=== PATIENT | female | born 1935 | race Caucasian/White ===

== ENCOUNTER 2016-11-08 16:08 | Emergency (ER) | payer MEDICARE, BC ==
[2016-11-08] MEDS ORDERED: SODIUM CHLORIDE 0.9% 1,000 ML IV STA (17:10)
[2016-11-08] MEDS ORDERED: LABETALOL 5 MG/ML VIAL MDV IVP STA ×2 (17:11→17:12)
[2016-11-08 17:29] LABS: Appearance,Urine Clear (Clear); Bilirubin,Urine Negative (Negative); Glucose,Urine (UA) Negative (Negative); Ketones,Urine Negative (Negative); Leukocyte Esterase,Urine Negative (Negative); Nitrite,Urine Negative (Negative); Protein,Urine Negative (Negative); Specific Gravity,Urine 1.008 (1.001-1.035); UA Billing (MACRO vs. MICRO) CHEM; Urobilinogen,Urine <2.0 mg/dL (<2.0)
--- NOTE | 2016-11-08 17:49 | ED ---
General Adult HPI - General Chief complaint: Recheck/Abnormal Lab/Rx Stated complaint: Blood Pressure Time Seen by Provider: 11/08/16 16:47 Source: patient, family, RN notes reviewed Mode of arrival: wheelchair Limitations: no limitations - History of Present Illness Initial comments: 81-year-old female presents to the emergency department with a chief complaint of hypertension. Patient was found to be hypertensive at home when she took her routine tests that she's been taking for her kidney doctor. Patient states that her blood pressure was 200/100. She called her doctor was informed to come to the emergency department. Patient states besides for some left side pain and some increased frequency of urination she hasn't really noticed any other complaints. Patient denies any fever chills cough cold runny nose. Patient denies any nausea vomiting. Patient states that she was concerned due to the increased urination along with a blood pressure so she thought that she should be evaluated. Patient has suffered from chronic kidney disease stage III denies why she is tracking her blood pressures at this time. Patient did take her blood pressure medication today. Patient denies any recent fever, chills, shortness of breath, chest pain, back pain, nausea vomiting, numbness or tingling, dysuria or hematuria, constipation or diarrhea, headaches or visual changes, or any other current symptoms. - Related Data Home Medications Medication Instructions Recorded Confirmed Levothyroxine Sodium [Synthroid] 50 mcg PO QAM 07/05/14 11/08/16 Losartan Potassium 50 mg PO BID 02/17/15 11/08/16 Famotidine [Pepcid] 20 mg PO BID PRN 10/28/15 11/08/16 Spironolactone [Aldactone] 12.5 mg PO QAM 10/28/15 11/08/16 Vitamin B Complex 1 cap PO DAILY 10/28/15 11/08/16 Acetaminophen Tab [Tylenol] 650 mg PO Q6HR PRN 03/26/16 11/08/16 Lactobacillus Acidophilus 1 tab PO DAILY 11/08/16 11/08/16 [Acidophilus] hydrALAZINE HCL [Apresoline] 50 mg PO BID@1200,2100 11/08/16 11/08/16 Allergies Allergy/AdvReac Type Severity Reaction Status Date / Time levofloxacin [From Levaquin] Allergy Nausea Verified 04/10/17 17:28 metronidazole [From Flagyl] Allergy Nausea Verified 11/08/16 17:28 nitrofurantoin Allergy Unknown Verified 11/08/16 17:28 [From Macrobid] nitrofurantoin Allergy Unknown Verified 11/08/16 17:28 macrocrystalline [From Macrobid] amiodarone HCl AdvReac Nausea Verified 11/08/16 17:28 [From Pacerone] Review of Systems ROS Statement: Those systems with pertinent positive or pertinent negative responses have been documented in the HPI. ROS Other: All systems not noted in ROS Statement are negative. Past Medical History Past Medical History: GI Bleed, Osteoarthritis (OA), Renal Disease, Syncope, Thyroid Disorder Additional Past Medical History / Comment(s): colitis, several syncopal events, Stage III kidney disease, See Dr De Leon H&P History of Any Multi-Drug Resistant Organisms: None Reported Past Surgical History: Appendectomy, Cholecystectomy, Hernia Repair, Hysterectomy, Orthopedic Surgery, Tonsillectomy Additional Past Surgical History / Comment(s): pericardial window surgery , L ankle ORIF, bilateral cataracts Past Anesthesia/Blood Transfusion Reactions: Previous Problems w/ Anesthesia Additional Past Anesthesia/Blood Transfusion Reaction / Comment(s): Pt received blood yrs ago without reaction. takes long time to wake up Past Psychological History: No Psychological Hx Reported Additional Psychological History / Comment(s): . Smoking Status: Never smoker Past Alcohol Use History: None Reported Past Drug Use History: None Reported - Past Family History Daughter(s) Additional Family Medical History / Comment(s): Patient has 2 daughters and 1 son with no major medical problems. Mother Family Medical History: Hypertension Additional Family Medical History / Comment(s): Mother at age 86 from a myocardial infarction. She had her kidney removed the patient does not know why. She also had history of hypertension. No known history of adrenal problems. Father Family Medical History: Cancer Additional Family Medical History / Comment(s): Father in his 70s from bladder cancer. Sister(s) Family Medical History: Cancer Additional Family Medical History / Comment(s): Patient has one sister with history of stomach cancer. Patient does not know any other history as she has no contact with her. General Exam - General Exam Comments Initial Comments: General: The patient is awake and alert, in no distress, and does not appear acutely ill. Eye: Pupils are equal, round and reactive to light, extra-ocular movements are intact; there is normal conjunctiva bilaterally. No signs of icterus. Ears, nose, mouth and throat: There are moist mucous membranes and no oral lesions. Neck: The neck is supple, there is no tenderness. Cardiovascular: There is a regular rate and rhythm. No murmur, rub or gallop is appreciated. Respiratory: Lungs are clear to auscultation, respirations are non-labored, breath sounds are equal. No wheezes, stridor, rales, or rhonchi. Gastrointestinal: Soft, non-distended, non-tender abdomen without masses or organomegaly noted. There is no rebound or guarding present. No CVA tenderness. Bowel sounds are unremarkable. Back: There is no tenderness to palpation in the midline. There is no obvious deformity. No rashes noted. Musculoskeletal: Normal ROM, no tenderness, There is no pedal edema. There is no calf tenderness or swelling. Sensation intact. Pulses equal bilaterally 2+. Neurological: CN II-XII intact, There are no obvious motor or sensory deficits. Coordination appears grossly intact. Speech is normal. Skin: Skin is warm and dry and no rashes or lesions are noted. Psychiatric: Cooperative, appropriate mood & affect, normal judgment. Limitations: no limitations Course Vital Signs 11/08/16 11/08/16 11/08/16 16:45 17:40 18:24 Temperature 97.3 F L Pulse Rate 88 Respiratory 16 Rate Blood Pressure 204/104 192/92 172/82 O2 Sat by Pulse 98 Oximetry 11/08/16 19:02 Temperature Pulse Rate Respiratory Rate Blood Pressure 172/72 O2 Sat by Pulse Oximetry - Reevaluation(s) Reevaluation #1: 11/08/16 19:18 Labetalol was given and patient's blood pressure did improve. Medical Decision Making - Medical Decision Making 81-year-old female presents for elevated blood pressure. Did complain of left side pain and increased frequency of urination urine does not appear to have a UTI and patient's CAT scan does not show any findings related to the pain. She does have chronic kidney disease which does appear to be stable. This time the patient will be discharged home. We discussed follow-up with her doctor. We discussed continuing to monitor blood pressure we discussed return parameters. Patient stated that she understood all questions have been answered. She'll be discharged. - Lab Data Result diagrams: 11/08/16 17:40 11/08/16 17:40 Lab Results 11/08/16 11/08/16 11/08/16 Range/Units 17:20 17:40 17:40 WBC 9.9 (3.8-10.6) k/uL RBC 4.02 (3.80-5.40) m/uL Hgb 13.0 (11.4-16.0) gm/dL Hct 39.5 (34.0-46.0) % MCV 98.4 (80.0-100.0) fL MCH 32.4 (25.0-35.0) pg MCHC 32.9 (31.0-37.0) g/dL RDW 12.9 (11.5-15.5) % Plt Count 264 (150-450) k/uL Neutrophils % 73 % Lymphocytes % 16 % Monocytes % 6 % Eosinophils % 2 % Basophils % 1 % Neutrophils # 7.2 (1.3-7.7) k/uL Lymphocytes # 1.6 (1.0-4.8) k/uL Monocytes # 0.6 (0-1.0) k/uL Eosinophils # 0.2 (0-0.7) k/uL Basophils # 0.1 (0-0.2) k/uL Sodium 134 L (137-145) mmol/L Potassium 4.5 (3.5-5.1) mmol/L Chloride 101 (98-107) mmol/L Carbon Dioxide 21 L (22-30) mmol/L Anion Gap 12 mmol/L BUN 37 H (7-17) mg/dL Creatinine 1.17 H (0.52-1.04) mg/dL Est GFR (MDRD) Af Amer 54 (>60 ml/min/1.73 sqM) Est GFR (MDRD) Non-Af 45 (>60 ml/min/1.73 sqM) Glucose 104 H (74-99) mg/dL Calcium 9.9 (8.4-10.2) mg/dL Total Bilirubin 0.7 (0.2-1.3) mg/dL AST 27 (14-36) U/L ALT 26 (9-52) U/L Alkaline Phosphatase 89 (38-126) U/L Total Protein 8.1 (6.3-8.2) g/dL Albumin 4.7 (3.5-5.0) g/dL Urine Color Yellow Urine Appearance Clear (Clear) Urine pH 5.0 (5.0-8.0) Ur Specific [place] 1.008 (1.001-1.035) Urine Protein Negative (Negative) Urine Glucose (UA) Negative (Negative) Urine Ketones Negative (Negative) Urine Blood Negative (Negative) Urine Nitrite Negative (Negative) Urine Bilirubin Negative (Negative) Urine Urobilinogen <2.0 (<2.0) mg/dL Ur Leukocyte Esterase Negative (Negative) Disposition Clinical Impression: Uncontrolled hypertension Disposition: HOME SELF-CARE Condition: Stable Instructions: Hypertension (ED) Additional Instructions: Please use medication as discussed. Please follow up with family doctor if symptoms have not improved over the next two days. Please return to the emergency room if your symptoms increase or worsen or for any other concerns. Referrals: Sami Swift MD [Primary Care Provider] - 1-2 days Time of Disposition: 19:18
[2016-11-08 17:59] LABS: Basophils # (A) 0.1 k/uL (0-0.2); Basophils % (A) 1 %; CH 32.6; CHCM 33.2; Eosinophils # (A) 0.2 k/uL (0-0.7); Eosinophils % (A) 2 %; HCT 39.5 % (34.0-46.0); HDW 2.31; Luc # (Auto) 0.19; Luc % (Auto) 2; Lymphocytes # (A) 1.6 k/uL (1.0-4.8); Lymphocytes % (A) 16 %; MCH 32.4 pg (25.0-35.0); MCHC 32.9 g/dL (31.0-37.0); MCV 98.4 fL (80.0-100.0); Mean Platelet Volume 7.6; Monocytes # (A) 0.6 k/uL (0-1.0); Monocytes % (A) 6 %; Neutrophils # (A) 7.2 k/uL (1.3-7.7); Neutrophils % (A) 73 %; RBC 4.02 m/uL (3.80-5.40); RDW 12.9 % (11.5-15.5); WBC 9.9 k/uL (3.8-10.6); WBC (Perox) 9.89
[2016-11-08 18:10] LABS: Calcium 9.9 mg/dL (8.4-10.2); Potassium 4.5 mmol/L (3.5-5.1); Total Bilirubin 0.7 mg/dL (0.2-1.3); Total Protein 8.1 g/dL (6.3-8.2)
--- NOTE | 2016-11-08 19:15 | CT ---
EXAMINATION TYPE: CT abdomen pelvis wo con DATE OF EXAM: 11/08/2016 6:52 PM HISTORY: Left flank pain. History of renal disease. CT DLP: 796.00 mGycm. Automated Exposure Control for Dose Reduction was Utilized. TECHNIQUE: CT scan of the abdomen and pelvis is performed without oral or IV contrast. COMPARISON: CT abdomen and pelvis July 05, 2014. FINDINGS: Within the limitations of a non-contrast study, the following observations are made. LUNG BASES: Cardiomegaly is redemonstrated. LIVER/GB: Cholecystectomy clips are again seen. PANCREAS: Stable mild generalized atrophy of pancreas is redemonstrated. SPLEEN: No significant abnormality is seen. ADRENALS: No significant abnormality is seen. KIDNEYS: Some cortical thinning in both kidneys is again seen. Mild perinephric fat stranding bilater ally is nonspecific but likely product or related to chronic medical renal disease. There is stable 9 mm exophytic hyperdense lesion felt to reflect proteinaceous cyst laterally upper pole level left ki dney on axial image 21. Subcentimeter low dense lesion laterally upper pole level right kidney on cor onal image 58 is too small to further characterize but stable and presumed benign. No renal stones or hydronephrosis evident bilaterally. No intraluminal calculus is seen in poorly distended bladder. BOWEL: Evaluation bowel is suboptimal secondary to lack of enteric contrast. Small hiatal hernia is r edemonstrated. There is no suspicious small or large bowel dilatation seen. There are diverticula see n in the sigmoid colon. No CT evidence for acute diverticulitis. Small bowel feces sign is seen consi stent with delayed passage of ingested material to colonic level. No suspicious dilatation is seen t o suggest obstruction. GENITAL ORGANS: Uterus is surgically absent or markedly atrophic in appearance. LYMPH NODES: No greater than 1cm abdominal or pelvic lymph nodes are appreciated. OSSEOUS STRUCTURES: There is vacuum disc phenomenon with mild disc space narrowing L3-L4 and L4-L5 le vels. Moderate disc space narrowing L5-S1 level is seen. There is facet arthropathy lower lumbar leve ls noted. OTHER: There is mild to moderate calcified atherosclerotic change of aorta and branch vessels. IMPRESSION: No renal stones or hydronephrosis is seen bilaterally. Evidence of chronic medical renal disease bilaterally. No significant acute finding is seen to account for patient's symptoms.
[2016-11-08 19:28] VITALS: BP 170/70; PULSE 77; RESP 18; TEMP 97.2
== END 2016-11-08 19:29 | disposition home or self-care (01) ==
LOC: EC 16:08
DX: I12.9 Hypertensive chronic kidney disease with stage 1 through stage 4 chronic kidney disease, or unspecified chronic kidney disease (principal); N18.3 Chronic kidney disease, stage 3 (moderate); E07.9 Disorder of thyroid, unspecified; Z79.899 Other long term (current) drug therapy; Z88.1 Allergy status to other antibiotic agents; Z88.8 Allergy status to other drugs, medicaments and biological substances; Z90.710 Acquired absence of both cervix and uterus
CPT/HCPCS: 36415; 74176; 80053; 81003; 85025; 87086; 96361; 96374; 99284

== ENCOUNTER 2016-11-20 09:24 | Emergency (ER) | payer MEDICARE, BC ==
[2016-11-20] MEDS ORDERED: SODIUM CHLORIDE 0.9% 1,000 ML IV STA (09:42)
--- NOTE | 2016-11-20 09:47 | ED ---
General Adult HPI - General Chief complaint: Syncope Stated complaint: Weakness Time Seen by Provider: 11/20/16 09:35 Source: patient, RN notes reviewed Mode of arrival: EMS Limitations: no limitations - History of Present Illness Initial comments: Patient 81-year-old female who presents emergency room today by EMS, with chief complaint of near-syncope. Patient does admit that she got up this morning had her breakfast. She states she had a on movement. She states she had some cramping when she was in the bathroom. She states she got up and she felt "hot ". She states she was walking down the [place] told her son and she states she remembers going to sit down in the recliner. She states That next thing she remembers is waking up and EMS was there. Further information provided by EMS per her son stating that she began to fall down he lowered her to the ground. States she never fully lost consciousness. Patient does admit that she's had similar symptoms in the past to this after bowel movements. She states this is the fourth time this has happened. Patient does admit to some abdominal cramping at this time. She currently denies any other complaints. Patient denies any recent fever, chills, shortness of breath, chest pain, back pain, nausea or vomiting, numbness or tingling, dysuria or hematuria, constipation or diarrhea, headaches or visual changes, or any other complaints. - Related Data Home Medications Medication Instructions Recorded Confirmed Levothyroxine Sodium [Synthroid] 50 mcg PO QAM 07/05/14 11/08/16 Losartan Potassium 50 mg PO BID 02/17/15 11/08/16 Famotidine [Pepcid] 20 mg PO BID PRN 10/28/15 11/08/16 Spironolactone [Aldactone] 12.5 mg PO QAM 10/28/15 11/08/16 Vitamin B Complex 1 cap PO DAILY 10/28/15 11/08/16 Acetaminophen Tab [Tylenol] 650 mg PO Q6HR PRN 03/26/16 11/08/16 Lactobacillus Acidophilus 1 tab PO DAILY 11/08/16 11/08/16 [Acidophilus] hydrALAZINE HCL [Apresoline] 50 mg PO BID@1200,2100 11/08/16 11/08/16 Allergies Allergy/AdvReac Type Severity Reaction Status Date / Time levofloxacin [From Levaquin] Allergy Nausea Verified 11/20/16 09:41 metronidazole [From Flagyl] Allergy Nausea Verified 11/20/16 09:41 nitrofurantoin Allergy Unknown Verified 11/20/16 09:41 [From Macrobid] nitrofurantoin Allergy Unknown Verified 11/20/16 09:41 macrocrystalline [From Macrobid] amiodarone HCl AdvReac Nausea Verified 11/20/16 09:41 [From Pacerone] Review of Systems ROS Statement: Those systems with pertinent positive or pertinent negative responses have been documented in the HPI. ROS Other: All systems not noted in ROS Statement are negative. Past Medical History Past Medical History: GI Bleed, Osteoarthritis (OA), Renal Disease, Syncope, Thyroid Disorder Additional Past Medical History / Comment(s): colitis, several syncopal events, Stage III kidney disease, See Dr De Leon H&P History of Any Multi-Drug Resistant Organisms: None Reported Past Surgical History: Appendectomy, Cholecystectomy, Hernia Repair, Hysterectomy, Orthopedic Surgery, Tonsillectomy Additional Past Surgical History / Comment(s): pericardial window surgery , L ankle ORIF, bilateral cataracts Past Anesthesia/Blood Transfusion Reactions: Previous Problems w/ Anesthesia Additional Past Anesthesia/Blood Transfusion Reaction / Comment(s): Pt received blood yrs ago without reaction. takes long time to wake up Past Psychological History: No Psychological Hx Reported Additional Psychological History / Comment(s): . Smoking Status: Never smoker Past Alcohol Use History: None Reported Past Drug Use History: None Reported - Past Family History Daughter(s) Additional Family Medical History / Comment(s): Patient has 2 daughters and 1 son with no major medical problems. Mother Family Medical History: Hypertension Additional Family Medical History / Comment(s): Mother at age 86 from a myocardial infarction. She had her kidney removed the patient does not know why. She also had history of hypertension. No known history of adrenal problems. Father Family Medical History: Cancer Additional Family Medical History / Comment(s): Father in his 70s from bladder cancer. Sister(s) Family Medical History: Cancer Additional Family Medical History / Comment(s): Patient has one sister with history of stomach cancer. Patient does not know any other history as she has no contact with her. General Exam - General Exam Comments Initial Comments: General: The patient is awake and alert, in no distress, and does not appear acutely ill. Eye: Pupils are equal, round and reactive to light, extra-ocular movements are intact. No nystagmus. There is normal conjunctiva bilaterally. No signs of icterus. Ears, nose, mouth and throat: There are moist mucous membranes and no oral lesions. Neck: The neck is supple, there is no tenderness or JVD. Cardiovascular: There is a regular rate and rhythm. No murmur, rub or gallop is appreciated. Respiratory: Lungs are clear to auscultation, respirations are non-labored, breath sounds are equal. No wheezes, stridor, rales, or rhonchi. Gastrointestinal: Soft, non-distended, non-tender abdomen without masses or organomegaly noted. There is no rebound or guarding present. No CVA tenderness. Bowel sounds are unremarkable. Musculoskeletal: Normal ROM, no tenderness. Strength 5/5. Sensation intact. Pulses equal bilaterally 2+. Neurological: A&O x 3. CN II-XII intact, There are no obvious motor or sensory deficits. Coordination appears grossly intact. Speech is normal. Skin: Skin is warm and dry and no rashes or lesions are noted. Psychiatric: Cooperative, appropriate mood & affect, normal judgment. Limitations: no limitations Course Vital Signs 11/20/16 11/20/16 11/20/16 09:29 09:50 11:52 Temperature 97.4 F L Pulse Rate 88 83 82 Respiratory 16 16 18 Rate Blood Pressure 168/77 159/88 O2 Sat by Pulse 100 99 98 Oximetry EKG Findings - EKG Comments: EKG Findings:: EKG performed at 0953: A 12-lead EKG was performed and interpreted by me as showing the following: Rate is 87, and rhythm is normal sinus. There are normal QRS complexes and normal R-wave progression. ST segments have no elevation or depression, and GA segments appear normal. Medical Decision Making - Medical Decision Making Case discussed in detail with attending physician . Patient labs reviewed are unremarkable. Patient reexamined at this time shows no signs of distress. Patient does mention feeling much better here in the emergency room. Patient denies any complaints at this time. She does admit that she had similar symptoms in the past when she's got up off the toilet and felt "hot". Patient will be discharged home advised follow-up family doctor in the next 2 days. Advised return to emergency room if any symptoms increase or worsen or for any other concerns. - Lab Data Result diagrams: 11/20/16 09:48 11/20/16 09:48 Lab Results 11/20/16 11/20/16 11/20/16 Range/Units 09:48 09:48 09:48 WBC 9.0 (3.8-10.6) k/uL RBC 4.03 (3.80-5.40) m/uL Hgb 13.0 (11.4-16.0) gm/dL Hct 40.1 (34.0-46.0) % MCV 99.5 (80.0-100.0) fL MCH 32.3 (25.0-35.0) pg MCHC 32.4 (31.0-37.0) g/dL RDW 12.8 (11.5-15.5) % Plt Count 289 (150-450) k/uL Neutrophils % 76 % Lymphocytes % 14 % Monocytes % 6 % Eosinophils % 2 % Basophils % 1 % Neutrophils # 6.8 (1.3-7.7) k/uL Lymphocytes # 1.3 (1.0-4.8) k/uL Monocytes # 0.5 (0-1.0) k/uL Eosinophils # 0.2 (0-0.7) k/uL Basophils # 0.1 (0-0.2) k/uL PT (9.0-12.0) sec INR (<1.1) APTT (22.0-30.0) sec Sodium 136 L (137-145) mmol/L Potassium 4.9 (3.5-5.1) mmol/L Chloride 100 (98-107) mmol/L Carbon Dioxide 27 (22-30) mmol/L Anion Gap 9 mmol/L BUN 34 H (7-17) mg/dL Creatinine 1.39 H (0.52-1.04) mg/dL Est GFR (MDRD) Af Amer 44 (>60 ml/min/1.73 sqM) Est GFR (MDRD) Non-Af 37 (>60 ml/min/1.73 sqM) Glucose 151 H (74-99) mg/dL Calcium 9.5 (8.4-10.2) mg/dL Total Bilirubin 0.6 (0.2-1.3) mg/dL AST 23 (14-36) U/L ALT 28 (9-52) U/L Alkaline Phosphatase 78 (38-126) U/L Total Creatine Kinase 100 (30-135) U/L CK-MB (CK-2) 1.9 (0.0-2.4) ng/mL CK-MB (CK-2) Rel Index 1.9 Troponin I <0.012 (0.000-0.034) ng/mL Total Protein 7.5 (6.3-8.2) g/dL Albumin 4.2 (3.5-5.0) g/dL Lipase 114 (23-300) U/L Urine Color Urine Appearance (Clear) Urine pH (5.0-8.0) Ur Specific [place] (1.001-1.035) Urine Protein (Negative) Urine Glucose (UA) (Negative) Urine Ketones (Negative) Urine Blood (Negative) Urine Nitrite (Negative) Urine Bilirubin (Negative) Urine Urobilinogen (<2.0) mg/dL Ur Leukocyte Esterase (Negative) Urine RBC (0-5) /hpf Urine WBC (0-5) /hpf Ur Squamous Epith Cells (0-4) /hpf Amorphous Sediment (None) /hpf Urine Bacteria (None) /hpf Urine Mucus (None) /hpf 11/20/16 11/20/16 Range/Units 09:48 11:25 WBC (3.8-10.6) k/uL RBC (3.80-5.40) m/uL Hgb (11.4-16.0) gm/dL Hct (34.0-46.0) % MCV (80.0-100.0) fL MCH (25.0-35.0) pg MCHC (31.0-37.0) g/dL RDW (11.5-15.5) % Plt Count (150-450) k/uL Neutrophils % % Lymphocytes % % Monocytes % % Eosinophils % % Basophils % % Neutrophils # (1.3-7.7) k/uL Lymphocytes # (1.0-4.8) k/uL Monocytes # (0-1.0) k/uL Eosinophils # (0-0.7) k/uL Basophils # (0-0.2) k/uL PT 10.4 (9.0-12.0) sec INR 1.0 (<1.1) APTT 24.2 (22.0-30.0) sec Sodium (137-145) mmol/L Potassium (3.5-5.1) mmol/L Chloride (98-107) mmol/L Carbon Dioxide (22-30) mmol/L Anion Gap mmol/L BUN (7-17) mg/dL Creatinine (0.52-1.04) mg/dL Est GFR (MDRD) Af Amer (>60 ml/min/1.73 sqM) Est GFR (MDRD) Non-Af (>60 ml/min/1.73 sqM) Glucose (74-99) mg/dL Calcium (8.4-10.2) mg/dL Total Bilirubin (0.2-1.3) mg/dL AST (14-36) U/L ALT (9-52) U/L Alkaline Phosphatase (38-126) U/L Total Creatine Kinase (30-135) U/L CK-MB (CK-2) (0.0-2.4) ng/mL CK-MB (CK-2) Rel Index Troponin I (0.000-0.034) ng/mL Total Protein (6.3-8.2) g/dL Albumin (3.5-5.0) g/dL Lipase (23-300) U/L Urine Color Dark Yellow Urine Appearance Cloudy H (Clear) Urine pH 5.0 (5.0-8.0) Ur Specific [place] 1.017 (1.001-1.035) Urine Protein Trace H (Negative) Urine Glucose (UA) Negative (Negative) Urine Ketones Negative (Negative) Urine Blood Trace H (Negative) Urine Nitrite Negative (Negative) Urine Bilirubin Negative (Negative) Urine Urobilinogen <2.0 (<2.0) mg/dL Ur Leukocyte Esterase Moderate H (Negative) Urine RBC 4 (0-5) /hpf Urine WBC 7 H (0-5) /hpf Ur Squamous Epith Cells 2 (0-4) /hpf Amorphous Sediment Moderate H (None) /hpf Urine Bacteria Rare H (None) /hpf Urine Mucus Rare H (None) /hpf Disposition Clinical Impression: Near syncope Disposition: HOME SELF-CARE Condition: Good Instructions: Near Syncope (ED) Additional Instructions: Please follow-up the family doctor in the next 2 days. Please return to emergency room if any symptoms increase or worsen or for any other concerns. Time of Disposition: 12:11
[2016-11-20 10:04] LABS: Basophils # (A) 0.1 k/uL (0-0.2); Basophils % (A) 1 %; CH 32.7; Eosinophils # (A) 0.2 k/uL (0-0.7); Eosinophils % (A) 2 %; HCT 40.1 % (34.0-46.0); Luc # (Auto) 0.18; Luc % (Auto) 2; Lymphocytes # (A) 1.3 k/uL (1.0-4.8); Lymphocytes % (A) 14 %; MCH 32.3 pg (25.0-35.0); MCHC 32.4 g/dL (31.0-37.0); MCV 99.5 fL (80.0-100.0); Mean Platelet Volume 7.9; Monocytes # (A) 0.5 k/uL (0-1.0); Monocytes % (A) 6 %; Neutrophils # (A) 6.8 k/uL (1.3-7.7); Neutrophils % (A) 76 %; RBC 4.03 m/uL (3.80-5.40); RDW 12.8 % (11.5-15.5); WBC (Perox) 8.95
[2016-11-20 10:13] LABS: Calcium 9.5 mg/dL (8.4-10.2); Potassium 4.9 mmol/L (3.5-5.1); Total Bilirubin 0.6 mg/dL (0.2-1.3); Total Protein 7.5 g/dL (6.3-8.2)
[2016-11-20 10:32] LABS: Prothrombin Time 10.4 sec (9.0-12.0)
[2016-11-20 10:33] LABS: Partial Thromboplastin Time 24.2 sec (22.0-30.0)
[2016-11-20 10:35] LABS: Creatine Kinase 100 U/L (30-135)
--- NOTE | 2016-11-20 10:40 | XR ---
EXAMINATION TYPE: XR KUB DATE OF EXAM: 11/20/2016 10:34 AM COMPARISON: NONE INDICATION: Pain TECHNIQUE: Single view abdomen upright view FINDINGS: There is a normal bowel gas pattern. Psoas margins are normal. No organomegaly is present. Cholecystectomy clips are present. IMPRESSION: 1. Unremarkable Abdomen
--- NOTE | 2016-11-20 10:41 | XR ---
EXAMINATION TYPE: XR chest 2V DATE OF EXAM: 11/20/2016 10:34 AM COMPARISON: 10/28/2015 INDICATION: Syncope TECHNIQUE: Single frontal view of the chest is obtained. FINDINGS: The heart size is normal. The pulmonary vasculature is normal. The lungs are clear. IMPRESSION: 1. No acute pulmonary process.
[2016-11-20 10:46] LABS: Creatine Kinase MB 1.9 ng/mL (0.0-2.4); Troponin I <0.012 ng/mL (0.000-0.034)
[2016-11-20 11:53] VITALS: RESP 18
[2016-11-20 12:02] LABS: Amorphous Sediment,Urine Moderate /hpf; Appearance,Urine Cloudy (Clear); Bacteria,Urine Rare /hpf; Bilirubin,Urine Negative (Negative); Glucose,Urine (UA) Negative (Negative); Ketones,Urine Negative (Negative); Leukocyte Esterase,Urine Moderate (Negative); Mucus,Urine Rare /hpf; Nitrite,Urine Negative (Negative); Particle Count 56146; Protein,Urine Trace (Negative); RBC,Urine 4 /hpf (0-5); Specific Gravity,Urine 1.017 (1.001-1.035); Squamous Epithelial Cell,Urine 2 /hpf (0-4); UA Billing (MACRO vs. MICRO) MICRO; Urobilinogen,Urine <2.0 mg/dL (<2.0); WBC,Urine 7 /hpf (0-5)
[2016-11-20 12:46] VITALS: BP 182/79; PULSE 95; TEMP 97.2
== END 2016-11-20 12:45 | disposition home or self-care (01) ==
LOC: EC 09:24
DX: R55 Syncope and collapse (principal); R53.1 Weakness; R10.9 Unspecified abdominal pain; E07.9 Disorder of thyroid, unspecified; Z79.899 Other long term (current) drug therapy; Z88.1 Allergy status to other antibiotic agents; Z88.8 Allergy status to other drugs, medicaments and biological substances; Z90.49 Acquired absence of other specified parts of digestive tract; Z90.710 Acquired absence of both cervix and uterus
CPT/HCPCS: 36415; 71020; 74000; 80053; 81001; 82550; 82553; 83690; 84484; 85025; 85610; 85730; 93005; 96360; 96361; 99285

== ENCOUNTER → 2017-04-05 | Outpatient (CLI) | payer MEDICARE, BC ==
--- NOTE | 2017-04-06 14:42 | MM ---
Reason for exam: screening (asymptomatic). Last mammogram was performed 1 year ago. History: Patient is postmenopausal. Physical Findings: A clinical breast exam by your physician is recommended on an annual basis and results should be correlated with mammographic findings. MG Screening Mammo w CAD Bilateral CC and MLO view(s) were taken. Prior study comparison: March 22, 2016, bilateral MG screening mammo w CAD. October 02, 2015, right breast MG 3d diag mammo w/cad RT. The breast tissue is heterogeneously dense. This may lower the sensitivity of mammography. Finding: There is a 21 mm partially obscured round mass located 3 cm from the nipple in the 12-3 o'clock middle position of the right breast consistent with probable cyst. New finding since March 22, 2016 and October 02, 2015. ASSESSMENT: Incomplete: need additional imaging evaluation, BI-RAD 0 RECOMMENDATION: Ultrasound of the left breast. [facility] will attempt to contact patient to return for ultrasound.
== END | disposition home or self-care (01) ==
LOC: RADMAMWWP 14:41
PROVIDERS: ATTEND Family Medicine
DX: Z12.31 Encounter for screening mammogram for malignant neoplasm of breast (principal)

== ENCOUNTER → 2017-04-12 | Outpatient (CLI) | payer MEDICARE, BC ==
--- NOTE | 2017-04-13 08:26 | USB ---
Reason for exam: clinical finding. History: Patient is postmenopausal. Indicated problem(s): palpable abnormality in the left breast. Physical Findings: Nurse Summary: 2cm movable nodule (nurse dw). US Breast Workup Limited LT Left breast ultrasound demonstrates a 2.0 x 1.2 x 1.8cm oval, cystic lesion at 2 o'clock palpable and a 0.7 x 0.4 x 0.5cm oval, mixed, hypoechoic lesion at 2 o'clock, suspect debris filled cyst. These results were verbally communicated with the patient and result sheet given to the patient on 04/12/17. ASSESSMENT: Probably benign, BI-RAD 3 RECOMMENDATION: Follow-up diagnostic mammogram and ultrasound of the left breast in 6 months.
== END | disposition home or self-care (01) ==
LOC: RADUSWWP 13:22
PROVIDERS: ATTEND Family Medicine
DX: R92.8 Other abnormal and inconclusive findings on diagnostic imaging of breast (principal)

== ENCOUNTER → 2017-09-02 | Outpatient (CLI) | payer MEDICARE, BC ==
--- NOTE | 2017-09-02 10:47 | USB ---
Reason for exam: clinical finding. History: Patient is postmenopausal. Physical Findings: Nurse Summary: pain at palpable (nurse kp). US Breast LT Left breast ultrasound includes all four quadrants, the retroareolar region and axilla. Finding demonstrates a 9 x 5 x 9mm oval, mixed, hypoechoic lesion at 2 o'clock, smaller than prior suggests involuting cyst, a 6 x 3 x 9mm solid, hypoechoic lesion at 2 o'clock, smaller than prior and a 4 x 3 x 4mm lobular, mixed lesion at 6 o'clock, questionable cystic cluster, 6 month follow up recommended. These results were verbally communicated with the patient and result sheet given to the patient on 09/02/17. ASSESSMENT: Probably benign, BI-RAD 3 RECOMMENDATION: Follow-up diagnostic mammogram of the left breast in 2 months. Ultrasound of the left breast in 6 months. Manage on a clinical basis with regard to left breast pain.
== END | disposition home or self-care (01) ==
LOC: RADUSWWP 09:50
PROVIDERS: ATTEND Family Medicine
DX: N60.02 Solitary cyst of left breast (principal)

== ENCOUNTER → 2017-11-01 | Outpatient (CLI) | payer MEDICARE, BC ==
--- NOTE | 2017-11-01 11:55 | MM ---
Reason for exam: follow-up at short interval from prior study. Last mammogram was performed 7 months ago. History: Patient is postmenopausal. Physical Findings: Nurse did not find any significant physical abnormalities on exam. MG 3D Diag Mammo W/Cad LT CC and MLO view(s) were taken of the left breast. Prior study comparison: April 05, 2017, bilateral MG screening mammo w CAD. March 22, 2016, bilateral MG screening mammo w CAD. The breast tissue is heterogeneously dense. This may lower the sensitivity of mammography. The previously seen 2.0cm mass at the 2 o'clock position is less conspicuous than on the prior. These results were verbally communicated with the patient and result sheet given to the patient on 11/01/17. ASSESSMENT: Probably benign, BI-RAD 3 RECOMMENDATION: Follow-up diagnostic mammogram of both breasts in 6 months. Ultrasound of the left breast in 6 months.
== END | disposition home or self-care (01) ==
LOC: RADMAMWWP 09:56
PROVIDERS: ATTEND Family Medicine
DX: N63.20 Unspecified lump in the left breast, unspecified quadrant (principal)
CPT/HCPCS: 77065; G0279

== ENCOUNTER → 2018-05-10 | Outpatient (CLI) | payer MEDICARE, BC ==
--- NOTE | 2018-05-10 12:57 | US ---
EXAMINATION TYPE: US kidneys/renal and bladder DATE OF EXAM: 05/10/2018 COMPARISON: CT 2016, US 2014 CLINICAL HISTORY: N18.3 chronic kidney disease stage 3. CKD stage 3 EXAM MEASUREMENTS: Right Kidney: 9.3 x 4.2 x 4.3 cm Left Kidney: 9.2 x 4.6 x 5.0 cm Right Kidney: 1.4 x 0.9 x 1.3cm hyperechoic area lateral superior pole (1.2 x 1.1 x 1.2 cm previousl y) Left Kidney: 0.9 x 0.8 x 0.8cm exophytic cystic area mid superior pole (1.0 x 0.8 x 0.6 cm previousl y) Bladder: wnl Bilateral Jets seen: no There is no evidence for hydronephrosis at this point in time. No nephrolithiasis is seen. The urin malachi bladder is anechoic. IMPRESSION: Similar size of the bilateral renal lesions in comparison to the exam of 2015. Findings of medical re nal disease.
== END | disposition home or self-care (01) ==
LOC: RADUSWWP 11:59
PROVIDERS: ATTEND Internal Medicine Nephrology
DX: N28.9 Disorder of kidney and ureter, unspecified (principal); N18.3 Chronic kidney disease, stage 3 (moderate)
CPT/HCPCS: 76770

== ENCOUNTER → 2018-06-21 | Outpatient (CLI) | payer MEDICARE, BC ==
--- NOTE | 2018-06-26 08:58 | MM ---
Reason for exam: additional evaluation requested from prior study. Last mammogram was performed 8 months ago. History: Patient is postmenopausal. Physical Findings: Nurse Summary: 1cm nodule in the left breast at 12 o'clock and 2 o'clock (nurse charlette). MG 3D Diag Mammo W/Cad ANTON Bilateral CC and MLO view(s) were taken. Prior study comparison: November 01, 2017, left breast MG 3d diag mammo w/cad LT. April 05, 2017, bilateral MG screening mammo w CAD. Nodular asymmetry posterior central right breast is more defined. On additional views, a 6-7mm circumscribed nodule is seen. It remails centrally positioned on true lateral. Two palpable markers 12 o'clock and 2 o'clock left breast. These results were verbally communicated with the patient and result sheet given to the patient on 06/21/18. ASSESSMENT: Incomplete: need additional imaging evaluation, BI-RAD 0 RECOMMENDATION: Ultrasound of both breasts. (right periareolar and left as ordered)
--- NOTE | 2018-06-26 09:05 | USB ---
Reason for exam: additional evaluation requested from abnormal screening. History: Patient is postmenopausal. US Breast Limited BILAT Right limited breast ultrasound including focal area of concern, retroareolar and axilla demonstrates a 0.8 x 0.7 x 0.3cm oval, cystic lesion at 12 o'clock, a 0.9 x 0.5 x 0.4cm oval, hypoechoic, vascular lesion at 4 o'clock for which a 6 month follow up is recommended biopsy of suspicious changes at that time, a 0.3 x 0.2 x 0.2cm oval lesion too small to characterize at 5 o'clock, a 0.4 x 0.4 x 0.4cm round, cystic lesion at 7 o'clock and a 0.9 x 0.3 x 0.4cm oval, cystic cluster at 9 o'clock. Right breast scanned periareolar. Left complete breast ultrasound includes all four quadrants, the retroareolar region and axilla. Finding demonstrates a 0.3 x 0.3 x 0.2cm oval, cystic lesion at 1 o'clock, a 0.6 x 0.6 x 0.5cm oval, irregular, mixed lesion at 2 o'clock versus 9 x 5 x 9mm, smaller, 6 month follow up recommended, duct ectasia at 4 o'clock, 5 o'clock and 10 o'clock, a 0.4 x 0.4 x 0.3cm oval, mixed, vascular lesion at 6 o'clock, stable for 6 months, 6 month follow up recommended and a 0.8 x 1.1 x 0.3cm oval, elongated, cystic, benign lesion at 11 o'clock BB. These results were verbally communicated with the patient and result sheet given to the patient on 06/21/18. ASSESSMENT: Probably benign, BI-RAD 3 RECOMMENDATION: Ultrasound of both breasts in 6 months.
== END | disposition home or self-care (01) ==
LOC: RADMAMWWP 14:07
PROVIDERS: ATTEND Family Medicine
DX: R92.8 Other abnormal and inconclusive findings on diagnostic imaging of breast (principal)
CPT/HCPCS: 77066; 76642; G0279; 77062

== ENCOUNTER 2018-08-15 09:23 | Inpatient (IN) | payer MEDICARE, BC ==
[2018-08-15] MEDS ORDERED: ONDANSETRON 4 MG/2 ML VIAL IVP STA (09:59)
[2018-08-15] MEDS ORDERED: SODIUM CHLORIDE 0.9% 500 ML 500 ML IV STA (09:59)
--- NOTE | 2018-08-15 10:05 | ED ---
General Adult HPI - General Chief complaint: Nausea/Vomiting/Diarrhea Stated complaint: SOB, nausea Source: patient Mode of arrival: wheelchair Limitations: no limitations - Related Data Home Medications Medication Instructions Recorded Confirmed Levothyroxine Sodium [Synthroid] 50 mcg PO QAM 07/05/14 08/15/18 Losartan Potassium 50 mg PO BID 02/17/15 08/15/18 Famotidine [Pepcid] 20 mg PO BID 10/28/15 08/15/18 Spironolactone [Aldactone] 25 mg PO QAM 10/28/15 08/15/18 Vitamin B Complex 1 cap PO DAILY 10/28/15 08/15/18 hydrALAZINE HCL [Apresoline] 50 mg PO TID 11/20/16 08/15/18 Allergies Allergy/AdvReac Type Severity Reaction Status Date / Time levofloxacin [From Levaquin] Allergy Unknown Verified 08/15/18 10:06 metronidazole [From Flagyl] Allergy Swelling Verified 08/15/18 10:06 nitrofurantoin Allergy Unknown Verified 08/15/18 10:06 [From Macrobid] nitrofurantoin Allergy Unknown Verified 08/15/18 10:06 macrocrystalline [From Macrobid] amiodarone HCl AdvReac Nausea Verified 08/15/18 10:06 [From Pacerone] Review of Systems ROS Statement: Those systems with pertinent positive or pertinent negative responses have been documented in the HPI. ROS Other: All systems not noted in ROS Statement are negative. Past Medical History Past Medical History: GI Bleed, Osteoarthritis (OA), Renal Disease, Syncope, Thyroid Disorder Additional Past Medical History / Comment(s): colitis, several syncopal events, Stage III kidney disease, See Dr De Leon H&P History of Any Multi-Drug Resistant Organisms: None Reported Past Surgical History: Appendectomy, Cholecystectomy, Hernia Repair, Hysterectomy, Orthopedic Surgery, Tonsillectomy Additional Past Surgical History / Comment(s): pericardial window surgery , L ankle ORIF, bilateral cataracts Past Anesthesia/Blood Transfusion Reactions: Previous Problems w/ Anesthesia Additional Past Anesthesia/Blood Transfusion Reaction / Comment(s): Pt received blood yrs ago without reaction. takes long time to wake up Past Psychological History: No Psychological Hx Reported Smoking Status: Never smoker Past Alcohol Use History: None Reported Past Drug Use History: None Reported - Past Family History Daughter(s) Additional Family Medical History / Comment(s): Patient has 2 daughters and 1 son with no major medical problems. Mother Family Medical History: Hypertension Additional Family Medical History / Comment(s): Mother at age 86 from a myocardial infarction. She had her kidney removed the patient does not know why. She also had history of hypertension. No known history of adrenal problems. Father Family Medical History: Cancer Additional Family Medical History / Comment(s): Father in his 70s from bladder cancer. Sister(s) Family Medical History: Cancer Additional Family Medical History / Comment(s): Patient has one sister with history of stomach cancer. Patient does not know any other history as she has no contact with her. General Exam Limitations: no limitations Course Vital Signs 08/15/18 08/15/18 08/15/18 09:26 12:58 13:00 Temperature 97.4 F L Pulse Rate 82 80 Respiratory 18 16 Rate Blood Pressure 144/74 137/62 O2 Sat by Pulse 99 98 99 Oximetry Medical Decision Making - Medical Decision Making Dictation was produced using [employer] dictation software. please excuse any grammatical, word or spelling errors. Chief Complaint: 83-year-old female with past medical history of GI bleed, kidney disease, thyroid disease presents with chief complaint of nausea vomiting History of Present Illness: Patient is a 83-year-old female multiple comorbidities presents chief complaint of nausea, vomiting. Patient also feels short of breath. Patient has been having symptoms for 2 weeks. She decided come today because she feels like her symptoms are persistent. Patient has no other complaints at this time. Patient has no pain complains. The ROS documented in this emergency department record has been reviewed and confirmed by me. Those systems with pertinent positive or negative responses have been documented in the HPI. All other systems are other negative and/or noncontributory. PHYSICAL EXAM: General Impression: Alert and oriented x3, not in acute distress HEENT: Normocephalic atraumatic, extra-ocular movements intact, pupils equal and reactive to light bilaterally, mucous membranes moist. Cardiovascular: Heart regular rate and rhythm, S1&S2 audible, no murmurs, rubs or gallops Chest: Lungs clear to auscultation bilaterally, no rhonchi, no wheeze, no rales Abdomen: Bowel sounds present, abdomen soft, non-tender, non-distended, no organomegaly Musculoskeletal: Pulses present and equal in all extremities, no peripheral edema Motor: Power 5/5 bilaterally, no focal deficits noted Neurological: CN II-XII grossly intact, no focal motor or sensory deficits noted Skin: Intact with no visualized rashes Psych: Normal affect and mood ED course: 83-year-old female presents chief complaint nausea vomiting. Vital signs upon arrival shows no acute processes. Laboratory evaluation obtained. CBC unremarkable. Metabolic panel shows potassium 5.9., 21. There is no. Creatinine was 3.02 and BUN is 64 which is doubled since her most recent visit. Urinalysis shows 46 red blood cells and 8 white blood cells. Patient given intravenous fluids. Patient be admitted to internal medicine who requested renal ultrasound and consultation to nephrology. Hyperkalemia cocktail. She is given intravenous fluids. EKG interpretation: Ventricular rate 79, normal sinus rhythm, MT interval 190, QRS 92, QTC 420. No MT prolongation, no QTC prolongation, no ST or T-wave changes noted. Overall, this EKG is unremarkable - Lab Data Result diagrams: 08/15/18 10:34 08/15/18 10:34 Lab Results 08/15/18 08/15/18 08/15/18 Range/Units 10:34 10:34 12:55 WBC 9.3 (3.8-10.6) k/uL RBC 3.17 L (3.80-5.40) m/uL Hgb 10.4 L (11.4-16.0) gm/dL Hct 30.2 L (34.0-46.0) % MCV 95.1 (80.0-100.0) fL MCH 32.9 (25.0-35.0) pg MCHC 34.6 (31.0-37.0) g/dL RDW 13.2 (11.5-15.5) % Plt Count 327 (150-450) k/uL Neutrophils % 85 % Lymphocytes % 8 % Monocytes % 5 % Eosinophils % 1 % Basophils % 0 % Neutrophils # 7.8 H (1.3-7.7) k/uL Lymphocytes # 0.7 L (1.0-4.8) k/uL Monocytes # 0.5 (0-1.0) k/uL Eosinophils # 0.1 (0-0.7) k/uL Basophils # 0.0 (0-0.2) k/uL Sodium 134 L (137-145) mmol/L Potassium 5.9 H (3.5-5.1) mmol/L Chloride 103 (98-107) mmol/L Carbon Dioxide 21 L (22-30) mmol/L Anion Gap 10 mmol/L BUN 64 H (7-17) mg/dL Creatinine 3.02 H (0.52-1.04) mg/dL Est GFR (CKD-EPI)AfAm 16 (>60 ml/min/1.73 sqM) Est GFR (CKD-EPI)NonAf 14 (>60 ml/min/1.73 sqM) Glucose 112 H (74-99) mg/dL Calcium 9.5 (8.4-10.2) mg/dL Total Bilirubin 0.4 (0.2-1.3) mg/dL AST 22 (14-36) U/L ALT 26 (9-52) U/L Alkaline Phosphatase 74 (38-126) U/L Total Protein 6.5 (6.3-8.2) g/dL Albumin 3.9 (3.5-5.0) g/dL Urine Color Yellow Urine Appearance Clear (Clear) Urine pH 5.0 (5.0-8.0) Ur Specific [place] 1.010 (1.001-1.035) Urine Protein 1+ H (Negative) Urine Glucose (UA) Negative (Negative) Urine Ketones Negative (Negative) Urine Blood Moderate H (Negative) Urine Nitrite Negative (Negative) Urine Bilirubin Negative (Negative) Urine Urobilinogen <2.0 (<2.0) mg/dL Ur Leukocyte Esterase Trace H (Negative) Urine RBC 46 H (0-5) /hpf Urine WBC 8 H (0-5) /hpf Ur Squamous Epith Cells 1 (0-4) /hpf Urine Bacteria Rare H (None) /hpf Disposition Clinical Impression: EFE (acute kidney injury) Disposition: ADMITTED IP TO THIS HOSP Condition: Fair Referrals: Sami Swift MD [Primary Care Provider] - 1-2 days Decision Time: 14:44
--- NOTE | 2018-08-15 10:24 | XR ---
EXAMINATION TYPE: XR KUB DATE OF EXAM: 08/15/2018 10:18 AM CLINICAL HISTORY: Abdominal pain with nausea and vomiting and back pain for 2 weeks. TECHNIQUE: Two Upright KUB images of the abdomen are obtained. COMPARISON: Abdominal x-ray November 20, 2016. CT abdomen and pelvis November 08, 2016.. FINDINGS: Scattered gas is seen in non-distended small bowel loops. Gas and fecal material is seen in non-distended colon. Cholecystectomy are noted. Vascular calcification in the pelvis is seen. Ca rdiomegaly is presented. Osseous structures are intact. IMPRESSION: Overall nonobstructive bowel gas pattern.
--- NOTE | 2018-08-15 10:26 | XR ---
EXAMINATION TYPE: XR chest 2V DATE OF EXAM: 08/15/2018 COMPARISON: CXR from 11/20/2016. HISTORY: SOB and chest pain. TECHNIQUE: Frontal and lateral views of the chest are obtained. FINDINGS: There is no focal air space opacity, pleural effusion, or pneumothorax seen. The cardiac silhouette size is enlarged with ectatic thoracic aorta. The osseous structures are intact. Cholec ystectomy clips are seen. IMPRESSION: Cardiomegaly without acute pulmonary process.
[2018-08-15 10:56] LABS: Basophils % (A) 0 %; Eosinophils # (A) 0.1 k/uL (0-0.7); Eosinophils % (A) 1 %; HCT 30.2 % (34.0-46.0); HGB 10.4 gm/dL (11.4-16.0); Lymphocytes # (A) 0.7 k/uL (1.0-4.8); Lymphocytes % (A) 8 %; MCH 32.9 pg (25.0-35.0); MCHC 34.6 g/dL (31.0-37.0); MCV 95.1 fL (80.0-100.0); Mean Platelet Volume 7.3; Monocytes # (A) 0.5 k/uL (0-1.0); Monocytes % (A) 5 %; Neutrophils # (A) 7.8 k/uL (1.3-7.7); Neutrophils % (A) 85 %; Platelet Count 327 k/uL (150-450); RBC 3.17 m/uL (3.80-5.40); RDW 13.2 % (11.5-15.5); WBC 9.3 k/uL (3.8-10.6)
[2018-08-15 11:05] LABS: Albumin 3.9 g/dL (3.5-5.0); Calcium 9.5 mg/dL (8.4-10.2); Potassium 5.9 mmol/L (3.5-5.1); Total Bilirubin 0.4 mg/dL (0.2-1.3); Total Protein 6.5 g/dL (6.3-8.2)
[2018-08-15 14:07] LABS: Appearance,Urine Clear (Clear); Bacteria,Urine Rare /hpf; Bilirubin,Urine Negative (Negative); Blood,Urine Moderate (Negative); Color,Urine Yellow; Glucose,Urine (UA) Negative (Negative); Ketones,Urine Negative (Negative); Leukocyte Esterase,Urine Trace (Negative); Nitrite,Urine Negative (Negative); Protein,Urine 1+ (Negative); RBC,Urine 46 /hpf (0-5); Squamous Epithelial Cell,Urine 1 /hpf (0-4); Urobilinogen,Urine <2.0 mg/dL (<2.0)
[2018-08-15] MEDS ORDERED: SODIUM CHLORIDE 0.9% 1,000 ML IV STA (14:36)
[2018-08-15] MEDS ORDERED: INSULIN REGULAR 100 UNIT/ML VIAL IV ONE (14:36)
[2018-08-15] MEDS ORDERED: DEXTROSE 50%-WATER 50 ML SYRINGE IVP ONE (14:36)
[2018-08-15] MEDS ORDERED: ALBUTEROL NEBULIZED 2.5 MG/3 ML INHALATION STA (14:36)
[2018-08-15] MEDS ORDERED: NALOXONE 0.4 MG/ML 1 ML VIAL IV PRN (14:45)
--- NOTE | 2018-08-15 15:07 | P.HPIM ---
History of Present Illness H&P Date: 08/15/18 This is a [id number] patient of Dr. Swift, Dr. Gerson Barry. Patient has underlying history of hypertension, ischemic colitis, hypothyroidism pleural effusions status post pericardial window, chronic kidney disease stage III, recurrent syncope for which she went to specialist and was told it was due to hyper aldosteronism and placed on Aldactone 25 mg tablet one half tablet daily. She states she also has been told many years ago that it was a vagus reaction and she states her blood pressure has been difficult to control. She states she has had 3 syncopal episodes in the past year. She presents to the emergency room secondary to nausea vomiting and diarrhea, has been weak, and has shortness of breath. Symptoms persisted for the past 2 weeks, patient denies any fever no chills, nausea but events, patient was subsequently seen in the emergency room with checks x-ray findings showing curly B lines, urinalysis shows 8 WBCs, 46 red blood cells, BUN off 64, creatinine of 0.02. Patient was admitted secondary to acute dehydration, hyperkalemia, dehydration. EKG did not show any acute ST-T wave changes, no QT prolongation, baseline creatinine 1.17 consult with nephrology, IV fluids to be given, e Review of Systems Constitutional: Reports as per HPI, Reports anorexia, Reports chills, Reports fatigue, Reports lethargy, Reports malaise, Denies chronic headaches, Denies chronic pain, Denies daytime sleepiness, Denies fever, Denies night sweats, Denies poor appetite, Denies sweats, Denies weakness, Denies weight gain, Denies weight loss Ears, nose, mouth and throat: Reports as per HPI, Denies ant. neck pain, Denies bleeding gums, Denies dental pain, Denies dysphagia, Denies epistaxis, Denies headache, Denies hoarseness, Denies mouth pain, Denies nasal congestion, Denies nasal discharge, Denies neck fullness/pressure, Denies neck lump, Denies nose pain, Denies odynophagia, Denies post-nasal drip, Denies sinus pain, Denies sinus pressure, Denies swelling in mouth, Denies swelling in throat, Denies sore throat, Denies vertigo, Denies voice changes Cardiovascular: Reports as per HPI, Denies chest pain, Denies claudication, Denies decreased exercise tolerance, Denies dyspnea on exertion, Denies edema, Denies high blood pressure, Denies irregular heart beat, Denies leg edema, Denies lightheadedness, Denies orthopnea, Denies palpitations, Denies paroxysmal nocturnal dyspnea, Denies phlebitis, Denies rapid heart beat, Denies shortness of breath, Denies syncope Respiratory: Reports as per HPI, Denies congestion, Denies cough, Denies cough with sputum, Denies dyspnea, Denies excessive sputum, Denies hemoptysis, Denies home oxygen, Denies pain, Denies pain on inspiration, Denies pleurisy, Denies respiratory infections, Denies sleep apnea, Denies snoring, Denies wheezing Gastrointestinal: Reports as per HPI, Reports diarrhea, Reports loss of appetite , Reports nausea, Reports vomiting, Denies abdominal pain, Denies belching, Denies bloating, Denies BRBPR, Denies change in bowel habits, Denies coffee ground emesis, Denies constipation, Denies dyspepsia, Denies early satiety, Denies excessive gas, Denies heartburn, Denies hematemesis, Denies hematochezia , Denies indigestion, Denies jaundice, Denies lactose intolerance, Denies melena Genitourinary: Reports as per HPI, Denies abnormal vaginal bleeding, Denies decreased libido, Denies difficulty conceiving, Denies difficulty voiding, Denies dysmenorrhea, Denies dyspareunia, Denies dysuria, Denies flank pain, Denies genital sores, Denies hematuria, Denies hot flashes, Denies incomplete emptying, Denies kidney stones, Denies menorrhagia, Denies mixed incontinence, Denies nocturia, Denies pelvic pain, Denies post void dribbling, Denies , Denies prolapse symptoms, Denies stress incontinence, Denies urge incontinence , Denies urgency, Denies urinary frequency, Denies vaginal discharge, Denies vaginal dryness, Denies vaginal itching, Denies vaginal odor Menstruation: Reports as per HPI Musculoskeletal: Reports as per HPI Integumentary: Reports as per HPI Neurological: Reports as per HPI, Denies aphasia, Denies ataxia, Denies balance difficulties, Denies burning pain, Denies change in mentation, Denies change in smell/taste, Denies change in speech, Denies confusion, Denies convulsions, Denies double vision, Denies gait dysfunction, Denies head injury, Denies headaches, Denies hearing difficulties, Denies lack of coordination, Denies loss of vision, Denies memory loss, Denies migraines, Denies motor disturbance, Denies numbness, Denies paralysis, Denies paresthesias, Denies seizures, Denies sensory deficit, Denies spasticity, Denies syncope, Denies tic, Denies tingling , Denies transient paralysis, Denies tremors, Denies vertigo, Denies weakness, Denies visual changes Psychiatric: Reports as per HPI, Denies anhedonia, Denies anxiety, Denies anxiety attacks, Denies change in appetite, Denies change in libido, Denies change in sleep habits, Denies confusion, Denies depression, Denies difficulty concentrating, Denies disorientation, Denies hallucinations, Denies hopelessness , Denies hypersomnia, Denies insomnia, Denies irritability, Denies memory loss, Denies mood swings, Denies paranoia, Denies sadness/tearfulness, Denies sleep disturbances, Denies suicidal ideation Hematologic/Lymphatic: Reports as per HPI, Denies easy bleeding, Denies easy bruising, Denies lymphadenopathy, Denies lymphedema, Denies thrombophilia Allergic/Immunologic: Reports as per HPI, Denies allergic rhinitis, Denies anaphylaxis, Denies angioedema, Denies gluten intolerance, Denies persistent infections, Denies seasonal allergies, Denies urticaria, Denies wheezing Past Medical History Past Medical History: GI Bleed, Osteoarthritis (OA), Renal Disease, Syncope, Thyroid Disorder Additional Past Medical History / Comment(s): colitis, several syncopal events, Stage III kidney disease, See Dr De Leon H&P History of Any Multi-Drug Resistant Organisms: None Reported Past Surgical History: Appendectomy, Cholecystectomy, Hernia Repair, Hysterectomy, Orthopedic Surgery, Tonsillectomy Additional Past Surgical History / Comment(s): pericardial window surgery , L ankle ORIF, bilateral cataracts Past Anesthesia/Blood Transfusion Reactions: Previous Problems w/ Anesthesia Additional Past Anesthesia/Blood Transfusion Reaction / Comment(s): Pt received blood yrs ago without reaction. takes long time to wake up Past Psychological History: No Psychological Hx Reported Smoking Status: Never smoker Past Alcohol Use History: None Reported Past Drug Use History: None Reported - Past Family History Daughter(s) Additional Family Medical History / Comment(s): Patient has 2 daughters and 1 son with no major medical problems. Mother Family Medical History: Hypertension Additional Family Medical History / Comment(s): Mother at age 86 from a myocardial infarction. She had her kidney removed the patient does not know why. She also had history of hypertension. No known history of adrenal problems. Father Family Medical History: Cancer Additional Family Medical History / Comment(s): Father in his 70s from bladder cancer. Sister(s) Family Medical History: Cancer Additional Family Medical History / Comment(s): Patient has one sister with history of stomach cancer. Patient does not know any other history as she has no contact with her. Medications and Allergies Home Medications Medication Instructions Recorded Confirmed Type Levothyroxine Sodium [Synthroid] 50 mcg PO QAM 07/05/14 08/15/18 History Losartan Potassium 50 mg PO BID 02/17/15 08/15/18 History Famotidine [Pepcid] 20 mg PO BID 10/28/15 08/15/18 History Spironolactone [Aldactone] 25 mg PO QAM 10/28/15 08/15/18 History Vitamin B Complex 1 cap PO DAILY 10/28/15 08/15/18 History hydrALAZINE HCL [Apresoline] 50 mg PO TID 11/20/16 08/15/18 History Allergies Allergy/AdvReac Type Severity Reaction Status Date / Time levofloxacin [From Levaquin] Allergy Unknown Verified 08/15/18 10:06 metronidazole [From Flagyl] Allergy Swelling Verified 08/15/18 10:06 nitrofurantoin Allergy Unknown Verified 08/15/18 10:06 [From Macrobid] nitrofurantoin Allergy Unknown Verified 08/15/18 10:06 macrocrystalline [From Macrobid] amiodarone HCl AdvReac Nausea Verified 08/15/18 10:06 [From Pacerone] Physical Exam Vitals: Vital Signs Temp Pulse Resp BP Pulse Ox 08/15/18 13:00 80 16 137/62 99 08/15/18 12:58 98 08/15/18 09:26 97.4 F L 82 18 144/74 99 Intake and Output 08/14/18 08/15/18 08/15/18 22:59 06:59 14:59 Other: Weight 83.915 kg - Constitutional General appearance: cooperative, no acute distress - EENT Eyes: anicteric sclerae, EOMI, PERRLA, dentition normal, normal appearance ENT: NA/AT, normal oropharynx - Neck Neck: normal ROM Thyroid: bilateral: normal size - Respiratory Respiratory: bilateral: CTA, negative: diminished, dullness, rales, rhonchi - Cardiovascular Rhythm: regular Heart sounds: normal: S1, S2 Abnormal Heart Sounds: no systolic murmur, no diastolic murmur, no rub, no S3 Gallop, no S4 Gallop, no click, no other - Gastrointestinal General gastrointestinal: normal bowel sounds, soft - Integumentary Integumentary: decreased turgor, normal - Neurologic Neurologic: CNII-XII intact - Musculoskeletal Musculoskeletal: gait normal, generalized weakness, strength equal bilaterally - Psychiatric Psychiatric: A&O x's 3, appropriate affect, intact judgment & insight Results CBC & Chem 7: 08/15/18 10:34 08/15/18 10:34 Labs: Abnormal Lab Results - Last 24 Hours (Table) 08/15/18 08/15/18 08/15/18 Range/Units 10:34 10:34 12:55 RBC 3.17 L (3.80-5.40) m/uL Hgb 10.4 L (11.4-16.0) gm/dL Hct 30.2 L (34.0-46.0) % Neutrophils # 7.8 H (1.3-7.7) k/uL Lymphocytes # 0.7 L (1.0-4.8) k/uL Sodium 134 L (137-145) mmol/L Potassium 5.9 H (3.5-5.1) mmol/L Carbon Dioxide 21 L (22-30) mmol/L BUN 64 H (7-17) mg/dL Creatinine 3.02 H (0.52-1.04) mg/dL Glucose 112 H (74-99) mg/dL Urine Protein 1+ H (Negative) Urine Blood Moderate H (Negative) Ur Leukocyte Esterase Trace H (Negative) Urine RBC 46 H (0-5) /hpf Urine WBC 8 H (0-5) /hpf Urine Bacteria Rare H (None) /hpf Laboratory Results WBC 9.3 k/uL (3.8-10.6) 08/15/18 10:34 RBC 3.17 m/uL (3.80-5.40) L 08/15/18 10:34 Hgb 10.4 gm/dL (11.4-16.0) L 08/15/18 10:34 Hct 30.2 % (34.0-46.0) L 08/15/18 10:34 MCV 95.1 fL (80.0-100.0) 08/15/18 10:34 MCH 32.9 pg (25.0-35.0) 08/15/18 10:34 MCHC 34.6 g/dL (31.0-37.0) 08/15/18 10:34 RDW 13.2 % (11.5-15.5) 08/15/18 10:34 Plt Count 327 k/uL (150-450) 08/15/18 10:34 Neutrophils % 85 % 08/15/18 10:34 Lymphocytes % 8 % 08/15/18 10:34 Monocytes % 5 % 08/15/18 10:34 Eosinophils % 1 % 08/15/18 10:34 Basophils % 0 % 08/15/18 10:34 Neutrophils # 7.8 k/uL (1.3-7.7) H 08/15/18 10:34 Lymphocytes # 0.7 k/uL (1.0-4.8) L 08/15/18 10:34 Monocytes # 0.5 k/uL (0-1.0) 08/15/18 10:34 Eosinophils # 0.1 k/uL (0-0.7) 08/15/18 10:34 Basophils # 0.0 k/uL (0-0.2) 08/15/18 10:34 Sodium 134 mmol/L (137-145) L 08/15/18 10:34 Potassium 5.9 mmol/L (3.5-5.1) H 08/15/18 10:34 Chloride 103 mmol/L (98-107) 08/15/18 10:34 Carbon Dioxide 21 mmol/L (22-30) L 08/15/18 10:34 Anion Gap 10 mmol/L 08/15/18 10:34 BUN 64 mg/dL (7-17) H 08/15/18 10:34 Creatinine 3.02 mg/dL (0.52-1.04) H 08/15/18 10:34 Est GFR (CKD-EPI)AfAm 16 (>60 ml/min/1.73 sqM) 08/15/18 10:34 Est GFR (CKD-EPI)NonAf 14 (>60 ml/min/1.73 sqM) 08/15/18 10:34 Glucose 112 mg/dL (74-99) H 08/15/18 10:34 Calcium 9.5 mg/dL (8.4-10.2) 08/15/18 10:34 Total Bilirubin 0.4 mg/dL (0.2-1.3) 08/15/18 10:34 AST 22 U/L (14-36) 08/15/18 10:34 ALT 26 U/L (9-52) 08/15/18 10:34 Alkaline Phosphatase 74 U/L (38-126) 08/15/18 10:34 Total Protein 6.5 g/dL (6.3-8.2) 08/15/18 10:34 Albumin 3.9 g/dL (3.5-5.0) 08/15/18 10:34 Urine Color Yellow 08/15/18 12:55 Urine Appearance Clear (Clear) 08/15/18 12:55 Urine pH 5.0 (5.0-8.0) 08/15/18 12:55 Ur Specific [place] 1.010 (1.001-1.035) 08/15/18 12:55 Urine Protein 1+ (Negative) H 08/15/18 12:55 Urine Glucose (UA) Negative (Negative) 08/15/18 12:55 Urine Ketones Negative (Negative) 08/15/18 12:55 Urine Blood Moderate (Negative) H 08/15/18 12:55 Urine Nitrite Negative (Negative) 08/15/18 12:55 Urine Bilirubin Negative (Negative) 08/15/18 12:55 Urine Urobilinogen <2.0 mg/dL (<2.0) 08/15/18 12:55 Ur Leukocyte Esterase Trace (Negative) H 08/15/18 12:55 Urine RBC 46 /hpf (0-5) H 08/15/18 12:55 Urine WBC 8 /hpf (0-5) H 08/15/18 12:55 Ur Squamous Epith Cells 1 /hpf (0-4) 08/15/18 12:55 Urine Bacteria Rare /hpf (None) H 08/15/18 12:55 Thrombosis Risk Factor Assmnt - DVT/VTE Prophylaxis DVT/VTE Prophylaxis: Low risk, early ambulation encouraged - Choose All That Apply Each Risk Factor Represents 3 Points: Age 75 years or older Thrombosis Risk Factor Assessment Total Risk Factor Score: 3 Thrombosis Risk Factor Assessment Level: Moderate Risk Assessment and Plan Plan: FINAL DIAGNOSIS: 1. Acute dehydration secondary to GI losses, with acute kidney failure, baseline creatinine of 1.17, coming in with creatinine of 3, patient will be hydrated, avoid nephrotoxins, consult with nephrology, renal ultrasound and a full U8 to include urine blood work would be followed With serial chemistries next 2. Acute urinary tract infection with hemorrhagic cystitis, microscopic hematuria noted on exam, culture to be done 3. History of Infectious colitis in a patient with history of ischemic colitis in 2000. colonoscopy with previous one finding a benign polyp. 3. Primary hyperaldosteronism. Patient has been on Aldactone 12.5 mg daily. 4. Hypothyroidism. Continue levothyroxine 50 g daily. 5. Acute kidney in jury on top of chronic kidney disease stage III secondary to fluid loss from diarrhea. Continue IV fluids 0.9 normal saline at 75 mL per hour. Avoid nephrotoxic agents. Recheck electrolytes and kidney function in the morning. History off simple partial seizure disorder 6. Hypertension. Continue hydralazine 25 mg twice daily. Aldactone 12.5 mg daily, hydrochlorothiazide 12.5 mg daily and losartan 50 mg twice daily are on hold. 7. DVT prophylaxis. Continue Lovenox 40 mg subcu daily. 8. Gastrointestinal prophylaxis. Continue Pepcid 20 mg daily.
[2018-08-15] MEDS: SODIUM CHLORIDE 0.9% 1,000 ML IV SCH ×2 (15:17→21:54)
--- NOTE | 2018-08-15 16:07 | US ---
EXAMINATION TYPE: US kidneys/renal and bladder DATE OF EXAM: 08/15/2018 COMPARISON: NONE CLINICAL HISTORY: Pain. pain, CKD EXAM MEASUREMENTS: Right Kidney: 8.8 x 3.7 x 4.3 cm Left Kidney: 8.6 x 3.5 x 4.8 cm Right Kidney: No hydronephrosis or masses seen, small in size Left Kidney: Possible subcentimeter cystic areas noted, small in size Bladder: not distended, EC patient There is no evidence for hydronephrosis at this point in time. Cortical medullary differentiation is diminished. No nephrolithiasis is seen. IMPRESSION: Findings of medical renal disease with suboptimally evaluated hypoechoic possible left renal cysts. N o hydronephrosis or nephrolithiasis of either kidney.
[2018-08-15 17:06] LABS: Basophils % (A) 0 %; Eosinophils # (A) 0.2 k/uL (0-0.7); Eosinophils % (A) 2 %; HCT 31.1 % (34.0-46.0); Lymphocytes # (A) 1.1 k/uL (1.0-4.8); Lymphocytes % (A) 13 %; MCH 31.5 pg (25.0-35.0); MCHC 32.3 g/dL (31.0-37.0); MCV 97.8 fL (80.0-100.0); Mean Platelet Volume 6.7; Monocytes # (A) 0.6 k/uL (0-1.0); Monocytes % (A) 6 %; Neutrophils % (A) 77 %; Platelet Count 331 k/uL (150-450); RBC 3.18 m/uL (3.80-5.40)
[2018-08-15 17:19] LABS: Glucose,Whole Blood 121 mg/dL (75-99)
[2018-08-15 17:35] LABS: Calcium 9.5 mg/dL (8.4-10.2); Potassium 4.9 mmol/L (3.5-5.1); Total Bilirubin 0.4 mg/dL (0.2-1.3)
[2018-08-15] MEDS: hydrALAZINE HCL 50 MG TAB PO SCH (21:54)
[2018-08-15] MEDS: FAMOTIDINE 20 MG TAB PO SCH (21:54)
[2018-08-16] MEDS: LEVOTHYROXINE 50 MCG TAB PO SCH (05:54)
[2018-08-16] MEDS: hydrALAZINE HCL 50 MG TAB PO SCH ×3 (08:35→21:16)
[2018-08-16] MEDS: FAMOTIDINE 20 MG TAB PO SCH (08:35)
[2018-08-16] MEDS: SODIUM CHLORIDE 0.9% 1,000 ML IV SCH ×3 (08:35→19:29)
[2018-08-16 08:44] LABS: Basophils % (A) 0 %; Eosinophils # (A) 0.1 k/uL (0-0.7); Eosinophils % (A) 2 %; HGB 8.8 gm/dL (11.4-16.0); Lymphocytes # (A) 0.8 k/uL (1.0-4.8); Lymphocytes % (A) 11 %; MCHC 33.7 g/dL (31.0-37.0); MCV 97.8 fL (80.0-100.0); Mean Platelet Volume 7.7; Monocytes # (A) 0.5 k/uL (0-1.0); Monocytes % (A) 6 %; Neutrophils % (A) 80 %; Platelet Count 279 k/uL (150-450); RBC 2.66 m/uL (3.80-5.40); RDW 13.2 % (11.5-15.5); WBC 7.4 k/uL (3.8-10.6)
[2018-08-16 09:20] LABS: Albumin 3.3 g/dL (3.5-5.0); Calcium 8.8 mg/dL (8.4-10.2); Total Bilirubin 0.2 mg/dL (0.2-1.3); Total Protein 6.1 g/dL (6.3-8.2)
[2018-08-16 09:35] LABS: Potassium 6.3 mmol/L (3.5-5.1)
[2018-08-16] MEDS ORDERED: DEXTROSE 50%-WATER 50 ML SYRINGE IVP STA ×2 (10:00→19:54)
[2018-08-16] MEDS ORDERED: INSULIN REGULAR 100 UNIT/ML VIAL IV ONE ×2 (10:00→19:53)
[2018-08-16] MEDS ORDERED: SODIUM BICARB 8.4% 50 ML SYR (1 MEQ/ML) IV STA (10:00)
[2018-08-16] MEDS ORDERED: SODIUM POLYSTYRENE SULFONATE 15 GM/60 ML BOTTLE PO STA (10:03)
--- NOTE | 2018-08-16 10:10 | P.NPCON ---
History of Present Illness - Reason for Consult acute renal failure - History of Present Illness Reason for consultation: Acute kidney injury on chronic kidney disease History of present illness: Patient is a 83-year-old female seen in consultation for acute kidney injury on chronic kidney disease. Patient has history of chronic kidney disease stage III with baseline creatinine near 1.4 secondary to nephrosclerosis. Patient presented to the hospital with nausea and vomiting going on for about 2 weeks duration. Patient states oral intake has been quite poor. She was taking antibiotics prior to admission the states her symptoms did not improve. She denies any diarrhea. No fever or chills. No cough. Denies using NSAIDs. No history of diabetes. No hematuria or dysuria. Patient's potassium was 5.9 on admission was medically treated. It did improve to 4.9 is up to 6.3 this morning. Hemodynamically she stable. No evidence of hypotension. She is currently maintained on IV fluids. Vital signs are stable. General: The patient appeared well nourished and normally developed. HEENT: Head exam is unremarkable. Neck is without jugular venous distension. LUNGS: Lungs are clear to auscultation and percussion. Breath sounds decreased. HEART: Rate and Rhythm are regular. First and second heart sounds normal. No murmurs, rubs or gallops. ABDOMEN: Abdominal exam reveals normal bowel sounds. Non-tender and non- distended. No evidence of peritonitis. EXTREMITITES: No clubbing, cyanosis, or edema. Past Medical History Past Medical History: Asthma, GI Bleed, Hypertension, Osteoarthritis (OA), Pneumonia, Renal Disease, Syncope, Thyroid Disorder Additional Past Medical History / Comment(s): colitis, several syncopal events, Stage III kidney disease, See Dr De Leon H&P, murmur, "past migraines found they were caused from an oat allergy" History of Any Multi-Drug Resistant Organisms: None Reported Past Surgical History: Appendectomy, Cholecystectomy, Hernia Repair, Hysterectomy, Orthopedic Surgery, Tonsillectomy Additional Past Surgical History / Comment(s): pericardial window surgery , L ankle ORIF, bilateral cataracts Past Anesthesia/Blood Transfusion Reactions: Previous Problems w/ Anesthesia Additional Past Anesthesia/Blood Transfusion Reaction / Comment(s): Pt received blood yrs ago without reaction. takes long time to wake up Smoking Status: Never smoker - Past Family History Daughter(s) Additional Family Medical History / Comment(s): Patient has 2 daughters and 1 son with no major medical problems. Mother Family Medical History: Hypertension Additional Family Medical History / Comment(s): Mother at age 86 from a myocardial infarction. She had her kidney removed the patient does not know why. She also had history of hypertension. No known history of adrenal problems. Father Family Medical History: Cancer Additional Family Medical History / Comment(s): Father in his 70s from bladder cancer. Sister(s) Family Medical History: Cancer Additional Family Medical History / Comment(s): Patient has one sister with history of stomach cancer. Patient does not know any other history as she has no contact with her. Medications and Allergies Home Medications Medication Instructions Recorded Confirmed Type Levothyroxine Sodium [Synthroid] 50 mcg PO QAM 07/05/14 08/15/18 History Losartan Potassium 50 mg PO BID 02/17/15 08/15/18 History Famotidine [Pepcid] 20 mg PO BID 10/28/15 08/15/18 History Spironolactone [Aldactone] 25 mg PO QAM 10/28/15 08/15/18 History Vitamin B Complex 1 cap PO DAILY 10/28/15 08/15/18 History hydrALAZINE HCL [Apresoline] 50 mg PO TID 11/20/16 08/15/18 History Allergies Allergy/AdvReac Type Severity Reaction Status Date / Time levofloxacin [From Levaquin] Allergy Unknown Verified 08/15/18 10:06 metronidazole [From Flagyl] Allergy Swelling Verified 08/15/18 10:06 nitrofurantoin Allergy Unknown Verified 08/15/18 10:06 [From Macrobid] nitrofurantoin Allergy Unknown Verified 08/15/18 10:06 macrocrystalline [From Macrobid] amiodarone HCl AdvReac Nausea Verified 08/15/18 10:06 [From Pacerone] Physical Exam Vitals: Vital Signs Temp Pulse Pulse Resp BP BP Pulse Ox 08/16/18 05:00 97.6 F 79 16 137/74 100 08/15/18 23:30 16 08/15/18 21:00 97.4 F L 88 16 128/64 97 08/15/18 17:54 15 08/15/18 16:00 98.0 F 124 H 15 157/69 97 08/15/18 15:50 98 17 157/69 98 08/15/18 15:43 98 20 08/15/18 15:40 96 17 157/69 100 08/15/18 15:30 86 18 157/69 100 08/15/18 15:20 83 16 157/69 100 08/15/18 15:10 80 15 137/62 100 08/15/18 15:06 84 16 08/15/18 15:00 137/62 08/15/18 14:50 73 16 137/62 98 08/15/18 14:40 71 19 137/62 99 08/15/18 14:30 74 14 137/62 99 08/15/18 14:20 75 20 137/62 99 08/15/18 14:10 71 18 137/62 99 08/15/18 14:00 77 18 137/62 98 08/15/18 13:50 75 16 137/62 98 08/15/18 13:40 75 18 137/62 99 08/15/18 13:30 72 19 137/62 98 08/15/18 13:20 72 18 137/62 99 08/15/18 13:10 75 16 137/62 99 08/15/18 13:00 80 16 137/62 99 08/15/18 12:58 98 Intake and Output 08/15/18 08/16/18 08/16/18 22:59 06:59 14:59 Intake Total 1420 590 Balance 1420 590 Intake: Oral 1420 590 Other: # Voids 3 Weight 83.915 kg Results - Lab Results Most recent lab results Calcium 8.8 mg/dL (8.4-10.2) 08/16/18 07:45 08/16/18 07:45 08/16/18 07:45 Assessment and Plan Plan: Assessment: 1. Acute kidney injury secondary to ATN secondary to intravascular volume depletion from nausea and vomiting. She was also taking Cozaar. Creatinine peaked at 3.07 and is 2.96 today. Rule out urinary retention. No evidence of hydronephrosis noted on renal ultrasound. 2. Hyperkalemia secondary to acute kidney injury and metabolic acidosis. 3. Anemia of chronic kidney disease. Rule out iron deficiency. 4. Chronic kidney disease stage III with baseline creatinine near 1.4 secondary to an of her cirrhosis. 5. Hypertension with chronic kidney disease. Controlled. 6. Metabolic acidosis secondary to acute kidney injury and IV fluids. Plan: Decreased rate of normal saline to 100 mL an hour. Add oral sodium bicarbonate. I will give her 2 A of bicarb IV push along with 10 units of IV insulin with an amp of D50 now. Low potassium diet. Hold Cozaar. Check bladder scan to rule out urinary retention. Repeat potassium level this afternoon. Follow-up cultures. Check iron studies. Add [place]. Thank you for the consultation. I will continue to follow the patient with you during her hospital stay.
[2018-08-16] MEDS: SODIUM BICARBONATE TAB 650 MG TAB PO SCH ×3 (10:57→21:16)
[2018-08-16] MEDS ORDERED: DARBEPOETIN ALFA 40 MCG/0.4 ML SYRINGE SQ SCH (11:00)
[2018-08-16] MEDS ORDERED: DOCUSATE 100 MG CAP PO STA (16:37)
[2018-08-16 16:50] LABS: Iron Saturation 24.64 (12.00-45.00)
[2018-08-16 20:32] LABS: Glucose,Whole Blood 113 mg/dL (75-99)
[2018-08-16] MEDS: ONDANSETRON 4 MG/2 ML VIAL IVP PRN (21:50)
[2018-08-17] MEDS: LEVOTHYROXINE 50 MCG TAB PO SCH (05:48)
[2018-08-17] MEDS: SODIUM CHLORIDE 0.9% 1,000 ML IV SCH ×3 (05:48→22:06)
[2018-08-17] MEDS: ONDANSETRON 4 MG/2 ML VIAL IVP PRN (05:58)
[2018-08-17] MEDS: ENOXAPARIN 30 MG/0.3 ML SYRINGE SQ SCH (08:30)
[2018-08-17] MEDS: FAMOTIDINE 20 MG TAB PO SCH (08:30)
[2018-08-17] MEDS: SODIUM BICARBONATE TAB 650 MG TAB PO SCH ×2 (08:30→21:03)
[2018-08-17] MEDS: hydrALAZINE HCL 50 MG TAB PO SCH ×3 (08:30→21:04)
[2018-08-17] MEDS ORDERED: DOCUSATE 100 MG CAP PO PRN (09:00)
[2018-08-17 09:03] LABS: Calcium 8.8 mg/dL (8.4-10.2); Magnesium 1.5 mg/dL (1.6-2.3)
[2018-08-17 09:18] LABS: Potassium 6.1 mmol/L (3.5-5.1)
[2018-08-17] MEDS ORDERED: INSULIN REGULAR 100 UNIT/ML VIAL IV ONE ×2 (09:20→20:59)
[2018-08-17] MEDS ORDERED: DEXTROSE 50%-WATER 50 ML SYRINGE IVP STA ×3 (09:20→20:59)
[2018-08-17] MEDS ORDERED: SODIUM BICARB 8.4% 50 ML VIAL (1 MEQ/ML) IV ONE (09:21)
[2018-08-17] MEDS ORDERED: FUROSEMIDE 10 MG/ML 4 ML VIAL IV STA ×2 (09:23→20:59)
[2018-08-17] MEDS: LORATADINE 10 MG TAB PO SCH (09:30)
[2018-08-17] MEDS: ACETAMINOPHEN TAB 325 MG TAB PO PRN ×2 (09:30→21:03)
--- NOTE | 2018-08-17 09:58 | P.PN ---
Subjective Patient is seen in follow-up for acute kidney injury on chronic kidney disease. Patient has chronic kidney disease stage III with baseline creatinine near 1.4 secondary to nephrosclerosis. Continues to have dry heaving. Oral intake is poor. Creatinine relatively stable at 3.02 today. Potassium elevated at 6.1. Vital signs are stable. General: The patient appeared well nourished and normally developed. HEENT: Head exam is unremarkable. Neck is without jugular venous distension. LUNGS: Lungs are clear to auscultation and percussion. Breath sounds decreased. HEART: Rate and Rhythm are regular. First and second heart sounds normal. No murmurs, rubs or gallops. ABDOMEN: Abdominal exam reveals normal bowel sounds. Non-tender and non- distended. No evidence of peritonitis. EXTREMITITES: Trace edema. Objective - Vital Signs Vital signs: Vital Signs Temp 97.6 F 08/17/18 05:00 Pulse 82 08/17/18 05:00 Resp 16 08/17/18 05:00 BP 155/72 08/17/18 05:00 Pulse Ox 95 08/17/18 05:00 Intake & Output 08/16/18 08/17/18 08/17/18 18:59 06:59 18:59 Intake Total 850 Output Total 450 Balance 400 Intake: Intake, IV Titration 850 Amount Sodium Chloride 0.9% 1, 800 000 ml @ 100 mls/hr IV . Q10H AJIT Rx#:[id number] cefTRIAXone 1,000 mg In 50 Sodium Chloride 0.9% 50 ml @ 100 mls/hr IVPB Q24H AJIT Rx#:[id number] Output: Urine 450 Straight 100 Other: Voiding Method Bedside Commode - Labs CBC & Chem 7: 08/16/18 07:45 08/17/18 08:05 Labs: Abnormal Lab Results - Last 24 Hours (Table) 08/16/18 08/16/18 08/16/18 Range/Units 07:45 13:55 20:31 Sodium (137-145) mmol/L Potassium 5.5 H (3.5-5.1) mmol/L Chloride (98-107) mmol/L Carbon Dioxide (22-30) mmol/L BUN (7-17) mg/dL Creatinine (0.52-1.04) mg/dL POC Glucose (mg/dL) 113 H (75-99) mg/dL Magnesium (1.6-2.3) mg/dL TIBC 207 L (228-460) ug/dL 08/17/18 Range/Units 08:05 Sodium 134 L (137-145) mmol/L Potassium 6.1 H* (3.5-5.1) mmol/L Chloride 109 H (98-107) mmol/L Carbon Dioxide 18 L (22-30) mmol/L BUN 55 H (7-17) mg/dL Creatinine 3.02 H (0.52-1.04) mg/dL POC Glucose (mg/dL) (75-99) mg/dL Magnesium 1.5 L (1.6-2.3) mg/dL TIBC (228-460) ug/dL Microbiology - Last 24 Hours (Table) 08/15/18 12:55 Urine Culture - Final Urine,Voided Assessment and Plan Plan: Assessment: 1. Acute kidney injury secondary to ATN secondary to intravascular volume depletion from nausea and vomiting. She was also taking Cozaar. Creatinine stable. No evidence of urinary retention. No evidence of hydronephrosis noted on renal ultrasound. 2. Hyperkalemia secondary to acute kidney injury and metabolic acidosis. 3. Anemia of chronic kidney disease. Iron replete. Maintained on Aranesp. 4. Chronic kidney disease stage III with baseline creatinine near 1.4 secondary to an of her cirrhosis. 5. Hypertension with chronic kidney disease. Stable. 6. Metabolic acidosis secondary to acute kidney injury and IV fluids. 7. Hypomagnesemia from poor oral intake. Plan: Decrease rate of normal saline to 70 mL an hour. Maintain oral sodium bicarbonate. I will give her 2 A of bicarb IV push along with 10 units of IV insulin with an amp of D50 now. Lasix 40 mg IV once today. Low potassium diet. Hold Cozaar. Continue to monitor postvoid residuals. Repeat potassium level this afternoon. Follow-up cultures. Replace magnesium. 2 g IV today.
--- NOTE | 2018-08-17 10:00 | P.PN ---
Subjective Progress Note Date: 08/16/18 This is a [id number] patient of Dr. Swift, Dr. Gerson Barry. Patient has underlying history of hypertension, ischemic colitis, hypothyroidism pleural effusions status post pericardial window, chronic kidney disease stage III, recurrent syncope for which she went to specialist and was told it was due to hyper aldosteronism and placed on Aldactone 25 mg tablet one half tablet daily. She states she also has been told many years ago that it was a vagus reaction and she states her blood pressure has been difficult to control. She states she has had 3 syncopal episodes in the past year. She presents to the emergency room secondary to nausea vomiting and diarrhea, has been weak, and has shortness of breath. Symptoms persisted for the past 2 weeks, patient denies any fever no chills, nausea but events, patient was subsequently seen in the emergency room with checks x-ray findings showing curly B lines, urinalysis shows 8 WBCs, 46 red blood cells, BUN off 64, creatinine of 0.02. Patient was admitted secondary to acute dehydration, hyperkalemia, dehydration. EKG did not show any acute ST-T wave changes, no QT prolongation, baseline creatinine 1.17 consult with nephrology, IV fluids to be given, 08/16: Renal ultrasound showed medical renal disease with suboptimally evaluated hypoechoic possible left renal cyst. No hydronephrosis or nephrolithiasis of either kidney. Patient has been afebrile, blood pressure 137 /74, heart rate running in the 70s and 80s, pulse ox 97% on room air. Repeat labs show hemoglobin of 8.8, sodium 133, potassium 6.3, chloride 107, CO2 18, BUN 59 creatinine 2.96. Patient has been seen by Dr. Howell for acute kidney injury secondary to ATN secondary to intravascular volume depletion from nausea and vomiting. IV fluids decreased to 100 mL per hour, sodium bicarb has been added as well as IV bicarb, IV insulin and D50, low potassium diet. Patient denies having any diarrhea. She is drinking adequate liquids at this point. She does have a c-collar in place which she states she has been utilizing for the past year whenever she is in bed per Dr. Green for chronic neck pain. Review of Systems Constitutional: Reports as per HPI, Reports anorexia, Reports chills, Reports fatigue, Reports lethargy, Reports malaise, Denies chronic headaches, Denies chronic pain, Denies daytime sleepiness, Denies fever, Denies night sweats, Denies poor appetite, Denies sweats, Denies weakness, Denies weight gain, Denies weight loss Ears, nose, mouth and throat: Reports as per HPI, Denies ant. neck pain, Denies bleeding gums, Denies dental pain, Denies dysphagia, Denies epistaxis, Denies headache, Denies hoarseness, Denies mouth pain, Denies nasal congestion, Denies nasal discharge, Denies neck fullness/pressure, Denies neck lump, Denies nose pain, Denies odynophagia, Denies post-nasal drip, Denies sinus pain, Denies sinus pressure, Denies swelling in mouth, Denies swelling in throat, Denies sore throat, Denies vertigo, Denies voice changes Cardiovascular: Reports as per HPI, Denies chest pain, Denies claudication, Denies decreased exercise tolerance, Denies dyspnea on exertion, Denies edema, Denies high blood pressure, Denies irregular heart beat, Denies leg edema, Denies lightheadedness, Denies orthopnea, Denies palpitations, Denies paroxysmal nocturnal dyspnea, Denies phlebitis, Denies rapid heart beat, Denies shortness of breath, Denies syncope Respiratory: Reports as per HPI, Denies congestion, Denies cough, Denies cough with sputum, Denies dyspnea, Denies excessive sputum, Denies hemoptysis, Denies home oxygen, Denies pain, Denies pain on inspiration, Denies pleurisy, Denies respiratory infections, Denies sleep apnea, Denies snoring, Denies wheezing Gastrointestinal: Reports as per HPI, denies diarrhea, Reports loss of appetite , denies nausea, denies vomiting, Denies abdominal pain, Denies belching, Denies bloating, Denies BRBPR, Denies change in bowel habits, Denies coffee ground emesis, Denies constipation, Denies dyspepsia, Denies early satiety, Denies excessive gas, Denies heartburn, Denies hematemesis, Denies hematochezia , Denies indigestion, Denies jaundice, Denies lactose intolerance, Denies melena Genitourinary: Reports as per HPI, Denies abnormal vaginal bleeding, Denies decreased libido, Denies difficulty conceiving, Denies difficulty voiding, Denies dysmenorrhea, Denies dyspareunia, Denies dysuria, Denies flank pain, Denies genital sores, Denies hematuria, Denies hot flashes, Denies incomplete emptying, Denies kidney stones, Denies menorrhagia, Denies mixed incontinence, Denies nocturia, Denies pelvic pain, Denies post void dribbling, Denies , Denies prolapse symptoms, Denies stress incontinence, Denies urge incontinence , Denies urgency, Denies urinary frequency, Denies vaginal discharge, Denies vaginal dryness, Denies vaginal itching, Denies vaginal odor Menstruation: Reports as per HPI Musculoskeletal: Reports as per HPI Integumentary: Reports as per HPI Neurological: Reports as per HPI, Denies aphasia, Denies ataxia, Denies balance difficulties, Denies burning pain, Denies change in mentation, Denies change in smell/taste, Denies change in speech, Denies confusion, Denies convulsions, Denies double vision, Denies gait dysfunction, Denies head injury, Denies headaches, Denies hearing difficulties, Denies lack of coordination, Denies loss of vision, Denies memory loss, Denies migraines, Denies motor disturbance, Denies numbness, Denies paralysis, Denies paresthesias, Denies seizures, Denies sensory deficit, Denies spasticity, Denies syncope, Denies tic, Denies tingling , Denies transient paralysis, Denies tremors, Denies vertigo, Denies weakness, Denies visual changes Psychiatric: Reports as per HPI, Denies anhedonia, Denies anxiety, Denies anxiety attacks, Denies change in appetite, Denies change in libido, Denies change in sleep habits, Denies confusion, Denies depression, Denies difficulty concentrating, Denies disorientation, Denies hallucinations, Denies hopelessness , Denies hypersomnia, Denies insomnia, Denies irritability, Denies memory loss, Denies mood swings, Denies paranoia, Denies sadness/tearfulness, Denies sleep disturbances, Denies suicidal ideation Hematologic/Lymphatic: Reports as per HPI, Denies easy bleeding, Denies easy bruising, Denies lymphadenopathy, Denies lymphedema, Denies thrombophilia Allergic/Immunologic: Reports as per HPI, Denies allergic rhinitis, Denies anaphylaxis, Denies angioedema, Denies gluten intolerance, Denies persistent infections, Denies seasonal allergies, Denies urticaria, Denies wheezing Objective - Vital Signs Vital signs: Vital Signs Temp 97.6 F 08/16/18 05:00 Pulse 79 08/16/18 05:00 Resp 16 08/16/18 05:00 BP 137/74 08/16/18 05:00 Pulse Ox 100 08/16/18 05:00 Intake & Output 08/15/18 08/16/18 08/16/18 18:59 06:59 18:59 Intake Total 2009 Balance 2009 Weight 83.915 kg 83.915 kg Intake: Oral 2009 Other: # Voids 3 - Exam General appearance: cooperative, no acute distress while laying in bed - EENT Eyes: anicteric sclerae, EOMI, PERRLA, dentition normal, normal appearance ENT: NA/AT, normal oropharynx - Neck Neck: normal ROM Thyroid: bilateral: normal size - Respiratory Respiratory: bilateral: CTA, negative: diminished, dullness, rales, rhonchi - Cardiovascular Rhythm: regular Heart sounds: normal: S1, S2 Abnormal Heart Sounds: no systolic murmur, no diastolic murmur, no rub, no S3 Gallop, no S4 Gallop, no click, no other - Gastrointestinal General gastrointestinal: normal bowel sounds, soft - Integumentary Integumentary: decreased turgor, normal - Neurologic Neurologic: CNII-XII intact - Musculoskeletal Musculoskeletal: gait normal, generalized weakness, strength equal bilaterally - Psychiatric Psychiatric: A&O x's 3, appropriate affect, intact judgment & insight - Labs CBC & Chem 7: 08/16/18 07:45 08/17/18 08:05 Labs: Abnormal Lab Results - Last 24 Hours (Table) 08/15/18 08/15/18 08/15/18 Range/Units 12:55 16:38 16:38 RBC 3.18 L (3.80-5.40) m/uL Hgb 10.0 L (11.4-16.0) gm/dL Hct 31.1 L (34.0-46.0) % Lymphocytes # (1.0-4.8) k/uL Sodium 135 L (137-145) mmol/L Potassium (3.5-5.1) mmol/L Carbon Dioxide 17 L (22-30) mmol/L BUN 65 H (7-17) mg/dL Creatinine 3.07 H (0.52-1.04) mg/dL Glucose 128 H (74-99) mg/dL POC Glucose (mg/dL) (75-99) mg/dL Total Protein (6.3-8.2) g/dL Albumin (3.5-5.0) g/dL Urine Protein 1+ H (Negative) Urine Blood Moderate H (Negative) Ur Leukocyte Esterase Trace H (Negative) Urine RBC 46 H (0-5) /hpf Urine WBC 8 H (0-5) /hpf Urine Bacteria Rare H (None) /hpf 08/15/18 08/16/18 08/16/18 Range/Units 17:16 07:45 07:45 RBC 2.66 L (3.80-5.40) m/uL Hgb 8.8 L (11.4-16.0) gm/dL Hct 26.0 L (34.0-46.0) % Lymphocytes # 0.8 L (1.0-4.8) k/uL Sodium 133 L (137-145) mmol/L Potassium 6.3 H* (3.5-5.1) mmol/L Carbon Dioxide 18 L (22-30) mmol/L BUN 59 H (7-17) mg/dL Creatinine 2.96 H (0.52-1.04) mg/dL Glucose (74-99) mg/dL POC Glucose (mg/dL) 121 H (75-99) mg/dL Total Protein 6.1 L (6.3-8.2) g/dL Albumin 3.3 L (3.5-5.0) g/dL Urine Protein (Negative) Urine Blood (Negative) Ur Leukocyte Esterase (Negative) Urine RBC (0-5) /hpf Urine WBC (0-5) /hpf Urine Bacteria (None) /hpf Microbiology - Last 24 Hours (Table) 08/15/18 12:55 Urine Culture - Preliminary Urine,Voided Assessment and Plan Plan: 1. Acute kidney injury with metabolic acidosis and secondary to ATN secondary to intravascular volume depletion from nausea and vomiting and dehydration, rule out urinary retention. Consult with Dr. Dante anen. Patient has been started on sodium bicarb orally, losartan discontinued, IV fluids decreased 100 mL per hour, low potassium diet, bladder scan to rule out urinary retention. 2. Hyperkalemia secondary to acute kidney injury and metabolic acidosis. Patient is on a low potassium diet. 2 aunts of bicarb IV push along with 10 units of IV insulin and D50, repeat potassium level in the afternoon. Nephrology consult appreciated. 3. Anemia secondary to renal disease. Aranesp added. 4. Possible acute urinary tract infection with hemorrhagic cystitis, microscopic hematuria noted on exam. Urine culture in progress 5. History of Infectious colitis in a patient with history of ischemic colitis in 2000. Colonoscopy with previous one finding a benign polyp. 6. Primary hyperaldosteronism. Patient has been on Aldactone 12.5 mg daily. 7. Hypothyroidism. Continue levothyroxine 50 g daily. 8. Chronic kidney disease stage III with baseline creatinine 1.4 secondary to nephrosclerosis. 9. History off simple partial seizure disorder 10. Hypertension. Continue hydralazine 50 mg 3 times daily. Aldactone 25 mg daily. Losartan 50 mg twice daily on hold. 7. DVT prophylaxis. Continue Lovenox 40 mg subcu daily. 8. Gastrointestinal prophylaxis. Continue Pepcid 20 mg daily. Discharge plan: To be determined. PT and OT consults added. Impression and plan of care have been directed as dictated by the signing physician. Hetal Sanchez nurse practitioner acting as scribe for signing physician.
[2018-08-17] MEDS: FLUTICASONE 50MCG/SPRAY NASAL 16GM EA NOSTRIL SCH (10:21)
[2018-08-17] MEDS: MAGNESIUM SULFATE-D5W PMX 1 GM in DEXTROSE/WATER 1 100ML.BAG IVPB SCH ×2 (11:11→12:57)
[2018-08-17] MEDS: ASPIRIN 325 MG TAB PO SCH (12:19)
[2018-08-17] MEDS ORDERED: DEXTROSE 50%-WATER 50 ML SYRINGE IVP ONE (12:22)
[2018-08-17 12:23] LABS: Glucose,Whole Blood 38 mg/dL (75-99)
[2018-08-17 12:29] LABS: Glucose,Whole Blood 201 mg/dL (75-99)
[2018-08-17 12:43] LABS: Glucose,Whole Blood 145 mg/dL (75-99)
--- NOTE | 2018-08-17 12:57 | CT ---
EXAMINATION TYPE: CT brain wo con for TPA DATE OF EXAM: 08/17/2018 COMPARISON: 03/18/2016 HISTORY: Blurred vision and weakness that has resolved as blood sugar increased. CT DLP: 1023 mGycm Automated exposure control for dose reduction was used. TECHNIQUE: CT scan of the head is performed without contrast. FINDINGS: There is no acute intracranial hemorrhage or midline shift identified. There is diffuse v entricular and sulcal prominence consistent with diffuse age-related cerebral atrophy. Old lacunar i njury is seen in the anterior limb of the right internal capsule, more conspicuous in comparison to e xam of 2016 but retrospectively present on the prior. There is low-attenuation in the periventricular white matter consistent with chronic small vessel ischemic change. The globes are intact. Minimal m ucosal thickening is seen within the right maxillary, ethmoid, sphenoid, and frontal sinuses. Left ma xillary sinus and mastoid air cells are well aerated. Atherosclerosis is noted of the intracranial va sculature. Incidental note of scleral calcifications. IMPRESSION: No acute intracranial hemorrhage or midline shift. Old lacunar injury of the anterior l imb of the right internal capsule. There is diffuse age-related cerebral atrophy and chronic small ve ssel ischemic change noted.
[2018-08-17 13:07] LABS: Glucose,Whole Blood 147 mg/dL (75-99)
--- NOTE | 2018-08-17 13:14 | P.PN ---
Subjective Progress Note Date: 08/17/18 This is a [id number] patient of Dr. Swift, Dr. Gerson Barry. Patient has underlying history of hypertension, ischemic colitis, hypothyroidism pleural effusions status post pericardial window, chronic kidney disease stage III, recurrent syncope for which she went to specialist and was told it was due to hyper aldosteronism and placed on Aldactone 25 mg tablet one half tablet daily. She states she also has been told many years ago that it was a vagus reaction and she states her blood pressure has been difficult to control. She states she has had 3 syncopal episodes in the past year. She presents to the emergency room secondary to nausea vomiting and diarrhea, has been weak, and has shortness of breath. Symptoms persisted for the past 2 weeks, patient denies any fever no chills, nausea but events, patient was subsequently seen in the emergency room with checks x-ray findings showing curly B lines, urinalysis shows 8 WBCs, 46 red blood cells, BUN off 64, creatinine of 0.02. Patient was admitted secondary to acute dehydration, hyperkalemia, dehydration. EKG did not show any acute ST-T wave changes, no QT prolongation, baseline creatinine 1.17 consult with nephrology, IV fluids to be given, 08/16: Renal ultrasound showed medical renal disease with suboptimally evaluated hypoechoic possible left renal cyst. No hydronephrosis or nephrolithiasis of either kidney. Patient has been afebrile, blood pressure 137 /74, heart rate running in the 70s and 80s, pulse ox 97% on room air. Repeat labs show hemoglobin of 8.8, sodium 133, potassium 6.3, chloride 107, CO2 18, BUN 59 creatinine 2.96. Patient has been seen by Dr. Howell for acute kidney injury secondary to ATN secondary to intravascular volume depletion from nausea and vomiting. IV fluids decreased to 100 mL per hour, sodium bicarb has been added as well as IV bicarb, IV insulin and D50, low potassium diet. Patient denies having any diarrhea. She is drinking adequate liquids at this point. She does have a c-collar in place which she states she has been utilizing for the past year whenever she is in bed per Dr. Green for chronic neck pain. 08/17: Repeat labs show a sodium of 134, potassium 6.1, chloride 109, CO2 18, BUN [address] Howell has again ordered IV bicarb, insulin and D50 for hyperkalemia. One dose of IV Lasix ordered 40 mg. IV fluids decreased to 70 mL per hour due to fluid overload. Patient is complaining of sinus problems for which Claritin, Flonase and Tylenol added. At the time of evaluation, patient complains of sudden onset of blurred vision in the right eye but then on both eyes and some right lower extremity weakness. Due to symptoms or was concern for stroke and stroke team was called. It turns out that her blood sugar was 38. She didn't receive insulin this morning along with dextrose for hyperkalemia. The patient is not diabetic and is not on insulin or antidiabetic agents. Aspirin has been started. CAT scan of the brain was unremarkable and reviewed by [facility] neurosurgeon with recommendations for MRI and follow-up with neurology. MRI of the brain ordered. Urine culture is showing no growth and antibiotics will be discontinued. PT has evaluated and recommends home with home care. Review of Systems Constitutional: Reports as per HPI, Reports anorexia, Reports chills, Reports fatigue, Reports lethargy, Reports malaise, Denies chronic headaches, Denies chronic pain, Denies daytime sleepiness, Denies fever, Denies night sweats, Denies poor appetite, Denies sweats, Denies weakness, Denies weight gain, Denies weight loss Ears, nose, mouth and throat: Reports as per HPI, Denies ant. neck pain, Denies bleeding gums, Denies dental pain, Denies dysphagia, Denies epistaxis, reports headache, Denies hoarseness, Denies mouth pain, reports nasal congestion, Denies nasal discharge, Denies neck fullness/pressure, Denies neck lump, Denies nose pain, Denies odynophagia, Denies post-nasal drip, Denies sinus pain, Denies sinus pressure, Denies swelling in mouth, Denies swelling in throat, Denies sore throat, Denies vertigo, Denies voice changes Cardiovascular: Reports as per HPI, Denies chest pain, Denies claudication, Denies decreased exercise tolerance, Denies dyspnea on exertion, Denies edema, Denies high blood pressure, Denies irregular heart beat, Denies leg edema, Denies lightheadedness, Denies orthopnea, Denies palpitations, Denies paroxysmal nocturnal dyspnea, Denies phlebitis, Denies rapid heart beat, Denies shortness of breath, Denies syncope Respiratory: Reports as per HPI, Denies congestion, Denies cough, Denies cough with sputum, Denies dyspnea, Denies excessive sputum, Denies hemoptysis, Denies home oxygen, Denies pain, Denies pain on inspiration, Denies pleurisy, Denies respiratory infections, Denies sleep apnea, Denies snoring, Denies wheezing Gastrointestinal: Reports as per HPI, denies diarrhea, Reports loss of appetite , denies nausea, denies vomiting, Denies abdominal pain, Denies belching, Denies bloating, Denies BRBPR, Denies change in bowel habits, Denies coffee ground emesis, Denies constipation, Denies dyspepsia, Denies early satiety, Denies excessive gas, Denies heartburn, Denies hematemesis, Denies hematochezia , Denies indigestion, Denies jaundice, Denies lactose intolerance, Denies melena Genitourinary: Reports as per HPI, Denies abnormal vaginal bleeding, Denies decreased libido, Denies difficulty conceiving, Denies difficulty voiding, Denies dysmenorrhea, Denies dyspareunia, Denies dysuria, Denies flank pain, Denies genital sores, Denies hematuria, Denies hot flashes, Denies incomplete emptying, Denies kidney stones, Denies menorrhagia, Denies mixed incontinence, Denies nocturia, Denies pelvic pain, Denies post void dribbling, Denies , Denies prolapse symptoms, Denies stress incontinence, Denies urge incontinence , Denies urgency, Denies urinary frequency, Denies vaginal discharge, Denies vaginal dryness, Denies vaginal itching, Denies vaginal odor Menstruation: Reports as per HPI Musculoskeletal: Reports as per HPI Integumentary: Reports as per HPI Neurological: Reports as per HPI, Denies aphasia, Denies ataxia, Denies balance difficulties, Denies burning pain, Denies change in mentation, Denies change in smell/taste, Denies change in speech, Denies confusion, Denies convulsions, reports double vision, Denies gait dysfunction, Denies head injury, Denies headaches, Denies hearing difficulties, Denies lack of coordination, Denies loss of vision, Denies memory loss, Denies migraines, Denies motor disturbance, Denies numbness, Denies paralysis, Denies paresthesias, Denies seizures, Denies sensory deficit, Denies spasticity, Denies syncope, Denies tic, Denies tingling , Denies transient paralysis, Denies tremors, Denies vertigo, Denies weakness, Denies visual changes Psychiatric: Reports as per HPI, Denies anhedonia, Denies anxiety, Denies anxiety attacks, Denies change in appetite, Denies change in libido, Denies change in sleep habits, Denies confusion, Denies depression, Denies difficulty concentrating, Denies disorientation, Denies hallucinations, Denies hopelessness , Denies hypersomnia, Denies insomnia, Denies irritability, Denies memory loss, Denies mood swings, Denies paranoia, Denies sadness/tearfulness, Denies sleep disturbances, Denies suicidal ideation Hematologic/Lymphatic: Reports as per HPI, Denies easy bleeding, Denies easy bruising, Denies lymphadenopathy, Denies lymphedema, Denies thrombophilia Allergic/Immunologic: Reports as per HPI, Denies allergic rhinitis, Denies anaphylaxis, Denies angioedema, Denies gluten intolerance, Denies persistent infections, Denies seasonal allergies, Denies urticaria, Denies wheezing Objective - Vital Signs Vital signs: Vital Signs Temp 97.6 F 08/17/18 05:00 Pulse 82 08/17/18 05:00 Resp 16 08/17/18 05:00 BP 155/72 08/17/18 05:00 Pulse Ox 95 08/17/18 05:00 Intake & Output 08/16/18 08/17/18 08/17/18 18:59 06:59 18:59 Intake Total 850 Output Total 450 Balance 400 Intake: Intake, IV Titration 850 Amount Sodium Chloride 0.9% 1, 800 000 ml @ 100 mls/hr IV . Q10H [facility] Rx#:[id number] cefTRIAXone 1,000 mg In 50 Sodium Chloride 0.9% 50 ml @ 100 mls/hr IVPB Q24H [facility] Rx#:[id number] Output: Urine 450 Straight 100 Other: Voiding Method Bedside Commode - Exam General appearance: cooperative, no acute distress - EENT Eyes: anicteric sclerae, EOMI, PERRLA, dentition normal, normal appearance ENT: NA/AT, normal oropharynx - Neck Neck: normal ROM Thyroid: bilateral: normal size - Respiratory Respiratory: bilateral: CTA, negative: diminished, dullness, rales, rhonchi - Cardiovascular Rhythm: regular Heart sounds: normal: S1, S2 Abnormal Heart Sounds: no systolic murmur, no diastolic murmur, no rub, no S3 Gallop, no S4 Gallop, no click, no other - Gastrointestinal General gastrointestinal: normal bowel sounds, soft - Integumentary Integumentary: decreased turgor, normal - Neurologic Neurologic: CNII-XII intact - Musculoskeletal Musculoskeletal: gait normal, generalized weakness, right lower extremity slightly weaker than left, and equal strength, blurred vision right eye - Psychiatric Psychiatric: A&O x's 3, appropriate affect, intact judgment & insight, - Labs CBC & Chem 7: 08/16/18 07:45 08/17/18 08:05 Labs: Abnormal Lab Results - Last 24 Hours (Table) 08/16/18 08/16/18 08/16/18 Range/Units 07:45 13:55 20:31 Sodium (137-145) mmol/L Potassium 5.5 H (3.5-5.1) mmol/L Chloride (98-107) mmol/L Carbon Dioxide (22-30) mmol/L BUN (7-17) mg/dL Creatinine (0.52-1.04) mg/dL POC Glucose (mg/dL) 113 H (75-99) mg/dL Magnesium (1.6-2.3) mg/dL TIBC 207 L (228-460) ug/dL 08/17/18 Range/Units 08:05 Sodium 134 L (137-145) mmol/L Potassium 6.1 H* (3.5-5.1) mmol/L Chloride 109 H (98-107) mmol/L Carbon Dioxide 18 L (22-30) mmol/L BUN 55 H (7-17) mg/dL Creatinine 3.02 H (0.52-1.04) mg/dL POC Glucose (mg/dL) (75-99) mg/dL Magnesium 1.5 L (1.6-2.3) mg/dL TIBC (228-460) ug/dL Microbiology - Last 24 Hours (Table) 08/15/18 12:55 Urine Culture - Final Urine,Voided Assessment and Plan Plan: 1. Acute kidney injury with metabolic acidosis and secondary to ATN secondary to intravascular volume depletion from nausea and vomiting and dehydration, rule out urinary retention. Consult with Dr. Howell appreciated. Patient has been started on sodium bicarb orally, losartan discontinued, IV fluids decreased to 70 mL per hour, low potassium diet, bladder scan as above. 2. Hyperkalemia secondary to acute kidney injury and metabolic acidosis. Patient is on a low potassium diet. Repeat bicarb IV push along with 10 units of IV insulin and D50, repeat potassium level in the afternoon. Nephrology consult appreciated. 3. Anemia secondary to renal disease. Aranesp added. 4. Possible acute urinary tract infection ruled out and antibiotics stopped 5. History of Infectious colitis in a patient with history of ischemic colitis in 2000. Colonoscopy with previous one finding a benign polyp. 6. Primary hyperaldosteronism. Aldactone on hold. 7. Hypothyroidism. Continue levothyroxine 50 g daily. 8. Chronic kidney disease stage III with baseline creatinine 1.4 secondary to nephrosclerosis. 9. History off simple partial seizure disorder 10. Hypertension. Continue hydralazine 50 mg 3 times daily. Aldactone 25 mg daily and Losartan 50 mg twice daily on hold. 11. DVT prophylaxis. Continue Lovenox 40 mg subcu daily. 12. Gastrointestinal prophylaxis. Continue Pepcid 20 mg daily. 13. Possible sinusitis. Patient started on Nasacort and Claritin. 14. Diplopia and right lower extremity weakness secondary to hypoglycemia secondary to regular insulin. Patient has been treated with dextrose. CAT scan of the brain is unremarkable. MRI of the brain, follow-up with neurology as an outpatient recommended. Aspirin started Discharge plan: Home with home care. Impression and plan of care have been directed as dictated by the signing physician. Hetal Sanchez nurse practitioner acting as scribe for signing physician.
[2018-08-17 14:23] LABS: Phosphorus 3.6 mg/dL (2.5-4.5); Potassium 5.6 mmol/L (3.5-5.1)
--- NOTE | 2018-08-17 17:09 | MR ---
EXAMINATION TYPE: MR brain wo con DATE OF EXAM: 08/17/2018 COMPARISON: None HISTORY: Blurred vision, weakness Standard multiplanar, multisequence MRI departmental protocol Multiplanar, multisequence images of the brain were acquired. Diffusion weighted imaging was performe d. FINDINGS: There is cerebral cortical atrophy. There is no mass effect nor midline shift. There is no sign of intracranial hemorrhage. There is no evidence of cortical infarct. There is some thinning of the corpus callosum. Sella turcica is normal. The brainstem is intact. There are patchy areas of abno rmal increased signal in the periventricular white matter and some cortical white matter. These measu re up to 1 cm. Total number is more than 25. There is minimal mucosal thickening in the ethmoid air c ells. There is no evidence of posterior fossa mass. Sella turcica appears normal. IMPRESSION: Cerebral atrophy. White matter changes probably due to chronic small vessel ischemia. No acute intrac ranial abnormality.
[2018-08-17 17:15] LABS: Glucose,Whole Blood 123 mg/dL (75-99)
[2018-08-17 20:08] LABS: Glucose,Whole Blood 129 mg/dL (75-99)
[2018-08-17 20:19] LABS: Protein, Total 5.6 g/dL (6.2-8.2)
[2018-08-17 21:45] LABS: Glucose,Whole Blood 101 mg/dL (75-99)
[2018-08-18 00:12] LABS: Glucose,Whole Blood 46 mg/dL (75-99)
[2018-08-18 00:13] LABS: Glucose,Whole Blood 50 mg/dL (75-99)
[2018-08-18 00:36] LABS: Glucose,Whole Blood 80 mg/dL (75-99)
[2018-08-18] MEDS ORDERED: ALBUTEROL NEBULIZED (CONC) 20 MG, SODIUM CHLORIDE 0.9% NEBULIZ 3 ML INHALATION ONE ×2 (01:15)
[2018-08-18 01:32] LABS: Glucose,Whole Blood 115 mg/dL (75-99)
[2018-08-18] MEDS: LEVOTHYROXINE 50 MCG TAB PO SCH (06:14)
[2018-08-18 07:14] LABS: Glucose,Whole Blood 138 mg/dL (75-99)
[2018-08-18 08:20] LABS: HCT 25.2 % (34.0-46.0); HGB 8.2 gm/dL (11.4-16.0); MCH 32.5 pg (25.0-35.0); MCHC 32.7 g/dL (31.0-37.0); MCV 99.5 fL (80.0-100.0); Mean Platelet Volume 7.8; Platelet Count 264 k/uL (150-450); RBC 2.54 m/uL (3.80-5.40); RDW 13.5 % (11.5-15.5)
[2018-08-18 08:33] LABS: Calcium 8.8 mg/dL (8.4-10.2); Magnesium 1.8 mg/dL (1.6-2.3); Potassium 5.5 mmol/L (3.5-5.1)
[2018-08-18] MEDS: FAMOTIDINE 20 MG TAB PO SCH (09:07)
[2018-08-18] MEDS: ENOXAPARIN 30 MG/0.3 ML SYRINGE SQ SCH (09:07)
[2018-08-18] MEDS: SODIUM BICARBONATE TAB 650 MG TAB PO SCH ×2 (09:08→20:52)
[2018-08-18] MEDS: SODIUM CHLORIDE 0.9% 1,000 ML IV SCH (09:08)
[2018-08-18] MEDS: LORATADINE 10 MG TAB PO SCH (09:08)
[2018-08-18] MEDS: FLUTICASONE 50MCG/SPRAY NASAL 16GM EA NOSTRIL SCH (09:08)
[2018-08-18] MEDS: ASPIRIN 325 MG TAB PO SCH (09:08)
[2018-08-18] MEDS: hydrALAZINE HCL 50 MG TAB PO SCH ×2 (09:08→15:28)
[2018-08-18 10:58] LABS: Albumin 3.07 g/dL (3.80-4.90); Gamma Globulin 0.86 g/dL (0.70-1.50)
[2018-08-18 11:11] LABS: Glucose,Whole Blood 155 mg/dL (75-99)
[2018-08-18 11:43] LABS: ANA Pattern Homogeneous
[2018-08-18] MEDS ORDERED: SODIUM POLYSTYRENE SULFONATE 15 GM/60 ML BOTTLE PO STA (11:47)
--- NOTE | 2018-08-18 13:26 | P.PN ---
Subjective Progress Note Date: 08/18/18 This is a [id number] patient of Dr. Swift, Dr. Gerson Barry. Patient has underlying history of hypertension, ischemic colitis, hypothyroidism pleural effusions status post pericardial window, chronic kidney disease stage III, recurrent syncope for which she went to specialist and was told it was due to hyper aldosteronism and placed on Aldactone 25 mg tablet one half tablet daily. She states she also has been told many years ago that it was a vagus reaction and she states her blood pressure has been difficult to control. She states she has had 3 syncopal episodes in the past year. She presents to the emergency room secondary to nausea vomiting and diarrhea, has been weak, and has shortness of breath. Symptoms persisted for the past 2 weeks, patient denies any fever no chills, nausea but events, patient was subsequently seen in the emergency room with checks x-ray findings showing curly B lines, urinalysis shows 8 WBCs, 46 red blood cells, BUN off 64, creatinine of 0.02. Patient was admitted secondary to acute dehydration, hyperkalemia, dehydration. EKG did not show any acute ST-T wave changes, no QT prolongation, baseline creatinine 1.17 consult with nephrology, IV fluids to be given, 08/16: Renal ultrasound showed medical renal disease with suboptimally evaluated hypoechoic possible left renal cyst. No hydronephrosis or nephrolithiasis of either kidney. Patient has been afebrile, blood pressure 137 /74, heart rate running in the 70s and 80s, pulse ox 97% on room air. Repeat labs show hemoglobin of 8.8, sodium 133, potassium 6.3, chloride 107, CO2 18, BUN 59 creatinine 2.96. Patient has been seen by Dr. Howell for acute kidney injury secondary to ATN secondary to intravascular volume depletion from nausea and vomiting. IV fluids decreased to 100 mL per hour, sodium bicarb has been added as well as IV bicarb, IV insulin and D50, low potassium diet. Patient denies having any diarrhea. She is drinking adequate liquids at this point. She does have a c-collar in place which she states she has been utilizing for the past year whenever she is in bed per Dr. Green for chronic neck pain. 08/17: Repeat labs show a sodium of 134, potassium 6.1, chloride 109, CO2 18, BUN [address] Howell has again ordered IV bicarb, insulin and D50 for hyperkalemia. One dose of IV Lasix ordered 40 mg. IV fluids decreased to 70 mL per hour due to fluid overload. Patient is complaining of sinus problems for which Claritin, Flonase and Tylenol added. At the time of evaluation, patient complains of sudden onset of blurred vision in the right eye but then on both eyes and some right lower extremity weakness. Due to symptoms or was concern for stroke and stroke team was called. It turns out that her blood sugar was 38. She didn't receive insulin this morning along with dextrose for hyperkalemia. The patient is not diabetic and is not on insulin or antidiabetic agents. Aspirin has been started. CAT scan of the brain was unremarkable and reviewed by [facility] neurosurgeon with recommendations for MRI and follow-up with neurology. MRI of the brain ordered. Urine culture is showing no growth and antibiotics will be discontinued. PT has evaluated and recommends home with home care. 08/18: Patient has been afebrile, heart rate running in 80s to low 100s, blood pressure 150/66, pulse ox 96% on room air. Repeat lab work reveals hemoglobin 8.2, potassium 5.5, BUN 55 and creatinine 3.19. Magnesium 1.8. Capillary blood glucose monitoring between 115 and 155. Urine eosinophils was negative, no paraprotein recognized. CHRISTINE came back positive homogenous and anti-DNA double-stranded antibody ordered and histone antibody. One dose of Kayexalate ordered. Patient has complaints of constipation as well. MRI of the brain reveals central atrophy. White matter changes probably due to chronic small vessel ischemia. No acute intracranial abnormality. Patient denies any double vision or weakness today, mentation is at baseline. Dietitian consult regarding low potassium diet Review of Systems Constitutional: Reports as per HPI, Reports anorexia, Reports chills, Reports fatigue, Reports lethargy, Reports malaise, Denies chronic headaches, Denies chronic pain, Denies daytime sleepiness, Denies fever, Denies night sweats, Denies poor appetite, Denies sweats, Denies weakness, Denies weight gain, Denies weight loss Ears, nose, mouth and throat: Reports as per HPI, Denies ant. neck pain, Denies bleeding gums, Denies dental pain, Denies dysphagia, Denies epistaxis, reports headache, Denies hoarseness, Denies mouth pain, reports nasal congestion, Denies nasal discharge, Denies neck fullness/pressure, Denies neck lump, Denies nose pain, Denies odynophagia, Denies post-nasal drip, Denies sinus pain, Denies sinus pressure, Denies swelling in mouth, Denies swelling in throat, Denies sore throat, Denies vertigo, Denies voice changes Cardiovascular: Reports as per HPI, Denies chest pain, Denies claudication, Denies decreased exercise tolerance, Denies dyspnea on exertion, Denies edema, Denies high blood pressure, Denies irregular heart beat, Denies leg edema, Denies lightheadedness, Denies orthopnea, Denies palpitations, Denies paroxysmal nocturnal dyspnea, Denies phlebitis, Denies rapid heart beat, Denies shortness of breath, Denies syncope Respiratory: Reports as per HPI, Denies congestion, Denies cough, Denies cough with sputum, Denies dyspnea, Denies excessive sputum, Denies hemoptysis, Denies home oxygen, Denies pain, Denies pain on inspiration, Denies pleurisy, Denies respiratory infections, Denies sleep apnea, Denies snoring, Denies wheezing Gastrointestinal: Reports as per HPI, denies diarrhea, Reports loss of appetite , denies nausea, denies vomiting, Denies abdominal pain, Denies belching, Denies bloating, Denies BRBPR, Denies change in bowel habits, Denies coffee ground emesis, Denies constipation, Denies dyspepsia, Denies early satiety, Denies excessive gas, Denies heartburn, Denies hematemesis, Denies hematochezia , Denies indigestion, Denies jaundice, Denies lactose intolerance, Denies melena Genitourinary: Reports as per HPI, Denies abnormal vaginal bleeding, Denies decreased libido, Denies difficulty conceiving, Denies difficulty voiding, Denies dysmenorrhea, Denies dyspareunia, Denies dysuria, Denies flank pain, Denies genital sores, Denies hematuria, Denies hot flashes, Denies incomplete emptying, Denies kidney stones, Denies menorrhagia, Denies mixed incontinence, Denies nocturia, Denies pelvic pain, Denies post void dribbling, Denies , Denies prolapse symptoms, Denies stress incontinence, Denies urge incontinence , Denies urgency, Denies urinary frequency, Denies vaginal discharge, Denies vaginal dryness, Denies vaginal itching, Denies vaginal odor Menstruation: Reports as per HPI Musculoskeletal: Reports as per HPI Integumentary: Reports as per HPI Neurological: Reports as per HPI, Denies aphasia, Denies ataxia, Denies balance difficulties, Denies burning pain, Denies change in mentation, Denies change in smell/taste, Denies change in speech, Denies confusion, Denies convulsions, denies double vision, Denies gait dysfunction, Denies head injury, Denies headaches, Denies hearing difficulties, Denies lack of coordination, Denies loss of vision, Denies memory loss, Denies migraines, Denies motor disturbance, Denies numbness, Denies paralysis, Denies paresthesias, Denies seizures, Denies sensory deficit, Denies spasticity, Denies syncope, Denies tic, Denies tingling , Denies transient paralysis, Denies tremors, Denies vertigo, Denies weakness, Denies visual changes Psychiatric: Reports as per HPI, Denies anhedonia, Denies anxiety, Denies anxiety attacks, Denies change in appetite, Denies change in libido, Denies change in sleep habits, Denies confusion, Denies depression, Denies difficulty concentrating, Denies disorientation, Denies hallucinations, Denies hopelessness , Denies hypersomnia, Denies insomnia, Denies irritability, Denies memory loss, Denies mood swings, Denies paranoia, Denies sadness/tearfulness, Denies sleep disturbances, Denies suicidal ideation Hematologic/Lymphatic: Reports as per HPI, Denies easy bleeding, Denies easy bruising, Denies lymphadenopathy, Denies lymphedema, Denies thrombophilia Allergic/Immunologic: Reports as per HPI, Denies allergic rhinitis, Denies anaphylaxis, Denies angioedema, Denies gluten intolerance, Denies persistent infections, Denies seasonal allergies, Denies urticaria, Denies wheezing Objective - Vital Signs Vital signs: Vital Signs Temp 97.4 F L 08/18/18 04:38 Pulse 106 H 08/18/18 04:38 Resp 18 08/18/18 04:38 BP 150/66 08/18/18 04:38 Pulse Ox 96 08/18/18 04:38 Intake & Output 08/17/18 08/18/18 08/18/18 18:59 06:59 18:59 Intake Total 1480 Output Total 550 1100 Balance -550 380 Intake: Intake, IV Titration 630 Amount Sodium Chloride 0.9% 1, 630 000 ml @ 70 mls/hr IV . [id number] [facility] Rx#:[id number] Oral 850 Output: Urine 550 1100 Other: Voiding Method Bedside Commode Bedside Commode - Exam General appearance: cooperative, no acute distress - EENT Eyes: anicteric sclerae, EOMI, PERRLA, dentition normal, normal appearance ENT: NA/AT, normal oropharynx - Neck Neck: normal ROM Thyroid: bilateral: normal size - Respiratory Respiratory: bilateral: CTA, negative: diminished, dullness, rales, rhonchi - Cardiovascular Rhythm: regular Heart sounds: normal: S1, S2 Abnormal Heart Sounds: no systolic murmur, no diastolic murmur, no rub, no S3 Gallop, no S4 Gallop, no click, no other - Gastrointestinal General gastrointestinal: normal bowel sounds, soft - Integumentary Integumentary: decreased turgor, normal - Neurologic Neurologic: CNII-XII intact - Musculoskeletal Musculoskeletal: gait normal, generalized weakness - Psychiatric Psychiatric: A&O x's 3, appropriate affect, intact judgment & insight, - Labs CBC & Chem 7: 08/18/18 06:57 08/18/18 06:57 Labs: Abnormal Lab Results - Last 24 Hours (Table) 08/17/18 08/17/18 08/17/18 Range/Units 08:05 12:20 12:27 Sodium 134 L (137-145) mmol/L Potassium 6.1 H* (3.5-5.1) mmol/L Chloride 109 H (98-107) mmol/L Carbon Dioxide 18 L (22-30) mmol/L BUN 55 H (7-17) mg/dL Creatinine 3.02 H (0.52-1.04) mg/dL POC Glucose (mg/dL) 38 L 201 H (75-99) mg/dL Magnesium 1.5 L (1.6-2.3) mg/dL Total Protein (PEP) (6.2-8.2) g/dL CHRISTINE Screen (NEGATIVE) 08/17/18 08/17/1808/17/19 Range/Units 12:41 13:05 13:28 Sodium (137-145) mmol/L Potassium 5.6 H (3.5-5.1) mmol/L Chloride (98-107) mmol/L Carbon Dioxide (22-30) mmol/L BUN (7-17) mg/dL Creatinine (0.52-1.04) mg/dL POC Glucose (mg/dL) 145 H 147 H (75-99) mg/dL Magnesium (1.6-2.3) mg/dL Total Protein (PEP) (6.2-8.2) g/dL CHRISTINE Screen (NEGATIVE) 08/17/18 08/17/18 08/17/18 Range/Units 13:28 17:13 20:04 Sodium (137-145) mmol/L Potassium (3.5-5.1) mmol/L Chloride (98-107) mmol/L Carbon Dioxide (22-30) mmol/L BUN (7-17) mg/dL Creatinine (0.52-1.04) mg/dL POC Glucose (mg/dL) 123 H 129 H (75-99) mg/dL Magnesium (1.6-2.3) mg/dL Total Protein (PEP) 5.6 L (6.2-8.2) g/dL CHRISTINE Screen POSITIVE H (NEGATIVE) 08/17/18 08/17/18 08/18/18 Range/Units 20:15 21:43 00:09 Sodium (137-145) mmol/L Potassium 6.0 H (3.5-5.1) mmol/L Chloride (98-107) mmol/L Carbon Dioxide (22-30) mmol/L BUN (7-17) mg/dL Creatinine (0.52-1.04) mg/dL POC Glucose (mg/dL) 101 H 46 L (75-99) mg/dL Magnesium (1.6-2.3) mg/dL Total Protein (PEP) (6.2-8.2) g/dL CHRISTINE Screen (NEGATIVE) 08/18/18 08/18/18 08/18/18 Range/Units 00:11 00:35 01:20 Sodium (137-145) mmol/L Potassium 5.7 H (3.5-5.1) mmol/L Chloride (98-107) mmol/L Carbon Dioxide (22-30) mmol/L BUN (7-17) mg/dL Creatinine (0.52-1.04) mg/dL POC Glucose (mg/dL) 50 L 115 H (75-99) mg/dL Magnesium (1.6-2.3) mg/dL Total Protein (PEP) (6.2-8.2) g/dL CHRISTINE Screen (NEGATIVE) 08/18/18 Range/Units 07:13 Sodium (137-145) mmol/L Potassium (3.5-5.1) mmol/L Chloride (98-107) mmol/L Carbon Dioxide (22-30) mmol/L BUN (7-17) mg/dL Creatinine (0.52-1.04) mg/dL POC Glucose (mg/dL) 138 H (75-99) mg/dL Magnesium (1.6-2.3) mg/dL Total Protein (PEP) (6.2-8.2) g/dL CHRISTINE Screen (NEGATIVE) Assessment and Plan Plan: 1. Acute kidney injury with metabolic acidosis and secondary to ATN secondary to intravascular volume depletion from nausea and vomiting and dehydration, rule out urinary retention. Consult with Dr. Howell appreciated. Patient has been started on sodium bicarb orally, losartan discontinued, IV fluids decreased to 70 mL per hour, low potassium diet, bladder scan as above. 2. Hyperkalemia secondary to acute kidney injury and metabolic acidosis. Patient is on a low potassium diet. Nephrology consult appreciated. Small dose of Kayexalate today. Dietitian to educate patient on low potassium diet. 3. Anemia secondary to renal disease. Aranesp added. 4. Possible acute urinary tract infection ruled out and antibiotics stopped 5. History of Infectious colitis in a patient with history of ischemic colitis in 2000. Colonoscopy with previous one finding a benign polyp. 6. Primary hyperaldosteronism. Aldactone on hold. 7. Hypothyroidism. Continue levothyroxine 50 g daily. 8. Chronic kidney disease stage III with baseline creatinine 1.4 secondary to nephrosclerosis. 9. History off simple partial seizure disorder 10. Hypertension. Continue hydralazine 50 mg 3 times daily. Aldactone 25 mg daily and Losartan 50 mg twice daily on hold. 11. DVT prophylaxis. Continue Lovenox 40 mg subcu daily. 12. Gastrointestinal prophylaxis. Continue Pepcid 20 mg daily. 13. Possible sinusitis. Patient started on Nasacort and Claritin. 14. Diplopia and right lower extremity weakness secondary to hypoglycemia secondary to regular insulin. Patient has been treated with dextrose. Follow- up with neurology as an outpatient recommended. 15. Rule out lupus. CHRISTINE came back positive. Anti-DNA double-stranded antibody ordered and histone antibody. Discharge plan: Home with home care. Impression and plan of care have been directed as dictated by the signing physician. Hetal Sanchez nurse practitioner acting as scribe for signing physician.
--- NOTE | 2018-08-18 13:33 | P.PN ---
Subjective Patient is seen in follow-up for acute kidney injury on chronic kidney disease. Patient has chronic kidney disease stage III with baseline creatinine near 1.4 secondary to nephrosclerosis. Oral intake is better. Creatinine a little worse at 3.19 today. Potassium still on the higher side at 5.5 this morning. She has been waiting. No evidence of urinary retention. Vital signs are stable. General: The patient appeared well nourished and normally developed. HEENT: Head exam is unremarkable. Neck is without jugular venous distension. LUNGS: Lungs are clear to auscultation and percussion. Breath sounds decreased. HEART: Rate and Rhythm are regular. First and second heart sounds normal. No murmurs, rubs or gallops. ABDOMEN: Abdominal exam reveals normal bowel sounds. Non-tender and non- distended. No evidence of peritonitis. EXTREMITITES: Trace edema. Objective - Vital Signs Vital signs: Vital Signs Temp 97.5 F L 08/18/18 12:39 Pulse 96 08/18/18 12:39 Resp 18 08/18/18 12:39 BP 139/76 08/18/18 12:39 Pulse Ox 98 08/18/18 12:39 Intake & Output 08/17/18 08/18/18 08/18/18 18:59 06:59 18:59 Intake Total 1480 Output Total 550 1100 500 Balance -550 380 -500 Intake: Intake, IV Titration 630 Amount Sodium Chloride 0.9% 1, 630 000 ml @ 70 mls/hr IV . [id number] [facility] Rx#:[id number] Oral 850 Output: Urine 550 1100 500 Other: Voiding Method Bedside Commode Bedside Commode Toilet Bedside Commode - Labs CBC & Chem 7: 08/18/18 06:57 08/18/18 06:57 Labs: Abnormal Lab Results - Last 24 Hours (Table) 08/17/18 08/17/18 08/17/18 Range/Units 13:28 13:28 17:13 RBC (3.80-5.40) m/uL Hgb (11.4-16.0) gm/dL Hct (34.0-46.0) % Sodium (137-145) mmol/L Potassium 5.6 H (3.5-5.1) mmol/L BUN (7-17) mg/dL Creatinine (0.52-1.04) mg/dL Glucose (74-99) mg/dL POC Glucose (mg/dL) 123 H (75-99) mg/dL Total Protein (PEP) 5.6 L (6.2-8.2) g/dL Albumin (PEP) 3.07 L (3.80-4.90) g/dL CHRISTINE Screen POSITIVE H (NEGATIVE) 08/17/18 08/17/18 08/17/18 Range/Units 20:04 20:15 21:43 RBC (3.80-5.40) m/uL Hgb (11.4-16.0) gm/dL Hct (34.0-46.0) % Sodium (137-145) mmol/L Potassium 6.0 H (3.5-5.1) mmol/L BUN (7-17) mg/dL Creatinine (0.52-1.04) mg/dL Glucose (74-99) mg/dL POC Glucose (mg/dL) 129 H 101 H (75-99) mg/dL Total Protein (PEP) (6.2-8.2) g/dL Albumin (PEP) (3.80-4.90) g/dL CHRISTINE Screen (NEGATIVE) 08/18/18 08/18/18 08/18/18 Range/Units 00:09 00:11 00:35 RBC (3.80-5.40) m/uL Hgb (11.4-16.0) gm/dL Hct (34.0-46.0) % Sodium (137-145) mmol/L Potassium 5.7 H (3.5-5.1) mmol/L BUN (7-17) mg/dL Creatinine (0.52-1.04) mg/dL Glucose (74-99) mg/dL POC Glucose (mg/dL) 46 L 50 L (75-99) mg/dL Total Protein (PEP) (6.2-8.2) g/dL Albumin (PEP) (3.80-4.90) g/dL CHRISTINE Screen (NEGATIVE) 08/18/18 08/18/18 08/18/18 Range/Units 01:20 06:57 06:57 RBC 2.54 L (3.80-5.40) m/uL Hgb 8.2 L (11.4-16.0) gm/dL Hct 25.2 L (34.0-46.0) % Sodium 134 L (137-145) mmol/L Potassium 5.5 H (3.5-5.1) mmol/L BUN 55 H (7-17) mg/dL Creatinine 3.19 H (0.52-1.04) mg/dL Glucose 140 H (74-99) mg/dL POC Glucose (mg/dL) 115 H (75-99) mg/dL Total Protein (PEP) (6.2-8.2) g/dL Albumin (PEP) (3.80-4.90) g/dL CHRISTINE Screen (NEGATIVE) 08/18/18 08/18/18 Range/Units 07:13 11:10 RBC (3.80-5.40) m/uL Hgb (11.4-16.0) gm/dL Hct (34.0-46.0) % Sodium (137-145) mmol/L Potassium (3.5-5.1) mmol/L BUN (7-17) mg/dL Creatinine (0.52-1.04) mg/dL Glucose (74-99) mg/dL POC Glucose (mg/dL) 138 H 155 H (75-99) mg/dL Total Protein (PEP) (6.2-8.2) g/dL Albumin (PEP) (3.80-4.90) g/dL CHRISTINE Screen (NEGATIVE) Assessment and Plan Plan: Assessment: 1. Acute kidney injury secondary to ATN secondary to intravascular volume depletion from nausea and vomiting. She was also taking Cozaar. Creatinine worsened 3.19 today which is due to diuretics she got yesterday. No evidence of urinary retention. No evidence of hydronephrosis noted on renal ultrasound. Patient is noted to have a positive CHRISTINE. Further serologies are pending. 2. Hyperkalemia secondary to acute kidney injury and metabolic acidosis. 3. Anemia of chronic kidney disease. Iron replete. Maintained on Aranesp. 4. Chronic kidney disease stage III with baseline creatinine near 1.4 secondary to nephrosclerosis. 5. Hypertension with chronic kidney disease. Stable. 6. Metabolic acidosis secondary to acute kidney injury and IV fluids. 7. Hypomagnesemia from poor oral intake. Better post replacement. Plan: Hep-Lock IV fluids. Maintain oral sodium bicarbonate. Add Lasix 20 mg orally twice daily. Low potassium diet. Hold Cozaar. Continue to monitor postvoid residuals. Repeat potassium level this evening. Follow-up serologies. Quantify proteinuria. Patient's GFR is quite low and kidney size is small suggesting significant chronicity. Therefore kidney biopsy is not going to be of much benefit. Additionally due to small kidneys, she will be at high risk for bleeding competitions.
[2018-08-18 14:40] VITALS: BMI 32.8
[2018-08-18] MEDS: FUROSEMIDE 20 MG TAB PO SCH (15:28)
[2018-08-18 17:22] LABS: Glucose,Whole Blood 108 mg/dL (75-99)
[2018-08-18 17:37] LABS: Hemoglobin A1C 5.8 % (4.0-6.0)
[2018-08-18] MEDS ORDERED: ALBUTEROL NEBULIZED 2.5 MG/3 ML INHALATION STA (19:01)
[2018-08-18] MEDS ORDERED: FUROSEMIDE 10 MG/ML 4 ML VIAL IV STA (19:02)
[2018-08-18] MEDS ORDERED: hydrALAZINE HCL 25 MG TAB PO STA (20:20)
[2018-08-18 20:48] LABS: DNA Double-Stranded POSITIVE (NEGATIVE)
[2018-08-18 20:55] LABS: Glucose,Whole Blood 118 mg/dL (75-99)
[2018-08-19] MEDS ORDERED: ALBUTEROL NEBULIZED 2.5 MG/3 ML INHALATION STA (04:16)
[2018-08-19 04:40] LABS: Hepatitis A Antibody IgM Non-Reactive (Non-Reactive); Hepatitis B Core IgM Non-Reactive (Non-Reactive)
[2018-08-19] MEDS: LEVOTHYROXINE 50 MCG TAB PO SCH (05:46)
[2018-08-19 07:13] LABS: Glucose,Whole Blood 118 mg/dL (75-99)
[2018-08-19] MEDS: hydrALAZINE HCL 25 MG TAB PO SCH ×3 (08:12→21:35)
[2018-08-19] MEDS: FLUTICASONE 50MCG/SPRAY NASAL 16GM EA NOSTRIL SCH (08:12)
[2018-08-19] MEDS: ENOXAPARIN 30 MG/0.3 ML SYRINGE SQ SCH (08:12)
[2018-08-19] MEDS: SODIUM BICARBONATE TAB 650 MG TAB PO SCH ×2 (08:13→20:40)
[2018-08-19] MEDS: LORATADINE 10 MG TAB PO SCH (08:13)
[2018-08-19] MEDS: ASPIRIN 325 MG TAB PO SCH (08:13)
[2018-08-19] MEDS: ONDANSETRON 4 MG/2 ML VIAL IVP PRN (08:13)
[2018-08-19] MEDS: FAMOTIDINE 20 MG TAB PO SCH (08:13)
[2018-08-19] MEDS: FUROSEMIDE 20 MG TAB PO SCH ×2 (08:13→15:56)
[2018-08-19 09:49] LABS: Calcium 8.7 mg/dL (8.4-10.2); Phosphorus 3.7 mg/dL (2.5-4.5); Potassium 5.3 mmol/L (3.5-5.1)
--- NOTE | 2018-08-19 10:49 | P.PN ---
Subjective Progress Note Date: 08/19/18 This is a [id number] patient of Dr. Swift, Dr. Gerson Barry. Patient has underlying history of hypertension, ischemic colitis, hypothyroidism pleural effusions status post pericardial window, chronic kidney disease stage III, recurrent syncope for which she went to specialist and was told it was due to hyper aldosteronism and placed on Aldactone 25 mg tablet one half tablet daily. She states she also has been told many years ago that it was a vagus reaction and she states her blood pressure has been difficult to control. She states she has had 3 syncopal episodes in the past year. She presents to the emergency room secondary to nausea vomiting and diarrhea, has been weak, and has shortness of breath. Symptoms persisted for the past 2 weeks, patient denies any fever no chills, nausea but events, patient was subsequently seen in the emergency room with checks x-ray findings showing curly B lines, urinalysis shows 8 WBCs, 46 red blood cells, BUN off 64, creatinine of 0.02. Patient was admitted secondary to acute dehydration, hyperkalemia, dehydration. EKG did not show any acute ST-T wave changes, no QT prolongation, baseline creatinine 1.17 consult with nephrology, IV fluids to be given, 08/16: Renal ultrasound showed medical renal disease with suboptimally evaluated hypoechoic possible left renal cyst. No hydronephrosis or nephrolithiasis of either kidney. Patient has been afebrile, blood pressure 137 /74, heart rate running in the 70s and 80s, pulse ox 97% on room air. Repeat labs show hemoglobin of 8.8, sodium 133, potassium 6.3, chloride 107, CO2 18, BUN 59 creatinine 2.96. Patient has been seen by Dr. Howell for acute kidney injury secondary to ATN secondary to intravascular volume depletion from nausea and vomiting. IV fluids decreased to 100 mL per hour, sodium bicarb has been added as well as IV bicarb, IV insulin and D50, low potassium diet. Patient denies having any diarrhea. She is drinking adequate liquids at this point. She does have a c-collar in place which she states she has been utilizing for the past year whenever she is in bed per Dr. Green for chronic neck pain. 08/17: Repeat labs show a sodium of 134, potassium 6.1, chloride 109, CO2 18, BUN [address] Howell has again ordered IV bicarb, insulin and D50 for hyperkalemia. One dose of IV Lasix ordered 40 mg. IV fluids decreased to 70 mL per hour due to fluid overload. Patient is complaining of sinus problems for which Claritin, Flonase and Tylenol added. At the time of evaluation, patient complains of sudden onset of blurred vision in the right eye but then on both eyes and some right lower extremity weakness. Due to symptoms or was concern for stroke and stroke team was called. It turns out that her blood sugar was 38. She didn't receive insulin this morning along with dextrose for hyperkalemia. The patient is not diabetic and is not on insulin or antidiabetic agents. Aspirin has been started. CAT scan of the brain was unremarkable and reviewed by [place] neurosurgeon with recommendations for MRI and follow-up with neurology. MRI of the brain ordered. Urine culture is showing no growth and antibiotics will be discontinued. PT has evaluated and recommends home with home care. 08/18: Patient has been afebrile, heart rate running in 80s to low 100s, blood pressure 150/66, pulse ox 96% on room air. Repeat lab work reveals hemoglobin 8.2, potassium 5.5, BUN 55 and creatinine 3.19. Magnesium 1.8. Capillary blood glucose monitoring between 115 and 155. Urine eosinophils was negative, no paraprotein recognized. CHRISTINE came back positive homogenous and anti-DNA double-stranded antibody ordered and histone antibody. One dose of Kayexalate ordered. Patient has complaints of constipation as well. MRI of the brain reveals central atrophy. White matter changes probably due to chronic small vessel ischemia. No acute intracranial abnormality. Patient denies any double vision or weakness today, mentation is at baseline. Dietitian consult regarding low potassium diet 08/19: Patient continues to be afebrile. Heart rate is running in the 90s to 100. Blood pressure was 138/62. Patient did have a bowel movement this morning. Patient states that it was still hard. Patient did complain of vomiting this morning after breakfast. She had a small emesis of her breakfast. Patient still complaining of lower extremity edema. We are continuing with the Lasix 20 mg twice a day. Patient denies any urinary retention. Repeat potassium 5.3 which is decreased from this morning at 3:00 of 5.7. Review Of Systems: Constitutional: No fever, no chills, no night sweats. No weight change. No weakness, fatigue or lethargy. No daytime sleepiness. Reports lower leg edema EENT: No headache. No blurred vision or double vision, no loss of vision. No loss of Hearing, no ringing in the ears, no dizziness. No nasal drainage or congestion. No epistaxis. No sore throat. Lungs: No shortness of breath, cough, no sputum production. No wheezing. Cardiovascular: No chest pain, no lower extremity edema. No palpitations. No paroxysmal nocturnal dyspnea. No orthopnea. No lightheadedness or dizziness. No syncopal episodes. Abdominal: no abdominal discomfort. No nausea, reports vomiting. no diarrhea. No constipation. No bloody or tarry stools. No loss of appetite. Genitourinary: No dysuria, no frequency or urgency. No urinary retention. Musculoskeletal: No myalgias. No muscle weakness, no gait dysfunction, no frequent falls. No back pain. No neck pain. Integumentary: No wounds, no lesions. No rash or pruritus. No unusual bruising. No change in hair or nails. Neurologic: No aphasia. No facial droop. No change in mentation. No head injury. No headache. No paralysis. No paresthesia. Psychiatric: No depression. No anxiety. No mood swings. Endocrine: No abnormal blood sugars. No weight change. No excessive sweating or thirst. Objective - Vital Signs Vital signs: Vital Signs Temp 97.8 F 08/19/18 05:00 Pulse 100 08/19/18 05:41 Resp 17 08/19/18 05:00 BP 129/60 08/19/18 05:00 Pulse Ox 95 08/19/18 05:00 Intake & Output 08/18/18 08/19/18 08/19/18 18:59 06:59 18:59 Intake Total 1080 Output Total 500 Balance -500 1080 Weight 83.915 kg Intake: Oral 1080 Output: Urine 500 Other: Voiding Method Toilet Bedside Commode Bedside Commode Bedside Commode # Voids 5 - Constitutional General appearance: Present: no acute distress, obese - EENT Eyes: Present: anicteric sclerae, EOMI, PERRLA ENT: Present: hearing grossly normal, NA/AT - Neck Neck: Present: normal ROM. Absent: lymphadenopathy - Respiratory Respiratory: bilateral: CTA, negative: diminished, dullness, rales, rhonchi, wheezing - Cardiovascular Rhythm: regular Heart sounds: normal: S1, S2 Abnormal Heart Sounds: Absent: systolic murmur, diastolic murmur, rub, S3 Gallop , S4 Gallop, click, other - Peripheral edema leg Peripheral Edema: bilateral: 1+ - Gastrointestinal General gastrointestinal: Present: normal bowel sounds, soft. Absent: organomegaly, tenderness - Integumentary Integumentary: Present: decreased turgor, pale - Neurologic Neurologic: Present: CNII-XII intact - Musculoskeletal Musculoskeletal: Present: gait normal, generalized weakness - Psychiatric Psychiatric: Present: A&O x's 3, appropriate affect, intact judgment & insight - Labs CBC & Chem 7: 08/18/18 06:57 08/19/18 09:13 Labs: Abnormal Lab Results - Last 24 Hours (Table) 08/17/18 08/18/18 08/18/18 Range/Units 13:28 06:57 11:10 Sodium (137-145) mmol/L Potassium (3.5-5.1) mmol/L Chloride (98-107) mmol/L BUN (7-17) mg/dL Creatinine (0.52-1.04) mg/dL Glucose (74-99) mg/dL POC Glucose (mg/dL) 155 H (75-99) mg/dL Albumin (PEP) 3.07 L (3.80-4.90) g/dL U Random Total Protein (<12) mg/dL Double Strand DNA Ab POSITIVE H (NEGATIVE) 08/18/18 08/18/18 08/18/18 Range/Units 15:40 17:21 18:25 Sodium (137-145) mmol/L Potassium 6.0 H (3.5-5.1) mmol/L Chloride (98-107) mmol/L BUN (7-17) mg/dL Creatinine (0.52-1.04) mg/dL Glucose (74-99) mg/dL POC Glucose (mg/dL) 108 H (75-99) mg/dL Albumin (PEP) (3.80-4.90) g/dL U Random Total Protein 63 H (<12) mg/dL Double Strand DNA Ab (NEGATIVE) 08/18/18 08/19/18 08/19/18 Range/Units 20:54 03:31 07:12 Sodium (137-145) mmol/L Potassium 5.7 H (3.5-5.1) mmol/L Chloride (98-107) mmol/L BUN (7-17) mg/dL Creatinine (0.52-1.04) mg/dL Glucose (74-99) mg/dL POC Glucose (mg/dL) 118 H 118 H (75-99) mg/dL Albumin (PEP) (3.80-4.90) g/dL U Random Total Protein (<12) mg/dL Double Strand DNA Ab (NEGATIVE) 08/19/18 Range/Units 09:13 Sodium 131 L (137-145) mmol/L Potassium 5.3 H (3.5-5.1) mmol/L Chloride 97 L (98-107) mmol/L BUN 57 H (7-17) mg/dL Creatinine 3.25 H (0.52-1.04) mg/dL Glucose 134 H (74-99) mg/dL POC Glucose (mg/dL) (75-99) mg/dL Albumin (PEP) (3.80-4.90) g/dL U Random Total Protein (<12) mg/dL Double Strand DNA Ab (NEGATIVE) Assessment and Plan Plan: 1. Acute kidney injury with metabolic acidosis and secondary to ATN secondary to intravascular volume depletion from nausea and vomiting and dehydration, rule out urinary retention. Consult with Dr. Howell appreciated. Patient has been started on sodium bicarb orally, losartan discontinued, IV fluids discontinued, low potassium diet, bladder scan as above. 2. Hyperkalemia secondary to acute kidney injury and metabolic acidosis. Patient is on a low potassium diet. Nephrology consult appreciated. Small dose of Kayexalate today. Dietitian to educate patient on low potassium diet. 3. Anemia secondary to renal disease. Aranesp added. 4. Possible acute urinary tract infection ruled out and antibiotics stopped 5. History of Infectious colitis in a patient with history of ischemic colitis in 2000. Colonoscopy with previous one finding a benign polyp. 6. Primary hyperaldosteronism. Aldactone on hold. 7. Hypothyroidism. Continue levothyroxine 50 g daily. 8. Chronic kidney disease stage III with baseline creatinine 1.4 secondary to nephrosclerosis. 9. History off simple partial seizure disorder 10. Hypertension. Continue hydralazine 50 mg 3 times daily. Aldactone 25 mg daily and Losartan 50 mg twice daily on hold. 11. DVT prophylaxis. Continue Lovenox 40 mg subcu daily. 12. Gastrointestinal prophylaxis. Continue Pepcid 20 mg daily. 13. Possible sinusitis. Patient started on Nasacort and Claritin. 14. Diplopia and right lower extremity weakness secondary to hypoglycemia secondary to regular insulin. Patient has been treated with dextrose. Follow- up with neurology as an outpatient recommended. 15. Rule out lupus. CHRISTINE came back positive. Anti-DNA double-stranded antibody ordered and histone antibody. Discharge plan: Home with home care. Impression and plan of care have been directed as dictated by the signing physician. Sonali Mcmanus nurse practitioner acting as scribe for signing physician.
[2018-08-19 11:39] LABS: Glucose,Whole Blood 110 mg/dL (75-99)
[2018-08-19 12:58] LABS: Complement C3 97.2 mg/dL (80.0-207.0)
--- NOTE | 2018-08-19 15:22 | PN ---
PROGRESS NOTE Patient is seen for followup for chronic kidney disease and acute kidney injury. Currently patient is maintained on Lasix for some degree of volume overload. Her serum creatinine is 3.25 mg/dL today, which is slightly up from her previous reading of about 2.9 to 3. This morning patient denies any significant complaints except for some swelling in her lower extremities. She denies significant chest pains or shortness of breath. PHYSICAL EXAMINATION: Blood pressure was 143/66, heart rate 109 per minute. Patient is afebrile. EXAMINATION OF THE HEART: S1, S2. EXAMINATION OF LUNGS: Bilateral breath sounds are heard. ABDOMEN: Soft, non-tender. Examination of lower extremities shows edema 1+ bilaterally. [employer] exam is grossly intact. LABS: Sodium 131, potassium 5.3, chloride 97, BUN 57, serum creatinine 3.25, calcium 8.7, phosphorus 3.7. ASSESSMENT: 1. Acute kidney injury, initially prerenal. Currently patient is mildly hypervolemic. The angiotensin receptor blockers are currently on hold. Serum creatinine is about the same for the last 2 to 3 days. I will continue with the Lasix for now. 2. Chronic kidney disease, stage III, with baseline creatinine about 1.4 secondary to nephrosclerosis. 3. Hyperkalemia associated with acute kidney injury, metabolic acidosis. Patient is advised to maintain low-potassium diet. She is also complaining of constipation, which we will treat, as the hyperkalemia can be exacerbated by constipation. 4. Hypomagnesemia, status post replacement. 5. Anemia of chronic disease, currently maintained on Aranesp. PLAN: Continue with current dose of Lasix. Repeat labs in a.m. Patient will need to continue followup as outpatient. I will start her on lactulose for the constipation. MMODL / IJN: [id number] /
[2018-08-19 17:18] LABS: Glucose,Whole Blood 97 mg/dL (75-99)
[2018-08-19 20:30] LABS: Glucose,Whole Blood 96 mg/dL (75-99)
[2018-08-19] MEDS: LACTULOSE 20 GM/30 ML CUP PO SCH (20:40)
[2018-08-20] MEDS: LEVOTHYROXINE 50 MCG TAB PO SCH (05:44)
[2018-08-20 07:04] LABS: Glucose,Whole Blood 94 mg/dL (75-99)
[2018-08-20] MEDS: LACTULOSE 20 GM/30 ML CUP PO SCH (07:07)
[2018-08-20 07:46] LABS: Albumin 3.4 g/dL (3.5-5.0); Potassium 5.4 mmol/L (3.5-5.1); Total Bilirubin 0.4 mg/dL (0.2-1.3)
[2018-08-20] MEDS: FUROSEMIDE 20 MG TAB PO SCH (08:05)
[2018-08-20] MEDS: FAMOTIDINE 20 MG TAB PO SCH (08:05)
[2018-08-20] MEDS: SODIUM BICARBONATE TAB 650 MG TAB PO SCH (08:05)
[2018-08-20] MEDS: hydrALAZINE HCL 25 MG TAB PO SCH (08:05)
[2018-08-20] MEDS: LORATADINE 10 MG TAB PO SCH (08:05)
[2018-08-20] MEDS: ASPIRIN 325 MG TAB PO SCH ×2 (08:05→08:11)
[2018-08-20] MEDS: FLUTICASONE 50MCG/SPRAY NASAL 16GM EA NOSTRIL SCH (08:06)
[2018-08-20] MEDS: ENOXAPARIN 30 MG/0.3 ML SYRINGE SQ SCH (08:06)
--- NOTE | 2018-08-20 11:02 | P.DS ---
Providers Date of admission: 08/15/18 14:45 Attending physician: Chanelle Arita Consults: 08/15/18 14:42 Consult Physician Stat Consulting Provider: Kiara Huber Consult Reason/Comments: raya Do you want consulting provider notified?: Yes Primary care physician: Sami Swift [facility] Course: This is a [id number] patient of Dr. Swift, Dr. Gerson Barry. Patient has underlying history of hypertension, ischemic colitis, hypothyroidism pleural effusions status post pericardial window, chronic kidney disease stage III, recurrent syncope for which she went to specialist and was told it was due to hyper aldosteronism and placed on Aldactone 25 mg tablet one half tablet daily. She states she also has been told many years ago that it was a vagus reaction and she states her blood pressure has been difficult to control. She states she has had 3 syncopal episodes in the past year. She presents to the emergency room secondary to nausea vomiting and diarrhea, has been weak, and has shortness of breath. Symptoms persisted for the past 2 weeks, patient denies any fever no chills, nausea but events, patient was subsequently seen in the emergency room with checks x-ray findings showing curly B lines, urinalysis shows 8 WBCs, 46 red blood cells, BUN off 64, creatinine of 0.02. Patient was admitted secondary to acute dehydration, hyperkalemia, dehydration. EKG did not show any acute ST-T wave changes, no QT prolongation, baseline creatinine 1.17 consult with nephrology, IV fluids to be given, 08/16: Renal ultrasound showed medical renal disease with suboptimally evaluated hypoechoic possible left renal cyst. No hydronephrosis or nephrolithiasis of either kidney. Patient has been afebrile, blood pressure 137 /74, heart rate running in the 70s and 80s, pulse ox 97% on room air. Repeat labs show hemoglobin of 8.8, sodium 133, potassium 6.3, chloride 107, CO2 18, BUN 59 creatinine 2.96. Patient has been seen by Dr. Howell for acute kidney injury secondary to ATN secondary to intravascular volume depletion from nausea and vomiting. IV fluids decreased to 100 mL per hour, sodium bicarb has been added as well as IV bicarb, IV insulin and D50, low potassium diet. Patient denies having any diarrhea. She is drinking adequate liquids at this point. She does have a c-collar in place which she states she has been utilizing for the past year whenever she is in bed per Dr. Green for chronic neck pain. 08/17: Repeat labs show a sodium of 134, potassium 6.1, chloride 109, CO2 18, BUN [address] Howell has again ordered IV bicarb, insulin and D50 for hyperkalemia. One dose of IV Lasix ordered 40 mg. IV fluids decreased to 70 mL per hour due to fluid overload. Patient is complaining of sinus problems for which Claritin, Flonase and Tylenol added. At the time of evaluation, patient complains of sudden onset of blurred vision in the right eye but then on both eyes and some right lower extremity weakness. Due to symptoms or was concern for stroke and stroke team was called. It turns out that her blood sugar was 38. She didn't receive insulin this morning along with dextrose for hyperkalemia. The patient is not diabetic and is not on insulin or antidiabetic agents. Aspirin has been started. CAT scan of the brain was unremarkable and reviewed by [place] neurosurgeon with recommendations for MRI and follow-up with neurology. MRI of the brain ordered. Urine culture is showing no growth and antibiotics will be discontinued. PT has evaluated and recommends home with home care. 08/18: Patient has been afebrile, heart rate running in 80s to low 100s, blood pressure 150/66, pulse ox 96% on room air. Repeat lab work reveals hemoglobin 8.2, potassium 5.5, BUN 55 and creatinine 3.19. Magnesium 1.8. Capillary blood glucose monitoring between 115 and 155. Urine eosinophils was negative, no paraprotein recognized. CHRISTINE came back positive homogenous and anti-DNA double-stranded antibody ordered and histone antibody. One dose of Kayexalate ordered. Patient has complaints of constipation as well. MRI of the brain reveals central atrophy. White matter changes probably due to chronic small vessel ischemia. No acute intracranial abnormality. Patient denies any double vision or weakness today, mentation is at baseline. Dietitian consult regarding low potassium diet 08/19: Patient continues to be afebrile. Heart rate is running in the 90s to 100. Blood pressure was 138/62. Patient did have a bowel movement this morning. Patient states that it was still hard. Patient did complain of vomiting this morning after breakfast. She had a small emesis of her breakfast. Patient still complaining of lower extremity edema. We are continuing with the Lasix 20 mg twice a day. Patient denies any urinary retention. Repeat potassium 5.3 which is decreased from this morning at 3:00 of 5.7. 08/20: Patient is resting concerned related to lower extremity edema. Patient had 4 large soft bowel movements today. Patient's potassium was 5.4 today. We are continuing to give her Lasix 20 mg twice a day by mouth. Patient has not had any additional vomiting is able to tolerate meals without any difficulty. Patient does still have some nasal congestion and finding the loratadine and fluticasone to be helpful. Patient will be discharged home today to follow up with Dr. Howell outpatient. 1. Acute kidney injury with metabolic acidosis and secondary to ATN secondary to intravascular volume depletion from nausea and vomiting and dehydration, rule out urinary retention. 2. Hyperkalemia secondary to acute kidney injury and metabolic acidosis. 3. Anemia secondary to renal disease. 4. History of Infectious colitis in a patient with history of ischemic colitis 5. Primary hyperaldosteronism. 6. Hypothyroidism. 7. Chronic kidney disease stage III 8. History off simple partial seizure disorder 9. Hypertension. Continue hydralazine 50 mg 3 times daily. 10. Possible sinusitis. 11. Diplopia and right lower extremity weakness secondary to hypoglycemia secondary to regular insulin. 12. Rule out lupus. Disposition: Home with home care. Impression and plan of care have been directed as dictated by the signing physician. Sonali Mcmanus nurse practitioner acting as scribe for signing physician. Patient Condition at Discharge: Fair Plan - Discharge Summary Discharge Rx Participant: No New Discharge Prescriptions: New Docusate [Colace] 100 mg PO DAILY PRN cap PRN Reason: Constipation Fluticasone Nasal [place] [Flonase Nasal [place]] 2 spray EA NOSTRIL DAILY #1 spr Furosemide [Lasix] 20 mg PO BID@0900,1600 #60 tab Loratadine [Claritin] 10 mg PO DAILY #30 tab Continue Levothyroxine Sodium [Synthroid] 50 mcg PO QAM Losartan Potassium 50 mg PO BID Spironolactone [Aldactone] 25 mg PO QAM Famotidine [Pepcid] 20 mg PO BID Vitamin B Complex 1 cap PO DAILY hydrALAZINE HCL [Apresoline] 50 mg PO TID Discharge Medication List Levothyroxine Sodium [Synthroid] 50 mcg PO QAM 07/05/14 [History] Losartan Potassium 50 mg PO BID 02/17/15 [History] Famotidine [Pepcid] 20 mg PO BID 10/28/15 [History] Spironolactone [Aldactone] 25 mg PO QAM 10/28/15 [History] Vitamin B Complex 1 cap PO DAILY 10/28/15 [History] hydrALAZINE HCL [Apresoline] 50 mg PO TID 11/20/16 [History] Docusate [Colace] 100 mg PO DAILY PRN cap 08/20/18 [Rx] Fluticasone Nasal [place] [Flonase Nasal [place]] 2 spray EA NOSTRIL DAILY #1 spr [Rx] Furosemide [Lasix] 20 mg PO BID@0900,1600 #60 tab 08/20/18 [Rx] Loratadine [Claritin] 10 mg PO DAILY #30 tab 08/20/18 [Rx] Follow up Appointment(s)/Referral(s): Devon Rosario MD [STAFF PHYSICIAN] - 2 Weeks Sami Swift MD [Primary Care Provider] - 1 Week Quinn Howell DO [STAFF PHYSICIAN] - 2 Weeks
[2018-08-20 11:15] LABS: Glucose,Whole Blood 118 mg/dL (75-99)
[2018-08-20 12:06] VITALS: BP 170/83; PULSE 93; RESP 18; TEMP 98.1
== END 2018-08-20 15:35 | disposition home or self-care (01) | DRG 683 ==
LOC: EC 09:23 → 4SSUR 14:45 → 3NMEDONC 15:36
PROVIDERS: ADMIT Family Medicine; ATTEND Family Medicine
DX: N17.0 Acute kidney failure with tubular necrosis (principal); E87.2 Acidosis; D63.1 Anemia in chronic kidney disease; E03.9 Hypothyroidism, unspecified; E16.2 Hypoglycemia, unspecified; E26.09 Other primary hyperaldosteronism; E83.42 Hypomagnesemia; E86.0 Dehydration; E87.5 Hyperkalemia; E87.70 Fluid overload, unspecified; G40.909 Epilepsy, unspecified, not intractable, without status epilepticus; I12.9 Hypertensive chronic kidney disease with stage 1 through stage 4 chronic kidney disease, or unspecified chronic kidney disease; J45.909 Unspecified asthma, uncomplicated; K59.00 Constipation, unspecified; K74.60 Unspecified cirrhosis of liver; N18.3 Chronic kidney disease, stage 3 (moderate); T50.2X5A Adverse effect of carbonic-anhydrase inhibitors, benzothiadiazides and other diuretics, initial encounter; Z79.890 Hormone replacement therapy; Z79.899 Other long term (current) drug therapy; Z80.52 Family history of malignant neoplasm of bladder; Z82.49 Family history of ischemic heart disease and other diseases of the circulatory system; Z87.19 Personal history of other diseases of the digestive system; Z90.710 Acquired absence of both cervix and uterus; Z88.1 Allergy status to other antibiotic agents; Z88.5 Allergy status to narcotic agent; Z90.49 Acquired absence of other specified parts of digestive tract; R33.9 Retention of urine, unspecified; J32.9 Chronic sinusitis, unspecified; M32.9 Systemic lupus erythematosus, unspecified; T38.3X5A Adverse effect of insulin and oral hypoglycemic [antidiabetic] drugs, initial encounter
CPT/HCPCS: 36415; 70450; 70551; 71046; 74018; 76770; 80048; 80053; 80074; 81001; 82570; 82728; 83036; 83516; 83540; 83550; 83735; 84100; 84132; 84156; 84165; 85025; 85027; 86038; 86039; 86160; 86162; 86225; 86255; 86334; 87086; 87205; 93005; 94640; 94644; 96361; 96374; 96375; 99285

== ENCOUNTER 2018-09-22 07:46 | Inpatient (IN) | payer MEDICARE, BC ==
--- NOTE | 2018-09-22 08:20 | ED ---
General Adult HPI - General Chief complaint: Abdominal Pain Stated complaint: Abd pain Time Seen by Provider: 09/22/18 07:50 Source: patient, RN notes reviewed Mode of arrival: ambulatory Limitations: no limitations - History of Present Illness Initial comments: This is an 83-year-old female presents to the emergency department complaining that since August 01 she has been weaker and feels short of breath. Patient states her kidney functions gotten considerably worse over that period of time and has been told to come to the emergency department to get admitted so they can start the process of getting her dialyzed. Patient denies any pain. Patient denies any recent fever chills or cough. Patient denies any chest pain patient denies any abdominal pain patient denies any nausea vomiting diarrhea. Patient denies any back pain. Patient denies any recent injury or trauma. Patient denies any swelling or calf pain. - Related Data Home Medications Medication Instructions Recorded Confirmed Levothyroxine Sodium [Synthroid] 50 mcg PO QAM 07/05/14 09/22/18 Famotidine [Pepcid] 20 mg PO BID 10/28/15 09/22/18 Spironolactone [Aldactone] 25 mg PO QAM 10/28/15 09/22/18 Vitamin B Complex 1 cap PO DAILY 10/28/15 09/22/18 hydrALAZINE HCL [Apresoline] 100 mg PO TID 11/20/16 09/22/18 Furosemide [Lasix] 20 mg PO Q48H 09/22/18 09/22/18 Previous Rx's Medication Instructions Recorded Docusate [Colace] 100 mg PO DAILY PRN cap 08/20/18 Fluticasone Nasal [place] [Flonase 2 spray EA NOSTRIL DAILY #1 spr 08/20/18 Nasal [place]] Loratadine [Claritin] 10 mg PO DAILY #30 tab 08/20/18 Allergies Allergy/AdvReac Type Severity Reaction Status Date / Time levofloxacin [From Levaquin] Allergy Unknown Verified 09/22/18 09:12 metronidazole [From Flagyl] Allergy Swelling Verified 09/22/18 09:12 nitrofurantoin Allergy Unknown Verified 09/22/18 09:12 [From Macrobid] nitrofurantoin Allergy Unknown Verified 09/22/18 09:12 macrocrystalline [From Macrobid] amiodarone HCl AdvReac Nausea Verified 09/22/18 09:12 [From Pacerone] Review of Systems ROS Statement: Those systems with pertinent positive or pertinent negative responses have been documented in the HPI. ROS Other: All systems not noted in ROS Statement are negative. Past Medical History Past Medical History: Asthma, GI Bleed, Hypertension, Osteoarthritis (OA), Pneumonia, Renal Disease, Syncope, Thyroid Disorder Additional Past Medical History / Comment(s): colitis, several syncopal events, Stage III kidney disease, See Dr De Leon H&P, murmur, "past migraines found they were caused from an oat allergy" History of Any Multi-Drug Resistant Organisms: None Reported Past Surgical History: Appendectomy, Cholecystectomy, Hernia Repair, Hysterectomy, Orthopedic Surgery, Tonsillectomy Additional Past Surgical History / Comment(s): pericardial window surgery , L ankle ORIF, bilateral cataracts Past Anesthesia/Blood Transfusion Reactions: Previous Problems w/ Anesthesia Additional Past Anesthesia/Blood Transfusion Reaction / Comment(s): Pt received blood yrs ago without reaction. takes long time to wake up Past Psychological History: No Psychological Hx Reported Smoking Status: Never smoker Past Alcohol Use History: None Reported Past Drug Use History: None Reported - Past Family History Daughter(s) Additional Family Medical History / Comment(s): Patient has 2 daughters and 1 son with no major medical problems. Mother Family Medical History: Hypertension Additional Family Medical History / Comment(s): Mother at age 86 from a myocardial infarction. She had her kidney removed the patient does not know why. She also had history of hypertension. No known history of adrenal problems. Father Family Medical History: Cancer Additional Family Medical History / Comment(s): Father in his 70s from bladder cancer. Sister(s) Family Medical History: Cancer Additional Family Medical History / Comment(s): Patient has one sister with history of stomach cancer. Patient does not know any other history as she has no contact with her. General Exam - General Exam Comments Initial Comments: GENERAL: Patient is well-developed and well-nourished. Patient is nontoxic and well- hydrated and is in mild distress. ENT: Neck is soft and supple. No significant lymphadenopathy is noted. Oropharynx is clear. Moist mucous membranes. Neck has full range of motion without eliciting any pain. EYES: The sclera were anicteric and conjunctiva were pink and moist. Extraocular movements were intact and pupils were equal round and reactive to light. Eyelids were unremarkable. PULMONARY: Unlabored respirations. Good breath sounds bilaterally. No audible rales rhonchi or wheezing was noted. CARDIOVASCULAR: There is a regular rate and rhythm without any murmurs gallops or rubs. ABDOMEN: Soft and nontender with normal bowel sounds. No palpable organomegaly was noted. There is no palpable pulsatile mass. SKIN: Skin is clear with no lesions or rashes and otherwise unremarkable. NEUROLOGIC: Patient is alert and oriented x3. Cranial nerves II through XII are grossly intact. Motor and sensory are also intact. Normal speech, volume and content. Symmetrical smile. MUSCULOSKELETAL: Normal extremities with adequate strength and full range of motion. LYMPHATICS: No significant lymphadenopathy is noted PSYCHIATRIC: Patient is mildly anxious. Limitations: no limitations Course Vital Signs 09/22/18 09/22/18 09/22/18 07:49 08:09 08:29 Temperature 94.6 F L Pulse Rate 74 Respiratory 20 22 Rate Blood Pressure 134/72 O2 Sat by Pulse 98 100 Oximetry Medical Decision Making - Medical Decision Making EKG shows normal sinus rhythm at 83 bpm VT interval 276 dresses 92 QT interval 374 QTC is 439. Patient's EKG shows no ST segment elevation or depression or T wave abnormalities are noted. Patient does states she feels somewhat short of breath however she is oxygenating at 100% on room air. She is not tachycardic either. Patient does appear to be mildly anxious. I spoke with Dr. Nelson he agreed to admit the patient admitted the patient I wrote admitting orders. I consult with Dr. Huber - Lab Data Result diagrams: 09/22/18 08:23 09/22/18 08:23 Lab Results 09/22/18 09/22/18 Range/Units 08:23 08:23 WBC 9.5 (3.8-10.6) k/uL RBC 2.81 L (3.80-5.40) m/uL Hgb 9.2 L (11.4-16.0) gm/dL Hct 27.2 L (34.0-46.0) % MCV 96.9 (80.0-100.0) fL MCH 32.7 (25.0-35.0) pg MCHC 33.8 (31.0-37.0) g/dL RDW 13.4 (11.5-15.5) % Plt Count 395 (150-450) k/uL Neutrophils % 85 % Lymphocytes % 7 % Monocytes % 4 % Eosinophils % 2 % Basophils % 1 % Neutrophils # 8.1 H (1.3-7.7) k/uL Lymphocytes # 0.7 L (1.0-4.8) k/uL Monocytes # 0.4 (0-1.0) k/uL Eosinophils # 0.2 (0-0.7) k/uL Basophils # 0.0 (0-0.2) k/uL Sodium 135 L (137-145) mmol/L Potassium 4.6 (3.5-5.1) mmol/L Chloride 97 L (98-107) mmol/L Carbon Dioxide 24 (22-30) mmol/L Anion Gap 14 mmol/L BUN 66 H (7-17) mg/dL Creatinine 5.40 H (0.52-1.04) mg/dL Est GFR (CKD-EPI)AfAm 8 (>60 ml/min/1.73 sqM) Est GFR (CKD-EPI)NonAf 7 (>60 ml/min/1.73 sqM) Glucose 131 H (74-99) mg/dL Calcium 9.7 (8.4-10.2) mg/dL Total Bilirubin 0.6 (0.2-1.3) mg/dL AST 21 (14-36) U/L ALT 26 (9-52) U/L Alkaline Phosphatase 66 (38-126) U/L Total Protein 7.2 (6.3-8.2) g/dL Albumin 4.1 (3.5-5.0) g/dL Amylase <30 L (30-110) U/L Lipase 105 (23-300) U/L Disposition Clinical Impression: Acute renal failure Disposition: ADMITTED IP TO THIS HOSP Referrals: Sami Swift MD [Primary Care Provider] - 1-2 days Time of Disposition: 09:42
[2018-09-22 08:48] LABS: Basophils % (A) 1 %; Eosinophils # (A) 0.2 k/uL (0-0.7); Eosinophils % (A) 2 %; HCT 27.2 % (34.0-46.0); HGB 9.2 gm/dL (11.4-16.0); Lymphocytes # (A) 0.7 k/uL (1.0-4.8); Lymphocytes % (A) 7 %; MCH 32.7 pg (25.0-35.0); MCHC 33.8 g/dL (31.0-37.0); MCV 96.9 fL (80.0-100.0); Mean Platelet Volume 6.9; Monocytes # (A) 0.4 k/uL (0-1.0); Monocytes % (A) 4 %; Neutrophils # (A) 8.1 k/uL (1.3-7.7); Neutrophils % (A) 85 %; Platelet Count 395 k/uL (150-450); RBC 2.81 m/uL (3.80-5.40); RDW 13.4 % (11.5-15.5); WBC 9.5 k/uL (3.8-10.6)
[2018-09-22 08:59] LABS: ALT 26 U/L (9-52); AST 21 U/L (14-36); Albumin 4.1 g/dL (3.5-5.0); Alkaline Phosphatase 66 U/L (38-126); Amylase <30 U/L (30-110); Anion Gap 14 mmol/L; Blood Urea Nitrogen 66 mg/dL (7-17); Calcium 9.7 mg/dL (8.4-10.2); Carbon Dioxide 24 mmol/L (22-30); Chloride 97 mmol/L (98-107); Glucose 131 mg/dL (74-99); Lipase 105 U/L (23-300); Potassium 4.6 mmol/L (3.5-5.1); Sodium 135 mmol/L (137-145); Total Bilirubin 0.6 mg/dL (0.2-1.3); Total Protein 7.2 g/dL (6.3-8.2)
[2018-09-22 09:53] LABS: Appearance,Urine Cloudy (Clear); Bacteria,Urine Rare /hpf; Bilirubin,Urine Negative (Negative); Blood,Urine Moderate (Negative); Color,Urine Yellow; Glucose,Urine (UA) Negative (Negative); Ketones,Urine Negative (Negative); Leukocyte Esterase,Urine Small (Negative); Mucus,Urine Rare /hpf; Nitrite,Urine Negative (Negative); PH, Urine 5.5 (5.0-8.0); Protein,Urine 2+ (Negative); RBC,Urine 154 /hpf (0-5); Squamous Epithelial Cell,Urine 2 /hpf (0-4); Urobilinogen,Urine <2.0 mg/dL (<2.0); WBC,Urine 17 /hpf (0-5)
[2018-09-22] MEDS: FUROSEMIDE 20 MG TAB PO SCH (10:51)
[2018-09-22 10:55] VITALS: BMI 30.9
--- NOTE | 2018-09-22 11:40 | P.HPIM ---
History of Present Illness H&P Date: 09/22/18 Chief Complaint: Renal failure This is an 83-year-old female patient of Dr. Swift, Dr. Huber with past medical history of hypertension, ischemic colitis, hypothyroidism, pericardial effusion status post pericardial window, chronic kidney disease, recurrent syncope which she saw specialists and was told she had hyper aldosteronism and started on Aldactone. Patient states that she was seen [facility] nephrology nurse practitioner at Dr. Huber's and due to increasing and worsening renal function she was sent into the emergency center for evaluation with plan to start hemodialysis. Patient states that she has been getting ready for hemodialysis and was to see a vascular surgeon next week. She states she is feeling fatigued , tired, nausea and vomiting. She denies any abdominal pain. Blood pressure 165/76, pulse 82 respirations 20, pulse ox 90% on room air. Hemoglobin is 9.2, potassium 4.6, BUN 66 and creatinine 5.40. Sodium 135 and chloride 97. Urinalysis was cloudy, blood moderate, leukoesterase small, RBCs 154, WBC 17. Patient will be admitted to the [facility] floor and consult requested with Dr. Huber and Dr. Palmer. Chest x-ray has been completed and report is pending Review of Systems All systems: negative Constitutional: Reports fatigue, Reports lethargy, Reports malaise, Reports poor appetite, Reports weakness, Denies anorexia, Denies chills, Denies fever Eyes: denies blurred vision, denies pain Ears, nose, mouth and throat: Reports vertigo, Denies dysphagia, Denies headache , Denies mouth pain, Denies sore throat Cardiovascular: Denies chest pain, Denies dyspnea on exertion, Denies edema, Denies leg edema, Denies lightheadedness, Denies palpitations, Denies shortness of breath, Denies syncope Respiratory: Denies cough, Denies cough with sputum, Denies dyspnea, Denies excessive sputum, Denies hemoptysis, Denies home oxygen, Denies wheezing Gastrointestinal: Reports loss of appetite, Reports nausea, Reports vomiting, Denies abdominal pain, Denies diarrhea Genitourinary: Denies dysuria, Denies hematuria Musculoskeletal: Denies frequent falls, Denies gait dysfunction, Denies myalgias Integumentary: Denies pruritus, Denies rash, Denies wounds Neurological: Denies aphasia, Denies change in mentation, Denies gait dysfunction, Denies head injury, Denies headaches, Denies numbness, Denies seizures, Denies weakness Psychiatric: Denies anxiety, Denies depression Endocrine: Denies fatigue, Denies weight change Past Medical History Past Medical History: Asthma, GI Bleed, Hypertension, Osteoarthritis (OA), Pneumonia, Renal Disease, Syncope, Thyroid Disorder Additional Past Medical History / Comment(s): colitis, several syncopal events, Stage III kidney disease, See Dr De Leon H&P, murmur, "past migraines found they were caused from an oat allergy" History of Any Multi-Drug Resistant Organisms: None Reported Past Surgical History: Appendectomy, Cholecystectomy, Hernia Repair, Hysterectomy, Orthopedic Surgery, Tonsillectomy Additional Past Surgical History / Comment(s): pericardial window surgery , L ankle ORIF, bilateral cataracts Past Anesthesia/Blood Transfusion Reactions: Previous Problems w/ Anesthesia Additional Past Anesthesia/Blood Transfusion Reaction / Comment(s): Pt received blood yrs ago without reaction. takes long time to wake up Past Psychological History: No Psychological Hx Reported Smoking Status: Never smoker Past Alcohol Use History: None Reported Past Drug Use History: None Reported - Past Family History Daughter(s) Additional Family Medical History / Comment(s): Patient has 2 daughters and 1 son with no major medical problems. Mother Family Medical History: Hypertension Additional Family Medical History / Comment(s): Mother at age 86 from a myocardial infarction. She had her kidney removed the patient does not know why. She also had history of hypertension. No known history of adrenal problems. Father Family Medical History: Cancer Additional Family Medical History / Comment(s): Father in his 70s from bladder cancer. Sister(s) Family Medical History: Cancer Additional Family Medical History / Comment(s): Patient has one sister with history of stomach cancer. Patient does not know any other history as she has no contact with her. Medications and Allergies Home Medications Medication Instructions Recorded Confirmed Type Levothyroxine Sodium [Synthroid] 50 mcg PO QAM 07/05/14 09/22/18 History Famotidine [Pepcid] 20 mg PO BID 10/28/15 09/22/18 History Spironolactone [Aldactone] 25 mg PO QAM 10/28/15 09/22/18 History Vitamin B Complex 1 cap PO DAILY 10/28/15 09/22/18 History hydrALAZINE HCL [Apresoline] 100 mg PO TID 11/20/16 09/22/18 History Docusate [Colace] 100 mg PO DAILY PRN cap 08/20/18 09/22/18 Rx Fluticasone Nasal [place] [Flonase 2 spray EA NOSTRIL DAILY #1 spr 08/20/18 Rx Nasal [place]] Loratadine [Claritin] 10 mg PO DAILY #30 tab 08/20/18 09/22/18 Rx Furosemide [Lasix] 20 mg PO Q48H 09/22/18 09/22/18 History Allergies Allergy/AdvReac Type Severity Reaction Status Date / Time levofloxacin [From Levaquin] Allergy Unknown Verified 09/22/18 09:12 metronidazole [From Flagyl] Allergy Swelling Verified 09/22/18 09:12 nitrofurantoin Allergy Unknown Verified 09/22/18 09:12 [From Macrobid] nitrofurantoin Allergy Unknown Verified 09/22/18 09:12 macrocrystalline [From Macrobid] amiodarone HCl AdvReac Nausea Verified 09/22/18 09:12 [From Pacerone] Physical Exam Vitals: Vital Signs Temp Pulse Resp BP Pulse Ox 09/22/18 10:09 97.8 F 82 20 165/76 98 09/22/18 08:29 22 09/22/18 08:09 100 09/22/18 07:49 94.6 F L 74 20 134/72 98 Intake and Output 09/21/18 09/22/18 09/22/18 22:59 06:59 14:59 Other: Weight 79.379 kg General appearance: cooperative, no acute distress - EENT Eyes: anicteric sclerae, EOMI, PERRLA, dentition normal, normal appearance ENT: NA/AT, normal oropharynx - Neck Neck: normal ROM Thyroid: bilateral: normal size - Respiratory Respiratory: bilateral: CTA, negative: diminished, dullness, rales, rhonchi - Cardiovascular Rhythm: regular Heart sounds: normal: S1, S2 Abnormal Heart Sounds: no systolic murmur, no diastolic murmur, no rub, no S3 Gallop, no S4 Gallop, no click, no other - Gastrointestinal General gastrointestinal: normal bowel sounds, soft - Integumentary Integumentary: decreased turgor, normal - Neurologic Neurologic: CNII-XII intact - Musculoskeletal Musculoskeletal: gait normal, generalized weakness - Psychiatric Psychiatric: A&O x's 3, appropriate affect, intact judgment & insight, Results CBC & Chem 7: 09/22/18 08:23 09/22/18 08:23 Labs: Abnormal Lab Results - Last 24 Hours (Table) 09/22/18 09/22/18 09/22/18 Range/Units 08:23 08:23 09:30 RBC 2.81 L (3.80-5.40) m/uL Hgb 9.2 L (11.4-16.0) gm/dL Hct 27.2 L (34.0-46.0) % Neutrophils # 8.1 H (1.3-7.7) k/uL Lymphocytes # 0.7 L (1.0-4.8) k/uL Sodium 135 L (137-145) mmol/L Chloride 97 L (98-107) mmol/L BUN 66 H (7-17) mg/dL Creatinine 5.40 H (0.52-1.04) mg/dL Glucose 131 H (74-99) mg/dL Amylase <30 L (30-110) U/L Urine Appearance Cloudy H (Clear) Urine Protein 2+ H (Negative) Urine Blood Moderate H (Negative) Ur Leukocyte Esterase Small H (Negative) Urine RBC 154 H (0-5) /hpf Urine WBC 17 H (0-5) /hpf Urine Bacteria Rare H (None) /hpf Urine Mucus Rare H (None) /hpf Thrombosis Risk Factor Assmnt - DVT/VTE Prophylaxis DVT/VTE Prophylaxis: Pharmacologic Prophylaxis ordered Assessment and Plan Plan: 1. Acute kidney injury with chronic kidney disease stage III. Consult with nephrology and Dr. Palmer. Plan is for patient to start hemodialysis. Continue Lasix 20 mg every 48 hours and Aldactone 25 mg daily 2. Anemia secondary to renal disease. 3. Hypertension. Continue hydralazine 100 mg 3 times daily. 4. History of Infectious colitis in a patient with history of ischemic colitis in 2000. Colonoscopy with previous one finding a benign polyp. 5. Primary hyperaldosteronism. Aldactone 25 mg daily. 6. Hypothyroidism. Continue levothyroxine 50 g daily. 7. Chronic kidney disease stage III with baseline creatinine 1.4 secondary to nephrosclerosis. 8. History of simple partial seizure disorder 9. DVT prophylaxis. Heparin. 10. Gastrointestinal prophylaxis. Continue Pepcid 20 mg twice daily. Patient will be admitted to the hospital for a minimum of 3 nights stay. Discharge plan: Most likely home with home care. Impression and plan of care have been directed as dictated by the signing physician. Hetal Sanchez nurse practitioner acting as scribe for signing physician.
--- NOTE | 2018-09-22 14:12 | XR ---
EXAMINATION TYPE: XR chest 2V DATE OF EXAM: 09/22/2018 COMPARISON: 08/15/2018 INDICATION: Difficulty breathing short of breath TECHNIQUE: Frontal and lateral views of the chest are obtained. FINDINGS: The heart size is mildly prominent. The pulmonary vasculature is normal. The lungs are clear. IMPRESSION: 1. Mild cardiomegaly
[2018-09-22] MEDS: hydrALAZINE HCL 50 MG TAB PO SCH ×2 (15:57→22:38)
[2018-09-22] MEDS ORDERED: FAMOTIDINE 20 MG TAB PO SCH (21:00)
[2018-09-22] MEDS: HEPARIN SODIUM,PORCINE 5,000 UNIT/ML 1 ML VIAL SQ SCH (22:38)
[2018-09-23] MEDS: LEVOTHYROXINE 50 MCG TAB PO SCH (05:41)
[2018-09-23] MEDS: hydrALAZINE HCL 50 MG TAB PO SCH ×3 (08:45→22:11)
[2018-09-23] MEDS: HEPARIN SODIUM,PORCINE 5,000 UNIT/ML 1 ML VIAL SQ SCH ×2 (08:45→22:12)
[2018-09-23] MEDS: FAMOTIDINE 20 MG TAB PO SCH (08:45)
[2018-09-23] MEDS: FLUTICASONE 50MCG/SPRAY NASAL 16GM EA NOSTRIL SCH (08:45)
[2018-09-23] MEDS: SPIRONOLACTONE 25 MG TAB PO SCH (08:45)
[2018-09-23] MEDS: LORATADINE 10 MG TAB PO SCH (08:45)
[2018-09-23] MEDS ORDERED: NON-FORMULARY DRUG (Vitamin B Complex [Vitamin B Complex] 1 CAP) PO SCH (09:00)
[2018-09-23 10:50] LABS: HCT 28.2 % (34.0-46.0); MCH 32.3 pg (25.0-35.0); MCHC 32.1 g/dL (31.0-37.0); MCV 100.7 fL (80.0-100.0); Macrocytosis Slight; Mean Platelet Volume 7.4; Platelet Count 336 k/uL (150-450); RDW 13.5 % (11.5-15.5); WBC 7.2 k/uL (3.8-10.6)
[2018-09-23 11:15] LABS: Calcium 9.4 mg/dL (8.4-10.2); Potassium 4.5 mmol/L (3.5-5.1)
--- NOTE | 2018-09-23 11:36 | P.NPCON ---
History of Present Illness - Reason for Consult Consult date: 09/23/18 chronic renal failure - Chief Complaint Acute kidney injury and chronic kidney disease with nausea vomiting - History of Present Illness This is a 83-year-old female who was admitted because of worsening creatinine. Creatinine was 1.39 dated 11/20/2016 2 years ago, went up to 3.02 on 08/15/2018 2 years later and went up to 5.4 yesterday and 5.93 this morning. The cause of this relapse less progression is unclear. She had workup done in August with CHRISTINE +1 in 1280, double-stranded DNA being +23 international national units per mL, C3-C4 normal. She has 1 g range proteinuria. Urinalysis is showing moderate blood 17 WBCs 154 RBCs hyaline casts. Urine protein to physical is not available, serum immunoelectrophoresis shows no monoclonal pattern. Anka is negative. Other than this she has a creatinine off less than 1 and a aldosterone level of 14.7 suggestive of hyper Madhu state. Supposedly previously CT scans and we'll need for medicines are negative for any aldosterone producing adenoma. She is on Aldactone. Blood pressure is controlled. Denies taking any nonsteroidals. There is no history of rash or any other manifestation of lupus. No stripping any antibiotics. Urinary and bowel habits are unremarkable. She's been symptomatic with nausea and occasional vomiting for the last 2 months. Weight is Ultrasound of the kidney shows 8.8 and 8.6 cm kidneys no hydronephrosis. 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 Past Medical History Past Medical History: Asthma, GI Bleed, Hypertension, Osteoarthritis (OA), Pneumonia, Renal Disease, Syncope, Thyroid Disorder Additional Past Medical History / Comment(s): colitis, several syncopal events, Stage III kidney disease, See Dr De Leon H&P, murmur, "past migraines found they were caused from an oat allergy" History of Any Multi-Drug Resistant Organisms: None Reported Past Surgical History: Appendectomy, Cholecystectomy, Hernia Repair, Hysterectomy, Orthopedic Surgery, Tonsillectomy Additional Past Surgical History / Comment(s): pericardial window surgery , L ankle ORIF, bilateral cataracts Past Anesthesia/Blood Transfusion Reactions: Previous Problems w/ Anesthesia Additional Past Anesthesia/Blood Transfusion Reaction / Comment(s): Pt received blood yrs ago without reaction. takes long time to wake up Past Psychological History: No Psychological Hx Reported Smoking Status: Never smoker Past Alcohol Use History: None Reported Past Drug Use History: None Reported - Past Family History Daughter(s) Additional Family Medical History / Comment(s): Patient has 2 daughters and 1 son with no major medical problems. Mother Family Medical History: Hypertension Additional Family Medical History / Comment(s): Mother at age 86 from a myocardial infarction. She had her kidney removed the patient does not know why. She also had history of hypertension. No known history of adrenal problems. Father Family Medical History: Cancer Additional Family Medical History / Comment(s): Father in his 70s from bladder cancer. Sister(s) Family Medical History: Cancer Additional Family Medical History / Comment(s): Patient has one sister with history of stomach cancer. Patient does not know any other history as she has no contact with her. Medications and Allergies Home Medications Medication Instructions Recorded Confirmed Type Levothyroxine Sodium [Synthroid] 50 mcg PO QAM 07/05/14 09/22/18 History Famotidine [Pepcid] 20 mg PO BID 10/28/15 09/22/18 History Spironolactone [Aldactone] 25 mg PO QAM 10/28/15 09/22/18 History Vitamin B Complex 1 cap PO DAILY 10/28/15 09/22/18 History hydrALAZINE HCL [Apresoline] 100 mg PO TID 11/20/16 09/22/18 History Docusate [Colace] 100 mg PO DAILY PRN cap 08/20/18 09/22/18 Rx Fluticasone Nasal [place] [Flonase 2 spray EA NOSTRIL DAILY #1 spr 08/20/18 Rx Nasal [place]] Loratadine [Claritin] 10 mg PO DAILY #30 tab 08/20/18 09/22/18 Rx Furosemide [Lasix] 20 mg PO Q48H 09/22/18 09/22/18 History Allergies Allergy/AdvReac Type Severity Reaction Status Date / Time levofloxacin [From Levaquin] Allergy Unknown Verified 09/22/18 09:12 metronidazole [From Flagyl] Allergy Swelling Verified 09/22/18 09:12 nitrofurantoin Allergy Unknown Verified 09/22/18 09:12 [From Macrobid] nitrofurantoin Allergy Unknown Verified 09/22/18 09:12 macrocrystalline [From Macrobid] amiodarone HCl AdvReac Nausea Verified 09/22/18 09:12 [From Pacerone] Physical Exam Vitals: Vital Signs Temp Pulse Pulse Resp BP Pulse Ox 09/23/18 07:15 97.9 F 93 18 146/65 97 09/22/18 23:24 81 84 16 09/22/18 22:08 98.3 F 81 16 163/51 97 09/22/18 16:55 80 18 09/22/18 14:47 99.1 F 84 20 143/65 97 Intake and Output 09/22/18 09/23/18 09/23/18 22:59 06:59 14:59 Intake Total 0 Balance 0 Intake: Oral 0 Other: Voiding Method Toilet # Voids 1 2 On examination is awake alert oriented comfortable HEENT exam no JVP lymphadenopathy neck is supple no facial asymmetry Lungs are clear to auscultation percussion good air entry bilaterally Heart sounds are unremarkable for any murmur rub gallop Abdomen soft nontender no masses felt no organomegaly ascites Extremity exam was no edema Neurologically awake alert oriented no asterixis Results - Lab Results Most recent lab results Calcium 9.4 mg/dL (8.4-10.2) 09/23/18 10:37 09/23/18 10:37 09/23/18 10:37 Assessment and Plan Assessment: Impression 1. Progressive kidney disease with positive CHRISTINE and positive double-stranded DNA but normal complements a urine analysis somewhat active suggestive of possible lupus although there is no other manifestations of the same. Creatinine has gone up from 2017 when it was 1.39-3.0 to a month ago on 2018 and to 5.9 as of this morning. Kidney biopsy has been thought to be not advisable based on kidney size of 8.8 and 8.6 cm there is no reversible cause therefore patient should proceed with dialysis. In the meantime I'll give her some IV fluids. 2. A urine immunoelectrophoresis has been ordered to rule out any myeloma although it doesn't seem to be likely, calcium is normal at 9.4, phosphorus 3.7. 3. Anemia of chronic kidney disease, hemoglobin is 9. Rule out iron deficiency 4. Hyperaldosteronism on Aldactone blood pressure is controlled 5. Colitis currently no manifestations. 6. History of pericardial window. Recommendation 1. Received with hemodialysis with a permacath and subsequently will discuss peritoneal dialysis. Will dialyze her tomorrow with one half hours and no ultrafiltration. Will use a 3 potassium bath and a 2.5 calcium bath 2. Will obtain urine amino F services. 3. Will obtain iron saturation.
--- NOTE | 2018-09-23 11:55 | P.PN ---
Subjective Progress Note Date: 09/23/18 This is an 83-year-old female patient of Dr. Swift, Dr. Huber with past medical history of hypertension, ischemic colitis, hypothyroidism, pericardial effusion status post pericardial window, chronic kidney disease, recurrent syncope which she saw specialists and was told she had hyper aldosteronism and started on Aldactone. Patient states that she was seen Ruby nephrology nurse practitioner at Dr. Huber's and due to increasing and worsening renal function she was sent into the emergency center for evaluation with plan to start hemodialysis. Patient states that she has been getting ready for hemodialysis and was to see a vascular surgeon next week. She states she is feeling fatigued , tired, nausea and vomiting. She denies any abdominal pain. Blood pressure 165/76, pulse 82 respirations 20, pulse ox 90% on room air. Hemoglobin is 9.2, potassium 4.6, BUN 66 and creatinine 5.40. Sodium 135 and chloride 97. Urinalysis was cloudy, blood moderate, leukoesterase small, RBCs 154, WBC 17. Patient will be admitted to the [facility] floor and consult requested with Dr. Huber and Dr. Palmer. Chest x-ray has been completed and report is pending 09/23: Patient is resting comfortably in bed with complaint of constipation. Last bowel movement was approximately 3 days ago. Patient also concerned about the length of time she will be nothing by mouth. Patient has not been seen by Dr. Palmer for dialysis catheter placement. Patient's urinalysis will be sent for culture. W BC 7.2, RBCs 2.8, hemoglobin 9, platelets 13.5, sodium 136, potassium 4.5, chloride 101, BUN is 71, creatinine 5.93, GFR 6, glucose 88. Review of Systems All systems: negative Constitutional: Reports fatigue, Reports lethargy, Reports malaise, Reports poor appetite, Reports weakness, Denies anorexia, Denies chills, Denies fever Eyes: denies blurred vision, denies pain Ears, nose, mouth and throat: Reports vertigo, Denies dysphagia, Denies headache , Denies mouth pain, Denies sore throat Cardiovascular: Denies chest pain, Denies dyspnea on exertion, Denies edema, Denies leg edema, Denies lightheadedness, Denies palpitations, Denies shortness of breath, Denies syncope Respiratory: Denies cough, Denies cough with sputum, Denies dyspnea, Denies excessive sputum, Denies hemoptysis, Denies home oxygen, Denies wheezing Gastrointestinal: Reports loss of appetite, Reports nausea, Reports vomiting, Denies abdominal pain, Denies diarrhea Genitourinary: Denies dysuria, Denies hematuria Musculoskeletal: Denies frequent falls, Denies gait dysfunction, Denies myalgias Integumentary: Denies pruritus, Denies rash, Denies wounds Neurological: Denies aphasia, Denies change in mentation, Denies gait dysfunction, Denies head injury, Denies headaches, Denies numbness, Denies seizures, Denies weakness Psychiatric: Denies anxiety, Denies depression Endocrine: Denies fatigue, Denies weight change Objective - Vital Signs Vital signs: Vital Signs Temp 97.9 F 09/23/18 07:15 Pulse 93 09/23/18 07:15 Resp 18 09/23/18 07:15 BP 146/65 09/23/18 07:15 Pulse Ox 97 09/23/18 07:15 Intake & Output 09/22/18 09/23/18 09/23/18 18:59 06:59 18:59 Intake Total 0 Balance 0 Weight 79.379 kg Intake: Oral 0 Other: Voiding Method Toilet # Voids 1 2 - Exam Gen: 83-year-old pleasant female in no acute distress, appears to be her stated age HEENT: Head is atraumatic, normocephalic. Pupils equal, round. Sclerae is anicteric. NECK: Supple. No JVD. No lymphadenopathy. No thyromegaly. LUNGS: Clear to auscultation. No wheezes or rhonchi. No intercostal retractions. HEART: Regular rate and rhythm. No murmur. ABDOMEN: Soft. Bowel sounds are present. No masses. No tenderness. EXTREMITIES: No pedal edema. No calf tenderness. NEUROLOGICAL: Patient is awake, alert and oriented x3. Cranial nerves 2 through 12 are grossly intact. - Labs CBC & Chem 7: 09/23/18 10:37 09/23/18 10:37 Labs: Abnormal Lab Results - Last 24 Hours (Table) 09/23/18 09/23/18 Range/Units 10:37 10:37 RBC 2.80 L (3.80-5.40) m/uL Hgb 9.0 L (11.4-16.0) gm/dL Hct 28.2 L (34.0-46.0) % MCV 100.7 H (80.0-100.0) fL Sodium 136 L (137-145) mmol/L Carbon Dioxide 21 L (22-30) mmol/L BUN 71 H (7-17) mg/dL Creatinine 5.93 H (0.52-1.04) mg/dL Assessment and Plan Plan: 1. Acute kidney injury with chronic kidney disease stage III. Consult with nephrology and Dr. Palmer. Plan is for patient to start hemodialysis. Continue Lasix 20 mg every 48 hours and Aldactone 25 mg daily 2. Anemia secondary to renal disease. 3. Hypertension. Continue hydralazine 100 mg 3 times daily. 4. History of Infectious colitis in a patient with history of ischemic colitis in 2000. Colonoscopy with previous one finding a benign polyp. 5. Primary hyperaldosteronism. Aldactone 25 mg daily. 6. Hypothyroidism. Continue levothyroxine 50 g daily. 7. Chronic kidney disease stage III with baseline creatinine 1.4 secondary to nephrosclerosis. 8. History of simple partial seizure disorder 9. DVT prophylaxis. Heparin. 10. Gastrointestinal prophylaxis. Continue Pepcid 20 mg twice daily. 11. Constipation. Continue with Colace Patient will be admitted to the hospital for a minimum of 3 nights stay. Discharge plan: Most likely home with home care. Impression and plan of care have been directed as dictated by the signing physician. Sonali Mcmanus nurse practitioner acting as scribe for signing physician. Additional CC's: Sami Swift
[2018-09-23] MEDS ORDERED: fentaNYL (PF) 50 MCG/ML 2 ML AMP IVP ONE (13:02)
[2018-09-23] MEDS ORDERED: LIDOCAINE 1% (PF) 10 MG/ML (30 ML SDV) SQ ONE (13:06)
[2018-09-23] MEDS ORDERED: SODIUM CHLORIDE 0.9% 500 ML 500 ML IV ONE (13:08)
--- NOTE | 2018-09-23 13:32 | P.PCN ---
Description of Procedure: Preoperative diagnoses acute chronic renal failure Procedure ultrasound-guided 19 cm dialysis catheter right internal jugular approa sedation time is 18 minutes Procedure patient brought to the [employer] of the neck and chest was prepped and draped for *Kendra 1% lidocaine placed right internal jugular area and chest wall ultrasound -guided micropuncture introduced use to the right intrajugular vein and micropuncture guidewire passed. After that 4-Thai dilator advanced on the top of the guidewire which was check and fluoroscopy after that tendon was created through the terminal be brought 19 cm dialysis catheter we passed a guidewire under fluoroscopy control which was parked at the inferior vena cava. Then dilator was advanced on the top the guidewire and the sheath was advanced on the top the guidewire through the sheath we introduced the dialysis catheter sheath was removed tip of the catheter in superior vena cava and atrium junction. Flushed with heparin saline and Hep-Lock catheter was secured 3-0 Vicryl and 3-0 nylon dressing applied patient tolerated the procedure well patient transferred to recovery room satisfactory condition
--- NOTE | 2018-09-23 13:50 | CONS ---
CONSULTATION This is an 83-year-old female known to me from the office. Patient has been diagnosed with acute chronic failure. Her creatinine is going up, creatinine is 5.93 and I was consulted for placement of a dialysis catheter. MEDICAL HISTORY: History of hypertension, osteoarthritis, history of pneumonia, history of renal disease, history of thyroid disorder. PERSONAL HISTORY: Nonsmoker. PHYSICAL EXAMINATION: NECK: Supple. No bruit appreciated. CHEST: Clear to auscultation. First and second sounds are normal. ABDOMEN: Soft, nontender. VASCULAR: Exam shows brachial, radial and femoral pulses are present. PLAN: Placement of the dialysis catheter. Risks and complications discussed. MMODL / IJN: [id number] /
[2018-09-23] MEDS: SODIUM CHLORIDE 0.9% 1,000 ML IV SCH (14:00)
[2018-09-23] MEDS: DOCUSATE 100 MG CAP PO PRN (14:09)
--- NOTE | 2018-09-23 15:10 | XR ---
EXAMINATION TYPE: XR chest 1V confirm line plctx DATE OF EXAM: 09/23/2018 CLINICAL HISTORY: Interval placement of a dual lumen CVC TECHNIQUE: Single AP portable upright view of the chest is obtained. COMPARISON: Chest x-ray from one day earlier FINDINGS: Interval placement of a right internal jugular vein access central venous catheter with th e tip projecting in the low SVC. There is no pneumothorax. No focal airspace disease, pleural effusio n. Osseous structures are unchanged. Heart remains enlarged. IMPRESSION: 1. Interval placement of large bore dual lumen right IJ central line with the tip residing in the low SVC. 2. No additional significant interval change.
[2018-09-23 16:56] LABS: Iron Saturation 27.27 (12.00-45.00)
[2018-09-23 19:46] LABS: Hepatitis B Surface AB- Quant 3.5 mIU/mL
[2018-09-24] MEDS: SODIUM CHLORIDE 0.9% 1,000 ML IV SCH ×2 (00:02→15:07)
[2018-09-24] MEDS: LEVOTHYROXINE 50 MCG TAB PO SCH (05:59)
[2018-09-24] MEDS: FUROSEMIDE 20 MG TAB PO SCH (08:32)
[2018-09-24] MEDS: SPIRONOLACTONE 25 MG TAB PO SCH (08:32)
[2018-09-24] MEDS: FAMOTIDINE 20 MG TAB PO SCH (08:32)
[2018-09-24] MEDS: FLUTICASONE 50MCG/SPRAY NASAL 16GM EA NOSTRIL SCH (08:33)
[2018-09-24] MEDS: HEPARIN SODIUM,PORCINE 5,000 UNIT/ML 1 ML VIAL SQ SCH ×2 (08:33→21:57)
[2018-09-24] MEDS: LORATADINE 10 MG TAB PO SCH (08:33)
[2018-09-24] MEDS: hydrALAZINE HCL 50 MG TAB PO SCH ×3 (08:33→21:58)
[2018-09-24 08:59] LABS: Basophils % (A) 1 %; Eosinophils # (A) 0.2 k/uL (0-0.7); Eosinophils % (A) 3 %; HCT 25.9 % (34.0-46.0); HGB 8.4 gm/dL (11.4-16.0); Lymphocytes # (A) 0.7 k/uL (1.0-4.8); Lymphocytes % (A) 10 %; MCH 31.9 pg (25.0-35.0); MCHC 32.3 g/dL (31.0-37.0); MCV 98.8 fL (80.0-100.0); Mean Platelet Volume 7.3; Monocytes # (A) 0.3 k/uL (0-1.0); Monocytes % (A) 4 %; Neutrophils % (A) 82 %; Platelet Count 297 k/uL (150-450); RBC 2.62 m/uL (3.80-5.40); RDW 13.4 % (11.5-15.5); WBC 7.3 k/uL (3.8-10.6)
[2018-09-24 09:09] LABS: Calcium 8.7 mg/dL (8.4-10.2); Potassium 4.4 mmol/L (3.5-5.1)
--- NOTE | 2018-09-24 11:32 | P.PN ---
Subjective Progress Note Date: 09/24/18 This is an 83-year-old female patient of Dr. Swift, Dr. Huber with past medical history of hypertension, ischemic colitis, hypothyroidism, pericardial effusion status post pericardial window, chronic kidney disease, recurrent syncope which she saw specialists and was told she had hyper aldosteronism and started on Aldactone. Patient states that she was seen Ruby nephrology nurse practitioner at Dr. Huber's and due to increasing and worsening renal function she was sent into the emergency center for evaluation with plan to start hemodialysis. Patient states that she has been getting ready for hemodialysis and was to see a vascular surgeon next week. She states she is feeling fatigued , tired, nausea and vomiting. She denies any abdominal pain. Blood pressure 165/76, pulse 82 respirations 20, pulse ox 90% on room air. Hemoglobin is 9.2, potassium 4.6, BUN 66 and creatinine 5.40. Sodium 135 and chloride 97. Urinalysis was cloudy, blood moderate, leukoesterase small, RBCs 154, WBC 17. Patient will be admitted to the [facility] floor and consult requested with Dr. Huber and Dr. Palmer. Chest x-ray has been completed and report is pending 09/23: Patient is resting comfortably in bed with complaint of constipation. Last bowel movement was approximately 3 days ago. Patient also concerned about the length of time she will be nothing by mouth. Patient has not been seen by Dr. Palmer for dialysis catheter placement. Patient's urinalysis will be sent for culture. W BC 7.2, RBCs 2.8, hemoglobin 9, platelets 13.5, sodium 136, potassium 4.5, chloride 101, BUN is 71, creatinine 5.93, GFR 6, glucose 88. 09/24: Patient is resting currently in bed. Patient does not have any complaints of constipation at this time. Patient had dialysis yesterday evening patient states that she is feeling much better since the dialysis. Her appetite has improved and she no longer feels out of sorts. She is scheduled for dialysis again tomorrow. After dialysis she'll be able to go home, as long as dialysis outpatient treatment has been set up. WBC 7.3, hemoglobin 8.4, sodium 136 potassium 4.4, BUN 35 creatinine 4.06 GFR 10. Review of Systems All systems: negative Constitutional: Reports fatigue, denies lethargy, Reports malaise, denies poor appetite, Reports weakness, Denies anorexia, Denies chills, Denies fever Eyes: denies blurred vision, denies pain Ears, nose, mouth and throat: Denies vertigo, Denies dysphagia, Denies headache , Denies mouth pain, Denies sore throat Cardiovascular: Denies chest pain, Denies dyspnea on exertion, Denies edema, Denies leg edema, Denies lightheadedness, Denies palpitations, Denies shortness of breath, Denies syncope Respiratory: Denies cough, Denies cough with sputum, Denies dyspnea, Denies excessive sputum, Denies hemoptysis, Denies home oxygen, Denies wheezing Gastrointestinal: Reports loss of appetite, Reports nausea, Reports vomiting, Denies abdominal pain, Denies diarrhea Genitourinary: Denies dysuria, Denies hematuria Musculoskeletal: Denies frequent falls, Denies gait dysfunction, Denies myalgias Integumentary: Denies pruritus, Denies rash, Denies wounds Neurological: Denies aphasia, Denies change in mentation, Denies gait dysfunction, Denies head injury, Denies headaches, Denies numbness, Denies seizures, Denies weakness Psychiatric: Denies anxiety, Denies depression Endocrine: Denies fatigue, Denies weight change Objective - Vital Signs Vital signs: Vital Signs Temp 97.8 F 09/24/18 06:24 Pulse 74 09/24/18 06:24 Resp 18 09/24/18 06:24 BP 163/75 09/24/18 06:24 Pulse Ox 94 L 09/24/18 06:24 Intake & Output 09/23/18 09/24/18 09/24/18 18:59 06:59 18:59 Intake Total 150 100 240 Balance 150 100 240 Intake: IV 150 Oral 100 240 Other: Voiding Method Toilet Toilet # Voids 1 1 - Exam Gen: 83-year-old pleasant female in no acute distress, appears to be her stated age HEENT: Head is atraumatic, normocephalic. Pupils equal, round. Sclerae is anicteric. NECK: Supple. No JVD. No lymphadenopathy. No thyromegaly. Pressure dressing in place from dialysis catheter insertion-clean and dry no signs of infection no redness or induration LUNGS: Clear to auscultation. No wheezes or rhonchi. No intercostal retractions. HEART: Regular rate and rhythm. No murmur. ABDOMEN: Soft. Bowel sounds are present. No masses. No tenderness. EXTREMITIES: No pedal edema. No calf tenderness. NEUROLOGICAL: Patient is awake, alert and oriented x3. Cranial nerves 2 through 12 are grossly intact. - Labs CBC & Chem 7: 09/24/18 08:34 09/24/18 08:34 Labs: Abnormal Lab Results - Last 24 Hours (Table) 09/23/18 09/24/18 09/24/18 Range/Units 10:37 08:34 08:34 RBC 2.62 L (3.80-5.40) m/uL Hgb 8.4 L (11.4-16.0) gm/dL Hct 25.9 L (34.0-46.0) % Lymphocytes # 0.7 L (1.0-4.8) k/uL Sodium 136 L (137-145) mmol/L BUN 35 H (7-17) mg/dL Creatinine 4.06 H (0.52-1.04) mg/dL Glucose 136 H (74-99) mg/dL TIBC 209 L (228-460) ug/dL Microbiology - Last 24 Hours (Table) 09/23/18 15:35 Urine Culture - Preliminary Urine,Clean Catch Assessment and Plan Plan: 1. Acute kidney injury with chronic kidney disease stage III. Nephrology consult is appreciated. Dialysis catheter placed. Hemodialysis completed yesterday evening scheduled for dialysis tomorrow morning. Continue Lasix 20 mg every 48 hours and Aldactone 25 mg daily 2. Anemia secondary to renal disease. 3. Hypertension. Continue hydralazine 100 mg 3 times daily. 4. History of Infectious colitis in a patient with history of ischemic colitis in 2000. Colonoscopy with previous one finding a benign polyp. 5. Primary hyperaldosteronism. Aldactone 25 mg daily. 6. Hypothyroidism. Continue levothyroxine 50 g daily. 7. Chronic kidney disease stage III with baseline creatinine 1.4 secondary to nephrosclerosis. 8. History of simple partial seizure disorder 9. DVT prophylaxis. Heparin. 10. Gastrointestinal prophylaxis. Continue Pepcid 20 mg twice daily. 11. Constipation resolved. Continue with Colace Patient will be admitted to the hospital for a minimum of 3 nights stay. Discharge plan: Most likely home with home care. Impression and plan of care have been directed as dictated by the signing physician. Sonali Mcmanus nurse practitioner acting as scribe for signing physician. Additional CC's: Sami Swift
--- NOTE | 2018-09-24 11:52 | P.PN ---
Subjective Progress Note Date: 09/24/18 Principal diagnosis: This is a 83-year-old female who was admitted because of worsening creatinine. Creatinine was 1.39 dated 11/20/2016 2 years ago, went up to 3.02 on 08/15/2018 2 years later and went up to 5.9 yesterday. She's been symptomatic with nausea and occasional vomiting for the last 2 months.Because of the nausea vomiting and the worsening creatinine and chronicity, she was started on dialysis for the permacath yesterday. This morning she is feeling much better she was able to eat last night for the first time in 2 months. The food tasted good. She had workup done in August with CHRISTINE +1 in 1280, double-stranded DNA being + 23 international national units per mL, C3-C4 normal. She has 1 g range proteinuria. Urinalysis is showing moderate blood 17 WBCs 154 RBCs hyaline casts. Urine protein to physical is not available, serum immunoelectrophoresis shows no monoclonal pattern. Anca is negative. Other than this she has a creatinine off less than 1 and a aldosterone level of 14.7 suggestive of hyper Madhu state. Supposedly previously CT scans and we'll need for medicines are negative for any aldosterone producing adenoma. She is on Aldactone. Blood pressure is controlled. Ultrasound of the kidney shows 8.8 and 8.6 cm kidneys no hydronephrosis. 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 Objective - Vital Signs Vital signs: Vital Signs Temp 97.8 F 09/24/18 06:24 Pulse 74 09/24/18 06:24 Resp 18 09/24/18 06:24 BP 163/75 09/24/18 06:24 Pulse Ox 94 L 09/24/18 06:24 Intake & Output 09/23/18 09/24/18 09/24/18 18:59 06:59 18:59 Intake Total 150 100 240 Balance 150 100 240 Intake: IV 150 Oral 100 240 Other: Voiding Method Toilet Toilet # Voids 1 1 On examination she is awake alert oriented comfortable Permacath was placed in the right side dressing is been changed this morning because of bleeding currently the dressing is clear HEENT exam no JVP neck is supple no facial asymmetry Lungs are clear to auscultation good air entry bilaterally Heart sounds are unremarkable normal S1 and S2 no murmur rub gallop Abdomen soft nontender Extremity exam was trace edema Neurologically awake alert oriented - Labs CBC & Chem 7: 09/24/18 08:34 09/24/18 08:34 Labs: Abnormal Lab Results - Last 24 Hours (Table) 09/23/18 09/24/18 09/24/18 Range/Units 10:37 08:34 08:34 RBC 2.62 L (3.80-5.40) m/uL Hgb 8.4 L (11.4-16.0) gm/dL Hct 25.9 L (34.0-46.0) % Lymphocytes # 0.7 L (1.0-4.8) k/uL Sodium 136 L (137-145) mmol/L BUN 35 H (7-17) mg/dL Creatinine 4.06 H (0.52-1.04) mg/dL Glucose 136 H (74-99) mg/dL TIBC 209 L (228-460) ug/dL Microbiology - Last 24 Hours (Table) 09/23/18 15:35 Urine Culture - Preliminary Urine,Clean Catch Assessment and Plan Assessment: Impression 1. Progressive kidney disease with positive CHRISTINE and positive double-stranded DNA but normal complements a urine analysis somewhat active suggestive of possible lupus although there is no other manifestations of the same. Creatinine has gone up from 2017 when it was 1.39-3.0 to a month ago on 2018 and to 5.9 as of yesterday 09/23/2018 Kidney biopsy has been thought to be not advisable based on kidney size of 8.8 and 8.6 cm there is no reversible cause . She was started on dialysis the permacath yesterday and has improved subjectively with 1 dialysis. 2. A urine immunoelectrophoresis has been ordered to rule out any myeloma although it doesn't seem to be likely, calcium is normal at 9.4, phosphorus 3.7. 3. Anemia of chronic kidney disease, hemoglobin is 9. Rule out iron deficiency 4. Hyperaldosteronism on Aldactone blood pressure is controlled 5. history of Colitis currently no manifestations. 6. History of pericardial window. Recommendation 1. Will dialyze her tomorrow again. 2. She will need access surgery. 3. Waiting for her iron saturation. 4. Will schedule her for outpatient dialysis can be discharged home tomorrow.
[2018-09-25] MEDS: LEVOTHYROXINE 50 MCG TAB PO SCH (05:48)
[2018-09-25] MEDS: SODIUM CHLORIDE 0.9% 1,000 ML IV SCH (07:38)
--- NOTE | 2018-09-25 08:48 | P.PN ---
Subjective Patient is seen in follow-up for end-stage renal disease. She was started on hemodialysis this admission. She tolerated the first treatment of hemodialysis was on Tuesday. Currently having breakfast. Denies chest pain or shortness of breath. Vital signs are stable. General: The patient appeared well nourished and normally developed. HEENT: Head exam is unremarkable. Neck is without jugular venous distension. LUNGS: Lungs are clear to auscultation and percussion. Breath sounds decreased. HEART: Rate and Rhythm are regular. First and second heart sounds normal. No murmurs, rubs or gallops. ABDOMEN: Abdominal exam reveals normal bowel sounds. Non-tender and non- distended. No evidence of peritonitis. EXTREMITITES: No clubbing, cyanosis, or edema. Objective - Vital Signs Vital signs: Vital Signs Temp 97.6 F 09/25/18 06:32 Pulse 73 09/25/18 06:32 Resp 18 09/25/18 06:32 BP 162/76 09/25/18 06:32 Pulse Ox 95 09/25/18 06:32 Intake & Output 09/24/18 09/25/18 09/25/18 18:59 06:59 18:59 Intake Total 240 Balance 240 Intake: Oral 240 Other: # Voids 3 2 - Labs CBC & Chem 7: 09/24/18 08:34 09/24/18 08:34 Labs: Abnormal Lab Results - Last 24 Hours (Table) 09/24/18 09/24/18 Range/Units 08:34 08:34 RBC 2.62 L (3.80-5.40) m/uL Hgb 8.4 L (11.4-16.0) gm/dL Hct 25.9 L (34.0-46.0) % Lymphocytes # 0.7 L (1.0-4.8) k/uL Sodium 136 L (137-145) mmol/L BUN 35 H (7-17) mg/dL Creatinine 4.06 H (0.52-1.04) mg/dL Glucose 136 H (74-99) mg/dL Microbiology - Last 24 Hours (Table) 09/23/18 15:35 Urine Culture - Final Urine,Clean Catch Assessment and Plan Plan: Assessment: 1. End-stage renal disease started on hemodialysis this admission. She tolerated the first treatment well on Tuesday. 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 2. Anemia of chronic kidney disease. Iron replete. 3. Hypertension with chronic kidney disease. Controlled. Plan: Second treatment of hemodialysis today. institutional asset manager to help facilitate outpatient hemodialysis set up. Add Aranesp. Follow-up urine immunofixation. Change Lasix to 80 mg orally twice daily.
[2018-09-25] MEDS ORDERED: DARBEPOETIN ALFA 40 MCG/0.4 ML SYRINGE SQ SCH (09:00)
[2018-09-25] MEDS: FUROSEMIDE 80 MG TAB PO SCH ×2 (09:13→15:58)
[2018-09-25] MEDS: FLUTICASONE 50MCG/SPRAY NASAL 16GM EA NOSTRIL SCH (09:13)
[2018-09-25] MEDS: LORATADINE 10 MG TAB PO SCH (09:13)
[2018-09-25] MEDS: FAMOTIDINE 20 MG TAB PO SCH (09:13)
[2018-09-25] MEDS: SPIRONOLACTONE 25 MG TAB PO SCH (09:13)
[2018-09-25] MEDS: DOCUSATE 100 MG CAP PO PRN (09:14)
[2018-09-25] MEDS: hydrALAZINE HCL 50 MG TAB PO SCH ×3 (09:14→22:09)
[2018-09-25] MEDS: HEPARIN SODIUM,PORCINE 5,000 UNIT/ML 1 ML VIAL SQ SCH ×2 (09:14→22:10)
--- NOTE | 2018-09-25 13:48 | P.PN ---
Subjective Progress Note Date: 09/25/18 This is an 83-year-old female patient of Dr. Swift, Dr. Huber with past medical history of hypertension, ischemic colitis, hypothyroidism, pericardial effusion status post pericardial window, chronic kidney disease, recurrent syncope which she saw specialists and was told she had hyper aldosteronism and started on Aldactone. Patient states that she was seen Ruby nephrology nurse practitioner at Dr. Huber's and due to increasing and worsening renal function she was sent into the emergency center for evaluation with plan to start hemodialysis. Patient states that she has been getting ready for hemodialysis and was to see a vascular surgeon next week. She states she is feeling fatigued , tired, nausea and vomiting. She denies any abdominal pain. Blood pressure 165/76, pulse 82 respirations 20, pulse ox 90% on room air. Hemoglobin is 9.2, potassium 4.6, BUN 66 and creatinine 5.40. Sodium 135 and chloride 97. Urinalysis was cloudy, blood moderate, leukoesterase small, RBCs 154, WBC 17. Patient will be admitted to the [facility] floor and consult requested with Dr. Huber and Dr. Palmer. Chest x-ray has been completed and report is pending 09/23: Patient is resting comfortably in bed with complaint of constipation. Last bowel movement was approximately 3 days ago. Patient also concerned about the length of time she will be nothing by mouth. Patient has not been seen by Dr. Palmer for dialysis catheter placement. Patient's urinalysis will be sent for culture. W BC 7.2, RBCs 2.8, hemoglobin 9, platelets 13.5, sodium 136, potassium 4.5, chloride 101, BUN is 71, creatinine 5.93, GFR 6, glucose 88. 09/24: Patient is resting currently in bed. Patient does not have any complaints of constipation at this time. Patient had dialysis yesterday evening patient states that she is feeling much better since the dialysis. Her appetite has improved and she no longer feels out of sorts. She is scheduled for dialysis again tomorrow. After dialysis she'll be able to go home, as long as dialysis outpatient treatment has been set up. WBC 7.3, hemoglobin 8.4, sodium 136 potassium 4.4, BUN 35 creatinine 4.06 GFR 10. 09/25: Patient is scheduled for hemodialysis today and currently repeat treatment tomorrow. Case management is working on scheduling hemodialysis an outpatient. She denies any new complaints today. She has been afebrile, heart rate running in 70s and 80s, blood pressure 162/76, pulse ox 95% on room air. Review of Systems Constitutional: Reports fatigue, denies lethargy, Reports malaise, denies poor appetite, Reports weakness, Denies chills, Denies fever Eyes: denies blurred vision, denies pain Ears, nose, mouth and throat: Denies vertigo, Denies dysphagia, Denies headache , Denies mouth pain, Denies sore throat Cardiovascular: Denies chest pain, Denies dyspnea on exertion, Denies edema, Denies leg edema, Denies lightheadedness, Denies palpitations, Denies shortness of breath, Denies syncope Respiratory: Denies cough, Denies cough with sputum, Denies dyspnea, Denies excessive sputum, Denies hemoptysis, Denies home oxygen, Denies wheezing Gastrointestinal: Reports loss of appetite, Reports nausea, Reports vomiting, Denies abdominal pain, Denies diarrhea Genitourinary: Denies dysuria, Denies hematuria Musculoskeletal: Denies frequent falls, Denies gait dysfunction, Denies myalgias Integumentary: Denies pruritus, Denies rash, Denies wounds Neurological: Denies aphasia, Denies change in mentation, Denies gait dysfunction, Denies head injury, Denies headaches, Denies numbness, Denies seizures, Denies weakness Psychiatric: Denies anxiety, Denies depression Endocrine: Denies fatigue, Denies weight change Objective - Vital Signs Vital signs: Vital Signs Temp 97.6 F 09/25/18 06:32 Pulse 73 09/25/18 06:32 Resp 18 09/25/18 06:32 BP 162/76 09/25/18 06:32 Pulse Ox 95 09/25/18 06:32 Intake & Output 09/24/18 09/25/18 09/25/18 18:59 06:59 18:59 Intake Total 240 480 Balance 240 480 Intake: Oral 240 480 Other: Voiding Method Toilet # Voids 3 2 - Exam Gen: 83-year-old pleasant female in no acute distress, appears to be her stated age. Patient is ambulating within her room. HEENT: Head is atraumatic, normocephalic. Pupils equal, round. Sclerae is anicteric. NECK: Supple. No JVD. No lymphadenopathy. No thyromegaly. Pressure dressing in place from dialysis catheter insertion-clean and dry no signs of infection no redness or induration LUNGS: Clear to auscultation. No wheezes or rhonchi. No intercostal retractions. HEART: Regular rate and rhythm. No murmur. ABDOMEN: Soft. Bowel sounds are present. No masses. No tenderness. EXTREMITIES: No pedal edema. No calf tenderness. NEUROLOGICAL: Patient is awake, alert and oriented x3. Cranial nerves 2 through 12 are grossly intact. - Labs CBC & Chem 7: 09/24/18 08:34 09/24/18 08:34 Labs: Microbiology - Last 24 Hours (Table) 09/23/18 15:35 Urine Culture - Final Urine,Clean Catch Assessment and Plan Plan: 1. Acute kidney injury with chronic kidney disease stage III. Nephrology consult is appreciated. Dialysis catheter placed. Hemodialysis today and repeat tomorrow morning. Continue Lasix 20 mg every 48 hours and Aldactone 25 mg daily. food manager is making arrangements for hemodialysis outpatient. 2. Anemia secondary to renal disease. 3. Hypertension. Continue hydralazine 100 mg 3 times daily. 4. History of Infectious colitis in a patient with history of ischemic colitis in 2000. Colonoscopy with previous one finding a benign polyp. 5. Primary hyperaldosteronism. Aldactone 25 mg daily. 6. Hypothyroidism. Continue levothyroxine 50 g daily. 7. Chronic kidney disease stage III with baseline creatinine 1.4 secondary to nephrosclerosis. 8. History of simple partial seizure disorder 9. DVT prophylaxis. Heparin. 10. Gastrointestinal prophylaxis. Continue Pepcid 20 mg twice daily. 11. Constipation resolved. Continue with Colace Discharge plan: home tomorrow. Impression and plan of care have been directed as dictated by the signing physician. Hetal Sanchez nurse practitioner acting as scribe for signing physician.
--- NOTE | 2018-09-25 15:12 | IR ---
EXAMINATION TYPE: IR cvc insert central tunneled DATE OF EXAM: 09/24/2018 COMPARISON: NONE HISTORY: Fluoroscopy time. Fluoroscopy was provided to the referring clinician.
[2018-09-25 23:35] VITALS: RESP 18
[2018-09-26] MEDS: LEVOTHYROXINE 50 MCG TAB PO SCH (06:15)
[2018-09-26 08:02] VITALS: BP 154/68; PULSE 80; TEMP 97.6
[2018-09-26] MEDS: FAMOTIDINE 20 MG TAB PO SCH (08:15)
[2018-09-26 09:21] LABS: HCT 23.4 % (34.0-46.0); HGB 7.6 gm/dL (11.4-16.0); MCH 32.3 pg (25.0-35.0); MCHC 32.5 g/dL (31.0-37.0); MCV 99.3 fL (80.0-100.0); Mean Platelet Volume 8.2; Platelet Count 258 k/uL (150-450); RBC 2.35 m/uL (3.80-5.40); RDW 13.6 % (11.5-15.5); WBC 4.7 k/uL (3.8-10.6)
[2018-09-26 09:46] LABS: Calcium 8.6 mg/dL (8.4-10.2); Potassium 3.9 mmol/L (3.5-5.1)
--- NOTE | 2018-09-26 11:07 | P.PN ---
Subjective Patient is seen in follow-up for end-stage renal disease. She was started on hemodialysis this admission and has been tolerating it well. Denies chest pain or shortness of breath. Vital signs are stable. General: The patient appeared well nourished and normally developed. HEENT: Head exam is unremarkable. Neck is without jugular venous distension. LUNGS: Lungs are clear to auscultation and percussion. Breath sounds decreased. HEART: Rate and Rhythm are regular. First and second heart sounds normal. No murmurs, rubs or gallops. ABDOMEN: Abdominal exam reveals normal bowel sounds. Non-tender and non- distended. No evidence of peritonitis. EXTREMITITES: No clubbing, cyanosis, or edema. Objective - Vital Signs Vital signs: Vital Signs Temp 97.6 F 09/26/18 07:00 Pulse 80 09/26/18 07:00 Resp 18 09/26/18 07:00 BP 154/68 09/26/18 07:00 Pulse Ox 98 09/26/18 07:00 Intake & Output 09/25/18 09/26/18 09/26/18 18:59 06:59 18:59 Intake Total 680 Balance 680 Weight 79.379 kg Intake: Oral 680 Other: Voiding Method Toilet Bedside Commode Bedside Commode # Voids 2 3 - Labs CBC & Chem 7: 09/26/18 09:09 09/26/18 09:09 Labs: Abnormal Lab Results - Last 24 Hours (Table) 09/26/18 09/26/18 Range/Units 09:09 09:09 RBC 2.35 L (3.80-5.40) m/uL Hgb 7.6 L (11.4-16.0) gm/dL Hct 23.4 L (34.0-46.0) % Sodium 136 L (137-145) mmol/L BUN 20 H (7-17) mg/dL Creatinine 2.81 H (0.52-1.04) mg/dL Assessment and Plan Plan: Assessment: 1. End-stage renal disease started on hemodialysis this admission. 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 2. Anemia of chronic kidney disease. Iron replete. On Aranesp. 3. Hypertension with chronic kidney disease. Controlled. Plan: Currently seen while undergoing HD. She will be maintained on a MWF schedule. manager [employer] to help facilitate outpatient hemodialysis set up Follow-up urine immunofixation. Continue lasix to 80 mg orally twice daily.
[2018-09-26] MEDS: SPIRONOLACTONE 25 MG TAB PO SCH (11:45)
[2018-09-26] MEDS: hydrALAZINE HCL 50 MG TAB PO SCH (11:45)
[2018-09-26] MEDS: FUROSEMIDE 80 MG TAB PO SCH (11:45)
[2018-09-26] MEDS: HEPARIN SODIUM,PORCINE 5,000 UNIT/ML 1 ML VIAL SQ SCH (11:45)
[2018-09-26] MEDS: FLUTICASONE 50MCG/SPRAY NASAL 16GM EA NOSTRIL SCH (11:46)
[2018-09-26] MEDS: LORATADINE 10 MG TAB PO SCH (11:46)
--- NOTE | 2018-09-28 15:58 | P.DS ---
Providers Date of admission: 09/22/18 09:42 Expected date of discharge: 09/26/18 Attending physician: Angelito Nelson Consults: 09/22/18 09:42 Consult Physician Urgent Consulting Provider: Kiara Huber Consult Reason/Comments: Acute renal failure Do you want consulting provider notified?: Yes 09/22/18 10:18 Consult Physician Routine Consulting Provider: Jose Palmer Consult Reason/Comments: hd cath Do you want consulting provider notified?: Yes Primary care physician: Sami Swift [facility] Course: This is an 83-year-old female patient of Dr. Swift, Dr. Huber with past medical history of hypertension, ischemic colitis, hypothyroidism, pericardial effusion status post pericardial window, chronic kidney disease, recurrent syncope which she saw specialists and was told she had hyper aldosteronism and started on Aldactone. Patient states that she was seen Ruby nephrology nurse practitioner at Dr. Huber's and due to increasing and worsening renal function she was sent into the emergency center for evaluation with plan to start hemodialysis. Patient states that she has been getting ready for hemodialysis and was to see a vascular surgeon next week. She states she is feeling fatigued , tired, nausea and vomiting. She denies any abdominal pain. Blood pressure 165/76, pulse 82 respirations 20, pulse ox 90% on room air. Hemoglobin is 9.2, potassium 4.6, BUN 66 and creatinine 5.40. Sodium 135 and chloride 97. Urinalysis was cloudy, blood moderate, leukoesterase small, RBCs 154, WBC 17. [facility] and consult requested with Dr. Huber and Dr. Palmer. Chest x-ray has been completed and report is pending 09/23: Patient is resting comfortably in bed with complaint of constipation. Last bowel movement was approximately 3 days ago. Patient also concerned about the length of time she will be nothing by mouth. Patient has not been seen by Dr. Palmer for dialysis catheter placement. Patient's urinalysis will be sent for culture. W BC 7.2, RBCs 2.8, hemoglobin 9, platelets 13.5, sodium 136, potassium 4.5, chloride 101, BUN is 71, creatinine 5.93, GFR 6, glucose 88. 09/24: Patient is resting currently in bed. Patient does not have any complaints of constipation at this time. Patient had dialysis yesterday evening patient states that she is feeling much better since the dialysis. Her appetite has improved and she no longer feels out of sorts. She is scheduled for dialysis again tomorrow. After dialysis she'll be able to go home, as long as dialysis outpatient treatment has been set up. WBC 7.3, hemoglobin 8.4, sodium 136 potassium 4.4, BUN 35 creatinine 4.06 GFR 10. 09/25: Patient is scheduled for hemodialysis today and currently repeat treatment tomorrow. Case management is working on scheduling hemodialysis an outpatient. She denies any new complaints today. She has been afebrile, heart rate running in 70s and 80s, blood pressure 162/76, pulse ox 95% on room air. 09/26: Patient is tolerating hemodialysis. Her vital signs have been stable she has been afebrile. She has been cleared by nephrology for discharge. Case management has made arrangements for scheduled hemodialysis for her. Patient will be discharged home today in stable condition. Discharge diagnoses: 1. Acute kidney injury with chronic kidney disease stage III. 2. Anemia secondary to renal disease. 3. Hypertension. 4. History of Infectious colitis in a patient with history of ischemic colitis in 2000. 5. Primary hyperaldosteronism. 6. Hypothyroidism. 7. Chronic kidney disease stage III with baseline creatinine 1.4 secondary to nephrosclerosis. 8. History of simple partial seizure disorder Discharge plan: home Impression and plan of care have been directed as dictated by the signing physician. Hetal Sanchez nurse practitioner acting as scribe for signing physician. Patient Condition at Discharge: Good Plan - Discharge Summary Discharge Rx Participant: No New Discharge Prescriptions: New Furosemide [Lasix] 40 mg PO BID@0900,1600 #60 tab Continue Levothyroxine Sodium [Synthroid] 50 mcg PO QAM Spironolactone [Aldactone] 25 mg PO QAM Famotidine [Pepcid] 20 mg PO BID Vitamin B Complex 1 cap PO DAILY hydrALAZINE HCL [Apresoline] 100 mg PO TID Docusate [Colace] 100 mg PO DAILY PRN cap PRN Reason: Constipation Fluticasone Nasal Milton [Flonase Nasal Milton] 2 spray EA NOSTRIL DAILY #1 spr Loratadine [Claritin] 10 mg PO DAILY #30 tab Furosemide [Lasix] 20 mg PO Q48H Discharge Medication List Levothyroxine Sodium [Synthroid] 50 mcg PO QAM 07/05/14 [History] Famotidine [Pepcid] 20 mg PO BID 10/28/15 [History] Spironolactone [Aldactone] 25 mg PO QAM 10/28/15 [History] Vitamin B Complex 1 cap PO DAILY 10/28/15 [History] hydrALAZINE HCL [Apresoline] 100 mg PO TID 11/20/16 [History] Docusate [Colace] 100 mg PO DAILY PRN cap 08/20/18 [Rx] Fluticasone Nasal Milton [Flonase Nasal Milton] 2 spray EA NOSTRIL DAILY #1 spr [Rx] Loratadine [Claritin] 10 mg PO DAILY #30 tab 08/20/18 [Rx] Furosemide [Lasix] 20 mg PO Q48H 09/22/18 [History] Furosemide [Lasix] 40 mg PO BID@0900,1600 #60 tab 09/26/18 [Rx] Follow up Appointment(s)/Referral(s): Sami Swift MD [Primary Care Provider] - 10/04/18 12:45 pm Jose Palmer MD [STAFF PHYSICIAN] - 09/27/18 12:30 pm (Vein Mapping) Patient Instructions/Handouts: Acute Kidney Injury (DC), Dialysis Diet (DC) Activity/Diet/Wound Care/Special Instructions: Hemodialysis at [facility]. Chair time will start tomorrow 09/27/18 at 3:30 PM, please arrive 30 minutes early for paperwork. Discharge Disposition: HOME SELF-CARE
== END 2018-09-26 14:39 | disposition home or self-care (01) | DRG 683 ==
LOC: EC 07:46 → 4MS4W 09:42
PROVIDERS: ADMIT Internal Medicine Geriatric Medicine; ATTEND Internal Medicine Geriatric Medicine
PROC: 5A1D70Z Performance of Urinary Filtration, Intermittent, Less than 6 Hours Per Day (ICD-10-PCS; principal; 2018-09-23 12:30)
PROC: 02HV33Z Insertion of Infusion Device into Superior Vena Cava, Percutaneous Approach (ICD-10-PCS; 2018-09-23 12:30)
DX: N17.9 Acute kidney failure, unspecified (principal); I12.0 Hypertensive chronic kidney disease with stage 5 chronic kidney disease or end stage renal disease; G40.109 Localization-related (focal) (partial) symptomatic epilepsy and epileptic syndromes with simple partial seizures, not intractable, without status epilepticus; N18.6 End stage renal disease; D63.1 Anemia in chronic kidney disease; E03.9 Hypothyroidism, unspecified; E26.09 Other primary hyperaldosteronism; J45.909 Unspecified asthma, uncomplicated; K59.00 Constipation, unspecified; G43.909 Migraine, unspecified, not intractable, without status migrainosus; M19.90 Unspecified osteoarthritis, unspecified site; R01.1 Cardiac murmur, unspecified; Z79.890 Hormone replacement therapy; Z79.899 Other long term (current) drug therapy; Z88.1 Allergy status to other antibiotic agents; Z88.8 Allergy status to other drugs, medicaments and biological substances; Z87.01 Personal history of pneumonia (recurrent); Z90.710 Acquired absence of both cervix and uterus; Z87.19 Personal history of other diseases of the digestive system; Z98.42 Cataract extraction status, left eye; Z98.41 Cataract extraction status, right eye; Z96.1 Presence of intraocular lens; Z80.52 Family history of malignant neoplasm of bladder; Z82.49 Family history of ischemic heart disease and other diseases of the circulatory system; Z80.0 Family history of malignant neoplasm of digestive organs
CPT/HCPCS: 36415; 36556; 71046; 76937; 77001; 80048; 80053; 81001; 82150; 83540; 83550; 83690; 85025; 85027; 86335; 86705; 86706; 87086; 87340; 90935; 93005; 99285

== ENCOUNTER → 2018-12-04 | Outpatient (CLI) | payer MEDICARE, BC ==
[2018-12-04 10:48] LABS: Basophils % (A) 0 %; Eosinophils # (A) 0.2 k/uL (0-0.7); Eosinophils % (A) 2 %; HCT 33.7 % (34.0-46.0); HGB 10.7 gm/dL (11.4-16.0); Lymphocytes # (A) 1.1 k/uL (1.0-4.8); Lymphocytes % (A) 12 %; MCHC 31.9 g/dL (31.0-37.0); MCV 100.3 fL (80.0-100.0); Macrocytosis Slight; Monocytes # (A) 0.5 k/uL (0-1.0); Monocytes % (A) 5 %; Neutrophils % (A) 79 %; Platelet Count 310 k/uL (150-450); RBC 3.36 m/uL (3.80-5.40); RDW 14.7 % (11.5-15.5); WBC 8.9 k/uL (3.8-10.6)
[2018-12-04 10:57] LABS: Potassium 4.6 mmol/L (3.5-5.1)
== END ==
LOC: LABWHC1 09:55
PROVIDERS: ATTEND Surgery
DX: Z01.812 Encounter for preprocedural laboratory examination (principal); N18.6 End stage renal disease
CPT/HCPCS: 80051; 82565; 84520; 85025

== ENCOUNTER 2018-12-07 05:59 | Day surgery (SDC) | payer MEDICARE, BC ==
[2018-12-04 08:34] VITALS: BMI 28.5
[~2018-12-07 05:59] MED LIST: DEXAMETHASONE SOD PHOSPHATE 10 MG/ML 1 ML VIAL IV ONE; HYDROmorphone 0.5 MG/0.5 ML SYRINGE IVP PRN; LACTATED RINGERS 1,000 ML IV SCH; LIDOCAINE 1% 20 ML VIAL (10MG/ML) FOR IV START INTRADERMA PRN; MIDAZOLAM (PF) 2 MG/2 ML VIAL IV PRN; ONDANSETRON 4 MG/2 ML VIAL IVP ONE; SCOPOLAMINE 1.5MG/72HR PATCH TRANSDERM ONE; ceFAZolin IN SWFI 2 GM/20 ML SYRINGE IVP ONE
[2018-12-07 06:34] VITALS: TEMP 98.9
[2018-12-07] MEDS ORDERED: LIDOCAINE 1% 20 ML VIAL (10MG/ML) FOR IV START INTRADERMA ONE (07:10)
[2018-12-07] MEDS ORDERED: PROPOFOL 10 MG/ML 20 ML VIAL IV ONE (07:27)
[2018-12-07] MEDS ORDERED: fentaNYL (PF) 50 MCG/ML 2 ML AMP ONE (07:27)
[2018-12-07] MEDS ORDERED: MIDAZOLAM 2 MG/2 ML VIAL ONE (07:27)
[2018-12-07] MEDS ORDERED: KETAMINE 10 MG/ML 20 ML VIAL ONE (07:27)
[2018-12-07] MEDS ORDERED: HEPARIN SODIUM,PORCINE 5,000 UNIT/ML 1 ML VIAL ONE (07:27)
[2018-12-07] MEDS ORDERED: LIDOCAINE 1% INJ 10MG/ML (20 ML MDV) SQ ONE ×2 (07:56)
[2018-12-07] MEDS ORDERED: SODIUM CHLORIDE 0.9% 500 ML 500 ML with HEPARIN SODIUM,PORCINE 5,000 UNIT IV ONE ×2 (07:56)
[2018-12-07 09:42] VITALS: BP 154/78; PULSE 81; RESP 16
--- NOTE | 2018-12-23 06:01 | P.OP ---
Date of Procedure: 12/07/18 Preoperative Diagnosis: ESRD Postoperative Diagnosis: ESRD Procedure(s) Performed: LUE creation of arteriovenous basilic vein transposition stage I Anesthesia: MAC, local Surgeon: Dionicio Cervantes Estimated Blood Loss (ml): 10 Pathology: none sent Condition: stable Disposition: same day Indications for Procedure: 83 year old female currently on HD via right chest wall catheter presents today for creation of LUE AVF. Operative Findings: Basilic vein was good caliber and patent and more suitable for fistula creation than cephalic vein. Description of Procedure: After written and informed consent was obtained and all risks benefits and complications were described the patient was brought to the operative suite and laid in a supine position with left arm outstretched on an armboard. The area of the left arm was prepped and draped in usual sterile fashion and patient was given antibiotics prior to incision. Timeout was performed in usual fashion. A transverse incision at the ante cubital fossa was created and dissection was carried down with electrocautery to the basilic vein and brachial artery. Both were controlled with vessel loops. The vein was dissected proximally to have enough length to bring to the artery. The vein was then transected and brought over to the artery and artery was controlled, arteriotomy created with 11 blade scalpel after patient was administered heparin. End-side anastamosis with 6-0 prolene suture was then performed. Prior to last sutures backbleeding was assessed which was brisk and inflow was assessed which was pulsatile. Anastamosis was completed and good thrill was palpated in the fistula. The area was irrigated with antibiotic solution and incision was closed. Patient tolerated the procedure and had palpable pulse in the radial artery at conclusion of procedure.
== END 2018-12-07 10:11 | disposition home or self-care (01) ==
LOC: OR 05:59 → EDSTATUS 07:30 → OR 10:11
PROVIDERS: ATTEND Surgery
DX: I12.0 Hypertensive chronic kidney disease with stage 5 chronic kidney disease or end stage renal disease (principal); N18.6 End stage renal disease; E07.9 Disorder of thyroid, unspecified; J45.909 Unspecified asthma, uncomplicated; Z79.899 Other long term (current) drug therapy; Z79.890 Hormone replacement therapy
CPT/HCPCS: 84132; 36819; J2250; J1644; J2001; J3010; J2704; J0690

== ENCOUNTER → 2019-02-09 | Outpatient (CLI) | payer OTHER, MEDICARE, BC ==
[2019-02-09 07:20] LABS: Basophils # (A) 0.1 k/uL (0-0.2); Basophils % (A) 1 %; Eosinophils # (A) 0.2 k/uL (0-0.7); Eosinophils % (A) 3 %; HCT 36.2 % (34.0-46.0); HGB 11.6 gm/dL (11.4-16.0); Hypochromasia Slight; Lymphocytes % (A) 15 %; MCH 32.1 pg (25.0-35.0); MCHC 32.1 g/dL (31.0-37.0); Macrocytosis Slight; Mean Platelet Volume 7.6; Monocytes # (A) 0.4 k/uL (0-1.0); Monocytes % (A) 6 %; Neutrophils # (A) 4.7 k/uL (1.3-7.7); Neutrophils % (A) 73 %; Platelet Count 321 k/uL (150-450); RBC 3.62 m/uL (3.80-5.40); RDW 15.1 % (11.5-15.5); WBC 6.5 k/uL (3.8-10.6)
[2019-02-09 07:36] LABS: Potassium 5.1 mmol/L (3.5-5.1)
== END | disposition home or self-care (01) ==
LOC: LABPAT 06:44
PROVIDERS: ATTEND Surgery
DX: Z01.812 Encounter for preprocedural laboratory examination (principal); N18.6 End stage renal disease
CPT/HCPCS: 36415; 80051; 82565; 84520; 85025

== ENCOUNTER 2019-02-20 06:13 | Day surgery (SDC) | payer MEDICARE, BC ==
[2019-02-16 10:33] VITALS: BMI 27.6
[~2019-02-20 06:13] MED LIST changes: -LIDOCAINE 1% 20 ML VIAL (10MG/ML) FOR IV START INTRADERMA PRN; -MIDAZOLAM (PF) 2 MG/2 ML VIAL IV PRN; +MIDAZOLAM 2 MG/2 ML VIAL IV PRN; -SCOPOLAMINE 1.5MG/72HR PATCH TRANSDERM ONE; -ceFAZolin IN SWFI 2 GM/20 ML SYRINGE IVP ONE
[2019-02-20 07:00] VITALS: RESP 16; TEMP 98.3
[2019-02-20] MEDS ORDERED: MIDAZOLAM (PF) 2 MG/2 ML VIAL IVP ONE (07:10)
[2019-02-20] MEDS ORDERED: MIDAZOLAM 2 MG/2 ML VIAL ONE (07:30)
[2019-02-20] MEDS ORDERED: HEPARIN SODIUM,PORCINE 5,000 UNIT/ML 1 ML VIAL ONE (07:30)
[2019-02-20] MEDS ORDERED: PROPOFOL 10 MG/ML 20 ML VIAL IV ONE (07:30)
[2019-02-20] MEDS ORDERED: PROTAMINE SULFATE 10 MG/ML 5 ML VIAL IV ONE (07:30)
[2019-02-20] MEDS ORDERED: LIDOCAINE 2%-EPI 1:100,000 20 ML VIAL ONE (07:30)
[2019-02-20] MEDS ORDERED: ROPIVACAINE 5 MG/ML 30 ML VIAL ONE (07:30)
[2019-02-20] MEDS ORDERED: LIDOCAINE 1% INJ 10MG/ML (20 ML MDV) ONE (07:30)
[2019-02-20] MEDS ORDERED: fentaNYL (PF) 50 MCG/ML 2 ML AMP ONE (07:30)
--- NOTE | 2019-02-20 07:41 | P.ANPRN ---
Procedure Note - Anesthesia - Nerve Block Performed Left Infraclavicular Single Time Out Performed: Yes (0710) Date of Procedure: 02/20/19 Procedure Start Time: 07:10 Procedure Stop Time: 07:16 Location of Patient Procedure: PreOp Indication: Acute Post-Operative Pain, Dx/Pain Location (Left arm pain), Requested by physician (Billy) Sedation Type: Sedate with meaningful contact maintained Preparation: Sterile Prep Position: Supine Catheter: None Needle Types: Pajunk Needle Gauge: 21 Technique: Ultrasound Injectate: Other (see comment) (10ml 0.5% Ropivacaine + 10ml 2% lidocaine with 1:200,000 epi) Blood Aspirated: No Pain Paresthesia on Injection Noted: No Resistance on Injection: Normal Events: Uneventful and Well Tolerated
[2019-02-20] MEDS ORDERED: BUPIVACAINE (PF) 0.5% 30 ML VIAL SQ ONE (08:01)
--- NOTE | 2019-02-20 10:46 | P.OP ---
Date of Procedure: 02/20/19 Preoperative Diagnosis: ESRD on HD Postoperative Diagnosis: Same Procedure(s) Performed: Left upper extremity basilic vein transposition stage 2 Anesthesia: regional Surgeon: Dionicio Cervantes Estimated Blood Loss (ml): 5 Pathology: none sent Condition: stable Disposition: PACU Indications for Procedure: 83 year old female with past history of basilic vein transposition stage I presents for stage II procedure. Description of Procedure: After written informed consent was obtained the patient all risks benefits competitions were described the patient is brought to the operative suite and laid in the supine position with the left arm placed on an armboard. The arm was prepped and draped in usual sterile fashion after appropriate anesthetic was performed per the anesthesiologist. Timeout was performed in normal fashion and antibiotics were administered prior to incision. A vertical incision was then created over the basilic vein just proximal to the elbow and dissection was carried down to the vein utilizing electrocautery. The vein was then dissected free in a circumferential manner. This was then followed up the medial aspect of the upper arm with serial incisions created to get access to the basilic vein. The basilic vein was dissected in a circumferential manner with branches ligated with 3-0 silk suture. Once complete dissection was carried out to the axilla the vein at the elbow just proximal to the previous anastomosis was clamped and ligated. Patient was then administered 3000 units of heparin. The vein was then marked and tunneled from the axilla to the existing anastomosis at the elbow. An end and anastomosis was then created with 7-0 Prolene suture. Prior to last sutures being placed control was released revealing good pulsatile blood flow into the anastomosis as well as good backbleeding from the vein itself. Final sutures were then placed and control was released. Good palpable thrill was noted throughout the entirety of the fistula. Ultrasound was then utilized to visualize the fistula which demonstrated no evidence of twisting with good pulsatile blood flow throughout the entirety of the vein. The area was then copiously irrigated with an biotics solution and the incisions were then closed in a multilayer fashion. The skin was cleansed and dressings were placed. Patient tolerated procedure well had a palpable radial pulse at the conclusion of the procedure. Plan - Discharge Summary Discharge Rx Participant: No New Discharge Prescriptions: No Action Levothyroxine Sodium [Synthroid] 50 mcg PO QAM Spironolactone [Aldactone] 25 mg PO QAM hydrALAZINE HCL [Apresoline] 100 mg PO TID Allopurinol [Zyloprim] 100 mg PO DAILY Multivit/Folic Acid/Vit K1 [One-A-Day Women's 50 Plus Tab] 1 each PO DAILY Potassium Chloride [Klor-Con 10] 5 meq PO MOFR Discharge Medication List Levothyroxine Sodium [Synthroid] 50 mcg PO QAM 07/05/14 [History] Spironolactone [Aldactone] 25 mg PO QAM 10/28/15 [History] hydrALAZINE HCL [Apresoline] 100 mg PO TID 11/20/16 [History] Allopurinol [Zyloprim] 100 mg PO DAILY 12/04/18 [History] Multivit/Folic Acid/Vit K1 [One-A-Day Women's 50 Plus Tab] 1 each PO DAILY 12/04/18 [History] Potassium Chloride [Klor-Con 10] 5 meq PO MOFR 12/04/18 [History] Follow up Appointment(s)/Referral(s): Dionicio Cervantes DO [STAFF PHYSICIAN] - 03/06/19 2:30 pm Activity/Diet/Wound Care/Special Instructions: No heavy lifting with left arm. Remove dressings in 48 hours. Maintain steri strips. Ok to shower over incisions, no tub baths. maintain left sling on arm until full motion resumes tomorrow morning Discharge Disposition: HOME SELF-CARE
[2019-02-20 11:13] VITALS: BP 158/73; PULSE 77
== END 2019-02-20 11:33 | disposition home or self-care (01) ==
LOC: OR 06:13
PROVIDERS: ATTEND Surgery
DX: N18.6 End stage renal disease (principal); Z99.2 Dependence on renal dialysis; E07.9 Disorder of thyroid, unspecified; Z79.890 Hormone replacement therapy; Z79.899 Other long term (current) drug therapy; Z90.49 Acquired absence of other specified parts of digestive tract; Z90.710 Acquired absence of both cervix and uterus; Z88.1 Allergy status to other antibiotic agents; Z88.8 Allergy status to other drugs, medicaments and biological substances; Z91.09 Other allergy status, other than to drugs and biological substances; Z97.3 Presence of spectacles and contact lenses
CPT/HCPCS: 36819; 64417; 84132; J2250 ×2; J2720; J1644; J0690; J2405; J2001; J3010; J2795; J2704

== ENCOUNTER 2020-06-23 17:31 | Emergency (ER) | payer MEDICARE, BC ==
[2020-06-23 17:38] VITALS: BP 179/70; PULSE 76; RESP 18; TEMP 98.4
--- NOTE | 2020-06-23 18:15 | ED ---
General Adult HPI - General Chief complaint: Recheck/Abnormal Lab/Rx Stated complaint: arm bleeding/fistula problem Time Seen by Provider: 06/23/20 17:55 Source: patient, family, RN notes reviewed Mode of arrival: ambulatory Limitations: no limitations - History of Present Illness Initial comments: Patient is a pleasant 84-year-old female presenting to the emergency department with concerns for bleeding from her fistula. Patient last had dialysis yesterday afternoon. Bleeding started around noon today. Patient has had bleeding since that time. Patient has had pressure dressing on without improvement of bleeding. Patient denies any lightheadedness or weakness or fatigue. Patient denies any pain. No history of similar symptoms previously. - Related Data Home Medications Medication Instructions Recorded Confirmed Levothyroxine Sodium [Synthroid] 50 mcg PO DAILY 07/05/14 06/23/20 Spironolactone [Aldactone] 25 mg PO DAILY 10/28/15 06/23/20 hydrALAZINE HCL [Apresoline] 100 mg PO TID 11/20/16 06/23/20 allopurinoL [Zyloprim] 100 mg PO DAILY 12/04/18 06/23/20 Calcium Acetate [Phoslo] 667 mg PO AC-TID 06/23/20 06/23/20 Cranberry Fruit Extract [Cranberry] 500 mg PO DAILY 06/23/20 06/23/20 Lidocaine-Prilocaine Cream [Emla 1 applic TOPICAL DAILY PRN 06/23/20 06/23/20 Cream 2.5%/2.5%] Metoprolol Tartrate [Lopressor] 12.5 mg PO BID 06/23/20 06/23/20 Nephro-Frances 0.8mg 1 tab PO DAILY 06/23/20 06/23/20 amLODIPine [Norvasc] 10 mg PO DAILY 06/23/20 06/23/20 Allergies Allergy/AdvReac Type Severity Reaction Status Date / Time adhesive tape Allergy RED SKIN Verified 06/23/20 18:43 levofloxacin [From Levaquin] Allergy Unknown Verified 06/23/20 18:43 metronidazole [From Flagyl] Allergy Swelling Verified 06/23/20 18:43 nitrofurantoin Allergy Unknown Verified 06/23/20 18:43 [From Macrobid] nitrofurantoin Allergy Unknown Verified 06/23/20 18:43 macrocrystalline [From Macrobid] amiodarone HCl AdvReac Nausea Verified 06/23/20 18:43 [From Pacerone] Review of Systems ROS Statement: Those systems with pertinent positive or pertinent negative responses have been documented in the HPI. ROS Other: All systems not noted in ROS Statement are negative. Constitutional: Denies: fever Eyes: Denies: eye pain ENT: Denies: ear pain Respiratory: Denies: cough Cardiovascular: Denies: chest pain Endocrine: Denies: fatigue Gastrointestinal: Denies: abdominal pain Genitourinary: Denies: dysuria Musculoskeletal: Denies: back pain Skin: Reports: as per HPI Neurological: Denies: weakness Past Medical History Past Medical History: Heart Failure, Hypertension, Renal Disease Additional Past Medical History / Comment(s): several syncopal events, Stage 5 kidney disease, murmur, "past migraines found they were caused from an oat allergy" History of Any Multi-Drug Resistant Organisms: None Reported Past Surgical History: Appendectomy, Cholecystectomy, Hysterectomy Additional Past Surgical History / Comment(s): pericardial window surgery , L ankle ORIF, bilateral cataracts, fistula L arm Past Anesthesia/Blood Transfusion Reactions: Previous Problems w/ Anesthesia Additional Past Anesthesia/Blood Transfusion Reaction / Comment(s): Pt received blood yrs ago without reaction. takes long time to wake up Past Psychological History: No Psychological Hx Reported Smoking Status: Never smoker Past Alcohol Use History: None Reported Past Drug Use History: None Reported - Past Family History Daughter(s) Additional Family Medical History / Comment(s): Patient has 2 daughters and 1 son with no major medical problems. Mother Family Medical History: Hypertension, Myocardial Infarction ([place]) Additional Family Medical History / Comment(s): Mother at age 86 from a myocardial infarction. She had her kidney removed the patient does not know why. She also had history of hypertension. No known history of adrenal problems. Father Family Medical History: Cancer Additional Family Medical History / Comment(s): Father in his 70s from bladder cancer. Sister(s) Family Medical History: Cancer Additional Family Medical History / Comment(s): Patient has one sister with history of stomach cancer. Patient does not know any other history as she has no contact with her. General Exam Limitations: no limitations General appearance: alert, in no apparent distress Head exam: Present: normocephalic Eye exam: Present: normal appearance Neck exam: Present: normal inspection Respiratory exam: Present: normal lung sounds bilaterally Cardiovascular Exam: Present: regular rate, normal rhythm Extremities exam: Present: other (Left upper extremity fistula small puncture with mild active bleeding. Thrill is present.) Neurological exam: Present: alert Psychiatric exam: Present: normal affect, normal mood Skin exam: Present: normal color Course Vital Signs 06/23/20 17:35 Temperature 98.4 F Pulse Rate 76 Respiratory 18 Rate Blood Pressure 179/70 O2 Sat by Pulse 99 Oximetry Procedures - Laceration Laceration #1 Consent Obtained: verbal consent Indication: other (Bleeding from fistula) Site: upper extremity Size (cm): 0 Anesthetic Used: lidocaine 1% Amount (mls): 1 Type of Sutures: nylon Size of Sutures: 4-0 Number of Sutures: 2 Technique: simple, interrupted Patient Tolerated Procedure: no complications, other (Is obtained without Complication) Medical Decision Making - Medical Decision Making Patient was earlier discussed with Dr. Paredes who recommends making placing a stitch. 2 sutures were placed. First one without hemostasis however second one did. Patient was observed for a period of 30 minutes prior to discharge and hemostasis remains. Disposition Clinical Impression: Hemorrhage of hemodialysis arteriovenous fistula of left thigh Disposition: HOME SELF-CARE Condition: Stable Instructions (If sedation given, give patient instructions): Arteriovenous Fistula Creation for Hemodialysis (DC), Acute Wound Care (ED) Additional Instructions: Please follow-up with primary care physician and vascular doctor in the next day or 2 for recheck. Return for bleeding, pain or redness, worsening symptoms or other concerns. Is patient prescribed a controlled substance at d/c from ED?: No Referrals: Sami Swift MD [Primary Care Provider] - 1-2 days Dionicio Cervantes DO [STAFF PHYSICIAN] - 1-2 days Time of Disposition: 19:25
[2020-06-23] MEDS ORDERED: LIDOCAINE 1% INJ 10MG/ML (20 ML MDV) SQ ONE (18:20)
== END 2020-06-23 19:51 | disposition home or self-care (01) ==
LOC: EC 17:31
DX: T82.838A Hemorrhage due to vascular prosthetic devices, implants and grafts, initial encounter (principal); I13.2 Hypertensive heart and chronic kidney disease with heart failure and with stage 5 chronic kidney disease, or end stage renal disease; N18.5 Chronic kidney disease, stage 5; I50.9 Heart failure, unspecified; Z99.2 Dependence on renal dialysis; Z79.899 Other long term (current) drug therapy; Z91.048 Other nonmedicinal substance allergy status; Z88.1 Allergy status to other antibiotic agents; Z88.8 Allergy status to other drugs, medicaments and biological substances
CPT/HCPCS: 99283 ×2; 12001 ×2; J2001

== ENCOUNTER 2021-05-12 11:38 | Inpatient (IN) | payer MEDICARE, BC ==
[2021-05-12] MEDS ORDERED: MORPHINE SULFATE 4 MG/ML SYRINGE IM STA (11:45)
[2021-05-12] MEDS ORDERED: MORPHINE SULFATE 2 MG/ML SYRINGE IVP ONE (12:25)
--- NOTE | 2021-05-12 12:38 | XR ---
EXAMINATION TYPE: XR chest 1V DATE OF EXAM: 05/12/2021 COMPARISON: Chest x-ray September 23, 2018 HISTORY: Fall injury. Presurgical study. TECHNIQUE: Single frontal view of the chest is obtained. FINDINGS: There is chronic parenchymal changes change bilaterally without suspicious new focal air s pace opacity, pleural effusion, or pneumothorax seen. Persistent cardiomegaly with atherosclerotic an d ectatic thoracic aorta. The osseous structures are intact. IMPRESSION: Cardiomegaly and chronic parenchymal changes without acute pulmonary process.
--- NOTE | 2021-05-12 12:39 | XR ---
EXAMINATION TYPE: XR Hip LT and AP Pelvis DATE OF EXAM: 05/12/2021 COMPARISON: NONE HISTORY: Trauma and pain TECHNIQUE: A single AP view of the pelvis is obtained. Two views of the left hip are obtained. FINDINGS: There is intertrochanteric fracture of the proximal left femur with varus angulation, defo rmity. There is no evident dislocation. Atherosclerotic vascular calcifications are noted incidentall y. Bone mineralization is reduced. IMPRESSION: Proximal left femur fracture
--- NOTE | 2021-05-12 12:40 | XR ---
EXAMINATION TYPE: XR knee limited LT DATE OF EXAM: 05/12/2021 CLINICAL HISTORY: Pain and bruising after fall injury TECHNIQUE: Frontal and lateral views of the left knee are obtained. COMPARISON: None. FINDINGS: Robinson osseous structures are demineralized. Frontal view is more oblique in projection als o making evaluation suboptimal. No acute displaced fracture clearly seen. Moderate tricompartment lien nt space loss. Moderate posterior vascular calcification. IMPRESSION: As above.
--- NOTE | 2021-05-12 13:23 | ED ---
Fall HPI - General Chief Complaint: Fall Stated Complaint: LT hip & Knee pain, fall. Time Seen by Provider: 05/12/21 11:41 Source: patient, EMS, RN notes reviewed Mode of arrival: EMS - History of Present Illness Initial Comments: Patient is an 85-year-old female that presents to emergency department via EMS after falling from a standing height. She is complaining of left hip and left knee pain. She denies taking any blood thinners. She was otherwise well- appearing. She'll that her pain is approximately a 10 out of 10 with no relief. She noted that movement aggravates pain. He denied any issues or complaints. Patient denied any chest pain shortness of breath headache nausea vomiting diarrhea constipation fever fatigue chills. - Related Data Home Medications Medication Instructions Recorded Confirmed Levothyroxine Sodium [Synthroid] 50 mcg PO DAILY 07/05/14 06/23/20 Spironolactone [Aldactone] 25 mg PO DAILY 10/28/15 06/23/20 hydrALAZINE HCL [Apresoline] 100 mg PO TID 11/20/16 06/23/20 allopurinoL [Zyloprim] 100 mg PO DAILY 12/04/18 06/23/20 Calcium Acetate [Phoslo] 667 mg PO AC-TID 06/23/20 06/23/20 Cranberry Fruit Extract [Cranberry] 500 mg PO DAILY 06/23/20 06/23/20 Lidocaine-Prilocaine Cream [Emla 1 applic TOPICAL DAILY PRN 06/23/20 06/23/20 Cream 2.5%/2.5%] Metoprolol Tartrate [Lopressor] 12.5 mg PO BID 06/23/20 06/23/20 Nephro-Frances 0.8mg 1 tab PO DAILY 06/23/20 06/23/20 amLODIPine [Norvasc] 10 mg PO DAILY 06/23/20 06/23/20 Allergies Allergy/AdvReac Type Severity Reaction Status Date / Time adhesive tape Allergy RED SKIN Verified 06/23/20 18:43 levofloxacin [From Levaquin] Allergy Unknown Verified 06/23/20 18:43 metronidazole [From Flagyl] Allergy Swelling Verified 06/23/20 18:43 nitrofurantoin Allergy Unknown Verified 06/23/20 18:43 [From Macrobid] nitrofurantoin Allergy Unknown Verified 06/23/20 18:43 macrocrystalline [From Macrobid] amiodarone HCl AdvReac Nausea Verified 06/23/20 18:43 [From Pacerone] Review of Systems ROS Statement: Those systems with pertinent positive or pertinent negative responses have been documented in the HPI. ROS Other: All systems not noted in ROS Statement are negative. Past Medical History Past Medical History: Heart Failure, Hypertension, Renal Disease Additional Past Medical History / Comment(s): several syncopal events, Stage 5 kidney disease, murmur, "past migraines found they were caused from an oat allergy" History of Any Multi-Drug Resistant Organisms: None Reported Past Surgical History: Appendectomy, Cholecystectomy, Hysterectomy Additional Past Surgical History / Comment(s): pericardial window surgery , L ankle ORIF, bilateral cataracts, fistula L arm Past Anesthesia/Blood Transfusion Reactions: Previous Problems w/ Anesthesia Additional Past Anesthesia/Blood Transfusion Reaction / Comment(s): Pt received blood yrs ago without reaction. takes long time to wake up Past Psychological History: No Psychological Hx Reported Smoking Status: Never smoker Past Alcohol Use History: None Reported Past Drug Use History: None Reported - Past Family History Daughter(s) Additional Family Medical History / Comment(s): Patient has 2 daughters and 1 son with no major medical problems. Mother Family Medical History: Hypertension, Myocardial Infarction ([place]) Additional Family Medical History / Comment(s): Mother at age 86 from a myocardial infarction. She had her kidney removed the patient does not know why. She also had history of hypertension. No known history of adrenal problems. Father Family Medical History: Cancer Additional Family Medical History / Comment(s): Father in his 70s from bladder cancer. Sister(s) Family Medical History: Cancer Additional Family Medical History / Comment(s): Patient has one sister with history of stomach cancer. Patient does not know any other history as she has no contact with her. General Exam General appearance: alert, in no apparent distress Head exam: Present: atraumatic, normocephalic, normal inspection Eye exam: Present: normal appearance, PERRL, EOMI. Absent: scleral icterus, conjunctival injection, periorbital swelling ENT exam: Present: normal exam Neck exam: Present: normal inspection Respiratory exam: Present: normal lung sounds bilaterally. Absent: respiratory distress, wheezes, rales, rhonchi, stridor Cardiovascular Exam: Present: regular rate, normal rhythm, normal heart sounds. Absent: systolic murmur, diastolic murmur, rubs, gallop, clicks Left Hip exam: Present: normal inspection, tenderness, external rotation, shortening. Absent: full ROM (Secondary to pain), swelling, abrasion, laceration, ecchymosis Upper Leg exam: Present: normal inspection Knee exam: Present: ecchymosis (Distal the patella). Absent: normal inspection, full ROM (Continue to pain) Neurological exam: Present: alert, oriented X3 Psychiatric exam: Present: normal affect, normal mood Skin exam: Present: warm, dry, intact, normal color. Absent: rash Course Vital Signs 05/12/21 11:42 Temperature 97.4 F L Pulse Rate 68 Respiratory 18 Rate Blood Pressure 187/81 O2 Sat by Pulse 98 Oximetry Medical Decision Making - Medical Decision Making 10-year-old female that fell from staying high complaining of left hip and left knee pain. On exam like his shortness Rotated minimally. Patient does have ecchymosis over the left knee 4 mg of morphine, x-ray of the left hip and knee ordered. X-ray of left hip shows a intertrochanteric proximal femur fracture. Knee x-ray negative for any acute fractures dislocations. Chest x-ray, labs, EKG ordered. Chest x-ray negative for any acute point process. Case discussed with Dr. Meyer, patient will be admitted to orthopedics. Alex from orthopedics was consulted and accepted the admit under Dr. Aguirre - Radiology Data Radiology results: report reviewed, image reviewed X-ray left knee: Negative osseous structures are demineralized. Frontal view is more oblique projection also making evaluation suboptimal. No acute displaced fracture seen. Moderate tricompartmentalloss. Moderate posterior vascular calcification. Left hip x-ray: There is intertrochanteric fracture of the proximal left femur with varus angulation and deformity. There is no evidence of dislocation atherosclerotic faster calcifications are noted incidentally. Bone mineralization is reduced. Chest x-ray: Cardiomegaly and chronic parenchymal changes without acute point her process. Disposition Clinical Impression: Fall, Fracture, intertrochanteric, left femur Disposition: ADMITTED IP TO THIS HOSP Condition: Stable Is patient prescribed a controlled substance at d/c from ED?: No Referrals: Sami Swift MD [Primary Care Provider] - 1-2 days Time of Disposition: 13:23
[2021-05-12] MEDS ORDERED: NALOXONE 0.4 MG/ML 1 ML VIAL IV PRN (13:24)
[2021-05-12 13:43] LABS: Basophils # (A) 0.1 k/uL (0-0.2); Basophils % (A) 0 %; Eosinophils # (A) 0.1 k/uL (0-0.7); Eosinophils % (A) 0 %; HCT 33.6 % (34.0-46.0); HGB 10.9 gm/dL (11.4-16.0); Lymphocytes # (A) 0.8 k/uL (1.0-4.8); Lymphocytes % (A) 5 %; MCH 32.7 pg (25.0-35.0); MCHC 32.5 g/dL (31.0-37.0); MCV 100.6 fL (80.0-100.0); Mean Platelet Volume 8.2; Monocytes # (A) 0.5 k/uL (0-1.0); Monocytes % (A) 3 %; Neutrophils # (A) 16.1 k/uL (1.3-7.7); Neutrophils % (A) 91 %; Platelet Count 240 k/uL (150-450); RBC 3.34 m/uL (3.80-5.40); WBC 17.7 k/uL (3.8-10.6)
[2021-05-12 13:53] LABS: Albumin 4.4 g/dL (3.5-5.0); Potassium 4.9 mmol/L (3.5-5.1); Total Bilirubin 0.6 mg/dL (0.2-1.3); Total Protein 7.1 g/dL (6.3-8.2)
--- NOTE | 2021-05-12 14:44 | P.HPOR ---
History of Present Illness H&P Date: 05/12/21 Chief Complaint: Left hip fracture Patient is an 85-year-old female who presented to [facility] today after falling while grocery shopping. Patient tripped and fell directly on her left side while at [facility]. Patient was unable to weight-bear after the fall, EMS to bring the patient to the hospital. Upon arrival to the hospital, imaging and lab test were done. Images demonstrated a left proximal femur fracture. I was contacted by the emergency room staff regarding this patient was admitted under our orthopedic care with plan for surgical intervention. Patient was evaluated at bedside today in the emergency room, her was present. She is resting comfortably in the hospital bed. She notes most of the discomfort in the left lower extremity, mainly with movement. She does admit to some right foot pain. She states that she did break her bone in her foot this past summer, she was utilizing a root for about 9 weeks. She was being followed by a airplane flight attendant in the area for this. X-rays were also taking of the left knee to bruising and swelling and discomfort. She denies any pain involving the bilateral upper extremities. She denies any new onset cervical, thoracic or lumbar pain. Patient denies any numbness or tingling involving the bilateral upper or lower extremities. She denies any loss of bowel or bladder function at this time. Patient denies any previous surgery involving the left lower extremity. Patient does have a cane and walker at home, she will use these if she is going long distances. Review of Systems Constitutional: Reports as per HPI Past Medical History Past Medical History: Heart Failure, Hypertension, Renal Disease Additional Past Medical History / Comment(s): several syncopal events, Stage 5 kidney disease, murmur, "past migraines found they were caused from an oat allergy" History of Any Multi-Drug Resistant Organisms: None Reported Past Surgical History: Appendectomy, Cholecystectomy, Hysterectomy Additional Past Surgical History / Comment(s): pericardial window surgery , L ankle ORIF, bilateral cataracts, fistula L arm Past Anesthesia/Blood Transfusion Reactions: Previous Problems w/ Anesthesia Additional Past Anesthesia/Blood Transfusion Reaction / Comment(s): Pt received blood yrs ago without reaction. takes long time to wake up Past Psychological History: No Psychological Hx Reported Smoking Status: Never smoker Past Alcohol Use History: None Reported Past Drug Use History: None Reported - Past Family History Daughter(s) Additional Family Medical History / Comment(s): Patient has 2 daughters and 1 son with no major medical problems. Mother Family Medical History: Hypertension, Myocardial Infarction ([place]) Additional Family Medical History / Comment(s): Mother at age 86 from a myocardial infarction. She had her kidney removed the patient does not know why. She also had history of hypertension. No known history of adrenal problems. Father Family Medical History: Cancer Additional Family Medical History / Comment(s): Father in his 70s from bladder cancer. Sister(s) Family Medical History: Cancer Additional Family Medical History / Comment(s): Patient has one sister with history of stomach cancer. Patient does not know any other history as she has no contact with her. Medications and Allergies Home Medications Medication Instructions Recorded Confirmed Type Levothyroxine Sodium [Synthroid] 50 mcg PO DAILY 07/05/14 05/12/21 History Spironolactone [Aldactone] 25 mg PO DAILY 10/28/15 05/12/21 History allopurinoL [Zyloprim] 100 mg PO DAILY 12/04/18 05/12/21 History Calcium Acetate [Phoslo] 667 mg PO AC-TID 06/23/20 05/12/21 History Cranberry Fruit Extract [Cranberry] 500 mg PO DAILY 06/23/20 05/12/21 History Lidocaine-Prilocaine Cream [Emla 1 applic TOPICAL DAILY PRN 06/23/20 05/12/21 History Cream 2.5%/2.5%] Metoprolol Tartrate [Lopressor] 12.5 mg PO BID 06/23/20 05/12/21 History Nephro-Frances 0.8mg 1 tab PO DAILY 06/23/20 05/12/21 History amLODIPine [Norvasc] 10 mg PO DAILY 06/23/20 05/12/21 History Magnebind(Unknown Dose) 1 tab PO BID 05/12/21 05/12/21 History Midodrine(Unknown) 1 tab PO DAILY@1200 05/12/21 05/12/21 History hydrALAZINE HCL [Apresoline] 100 mg PO BID 05/12/21 05/12/21 History Allergies Allergy/AdvReac Type Severity Reaction Status Date / Time adhesive tape Allergy RED SKIN Verified 05/12/21 14:09 levofloxacin [From Levaquin] Allergy Unknown Verified 05/12/21 14:09 metronidazole [From Flagyl] Allergy Anaphylaxis Verified 05/12/21 14:09 nitrofurantoin Allergy Unknown Verified 05/12/21 14:09 [From Macrobid] nitrofurantoin Allergy Unknown Verified 05/12/21 14:09 macrocrystalline [From Macrobid] oats Allergy Unknown Verified 05/12/21 14:09 amiodarone HCl AdvReac Nausea Verified 05/12/21 14:09 [From Pacerone] Physical Examination Left lower extremity: Obvious shortening and external rotation of the extremity when compared to the contralateral side There is notable soft tissue swelling and bruising surrounding the left knee, unable to appreciate any significant effusion. Exam of the left knee is very limited this time due to the amount of pain from the left proximal femur fracture. She does have generalized tenderness surrounding the knee with palpation. I'm unable to extend or flex the knee at this time due to pain in the hip Logroll maneuver reproduces significant pain in the groin, she is unable to straight leg raise. She has generalized tenderness of the left proximal femur. Calf is soft, tenderness with palpation. Plantar flexion, dorsiflexion, EHL, FHL are intact Sensory exam to light touch is intact throughout the extremity, her discuss pedis pulses 2+ General orthopedic exam: No obvious open lesions or sores are present throughout the bilateral upper extremities. Her range of motion in all major muscle groups is intact in the bilateral upper extremities, there is no point tenderness appreciated in the bilateral upper extremities. Her sensory exam to light touch is intact throughout the bilateral upper extremities, radial and ulnar pulses are 2+ bilaterally. No obvious skin changes or lesions in the right lower extremity. She is tender with palpation on the dorsal aspect of the foot near the big toe. She demonstrates no tenderness of the midfoot, forefoot. She has no tenderness surrounding the ankle, lower leg, knee, upper leg. Logroll maneuver of that extremity reproduces no groin pain. Passively I'm able to extend and flex the knee with no difficulty, hip flexion is intact. Logroll maneuver reproduces no groin pain. Sensory exam to light touch is intact throughout the extremity, dorsalis pedis pulses 2+. Results - Labs Labs: Abnormal Lab Results - Last 24 Hours (Table) 05/12/21 05/12/21 Range/Units 13:33 13:33 WBC 17.7 H (3.8-10.6) k/uL RBC 3.34 L (3.80-5.40) m/uL Hgb 10.9 L (11.4-16.0) gm/dL Hct 33.6 L (34.0-46.0) % MCV 100.6 H (80.0-100.0) fL Neutrophils # 16.1 H (1.3-7.7) k/uL Lymphocytes # 0.8 L (1.0-4.8) k/uL Sodium 133 L (137-145) mmol/L Chloride 94 L (98-107) mmol/L BUN 35 H (7-17) mg/dL Creatinine 4.72 H (0.52-1.04) mg/dL Glucose 110 H (74-99) mg/dL H & H 05/12/21 Range/Units 13:33 Hgb 10.9 L (11.4-16.0) gm/dL Hct 33.6 L (34.0-46.0) % Result Diagrams: 05/12/21 13:33 05/12/21 13:33 - Diagnostic results Hip x-ray: report reviewed, image reviewed (Images demonstrate proximal left intertrochanteric femur fracture. Mild osteophytic findings are present in the left hip.) Knee x-ray: report reviewed, image reviewed (Images reviewed of the left knee, no obvious acute fractures or dislocations are appreciated. Ritesh arthritic changes were present.) Assessment and Plan Assessment: Left intertrochanteric femur fracture Left knee pain Right foot pain End-stage kidney disease Multiple medical comorbidities Plan: Patient will be admitted under orthopedic service with plan for surgical intervention. We will like to proceed with the intramedullary canal of the left intertrochanteric femur fracture on 05/13/2021. Risk and benefits of the procedure were discussed the patient, this including but not excluding infection, blood loss, neurovascular injury, development of blood clots, inadequate healing of bone, need for further surgery, mortality. Patient is in good understanding and would like to proceed. Patient was made aware that Dr. Aguirre would be available to answer any further questions prior to surgery. Obtain consent prior to procedure Nothing by mouth after midnight Consults obtained and placed for both Neurology and internal medicine for further medical management. Patient does receive dialysis on Tuesday, Tuesday and Tuesday. Hopefully we can have dialysis done in the a.m. of 05/13/2021 prior to surgery X-rays will be ordered of the right foot for further evaluation. May consider further imaging studies of the left knee after discussion with Dr. Aguirre. Pain control, orders we place her both oral and IV medication. GI and DVT prophylaxis, will begin subcu medication after surgery PT/OT evaluation after surgery Urinary catheter placement Social work/case management to aid with subacute rehab placement Further recommendations to follow Time with Patient: Less than 30
[2021-05-12] MEDS: SODIUM CHLORIDE 0.9% 1,000 ML IV SCH (14:59)
--- NOTE | 2021-05-12 15:09 | XR ---
Right foot HISTORY: Trauma and pain 4 views the right foot There is a lucency involving the proximal aspect of the proximal talus the first digit right foot con sistent with intra-articular nondisplaced fracture. Marked arthropathy is present at the metatarsopha langeal joint of the second digit, remodeling the metatarsal head could be related to prior osteonecr osis. Overall bone mineralization is reduced. Alignment is maintained. There is spurring at the tarso metatarsal joints. Soft tissue swelling is noted. IMPRESSION: Nondisplaced intra-articular fracture proximal phalanx first digit right foot. Additional findings above. Low bone mineralization.
[2021-05-12 15:43] LABS: Appearance,Urine Clear (Clear); Bacteria,Urine Rare /hpf; Bilirubin,Urine Negative (Negative); Blood,Urine Trace (Negative); Color,Urine Yellow; Glucose,Urine (UA) Negative (Negative); Hyaline Casts,Urine 1 /lpf (0-2); Ketones,Urine Negative (Negative); Leukocyte Esterase,Urine Negative (Negative); Nitrite,Urine Negative (Negative); Protein,Urine 3+ (Negative); RBC,Urine 6 /hpf (0-5); Specific Gravity,Urine 1.008 (1.001-1.035); Squamous Epithelial Cell,Urine <1 /hpf (0-4); Urobilinogen,Urine <2.0 mg/dL (<2.0); WBC,Urine 2 /hpf (0-5)
[2021-05-12] MEDS: MORPHINE SULFATE 4 MG/ML SYRINGE IV PRN ×2 (19:24→23:39)
[2021-05-13] MEDS: LEVOTHYROXINE 50 MCG TAB PO SCH (05:52)
[2021-05-13] MEDS: SODIUM CHLORIDE 0.9% 1,000 ML IV SCH ×2 (06:28→17:02)
[2021-05-13] MEDS: amLODIPine 10 MG TAB PO SCH (07:49)
[2021-05-13] MEDS: CALCIUM ACETATE 667 MG TAB PO SCH ×3 (07:49→17:03)
[2021-05-13] MEDS: hydrALAZINE HCL 50 MG TAB PO SCH ×2 (07:50→20:59)
[2021-05-13] MEDS: allopurinoL 100 MG TAB PO SCH (07:51)
[2021-05-13] MEDS: SPIRONOLACTONE 25 MG TAB PO SCH (07:51)
[2021-05-13] MEDS: FOLIC ACID-VIT B COMPLEX-VIT C 1 CAP PO SCH (07:51)
--- NOTE | 2021-05-13 08:35 | P.PN ---
Subjective Progress Note Date: 05/13/21 Principal diagnosis: Left intertrochanteric femur fracture, right great toe proximal phalanx fracture, knee contusion Patient was evaluated today at bedside, Dr. Aguirre was available to examine discuss treatment with patient. Patient's was also contacted on the phone during this evaluation. Patient is resting comfortably. She does note pain in the left hip with movement. She is eager to have surgery today. We're waiting for internal medicine and nephrology for consultation. Patient normally does get dialysis on Wednesdays, hopefully this can be done today. She does still no discomfort over the left knee and in the right great toe. She currently denies any headaches, lightheadedness, chest pain or shortness of breath. Objective - Vital Signs Vital signs: Vital Signs Temp 98.2 F 05/13/21 07:32 Pulse 76 05/13/21 07:32 Resp 17 05/13/21 07:32 BP 166/69 05/13/21 07:32 Pulse Ox 95 05/13/21 07:32 Intake & Output 05/12/21 05/13/21 05/13/21 18:59 06:59 18:59 Output Total 0 Balance 0 Weight 55.338 kg 55.338 kg Output: Urine 0 - Exam Left lower extremity: Obvious shortening and external rotation of the extremity when compared to the contralateral side There is notable soft tissue swelling and bruising surrounding the left knee, unable to appreciate any significant effusion. Exam of the left knee is very limited this time due to the amount of pain from the left proximal femur fracture. She does have generalized tenderness surrounding the knee with palpation. I'm unable to extend or flex the knee at this time due to pain in the hip Logroll maneuver reproduces significant pain in the groin, she is unable to straight leg raise. She has generalized tenderness of the left proximal femur. Calf is soft, tenderness with palpation. Plantar flexion, dorsiflexion, EHL, FHL are intact Sensory exam to light touch is intact throughout the extremity, her discuss pedis pulses 2+ General orthopedic exam: No obvious open lesions or sores are present throughout the bilateral upper extremities. Her range of motion in all major muscle groups is intact in the bilateral upper extremities, there is no point tenderness appreciated in the bilateral upper extremities. Her sensory exam to light touch is intact throughout the bilateral upper extremities, radial and ulnar pulses are 2+ bilaterally. No obvious skin changes or lesions in the right lower extremity. She is tender with palpation on the dorsal aspect of the foot near the big toe. She demonstrates no tenderness of the midfoot, forefoot. She has no tenderness surrounding the ankle, lower leg, knee, upper leg. Logroll maneuver of that extremity reproduces no groin pain. Passively I'm able to extend and flex the knee with no difficulty, hip flexion is intact. Logroll maneuver reproduces no groin pain. Sensory exam to light touch is intact throughout the extremity, dorsalis pedis pulses 2+. - Labs CBC & Chem 7: 05/12/21 13:33 05/12/21 13:33 Labs: Abnormal Lab Results - Last 24 Hours (Table) 05/12/21 05/12/21 05/12/21 Range/Units 13:33 13:33 15:29 WBC 17.7 H (3.8-10.6) k/uL RBC 3.34 L (3.80-5.40) m/uL Hgb 10.9 L (11.4-16.0) gm/dL Hct 33.6 L (34.0-46.0) % MCV 100.6 H (80.0-100.0) fL Neutrophils # 16.1 H (1.3-7.7) k/uL Lymphocytes # 0.8 L (1.0-4.8) k/uL Sodium 133 L (137-145) mmol/L Chloride 94 L (98-107) mmol/L BUN 35 H (7-17) mg/dL Creatinine 4.72 H (0.52-1.04) mg/dL Glucose 110 H (74-99) mg/dL Urine Protein 3+ H (Negative) Urine Blood Trace H (Negative) Urine RBC 6 H (0-5) /hpf Urine Bacteria Rare H (None) /hpf Assessment and Plan Assessment: Left intertrochanteric femur fracture Left knee contusion Right great toe proximal phalanx fracture End-stage kidney disease Multiple medical comorbidities Plan: Continuing to plan for surgical intervention today, await other medical specialty recommendations Continue nothing by mouth diet at this time Patient states that she did have a previous fracture in the right foot this past summer and was treated by a cotton chopper with a boot. I advised that she have her house and bring them boot to Hospital and we can evaluate. We may also utilize a postop shoe. Local conservative treatment to the left knee contusion at this time Pain control, orders we place her both oral and IV medication. GI and DVT prophylaxis, will begin subcu medication after surgery PT/OT evaluation after surgery Urinary catheter placement Social work/case management to aid with subacute rehab placement Further recommendations to follow Time with Patient: Less than 30
[2021-05-13] MEDS ORDERED: NON FORMULARY DRUG (Cranberry Fruit Extract [Cranberry] 500 MG Tablet) PO SCH (09:00)
--- NOTE | 2021-05-13 10:46 | P.NPCON ---
History of Present Illness - Reason for Consult end stage renal disease - History of Present Illness Reason for consultation: End-stage renal disease History of present illness: Patient is a 85-year-old female seen in renal consultation for end-stage renal disease. She is maintained on hemodialysis on Tuesday schedule. She says she was at [facility] and was trying to grab something from the shelf and subsequently fell. She denies any syncopal episodes. She does complain of pain in her left hip and knee. She is noted to have proximal left femur fracture. She scheduled for surgical repair this afternoon. She is currently undergoing dialysis and tolerating the treatment well. No chest pain or shortness of breath. No fever or chills. No cough. No vomiting or diarrhea. Hemod ynamically stable. Vital signs are stable. General: The patient appeared well nourished and normally developed. HEENT: Head exam is unremarkable. LUNGS: Breath sounds decreased. HEART: Rate and Rhythm are regular. ABDOMEN: Soft, no distention. EXTREMITITES: No edema. Past Medical History Past Medical History: Heart Failure, Hypertension, Renal Disease Additional Past Medical History / Comment(s): several syncopal events, Stage 5 kidney disease, murmur, "past migraines found they were caused from an oat allergy" History of Any Multi-Drug Resistant Organisms: None Reported Past Surgical History: Appendectomy, Cholecystectomy, Hysterectomy Additional Past Surgical History / Comment(s): pericardial window surgery , L ankle ORIF, bilateral cataracts, fistula L arm Past Anesthesia/Blood Transfusion Reactions: Previous Problems w/ Anesthesia Additional Past Anesthesia/Blood Transfusion Reaction / Comment(s): Pt received blood yrs ago without reaction. takes long time to wake up Past Psychological History: No Psychological Hx Reported Smoking Status: Never smoker Past Alcohol Use History: None Reported Past Drug Use History: None Reported - Past Family History Daughter(s) Additional Family Medical History / Comment(s): Patient has 2 daughters and 1 son with no major medical problems. Mother Family Medical History: Hypertension, Myocardial Infarction ([place]) Additional Family Medical History / Comment(s): Mother at age 86 from a myocardial infarction. She had her kidney removed the patient does not know why. She also had history of hypertension. No known history of adrenal problems. Father Family Medical History: Cancer Additional Family Medical History / Comment(s): Father in his 70s from bladder cancer. Sister(s) Family Medical History: Cancer Additional Family Medical History / Comment(s): Patient has one sister with history of stomach cancer. Patient does not know any other history as she has no contact with her. Medications and Allergies Home Medications Medication Instructions Recorded Confirmed Type Levothyroxine Sodium [Synthroid] 50 mcg PO DAILY 07/05/14 05/12/21 History Spironolactone [Aldactone] 25 mg PO DAILY 10/28/15 05/12/21 History allopurinoL [Zyloprim] 100 mg PO DAILY 12/04/18 05/12/21 History Calcium Acetate [Phoslo] 667 mg PO AC-TID 06/23/20 05/12/21 History Cranberry Fruit Extract [Cranberry] 500 mg PO DAILY 06/23/20 05/12/21 History Lidocaine-Prilocaine Cream [Emla 1 applic TOPICAL DAILY PRN 06/23/20 05/12/21 History Cream 2.5%/2.5%] Metoprolol Tartrate [Lopressor] 12.5 mg PO BID 06/23/20 05/12/21 History Nephro-Frances 0.8mg 1 tab PO DAILY 06/23/20 05/12/21 History amLODIPine [Norvasc] 10 mg PO DAILY 06/23/20 05/12/21 History Magnebind(Unknown Dose) 1 tab PO BID 05/12/21 05/12/21 History Midodrine(Unknown) 1 tab PO DAILY@1200 05/12/21 05/12/21 History hydrALAZINE HCL [Apresoline] 100 mg PO BID 05/12/21 05/12/21 History Allergies Allergy/AdvReac Type Severity Reaction Status Date / Time adhesive tape Allergy RED SKIN Verified 05/12/21 14:09 levofloxacin [From Levaquin] Allergy Unknown Verified 05/12/21 14:09 metronidazole [From Flagyl] Allergy Anaphylaxis Verified 05/12/21 14:09 nitrofurantoin Allergy Unknown Verified 05/12/21 14:09 [From Macrobid] nitrofurantoin Allergy Unknown Verified 05/12/21 14:09 macrocrystalline [From Macrobid] oats Allergy Unknown Verified 05/12/21 14:09 amiodarone HCl AdvReac Nausea Verified 05/12/21 14:09 [From Pacerone] Physical Exam Vitals: Vital Signs Temp Pulse Pulse Resp BP BP Pulse Ox 05/13/21 10:03 98.2 F 76 17 166/69 95 05/13/21 07:32 98.2 F 76 17 166/69 95 05/13/21 02:00 98.2 F 71 16 146/57 94 L 05/12/21 22:35 98.7 F 81 16 165/68 94 L 05/12/21 22:31 98.3 F 89 16 165/66 96 05/12/21 20:55 78 18 96 05/12/21 19:22 80 18 186/76 100 05/12/21 18:14 79 18 178/69 97 05/12/21 11:42 97.4 F L 68 18 187/81 98 Intake and Output 05/12/21 05/13/21 05/13/21 22:59 06:59 14:59 Intake Total 600 Output Total 0 Balance 0 600 Intake: Intake, IV Titration 600 Amount Sodium Chloride 0.9% 1, 600 000 ml @ 75 mls/hr IV . [id number] [facility] Rx#:[id number] Output: Urine 0 Other: Voiding Method Indwelling Catheter Weight 55.338 kg Results - Lab Results Most recent lab results Calcium 10.0 mg/dL (8.4-10.2) 05/12/21 13:33 05/12/21 13:33 05/12/21 13:33 Assessment and Plan Plan: Assessment: 1. End-stage renal disease maintained on hemodialysis on Tuesday schedule. 2. Status post fall with left femur fracture. Scheduled for surgery today. 3. Hypertension with chronic kidney disease. 4. Chronic kidney disease mineral bone disease maintained on PhosLo. Plan: Currently seen while undergoing hemodialysis. Next treatment on Tuesday. Thank you for the consultation. I will continue to follow the patient with you during her hospital stay.
--- NOTE | 2021-05-13 11:46 | P.CONS ---
History of Present Illness - Reason for Consult Consult date: 05/12/21 Medical management Requesting physician: Philip Aguirre - Chief Complaint Left hip fracture, end-stage renal disease on hemodialysis, congestive hear - History of Present Illness HISTORY OF PRESENT ILLNESS 84-year-old female one of Dr. Swift's patient with multiple medical problem known to have end-stage renal disease on hemodialysis 3 times a week was seen nephrology on regular basis. Patient apparently was in [employer] and trying to grab something from around the eye and subsequently fell with no syncope she developed to have severe pain and discomfort in the left hip and knee area she was not able to stand up and walk her pain become more impaired able. EMS were called and patient was diagnosed at the scene with most likely hip fracture. Ended up coming to the emergency department at [facility]. Patient was seen and evaluated her x-ray of the left hip show proximal left femur fracture. Patient ended up seen orthopedic on the plan probably to do an open reduction and internal fixation. Patient had no other orthopedic injury her lab value the time showed white blood cell of 17,000 mild anemia with hemoglobin of 10.9, the kidney function continue to show stage V or end-stage renal disease with creatinine of 4.72 with bun 35 GFR of 8. Her urine test was negative, chest x-ray showed cardiomegaly and chronic parenchymal change without any acute process of infection. Patient will be clear for surgery for tomorrow morning. REVIEW OF SYSTEMS Constitutional: No fever, no chills, no night sweats. No weight change. No weakness, fatigue or lethargy. No daytime sleepiness. EENT: No headache. No blurred vision or double vision, no loss of vision. No loss of Hearing, no ringing in the ears, no dizziness. No nasal drainage or congestion. No epistaxis. No sore throat. Lungs: Mild shortness of breath no cough or wheezes. Cardiovascular: No chest pain, positive mild edema with significant left hip and leg pain with mild PND and orthopnea. No lightheadedness or dizziness. No syncopal episodes. Abdominal: No abdominal pain. No nausea, vomiting. No diarrhea. No constipation. No bloody or tarry stools.. No loss of appetite. Genitourinary: No dysuria, increased frequency, urgency. No urinary retention. Musculoskeletal: Generalized myalgia and discomfort especially in the left side of her body along with the hip area. Integumentary: No wounds, no lesions. No rash or pruritus. No unusual bruising. No change in hair or nails. Neurologic: No aphasia. No facial droop. No change in mentation. No head injury. No headache. No paralysis. No paresthesia. Psychiatric: No depression. No anxiety. No mood swings. Endocrine: No abnormal blood sugars. No weight change. No excessive sweating or thirst. No cold intolerance. SOCIAL HISTORY Patient is and live with her , does not smoke, does not drink alcohol no use of my 1, patient is not on any oxygen or updraft does not use any CPAP or BiPAP. Patient is on hemodialysis 3 times a week. FAMILY HISTORY Her mother at age 86 from CAD, father 74 from cancer of the bladder, patient had 1 sister with eye from CAD. She has 3 children 1 had chronic kidney disease 1 had CAD and 1 had recurrent C. diff. PHYSICAL EXAMINATION Gen: This is a 85-year-old who is laying in bed slightly pain and discomfort on the left hip area does not look in any respiratory distress. HEENT: Head is atraumatic, normocephalic. Pupils equal, round. Sclerae is anicteric. NECK: Supple. No JVD. No lymphadenopathy. No thyromegaly. LUNGS: Decreased breath some bilateral fine rhonchi positive mild crackles in the bases positive rhonchi and mild wheezes. HEART: Regular to moderate S1-S2 positive S3 positive PVCs. ABDOMEN: Soft. Bowel sounds are present. No masses. No tenderness. EXTREMITIES: Left leg has been turning externally with slight bulging in the inner part of the groin area with significant pain and discomfort in the groin area as well no sign of bleeding. Left leg is little bed colder than the right side with positive pulse. Still have fistula graft in the left forearm. NEUROLOGICAL: Patient is awake, alert and oriented x3. Cranial nerves 2 through 12 are grossly intact. ASSESSMENT AND PLAN 1. Left hip fracture: Patient be going for surgery for open reduction internal fixation, she might require nimesh , there is no absolute contraindication for surgery patient surgery Adrienne mild risk for complication during after surgery, no need for any further mastication before this time of surgery. Patient be going for dialysis tomorrow morning before her surgery to resume her home meds at this point.. 2. Post fall with left hip fracture: No other injury continue to watch for any further complaints such as lower back left knee and left ankle site. 3. End-stage renal disease on hemodialysis 3 times a week: Resume hemodialysis and consult nephrology. 4. Leukocytosis: With no sign of infection this is can be leukemoid reaction to the trauma the fall repeat CBC in the morning. 5. Atherosclerotic heart disease: No chest pain or angina continue medical management at this point patient remain on metoprolol 12.5 mg twice a day. 6. Congestive heart failure: Continue hydralazine, spironolactone, metoprolol and continue to mobilize extra fluid with dialysis. 7. Hypertension: Well controlled on amlodipine 10 mg a day, hydralazine 100 mg twice a day and's prolactin 25 mg daily with metoprolol titrate 12.5 mg twice a day except patient still having slightly hypotension around dialysis require midodrine and sometimes.. 8. Hypothyroidism: Continue patient on levothyroxine 50 g daily. 9. Mild anemia: Remain on iron supplement, multivitamins Procrit. 10. Hyperaldosteronism: Remain on spironolactone. 11. COVID-19 testing. 12 GI prophylaxis: Patient be started on pantoprazole 40 mg daily. 13 GI prophylaxis: Early mobilization and try to avoid subcu heparin at this point. Dr. Aguirre thank you very much for the consult psych can be any further help to please let me know. Past Medical History Past Medical History: Heart Failure, Hypertension, Renal Disease Additional Past Medical History / Comment(s): several syncopal events, Stage 5 kidney disease, murmur, "past migraines found they were caused from an oat allergy" History of Any Multi-Drug Resistant Organisms: None Reported Past Surgical History: Appendectomy, Cholecystectomy, Hysterectomy Additional Past Surgical History / Comment(s): pericardial window surgery , L ankle ORIF, bilateral cataracts, fistula L arm Past Anesthesia/Blood Transfusion Reactions: Previous Problems w/ Anesthesia Additional Past Anesthesia/Blood Transfusion Reaction / Comm: Pt received blood yrs ago without reaction. takes long time to wake up Past Psychological History: No Psychological Hx Reported Smoking Status: Never smoker Past Alcohol Use History: None Reported Past Drug Use History: None Reported - Past Family History Daughter(s) Additional Family Medical History / Comment(s): Patient has 2 daughters and 1 son with no major medical problems. Mother Family Medical History: Hypertension, Myocardial Infarction ([place]) Additional Family Medical History / Comment(s): Mother at age 86 from a myocardial infarction. She had her kidney removed the patient does not know why. She also had history of hypertension. No known history of adrenal problems. Father Family Medical History: Cancer Additional Family Medical History / Comment(s): Father in his 70s from bladder cancer. Sister(s) Family Medical History: Cancer Additional Family Medical History / Comment(s): Patient has one sister with history of stomach cancer. Patient does not know any other history as she has no contact with her. Medications and Allergies Home Medications Medication Instructions Recorded Confirmed Type Levothyroxine Sodium [Synthroid] 50 mcg PO DAILY 07/05/14 05/12/21 History Spironolactone [Aldactone] 25 mg PO DAILY 10/28/15 05/12/21 History allopurinoL [Zyloprim] 100 mg PO DAILY 12/04/18 05/12/21 History Calcium Acetate [Phoslo] 667 mg PO AC-TID 06/23/20 05/12/21 History Cranberry Fruit Extract [Cranberry] 500 mg PO DAILY 06/23/20 05/12/21 History Lidocaine-Prilocaine Cream [Emla 1 applic TOPICAL DAILY PRN 06/23/20 05/12/21 History Cream 2.5%/2.5%] Metoprolol Tartrate [Lopressor] 12.5 mg PO BID 06/23/20 05/12/21 History Nephro-Frances 0.8mg 1 tab PO DAILY 06/23/20 05/12/21 History amLODIPine [Norvasc] 10 mg PO DAILY 06/23/20 05/12/21 History Magnebind(Unknown Dose) 1 tab PO BID 05/12/21 05/12/21 History Midodrine(Unknown) 1 tab PO DAILY@1200 05/12/21 05/12/21 History hydrALAZINE HCL [Apresoline] 100 mg PO BID 05/12/21 05/12/21 History Allergies Allergy/AdvReac Type Severity Reaction Status Date / Time adhesive tape Allergy RED SKIN Verified 05/12/21 14:09 levofloxacin [From Levaquin] Allergy Unknown Verified 05/12/21 14:09 metronidazole [From Flagyl] Allergy Anaphylaxis Verified 05/12/21 14:09 nitrofurantoin Allergy Unknown Verified 05/12/21 14:09 [From Macrobid] nitrofurantoin Allergy Unknown Verified 05/12/21 14:09 macrocrystalline [From Macrobid] oats Allergy Unknown Verified 05/12/21 14:09 amiodarone HCl AdvReac Nausea Verified 05/12/21 14:09 [From Pacerone] Physical Exam Vitals: Vital Signs Temp Pulse Resp BP Pulse Ox 05/12/21 22:31 98.3 F 89 16 165/66 96 05/12/21 20:55 78 18 96 05/12/21 19:22 80 18 186/76 100 05/12/21 18:14 79 18 178/69 97 05/12/21 11:42 97.4 F L 68 18 187/81 98 Intake and Output 05/12/21 05/12/21 05/12/21 06:59 14:59 22:59 Other: Weight 55.338 kg Results CBC & Chem 7: 05/12/21 13:33 05/12/21 13:33 Labs: Abnormal Lab Results - Last 24 Hours (Table) 05/12/21 05/12/21 05/12/21 Range/Units 13:33 13:33 15:29 WBC 17.7 H (3.8-10.6) k/uL RBC 3.34 L (3.80-5.40) m/uL Hgb 10.9 L (11.4-16.0) gm/dL Hct 33.6 L (34.0-46.0) % MCV 100.6 H (80.0-100.0) fL Neutrophils # 16.1 H (1.3-7.7) k/uL Lymphocytes # 0.8 L (1.0-4.8) k/uL Sodium 133 L (137-145) mmol/L Chloride 94 L (98-107) mmol/L BUN 35 H (7-17) mg/dL Creatinine 4.72 H (0.52-1.04) mg/dL Glucose 110 H (74-99) mg/dL Urine Protein 3+ H (Negative) Urine Blood Trace H (Negative) Urine RBC 6 H (0-5) /hpf Urine Bacteria Rare H (None) /hpf
[2021-05-13] MEDS ORDERED: MIDODRINE PO SCH (12:00)
[2021-05-13] MEDS ORDERED: IV FLUID CONTINUATION 1,000 ML IV ONE (12:57)
[2021-05-13] MEDS ORDERED: ONDANSETRON 4 MG/2 ML VIAL ONE (13:05)
[2021-05-13] MEDS ORDERED: DEXAMETHASONE SOD PHOSPHATE 4 MG/ML 1 ML VIAL IVP ONE (13:08)
[2021-05-13] MEDS ORDERED: ONDANSETRON 4 MG/2 ML VIAL IVP ONE (13:08)
[2021-05-13] MEDS ORDERED: TRANEXAMIC ACID 1,000 MG/10 ML VIAL ONE (13:15)
[2021-05-13] MEDS ORDERED: NEOSTIGMINE 1 MG/ML 10 ML VIAL ONE (13:15)
[2021-05-13] MEDS ORDERED: ROCURONIUM 10 MG/ML (5 ML VIAL) IV ONE (13:15)
[2021-05-13] MEDS ORDERED: SODIUM CHLORIDE 0.9% 100 ML BAG ONE ×2 (13:15)
[2021-05-13] MEDS ORDERED: ceFAZolin 1,000 MG VIAL ONE (13:15)
[2021-05-13] MEDS ORDERED: PROPOFOL 10 MG/ML 20 ML VIAL IV ONE (13:15)
[2021-05-13] MEDS ORDERED: KETAMINE 10 MG/ML 20 ML VIAL ONE (13:15)
[2021-05-13] MEDS ORDERED: GLYCOPYRROLATE 0.2 MG/ML 2 ML VIAL ONE (13:15)
[2021-05-13] MEDS ORDERED: fentaNYL (PF) 50 MCG/ML 2 ML AMP ONE (13:15)
[2021-05-13] MEDS ORDERED: LIDOCAINE 1% INJ 10MG/ML (20 ML MDV) ONE (13:15)
[2021-05-13] MEDS ORDERED: PHENYLEPHRINE-0.9% NACL SYG 1,000 MCG/10 ML SYRINGE ONE (13:15)
[2021-05-13 13:26] LABS: African American GFR (CKD) 10 (>60 ml/min/1.73 sqM); Anion Gap 9 mmol/L; Blood Urea Nitrogen 33 mg/dL (7-17); Calcium 9.2 mg/dL (8.4-10.2); Carbon Dioxide 27 mmol/L (22-30); Chloride 98 mmol/L (98-107); Glucose 104 mg/dL (74-99); Non-African American GFR(CKD) 9 (>60 ml/min/1.73 sqM); Potassium 4.3 mmol/L (3.5-5.1); Sodium 134 mmol/L (137-145)
--- NOTE | 2021-05-13 13:39 | P.PN ---
Subjective Progress Note Date: 05/13/21 HISTORY OF PRESENT ILLNESS 84-year-old female one of Dr. Swift's patient with multiple medical problem known to have end-stage renal disease on hemodialysis 3 times a week was seen n ephrology on regular basis. Patient apparently was in [employer] and trying to grab something from around the eye and subsequently fell with no syncope she developed to have severe pain and discomfort in the left hip and knee area she was not able to stand up and walk her pain become more impaired able. EMS were called and patient was diagnosed at the scene with most likely hip fracture. Ended up coming to the emergency department at [facility]. Patient was seen and evaluated her x-ray of the left hip show proximal left femur fracture. Patient ended up seen orthopedic on the plan probably to do an open reduction and internal fixation. Patient had no other orthopedic injury her lab value the time showed white blood cell of 17,000 mild anemia with hemoglobin of 10.9, the kidney function continue to show stage V or end-stage renal disease with creatinine of 4.72 with bun 35 GFR of 8. Her urine test was negative, chest x-ray showed cardiomegaly and chronic parenchymal change without any acute process of infection. Patient will be clear for surgery for tomorrow morning. 05/13: Patient is undergoing hemodialysis this morning. She states pain is cont rolled as long as she doesn't move her left leg. She is feeling cold. She is scheduled for intramedullary nail left femur fracture this afternoon with Dr. Aguirre. Patient has been afebrile, heart rate 82, blood pressure 173/83, pulse ox 97% on room air. Sodium 134, BUN 33 creatinine 4.27. Discharge plan is for [facility]. REVIEW OF SYSTEMS Constitutional: No fever, no chills, no night sweats. No weight change. No weakness, fatigue or lethargy. No daytime sleepiness. EENT: No headache. No blurred vision or double vision, no loss of vision. No loss of Hearing, no ringing in the ears, no dizziness. No nasal drainage or congestion. No epistaxis. No sore throat. Lungs: Mild shortness of breath no cough or wheezes. Cardiovascular: No chest pain, positive mild edema with significant left hip and leg pain with mild PND and orthopnea. No lightheadedness or dizziness. No syncopal episodes. Abdominal: No abdominal pain. No nausea, vomiting. No diarrhea. No constipation. No bloody or tarry stools.. No loss of appetite. Genitourinary: No dysuria, increased frequency, urgency. No urinary retention. Musculoskeletal: Pain left hip area. Integumentary: No wounds, no lesions. No rash or pruritus. No unusual bruising. No change in hair or nails. Neurologic: No aphasia. No facial droop. No change in mentation. No head injury. No headache. No paralysis. No paresthesia. Psychiatric: No depression. No anxiety. No mood swings. Endocrine: No abnormal blood sugars. No weight change. No excessive sweating or thirst. No cold intolerance. PHYSICAL EXAMINATION Gen: This is a 85-year-old who is laying in bed appears to be comfortable and in no respiratory distress. HEENT: Head is atraumatic, normocephalic. Pupils equal, round. Sclerae is anicteric. NECK: Supple. No JVD. No lymphadenopathy. No thyromegaly. LUNGS: Decreased breath some bilateral fine rhonchi positive mild crackles in the bases positive rhonchi and mild wheezes. HEART: Regular to moderate S1-S2 positive S3 positive PVCs. ABDOMEN: Soft. Bowel sounds are present. No masses. No tenderness. EXTREMITIES: Left leg has been turning externally with pain and discomfort in the groin area as well no sign of bleeding. Still have fistula graft in the left forearm. NEUROLOGICAL: Patient is awake, alert and oriented x3. Cranial nerves 2 through 12 are grossly intact. ASSESSMENT AND PLAN 1. Left hip fracture. Plan is for intramedullary nail this afternoon. Patient has been cleared medically for surgical intervention. She is undergoing [facility]'s today. 2. Post fall with left hip fracture: No other injury continue to watch for any further complaints such as lower back left knee and left ankle site. 3. End-stage renal disease on hemodialysis 3 times a week: Resume hemodialysis and consult nephrology. 4. Leukocytosis: With no sign of infection this is can be leukemoid reaction to the trauma the fall repeat CBC in the morning. 5. Atherosclerotic heart disease: No chest pain or angina continue medical ma nagement at this point patient remain on metoprolol 12.5 mg twice a day. 6. Congestive heart failure: Continue hydralazine, spironolactone, metoprolol and continue to mobilize extra fluid with dialysis. 7. Hypertension: Well controlled on amlodipine 10 mg a day, hydralazine 100 mg twice a day and's prolactin 25 mg daily with metoprolol titrate 12.5 mg twice a day except patient still having slightly hypotension around dialysis require midodrine and sometimes. 8. Hypothyroidism: Continue patient on levothyroxine 50 g daily. 9. Mild anemia: Remain on iron supplement, multivitamins Procrit. 10. Hyperaldosteronism: Remain on spironolactone. 11. COVID-19 testing. 12 GI prophylaxis: Patient be started on pantoprazole 40 mg daily. 13 GI prophylaxis: Early mobilization and try to avoid subcu heparin at this point. Dr. Aguirre thank you very much for the consult psych can be any further help to please let me know. DISCHARGE PLAN Jakydiagonal Impression and plan of care have been directed as dictated by the signing physician. Hetal Sanchez nurse practitioner acting as scribe for signing physician. Objective - Vital Signs Vital signs: Vital Signs Temp 98.2 F 05/13/21 10:03 Pulse 76 05/13/21 10:03 Resp 17 05/13/21 10:03 BP 166/69 05/13/21 10:03 Pulse Ox 95 05/13/21 10:03 Intake & Output 05/12/21 05/13/21 05/13/21 18:59 06:59 18:59 Output Total 0 Balance 0 Weight 55.338 kg 55.338 kg Output: Urine 0 Other: Voiding Method Indwelling Catheter - Labs CBC & Chem 7: 05/12/21 13:33 05/13/21 09:45 Labs: Abnormal Lab Results - Last 24 Hours (Table) 05/12/21 05/12/21 05/12/21 Range/Units 13:33 13:33 15:29 WBC 17.7 H (3.8-10.6) k/uL RBC 3.34 L (3.80-5.40) m/uL Hgb 10.9 L (11.4-16.0) gm/dL Hct 33.6 L (34.0-46.0) % MCV 100.6 H (80.0-100.0) fL Neutrophils # 16.1 H (1.3-7.7) k/uL Lymphocytes # 0.8 L (1.0-4.8) k/uL Sodium 133 L (137-145) mmol/L Chloride 94 L (98-107) mmol/L BUN 35 H (7-17) mg/dL Creatinine 4.72 H (0.52-1.04) mg/dL Glucose 110 H (74-99) mg/dL Urine Protein 3+ H (Negative) Urine Blood Trace H (Negative) Urine RBC 6 H (0-5) /hpf Urine Bacteria Rare H (None) /hpf
[2021-05-13] MEDS ORDERED: TRANEXAMIC ACID 1,000 MG in SODIUM CHLORIDE 0.9% 100 ML IVPB PRN (13:54)
[2021-05-13] MEDS ORDERED: HYDROmorphone 0.5 MG/0.5 ML SYRINGE IVP PRN (14:49)
[2021-05-13] MEDS ORDERED: HYDROcodone/APAP 5-325MG 1 EACH TAB PO PRN (14:49)
[2021-05-13] MEDS ORDERED: NALOXONE 0.4 MG/ML 1 ML VIAL IV PRN (14:49)
--- NOTE | 2021-05-13 14:58 | XR ---
Fluoroscopy INDICATION: Pain FINDINGS: Fluoroscopy time: 32.7 seconds. Images obtained: 11. IMPRESSIONS: 1. Documentation of fluoroscopy.
[2021-05-13] MEDS: MORPHINE SULFATE 4 MG/ML SYRINGE IV PRN (15:15)
--- NOTE | 2021-05-13 15:27 | FL ---
Fluoroscopy INDICATION: Pain FINDINGS: Fluoroscopy time: 30 seconds. Images obtained: 0. IMPRESSIONS: 1. Documentation of fluoroscopy.
--- NOTE | 2021-05-13 17:02 | XR ---
EXAMINATION TYPE: XR Hip Complete LT DATE OF EXAM: 05/13/2021 COMPARISON: Yesterday HISTORY: Hip surgery TECHNIQUE: 2 views FINDINGS: There is Intramedullary nimesh and transverse screws fixing a comminuted intertrochanteric fracture of the left f emur. Fragments are in anatomic position. IMPRESSION: No complicating process seen.
[2021-05-13] MEDS: ONDANSETRON 4 MG/2 ML VIAL IVP PRN (17:25)
--- NOTE | 2021-05-13 17:27 | P.PN ---
Progress Note - Text Progress Note Date: 05/13/21 Brief Post Op: Surgeon: Timothy Asst:Anthony Huang Pre op dx; left hip IT fracture Post op dx: Left hip IT fracture Procedure: Intramedullary nail fixation left hip Anesthesia: GETA EBL: 100 Fluids: 500 UO: 100 Dispo: Stable to PACU Post op Plan: Postoperative images demonstrate good reduction with placement of intramedullary nail. Encourage ambulation IS 10x/hr Teds/SCDs Pain control PT/OT
[2021-05-13 20:59] LABS: Hepatitis B Surface Antibody Reactive (Nonreactive); Hepatitis B Surface Antigen Nonreactive (Nonreactive)
[2021-05-13] MEDS: SENNOSIDES-DOCUSATE SODIUM 1 EACH TAB PO SCH (20:59)
[2021-05-14] MEDS: LEVOTHYROXINE 50 MCG TAB PO SCH (05:36)
[2021-05-14] MEDS: CALCIUM ACETATE 667 MG TAB PO SCH ×3 (07:51→16:09)
[2021-05-14] MEDS: hydrALAZINE HCL 50 MG TAB PO SCH ×2 (07:51→21:46)
[2021-05-14] MEDS: HYDROcodone/APAP 7.5-325MG 1 EACH TAB PO PRN ×2 (07:52→14:04)
[2021-05-14] MEDS: SODIUM CHLORIDE 0.9% 1,000 ML IV SCH (07:52)
[2021-05-14] MEDS: allopurinoL 100 MG TAB PO SCH (07:52)
[2021-05-14] MEDS: FOLIC ACID-VIT B COMPLEX-VIT C 1 CAP PO SCH (07:52)
[2021-05-14] MEDS: amLODIPine 10 MG TAB PO SCH (07:52)
[2021-05-14] MEDS: SPIRONOLACTONE 25 MG TAB PO SCH (07:52)
[2021-05-14] MEDS: ENOXAPARIN 30 MG/0.3 ML SYRINGE SQ SCH (07:54)
[2021-05-14] MEDS: ONDANSETRON 4 MG/2 ML VIAL IVP PRN (08:00)
--- NOTE | 2021-05-14 10:03 | P.PN ---
Subjective Progress Note Date: 05/14/21 Principal diagnosis: Status post intramedullary nail left intertrochanteric femur fracture Patient evaluated at this site, she is resting in her hospital chair. She has ambulated well with therapy. She did have some nausea this morning. The murphy catheter is in place. Her pain is well-controlled at this time. Patient is scheduled for dialysis tomorrow morning. Denying any headaches, lightheadedness, chest pain or shortness of breath. Objective - Vital Signs Vital signs: Vital Signs Temp 98.4 F 05/14/21 07:53 Pulse 93 05/14/21 07:53 Resp 16 05/14/21 07:53 BP 129/51 05/14/21 07:53 Pulse Ox 95 05/14/21 07:53 Intake & Output 05/13/21 05/14/21 05/14/21 18:59 06:59 18:59 Intake Total 1650 300 Output Total 2410 100 Balance -760 200 Intake: IV 1050 Intake, IV Titration 600 Amount Sodium Chloride 0.9% 1, 600 000 ml @ 75 mls/hr IV . [id number] [facility] Rx#:[id number] Oral 300 Output: Urine 100 Hemodialysis 2400 Estimated Blood Loss 10 Other: Voiding Method Indwelling Catheter Indwelling Catheter - Exam Left lower extremity: Postoperative bandage is in good position and condition. Generalized swelling is present in the extremity. The ecchymosis and swelling over the anterior knee is improving. Logroll maneuver reproduces minimal pain. Plantar flexion, dorsiflexion, EHL, FHL are intact. Calf is soft, no tenderness with palpation. Sensory exam to light touch is intact throughout the extremity. Dorsalis pedis pulses 2+ - Labs CBC & Chem 7: 05/12/21 13:33 05/13/21 09:45 Labs: Abnormal Lab Results - Last 24 Hours (Table) 05/12/21 05/13/21 Range/Units 13:33 09:45 Sodium 134 L (137-145) mmol/L BUN 33 H (7-17) mg/dL Creatinine 4.27 H (0.52-1.04) mg/dL Glucose 104 H (74-99) mg/dL Hep Bs Antibody Reactive A (Nonreactive) Assessment and Plan Assessment: Postoperative day #1 status post intramedullary nail left intertrochanteric femur fracture Plan: Pain control, continue with current medication Dressing change on 05/15/2021 Encourage incentive spirometer GI and DVT prophylaxis, continue subcu medication will likely discharge on either heparin or Lovenox CBC has been ordered, await results Discontinue urinary catheter today Patient scheduled for dialysis on 05/15/2020 Medical recommendations Discharge planning: Hopeful discharged to rehab on 05/15/2021 Time with Patient: Less than 30
--- NOTE | 2021-05-14 10:14 | P.PN ---
Subjective Patient is seen in follow-up for end-stage renal disease. She is maintained on hemodialysis on Tuesday schedule. Status post left hip fracture repair May 13. Working with physical therapy. Vital signs are stable. General: The patient appeared well nourished and normally developed. HEENT: Head exam is unremarkable. LUNGS: Breath sounds decreased. HEART: Rate and Rhythm are regular. ABDOMEN: Soft, no distention. EXTREMITITES: No edema. Objective - Vital Signs Vital signs: Vital Signs Temp 98.4 F 05/14/21 07:53 Pulse 93 05/14/21 07:53 Resp 16 05/14/21 07:53 BP 129/51 05/14/21 07:53 Pulse Ox 95 05/14/21 07:53 Intake & Output 05/13/21 05/14/21 05/14/21 18:59 06:59 18:59 Intake Total 1650 300 Output Total 2410 100 Balance -760 200 Intake: IV 1050 Intake, IV Titration 600 Amount Sodium Chloride 0.9% 1, 600 000 ml @ 75 mls/hr IV . [id number] [facility] Rx#:[id number] Oral 300 Output: Urine 100 Hemodialysis 2400 Estimated Blood Loss 10 Other: Voiding Method Indwelling Catheter Indwelling Catheter - Labs CBC & Chem 7: 05/12/21 13:33 05/13/21 09:45 Labs: Abnormal Lab Results - Last 24 Hours (Table) 05/12/21 05/13/21 Range/Units 13:33 09:45 Sodium 134 L (137-145) mmol/L BUN 33 H (7-17) mg/dL Creatinine 4.27 H (0.52-1.04) mg/dL Glucose 104 H (74-99) mg/dL Hep Bs Antibody Reactive A (Nonreactive) Assessment and Plan Plan: Assessment: 1. End-stage renal disease maintained on hemodialysis on Tuesday schedule. 2. Status post fall with left femur fracture. Status post surgical repair May 13. 3. Hypertension with chronic kidney disease. Stable. 4. Chronic kidney disease mineral bone disease maintained on PhosLo. Plan: Hemodialysis tomorrow.
[2021-05-14] MEDS: METOPROLOL TARTRATE 12.5 MG TAB PO SCH ×2 (11:06→21:46)
--- NOTE | 2021-05-14 12:06 | P.OP ---
Date of Procedure: 05/13/21 Preoperative Diagnosis: 1. Lt hip intertrochanteric fracture 2 part with greater trochanter fracture, displaced, closed 2. s/p ffs 3. ESRD on HD Postoperative Diagnosis: 1. Lt hip intertrochanteric fracture 2 part with greater trochanter fracture, displaced, closed 2. s/p ffs 3. ESRD on HD Procedure(s) Performed: 1. Intramedullary nail fixation of Lt hip IT fracture 2. Intraoperative interpretation of fluoroscopic images <1 hr. Implants: S&N Intertan short 11 x 130 deg 95 mm lag 90 mm compression 27.5 distal locking Anesthesia: GETA Surgeon: Philip Aguirre Aboriginal Education Teacher #1: Dave Hoang (Was present and necessary for the entire case) Estimated Blood Loss (ml): 100 IV fluids (ml): 500 Urine output (ml): 100 Pathology: none sent Condition: stable Disposition: PACU Indications for Procedure: 85-year-old female presented to the emergency department after a fall from standing. states that they had just gotten in to [facility] and she tripped and fell onto her left hip she is unable to ambulate afterwards was in intense pain in the start of the emergency department. She is found to have a left hip IT fracture. Patient is accompanied medical history with end-stage renal disease on hemodialysis. She was seen and evaluated with discussed surgical versus nonsurgical options and she is opting for surgical treatment of this. She will have hemodialysis before surgery. We discussed risks and benefits as outlined in the risk review she is comfortable to proceed. Description of Procedure: The patient was seen and examined in the preoperative area. All preoperative protocols were followed. Informed consent was obtained risks and benefits of the procedure were discussed at length. Risks including bleeding infection damage to the surrounding tissue and risk of reoperation were discussed with the patient. Risk of anesthesia up to and including was a discussed with the patient. These are outlined in the risk reviewed. They were willing to accept these risks and all of the risks of surgery. The patient was given a weight- based dose of antibiotics in the form of 1 g Ancef IVPB 1. The patient was seen and evaluated by the anesthesia team who deemed them fit for surgery. The site was marked, the patient was willing to proceed with the procedure. The patient was transferred to the operative suite by the Department of anesthesia. There were then drifted off to sleep by the department of anesthesia and GETA anesthesia was used. Once adequate anesthesia had been obtained the patient was carefully transferred to the operative bed. All bony prominences were padded accordingly. SCDs were placed on the nonoperative lower extremities. Arms were well padded. Tati boot was placed on the patient's operative leg discharge from the high lateral atraumatically pulses placed all bony prominences were padded accordingly on an placed on arm boards right leg was placed in a well leg greer up and out and well-padded. Preoperative briefing was done with the operative team and everyone was ready for the procedure to start. We performed reduction under fluoroscopic guidance of the left hip.The patients left lower extremity was then prepped and draped in the normal sterile fashion. Timeout was then performed and all parties in agreement with the procedure to be performed. Them incision 2 cm proximal to the greater trochanter in line with the femur of the left hip blunt dissection taken down through the fascia directly to the greater trochanter which was palpated. All was then used and placed in the AP and lateral fluoroscopy and a good starting position once this was obtained and all was advanced. It was advanced into the femoral canal without any issue. We then placed a ball-tipped guidewire. We confirmed its position on AP and lateral we then placed a opening reamer over this guidewire and advanced. We then performed sequential reaming from 911-13 mm we then selected a 11 mm 180 mm x 1 30 intramedullary nail and placed it over the ball-tipped guidewire is then impacted in position in AP and lateral fluoroscopy once it was in good position the ball-tipped guidewire was removed and placed the outrigger for the lag screw incision was made over the lateral aspect of the femur for the lag screw dissection taken down to the tensor fascia bluntly to the femoral shaft and then placed the jig for the lag screw placement. We then drilled the pin for the lag screw. We then drilled for the compression screw the length was measured to 95 and so we drilled to 90 for the compression screw. We then drilled over the guidewire for the lag screw to 95 under AP and lateral fluoroscopy. It was confirmed to be center center within the neck and within 10 mm of the subchondral bone in AP and lateral. We then placed the lag screw over the wire and secured in position in AP and lateral we then placed the compression screw. We performed compression under AP and lateral showed good compression fracture of about 5 mm. We then locked the nail proximally. We removed the pin for the lag screw and turned attention to locking screw distally through the guide we placed the sleeve for the distal locking screw statically incision poke hole was made in this area dissection taken down with a stat we then placed this against bone and drilled and measured at. We place a 27.5 mm screw through this area. We then confirmed its position on AP and lateral. We removed the outrigger jig. Final fluoroscopic images implants in good position with good reduction of fracture. We then thoroughly irrigated with normal sterile saline fascia was closed with #1 Vicryl simple fashion followed by 0 Vicryl in the deep subcu tissue 2-0 Vicryl in the subcu superficial subcu tissue and ramsey in the skin wound edges approximated very well. Then clean the wounds and dressed sterilely with sterile Adaptic 4 x 4's ABDs and foam tape. The patient was then transferred back to their hospital bed. There were awakened by department of anesthesia having tolerated the procedure very well with no complications. The patient was then transported to the postoperative care unit in stable condition.
[2021-05-14 12:23] LABS: Basophils # (A) 0.02 X 10*3/uL (0.00-0.10); Basophils % (A) 0.1 %; Eosinophils # (A) 0 X 10*3/uL (0.04-0.35); Eosinophils % (A) 0 %; Lymphocytes # (A) 0.94 X 10*3/uL (0.90-5.00); Monocytes # (A) 1.02 X 10*3/uL (0.20-1.00); Monocytes % (A) 7.6 %; Neutrophils # (A) 11.27 X 10*3/uL (1.80-7.70); Neutrophils % (A) 84.4 %
[2021-05-14 12:24] LABS: HCT 20.4 % (37.2-46.3); HGB 6.2 g/dL (12.0-15.0); MCH 32.3 pg (27.0-32.0); MCHC 30.4 g/dL (32.0-37.0); MCV 106.3 fL (80.0-97.0); Macrocytosis (M) 2+; Mean Platelet Volume 11.4 fL (9.5-12.2); Platelet Count 189 X 10*3/uL (140-440); RBC 1.92 X 10*6/uL (4.10-5.20); WBC 13.37 X 10*3/uL (4.50-10.00)
[2021-05-14] MEDS: SENNOSIDES-DOCUSATE SODIUM 1 EACH TAB PO SCH (21:46)
[2021-05-15] MEDS: LEVOTHYROXINE 50 MCG TAB PO SCH (05:38)
[2021-05-15] MEDS: CALCIUM ACETATE 667 MG TAB PO SCH ×3 (09:29→17:19)
--- NOTE | 2021-05-15 11:15 | P.PN ---
Subjective Patient is seen in follow-up for end-stage renal disease. She is maintained on hemodialysis on Tuesday schedule. Status post left hip fracture repair May 13. Tolerating dialysis well. Hemoglobin low and received blood transfusion this admission. Vital signs are stable. General: The patient appeared well nourished and normally developed. HEENT: Head exam is unremarkable. LUNGS: Breath sounds decreased. HEART: Rate and Rhythm are regular. ABDOMEN: Soft, no distention. EXTREMITITES: No edema. Objective - Vital Signs Vital signs: Vital Signs Temp 97.9 F 05/15/21 07:32 Pulse 90 05/15/21 11:02 Resp 18 05/15/21 07:32 BP 155/65 05/15/21 11:02 Pulse Ox 92 L 05/15/21 07:32 Intake & Output 05/14/21 05/15/21 05/15/21 18:59 06:59 18:59 Intake Total 600 310 0 Output Total 0 Balance 600 310 0 Intake: Intake, IV Titration 600 Amount Sodium Chloride 0.9% 1, 600 000 ml @ 75 mls/hr IV . [id number] [facility] Rx#:[id number] Blood Product 0 310 0 Rc As-1 Unit 0 310 [id number] Rc As-1 Unit 0 [id number] Output: Urine 0 Other: Voiding Method Indwelling Catheter Indwelling Catheter # Voids 0 # Bowel Movements 0 - Labs CBC & Chem 7: 05/14/21 08:26 05/13/21 09:45 Labs: Abnormal Lab Results - Last 24 Hours (Table) 05/13/21 05/14/21 Range/Units 13:15 08:26 WBC 13.37 H (4.50-10.00) X 10*3/uL RBC 1.92 L (4.10-5.20) X 10*6/uL Hgb 6.2 L* (12.0-15.0) g/dL Hct 20.4 L (37.2-46.3) % MCV 106.3 H (80.0-97.0) fL MCH 32.3 H (27.0-32.0) pg MCHC 30.4 L (32.0-37.0) g/dL Immature Gran # 0.12 H (0.00-0.04) X 10*3/uL Neutrophils # 11.27 H (1.80-7.70) X 10*3/uL Monocytes # 1.02 H (0.20-1.00) X 10*3/uL Eosinophils # 0 L (0.04-0.35) X 10*3/uL Crossmatch See Detail Assessment and Plan Plan: Assessment: 1. End-stage renal disease maintained on hemodialysis on Tuesday schedule. 2. Status post fall with left femur fracture. Status post surgical repair May 13. 3. Hypertension with chronic kidney disease. Stable. 4. Chronic kidney disease mineral bone disease maintained on PhosLo. 5. Acute blood loss anemia status post blood transfusion. Plan: Currently seen was undergoing hemodialysis. Next treatment on Tuesday. Add Aranesp. Plan for discharge to [facility].
[2021-05-15] MEDS ORDERED: DARBEPOETIN ALFA 40 MCG/0.4 ML SYRINGE SQ SCH (12:00)
--- NOTE | 2021-05-15 12:56 | P.PN ---
Subjective Progress Note Date: 05/15/21 Principal diagnosis: Status post intramedullary nail left intertrochanteric femur fracture Patient evaluated at this site, she is resting in her hospital chair. She has ambulated well with therapy. Patient's hemoglobin was noted to be severely decreased, packed rbc's have been ordered. Her pain is well-controlled at this time. Patient will be undergoing dialysis today. Denying any headaches, lightheadedness, chest pain or shortness of breath. Objective - Vital Signs Vital signs: Vital Signs Temp 97.9 F 05/15/21 07:32 Pulse 73 05/15/21 12:51 Resp 18 05/15/21 07:32 BP 136/73 05/15/21 12:51 Pulse Ox 92 L 05/15/21 07:32 Intake & Output 05/14/21 05/15/21 05/15/21 18:59 06:59 18:59 Intake Total 600 310 310 Output Total 0 Balance 600 310 310 Intake: Intake, IV Titration 600 Amount Sodium Chloride 0.9% 1, 600 000 ml @ 75 mls/hr IV . [id number] [facility] Rx#:[id number] Blood Product 0 310 310 Rc As-1 Unit 0 310 [id number] Rc As-1 Unit 310 [id number] Output: Urine 0 Other: Voiding Method Indwelling Catheter Indwelling Catheter # Voids 0 # Bowel Movements 0 - Exam Left lower extremity: Postoperative bandage was removed, ramsey are in good position and condition. Generalized swelling is present in the extremity. The ecchymosis and swelling over the anterior knee is improving. Logroll maneuver reproduces minimal pain. Plantar flexion, dorsiflexion, EHL, FHL are intact. Calf is soft, no tenderness with palpation. Sensory exam to light touch is intact throughout the extremity. Dorsalis pedis pulses 2+ - Labs CBC & Chem 7: 05/14/21 08:26 05/13/21 09:45 Labs: Abnormal Lab Results - Last 24 Hours (Table) 05/13/21 Range/Units 13:15 Crossmatch See Detail Assessment and Plan Assessment: Postoperative day #2 status post intramedullary nail left intertrochanteric femur fracture Acute blood loss anemia, expected surgical outcome Plan: Pain control, will discharge with low-dose oral medication Encourage incentive spirometer GI and DVT prophylaxis, Lovenox 30 mg subcu daily for 20 days Recheck CBC after transfusion Medical recommendations Discharge planning: Hopeful discharge to rehab today Time with Patient: Less than 30
[2021-05-15] MEDS: amLODIPine 10 MG TAB PO SCH (13:35)
[2021-05-15] MEDS: allopurinoL 100 MG TAB PO SCH (13:35)
[2021-05-15] MEDS: SPIRONOLACTONE 25 MG TAB PO SCH (13:35)
[2021-05-15] MEDS: METOPROLOL TARTRATE 12.5 MG TAB PO SCH (13:35)
[2021-05-15] MEDS: FOLIC ACID-VIT B COMPLEX-VIT C 1 CAP PO SCH (13:35)
[2021-05-15] MEDS: hydrALAZINE HCL 50 MG TAB PO SCH (13:35)
[2021-05-15] MEDS: ENOXAPARIN 30 MG/0.3 ML SYRINGE SQ SCH (13:36)
[2021-05-15 14:05] LABS: HCT 29.2 % (34.0-46.0); MCH 33.1 pg (25.0-35.0); MCHC 34.1 g/dL (31.0-37.0); MCV 96.9 fL (80.0-100.0); Mean Platelet Volume 8.4; Platelet Count 228 k/uL (150-450); RBC 3.02 m/uL (3.80-5.40); RDW 15.8 % (11.5-15.5); WBC 15.6 k/uL (3.8-10.6)
--- NOTE | 2021-05-15 14:47 | P.DS ---
Providers Date of admission: 05/12/21 13:44 Expected date of discharge: 05/15/21 Attending physician: Philip Aguirre DO Consults: 05/12/21 14:30 Consult Physician Routine Consulting Provider: Angelito Nelson Reason/Comments: Medical Management Do you want consulting provider notified?: Yes 05/12/21 14:31 Consult Physician Routine Consulting Provider: Kiara Huber Consult Reason/Comments: End stage renal disease Do you want consulting provider notified?: Yes Primary care physician: Sami Swift [facility] Course: Date of admission: 05/12/2021 Date of discharge: 05/13/2021 Admission diagnosis: Displaced left intertrochanteric femur fracture Discharge diagnosis: Status post intramedullary nail left intertrochanteric femur fracture Attending physician: Dr. Aguirre Surgical procedures: Intramedullary nail left intertrochanteric femur fracture Brief history: Patient is a 85-year-old female who was initially evaluated to [facility] on 05/12/2021 after sustaining a fall while grocery shopping. It was determined after imaging studies the patient had a displaced left intertrochanteric femur fracture. Patient was admitted under orthopedic care w as plan for surgical intervention. Internal medicine was consulted for medical management. Hospital course: Details of patient's surgery can be found in operative report. Patient tolerated the procedure well and was subsequently transported to orthopedic floor. Patient's orthopeidc and medical care was provided daily. Patient had daily laboratory tests performed for evaluation of overall blood counts. Patient had daily physical therapy to include strengthening range of motion as well as education with walker ambulation. Patient was treated with Lovenox for their postoperative DVT prophylaxis during their inpatient stay. Patient was noted to have a relatively uneventful postoperative course. Patient reported satisfactory pain control with oral pain medications by postoperative day 0. Patient showed satisfactory progress with physical therapy. Patient moved steadily through the program and had no difficulty meeting the goals by postoperative day 2. Given patient's otherwise satisfactory course and having met physical therapy goals, plan is to discharge patient rehab on postoperative day 2. Discharge condition/disposition: Patient will be discharged to rehab in stable condition. Discharge medications: Instructions are given on resumption of patient's normal daily medications per primary care recommendation, in addition patient will be prescribed [place] 5 mg/325 mg, Senokot-S, Lovenox 30 mg, ferrous sulfate. Discharge instructions: 1. Wound care and infection precautions, keep incision dry and covered while showering, no lotions, creams, moisturizers. No soaking, tubs, pools, hottubs. Do not scrub over the incision. 2. Weight-bear as tolerated with walker / cane until follow-up. 3. Ice and elevate when necessary. Do not exceed 20 minutes per hour with ice pack. 4. Utilize compression sleeve until seen at first follow up appointment. 5. Visiting nursing care. 6. Home physical therapy. 7. Pain meds and anticoagulants per prescription. 8. Pain medication has potential to cause constipation. Increase oral fluid and fiber intake. Contact primary care provider if you have not had a bowel movement within 48 hours after discharge 9. No anti-inflammatory medication until discussed at first post operative visit, this including Motrin, Aleve, Mobic, Diclofenac. 10. Follow up in office at 2 weeks postop with Alex Gomes PA-C/Dave Sanchez 11. Follow up with your primary care doctor 7-10 days after discharge. 12. Contact [facility] with any questions, . Procedures: Intramedullary nail left intertrochanteric femur fracture Patient Condition at Discharge: Stable Plan - Discharge Summary Discharge Rx Participant: No New Discharge Prescriptions: New Sennosides-Docusate Sodium [Senokot-S] 2 each PO HS tab Enoxaparin [Lovenox] 30 mg SQ DAILY #28 each Ferrous Sulfate [Iron (65 MG Elemental)] 325 mg PO BID #60 tab HYDROcodone/APAP 5-325MG [[place] 5-325] 1 tab PO Q6HR PRN #21 tab PRN Reason: Pain Continue Levothyroxine Sodium [Synthroid] 50 mcg PO DAILY Spironolactone [Aldactone] 25 mg PO DAILY allopurinoL [Zyloprim] 100 mg PO DAILY Nephro-Frances 0.8mg 1 tab PO DAILY Metoprolol Tartrate [Lopressor] 12.5 mg PO BID Lidocaine-Prilocaine Cream [Emla Cream 2.5%/2.5%] 1 applic TOPICAL DAILY PRN PRN Reason: avf access Calcium Acetate [PhosLo] 667 mg PO AC-TID amLODIPine [Norvasc] 10 mg PO DAILY Cranberry Fruit Extract [Cranberry] 500 mg PO DAILY Midodrine(Unknown) 1 tab PO DAILY@1200 hydrALAZINE HCL [Apresoline] 100 mg PO BID Magnebind(Unknown Dose) 1 tab PO BID Discharge Medication List Levothyroxine Sodium [Synthroid] 50 mcg PO DAILY 07/05/14 [History] Spironolactone [Aldactone] 25 mg PO DAILY 10/28/15 [History] allopurinoL [Zyloprim] 100 mg PO DAILY 12/04/18 [History] Calcium Acetate [PhosLo] 667 mg PO AC-TID 06/23/20 [History] Cranberry Fruit Extract [Cranberry] 500 mg PO DAILY 06/23/20 [History] Lidocaine-Prilocaine Cream [Emla Cream 2.5%/2.5%] 1 applic TOPICAL DAILY PRN 06/23/20 [History] Metoprolol Tartrate [Lopressor] 12.5 mg PO BID 06/23/20 [History] Nephro-Frances 0.8mg 1 tab PO DAILY 06/23/20 [History] amLODIPine [Norvasc] 10 mg PO DAILY 06/23/20 [History] Magnebind(Unknown Dose) 1 tab PO BID 05/12/21 [History] Midodrine(Unknown) 1 tab PO DAILY@1200 05/12/21 [History] hydrALAZINE HCL [Apresoline] 100 mg PO BID 05/12/21 [History] Sennosides-Docusate Sodium [Senokot-S] 2 each PO HS tab 05/14/21 [Rx] Enoxaparin [Lovenox] 30 mg SQ DAILY #28 each 05/15/21 [Rx] Ferrous Sulfate [Iron (65 MG Elemental)] 325 mg PO BID #60 tab 05/15/21 [Rx] HYDROcodone/APAP 5-325MG [[place] 5-325] 1 tab PO Q6HR PRN #21 tab 05/15/21 [Rx] Follow up Appointment(s)/Referral(s): Sami Swift MD [Primary Care Provider] - 1 Week (Office closed. Please call office Tuesday for appointment.) Philip Aguirre DO [Doctor of Osteopathic Medicine] - 06/01/21 3:40 pm Patient Instructions/Handouts: Intramedullary Nailing (DC) Activity/Diet/Wound Care/Special Instructions: Orthopedic Discharge Instructions: 1. Wound care and infection precautions, keep incision dry and covered while showering, no lotions, creams, moisturizers. No soaking, pools, hot tubs. Do not scrub over incision. 2. Weight-bear with walker / cane until follow-up. 3. Ice and elevate when necessary. Do not exceed 20 minutes per hour with ice pack. 4. Utilize compression sleeve until seen at first follow up appointment. 5. Pain meds and anticoagulants per prescription. 6. Pain medication has potential to cause constipation. Increase oral fluid and fiber intake. Contact primary care provider if you have not had a bowel movement within 48 hours after discharge. 7. No anti-inflammatory medication until discussed at first post operative visit, this including Motrin, Aleve, Mobic, Diclofenac. 8. Follow up in office at 2 weeks postop with Alxe Gomes PA-C/Dave Hoang PA-C 9. Follow up with your primary care doctor 7-10 days after discharge. 10. Contact [facility] with any questions, . Wound care instructions: 1. Okay to remove ramsey at 05/25/2021 2. Keep incision covered and dry while showering Discharge Disposition: TRANSFER TO SNF/ECF
--- NOTE | 2021-05-15 15:00 | P.PN ---
Subjective Progress Note Date: 05/14/21 HISTORY OF PRESENT ILLNESS 84-year-old female one of Dr. Swift's patient with multiple medical problem known to have end-stage renal disease on hemodialysis 3 times a week was seen n ephrology on regular basis. Patient apparently was in [employer] and trying to grab something from around the eye and subsequently fell with no syncope she developed to have severe pain and discomfort in the left hip and knee area she was not able to stand up and walk her pain become more impaired able. EMS were called and patient was diagnosed at the scene with most likely hip fracture. Ended up coming to the emergency department at [facility]. Patient was seen and evaluated her x-ray of the left hip show proximal left femur fracture. Patient ended up seen orthopedic on the plan probably to do an open reduction and internal fixation. Patient had no other orthopedic injury her lab value the time showed white blood cell of 17,000 mild anemia with hemoglobin of 10.9, the kidney function continue to show stage V or end-stage renal disease with creatinine of 4.72 with bun 35 GFR of 8. Her urine test was negative, chest x-ray showed cardiomegaly and chronic parenchymal change without any acute process of infection. Patient will be clear for surgery for tomorrow morning. 05/13: Patient is undergoing hemodialysis this morning. She states pain is cont rolled as long as she doesn't move her left leg. She is feeling cold. She is scheduled for intramedullary nail left femur fracture this afternoon with Dr. Aguirre. Patient has been afebrile, heart rate 82, blood pressure 173/83, pulse ox 97% on room air. Sodium 134, BUN 33 creatinine 4.27. Discharge plan is for [facility]. 05/14: Patient is status post IM nail fixation 05/13. Patient is undergoing hemodialysis today Yancey catheter to be removed. She states her pain is a #6 when she moves. Patient has been afebrile, heart rate 93, blood pressure 129/51, pulse ox 95% on room air. Patient does have some edema around the left knee otherwise no new complaints. REVIEW OF SYSTEMS Constitutional: No fever, no chills, no night sweats. No weight change. No wea kness, fatigue or lethargy. No daytime sleepiness. EENT: No headache. No blurred vision or double vision, no loss of vision. No loss of Hearing, no ringing in the ears, no dizziness. No nasal drainage or congestion. No epistaxis. No sore throat. Lungs: Mild shortness of breath no cough or wheezes. Cardiovascular: No chest pain, positive mild edema with significant left hip and leg pain with mild PND and orthopnea. No lightheadedness or dizziness. No syncopal episodes. Abdominal: No abdominal pain. No nausea, vomiting. No diarrhea. No constipation. No bloody or tarry stools.. No loss of appetite. Genitourinary: No dysuria, increased frequency, urgency. No urinary retention. Musculoskeletal: Pain left hip area. Integumentary: No wounds, no lesions. No rash or pruritus. No unusual bruising. No change in hair or nails. Neurologic: No aphasia. No facial droop. No change in mentation. No head injury. No headache. No paralysis. No paresthesia. Psychiatric: No depression. No anxiety. No mood swings. Endocrine: No abnormal blood sugars. No weight change. No excessive sweating or thirst. No cold intolerance. PHYSICAL EXAMINATION Gen: This is a 85-year-old who is laying in bed appears to be comfortable and in no respiratory distress. HEENT: Head is atraumatic, normocephalic. Pupils equal, round. Sclerae is anicteric. NECK: Supple. No JVD. No lymphadenopathy. No thyromegaly. LUNGS: Decreased breath some bilateral fine rhonchi positive mild crackles in the bases positive rhonchi and mild wheezes. HEART: Regular to moderate S1-S2 positive S3 positive PVCs. ABDOMEN: Soft. Bowel sounds are present. No masses. No tenderness. EXTREMITIES: Left leg has been turning externally with pain and discomfort in the groin area as well no sign of bleeding. Still have fistula graft in the left forearm. NEUROLOGICAL: Patient is awake, alert and oriented x3. Cranial nerves 2 through 12 are grossly intact. ASSESSMENT AND PLAN 1. Left hip fracture s/p intramedullary nail 05/13. Continue current pain management, Lovenox for DVT prophylaxis. 2. Post fall with left hip fracture: No other injury continue to watch for any further complaints such as lower back left knee and left ankle site. 3. End-stage renal disease on hemodialysis 3 times a week: Resume hemodialysis and consult nephrology. 4. Leukocytosis: With no sign of infection this is can be leukemoid reaction to the trauma the fall repeat CBC in the morning. 5. Atherosclerotic heart disease: No chest pain or angina continue medical management at this point patient remain on metoprolol 12.5 mg twice a day. 6. Congestive heart failure: Continue hydralazine, spironolactone, metoprolol and continue to mobilize extra fluid with dialysis. 7. Hypertension: Well controlled on amlodipine 10 mg a day, hydralazine 100 mg twice a day and's prolactin 25 mg daily with metoprolol titrate 12.5 mg twice a day except patient still having slightly hypotension around dialysis require midodrine and sometimes. 8. Hypothyroidism: Continue patient on levothyroxine 50 g daily. 9. Mild anemia: Remain on iron supplement, multivitamins Procrit. 10. Hyperaldosteronism: Remain on spironolactone. 11. COVID-19 testing. 12 GI prophylaxis: Patient be started on pantoprazole 40 mg daily. 13 GI prophylaxis: Early mobilization and try to avoid subcu heparin at this point. Dr. Aguirre thank you very much for the consult psych can be any further help to please let me know. DISCHARGE PLAN Tuesday Impression and plan of care have been directed as dictated by the signing physician. Hetal Sanchez nurse practitioner acting as scribe for signing physician. Objective - Vital Signs Vital signs: Vital Signs Temp 98.4 F 05/14/21 07:53 Pulse 93 05/14/21 07:53 Resp 16 05/14/21 07:53 BP 129/51 05/14/21 07:53 Pulse Ox 95 05/14/21 07:53 Intake & Output 05/13/21 05/14/21 05/14/21 18:59 06:59 18:59 Intake Total 1650 300 Output Total 2410 100 Balance -760 200 Intake: IV 1050 Intake, IV Titration 600 Amount Sodium Chloride 0.9% 1, 600 000 ml @ 75 mls/hr IV . [id number] [facility] Rx#:[id number] Oral 300 Output: Urine 100 Hemodialysis 2400 Estimated Blood Loss 10 Other: Voiding Method Indwelling Catheter Indwelling Catheter - Labs CBC & Chem 7: 05/15/21 13:55 05/13/21 09:45 Labs: Abnormal Lab Results - Last 24 Hours (Table) 05/12/21 05/13/21 Range/Units 13:33 09:45 Sodium 134 L (137-145) mmol/L BUN 33 H (7-17) mg/dL Creatinine 4.27 H (0.52-1.04) mg/dL Glucose 104 H (74-99) mg/dL Hep Bs Antibody Reactive A (Nonreactive)
--- NOTE | 2021-05-15 15:03 | P.PN ---
Subjective Progress Note Date: 05/15/21 HISTORY OF PRESENT ILLNESS 84-year-old female one of Dr. Swift's patient with multiple medical problem known to have end-stage renal disease on hemodialysis 3 times a week was seen n ephrology on regular basis. Patient apparently was in [employer] and trying to grab something from around the eye and subsequently fell with no syncope she developed to have severe pain and discomfort in the left hip and knee area she was not able to stand up and walk her pain become more impaired able. EMS were called and patient was diagnosed at the scene with most likely hip fracture. Ended up coming to the emergency department at [facility]. Patient was seen and evaluated her x-ray of the left hip show proximal left femur fracture. Patient ended up seen orthopedic on the plan probably to do an open reduction and internal fixation. Patient had no other orthopedic injury her lab value the time showed white blood cell of 17,000 mild anemia with hemoglobin of 10.9, the kidney function continue to show stage V or end-stage renal disease with creatinine of 4.72 with bun 35 GFR of 8. Her urine test was negative, chest x-ray showed cardiomegaly and chronic parenchymal change without any acute process of infection. Patient will be clear for surgery for tomorrow morning. 05/13: Patient is undergoing hemodialysis this morning. She states pain is cont rolled as long as she doesn't move her left leg. She is feeling cold. She is scheduled for intramedullary nail left femur fracture this afternoon with Dr. Aguirre. Patient has been afebrile, heart rate 82, blood pressure 173/83, pulse ox 97% on room air. Sodium 134, BUN 33 creatinine 4.27. Discharge plan is for [facility]. 05/14: Patient is status post IM nail fixation 05/13. Patient is undergoing hemodialysis today Yancey catheter to be removed. She states her pain is a #6 when she moves. Patient has been afebrile, heart rate 93, blood pressure 129/51, pulse ox 95% on room air. Patient does have some edema around the left knee otherwise no new complaints. 05/15: Patient is complaining that she has not had a bowel movement for a couple days. Plan to address this at the intermediate and patient to continue on Senokot. Plan is for discharge to [facility] today. She is currently undergoing hemodialysis. Patient's been afebrile, heart rate 70-90, blood pressure 154/61, pulse ox 92% on room air. Medication reconciliation reviewed. REVIEW OF SYSTEMS Constitutional: No fever, no chills, no night sweats. No weight change. No weakness, fatigue or lethargy. No daytime sleepiness. EENT: No headache. No blurred vision or double vision, no loss of vision. No loss of Hearing, no ringing in the ears, no dizziness. No nasal drainage or congestion. No epistaxis. No sore throat. Lungs: Mild shortness of breath no cough or wheezes. Cardiovascular: No chest pain, positive mild edema with significant left hip and leg pain with mild PND and orthopnea. No lightheadedness or dizziness. No syncopal episodes. Abdominal: No abdominal pain. No nausea, vomiting. No diarrhea. No constipation. No bloody or tarry stools.. No loss of appetite. Genitourinary: No dysuria, increased frequency, urgency. No urinary retention. Musculoskeletal: Pain left hip area. Integumentary: No wounds, no lesions. No rash or pruritus. No unusual bruising. No change in hair or nails. Neurologic: No aphasia. No facial droop. No change in mentation. No head injury. No headache. No paralysis. No paresthesia. Psychiatric: No depression. No anxiety. No mood swings. Endocrine: No abnormal blood sugars. No weight change. PHYSICAL EXAMINATION Gen: This is a 85-year-old who is laying in bed appears to be comfortable and in no respiratory distress. Hemodialysis undergoing. HEENT: Head is atraumatic, normocephalic. Pupils equal, round. Sclerae is anicteric. NECK: Supple. No JVD. No lymphadenopathy. No thyromegaly. LUNGS: Decreased breath some bilateral fine rhonchi positive mild crackles in the bases positive rhonchi and mild wheezes. HEART: Regular to moderate S1-S2 positive S3 positive PVCs. ABDOMEN: Soft. Bowel sounds are present. No masses. No tenderness. EXTREMITIES: Left leg has been turning externally with pain and discomfort in the groin area as well no sign of bleeding. Still have fistula graft in the left forearm. NEUROLOGICAL: Patient is awake, alert and oriented x3. Cranial nerves 2 through 12 are grossly intact. ASSESSMENT AND PLAN 1. Left hip fracture s/p intramedullary nail 10/13. Continue current pain management, Lovenox for DVT prophylaxis. 2. Post fall with left hip fracture: No other injury continue to watch for any further complaints such as lower back left knee and left ankle site. 3. End-stage renal disease on hemodialysis 3 times a week: Resume hemodialysis and consult nephrology. 4. Leukocytosis: With no sign of infection this is can be leukemoid reaction to the trauma the fall repeat CBC in the morning. 5. Atherosclerotic heart disease: No chest pain or angina continue medical management at this point patient remain on metoprolol 12.5 mg twice a day. 6. Congestive heart failure: Continue hydralazine, spironolactone, metoprolol and continue to mobilize extra fluid with dialysis. 7. Hypertension: Well controlled on amlodipine 10 mg a day, hydralazine 100 mg twice a day and's prolactin 25 mg daily with metoprolol titrate 12.5 mg twice a day except patient still having slightly hypotension around dialysis require midodrine and sometimes. 8. Hypothyroidism: Continue patient on levothyroxine 50 g daily. 9. Mild anemia: Remain on iron supplement, multivitamins Procrit. 10. Hyperaldosteronism: Remain on spironolactone. 11. COVID-19 testing. 12 GI prophylaxis: Patient be started on pantoprazole 40 mg daily. 13 GI prophylaxis: Early mobilization and try to avoid subcu heparin at this point. Dr. Aguirre thank you very much for the consult psych can be any further help to please let me know. DISCHARGE PLAN Tuesday Impression and plan of care have been directed as dictated by the signing physician. Hetal Sanchez nurse practitioner acting as scribe for signing physician. Objective - Vital Signs Vital signs: Vital Signs Temp 97.9 F 05/15/21 07:32 Pulse 78 05/15/21 11:32 Resp 18 05/15/21 07:32 BP 112/58 05/15/21 11:32 Pulse Ox 92 L 05/15/21 07:32 Intake & Output 05/14/21 05/15/21 05/15/21 18:59 06:59 18:59 Intake Total 600 310 0 Output Total 0 Balance 600 310 0 Intake: Intake, IV Titration 600 Amount Sodium Chloride 0.9% 1, 600 000 ml @ 75 mls/hr IV . [id number] [facility] Rx#:[id number] Blood Product 0 310 0 Rc As-1 Unit 0 310 [id number] Rc As-1 Unit 0 [id number] Output: Urine 0 Other: Voiding Method Indwelling Catheter Indwelling Catheter # Voids 0 # Bowel Movements 0 - Labs CBC & Chem 7: 05/15/21 13:55 05/13/21 09:45 Labs: Abnormal Lab Results - Last 24 Hours (Table) 05/13/21 05/14/21 Range/Units 13:15 08:26 WBC 13.37 H (4.50-10.00) X 10*3/uL RBC 1.92 L (4.10-5.20) X 10*6/uL Hgb 6.2 L* (12.0-15.0) g/dL Hct 20.4 L (37.2-46.3) % MCV 106.3 H (80.0-97.0) fL MCH 32.3 H (27.0-32.0) pg MCHC 30.4 L (32.0-37.0) g/dL Immature Gran # 0.12 H (0.00-0.04) X 10*3/uL Neutrophils # 11.27 H (1.80-7.70) X 10*3/uL Monocytes # 1.02 H (0.20-1.00) X 10*3/uL Eosinophils # 0 L (0.04-0.35) X 10*3/uL Crossmatch See Detail
[2021-05-15 15:15] VITALS: BP 125/61; PULSE 98; RESP 16; TEMP 98
[2021-05-15] MEDS: HYDROcodone/APAP 7.5-325MG 1 EACH TAB PO PRN (17:21)
== END 2021-05-15 19:28 | DRG 480 ==
LOC: EC 11:38 → 1SOBS 13:44 → 4SSUR 17:17
PROVIDERS: ADMIT Orthopaedic Surgery; ATTEND Orthopaedic Surgery
PROC: 0QS736Z Reposition Left Upper Femur with Intramedullary Internal Fixation Device, Percutaneous Approach (ICD-10-PCS; principal; 2021-05-13 13:00)
PROC: 30233N1 Transfusion of Nonautologous Red Blood Cells into Peripheral Vein, Percutaneous Approach (ICD-10-PCS; 2021-05-14)
DX: S72.142A Displaced intertrochanteric fracture of left femur, initial encounter for closed fracture (principal); N18.6 End stage renal disease; D62 Acute posthemorrhagic anemia; I13.2 Hypertensive heart and chronic kidney disease with heart failure and with stage 5 chronic kidney disease, or end stage renal disease; D72.829 Elevated white blood cell count, unspecified; E03.9 Hypothyroidism, unspecified; E26.9 Hyperaldosteronism, unspecified; I25.10 Atherosclerotic heart disease of native coronary artery without angina pectoris; I50.9 Heart failure, unspecified; M89.8X9 Other specified disorders of bone, unspecified site; S80.02XA Contusion of left knee, initial encounter; S92.411A Displaced fracture of proximal phalanx of right great toe, initial encounter for closed fracture; W01.0XXA Fall on same level from slipping, tripping and stumbling without subsequent striking against object, initial encounter; Z20.822 Contact with and (suspected) exposure to COVID-19; Z79.890 Hormone replacement therapy; Z79.899 Other long term (current) drug therapy; Z80.52 Family history of malignant neoplasm of bladder; Z82.49 Family history of ischemic heart disease and other diseases of the circulatory system; Z90.710 Acquired absence of both cervix and uterus; Z99.2 Dependence on renal dialysis; Z88.3 Allergy status to other anti-infective agents; Z88.1 Allergy status to other antibiotic agents; Z91.040 Latex allergy status
CPT/HCPCS: 36415; 71045; 73502; 80048; 80053; 81001; 85025; 85027; 86706; 86850; 86900; 86901; 86920; 87340; 87635; 90935; 93005; 96372; 99285

== ENCOUNTER → 2022-05-13 | Outpatient (CLI) | payer MEDICARE, BC ==
--- NOTE | 2022-05-14 11:26 | MM ---
Reason for Exam: Screening (asymptomatic). Last mammogram was performed 2 year(s) and 1 month(s) ago. Patient History: Menarche at age 14. First Full-Term at age 23. Hysterectomy at age 31. Postmenopausal. Risk Values: Ro 5 year model risk: 1.3%. NCI Lifetime model risk: 1.4%. Prior Study Comparison: 11/01/2017 Left Diagnostic Mammogram, [facility]. 06/21/2018 Bilateral Diagnostic Mammogram, [facility]. 04/24/2020 Bilateral Diagnostic Mammogram, [facility]. Tissue Density: The breast tissue is heterogeneously dense. This may lower the sensitivity of mammography. Findings: Analyzed By CAD. Benign vascular and oil cyst calcifications on both sides. There is no suspicious group of microcalcifications or new suspicious mass in either breast. Overall Assessment: Benign, BI-RAD 2 Management: Screening Mammogram of both breasts in 1 year. 1. Patient should continue monthly self breast exams. 2. A clinical breast exam by your physician is recommended on an annual basis. 3. This exam should not preclude additional follow-up of suspicious palpable abnormalities. Electronically signed and approved by: Dagoberto Caldwell M.D. Radiologist
== END | disposition home or self-care (01) ==
LOC: RADMAMWWP 12:38
PROVIDERS: ATTEND Family Medicine
DX: Z12.31 Encounter for screening mammogram for malignant neoplasm of breast (principal); Z78.0 Asymptomatic menopausal state
CPT/HCPCS: 77063; 77067

== ENCOUNTER 2023-02-09 06:40 | Inpatient (IN) | payer MEDICARE, BC ==
[2023-02-09] MEDS ORDERED: MORPHINE SULFATE 2 MG/ML SYRINGE IVP STA (06:54)
[2023-02-09] MEDS ORDERED: ONDANSETRON 4 MG/2 ML VIAL IVP STA (06:54)
--- NOTE | 2023-02-09 07:03 | ED ---
General Adult HPI - General Stated complaint: Chest Pain Time Seen by Provider: 02/09/23 06:44 Source: patient, EMS, RN notes reviewed Mode of arrival: EMS Limitations: no limitations - History of Present Illness Initial comments: This an 87-year-old female presents emergency department via EMS chief complaint of chest pain. Patient states around 2 AM. Patient states that she's not felt well since Tuesday she had nausea vomiting diarrhea Tuesday missed her dialysis. Patient states this is a first time she missed dialysis in the last 4 and half years. Patient states that she is due for dialysis today but the chest pain started on the right side of her chest. Patient does admit that she had pericardial window 14 years ago. She does not that she has a sensitive history of hypertension. Complains of right-sided abdominal, chest pain. - Related Data Home Medications Medication Instructions Recorded Confirmed Levothyroxine Sodium [Synthroid] 50 mcg PO DAILY 07/05/14 05/12/21 Spironolactone [Aldactone] 25 mg PO DAILY 10/28/15 05/12/21 allopurinoL [Zyloprim] 100 mg PO DAILY 12/04/18 05/12/21 Calcium Acetate [PhosLo] 667 mg PO AC-TID 06/23/20 05/12/21 Cranberry Fruit Extract [Cranberry] 500 mg PO DAILY 06/23/20 05/12/21 Lidocaine-Prilocaine Cream [Emla 1 applic TOPICAL DAILY PRN 06/23/20 05/12/21 Cream 2.5%/2.5%] Metoprolol Tartrate [Lopressor] 12.5 mg PO BID 06/23/20 05/12/21 Nephro-Frances 0.8mg 1 tab PO DAILY 06/23/20 05/12/21 amLODIPine [Norvasc] 10 mg PO DAILY 06/23/20 05/12/21 Magnebind(Unknown Dose) 1 tab PO BID 05/12/21 05/12/21 Midodrine(Unknown) 1 tab PO DAILY@1200 05/12/21 05/12/21 hydrALAZINE HCL [Apresoline] 100 mg PO BID 05/12/21 05/12/21 Previous Rx's Medication Instructions Recorded Sennosides-Docusate Sodium 2 each PO HS tab 05/14/21 [Senokot-S] Enoxaparin [Lovenox] 30 mg SQ DAILY #28 each 05/15/21 Ferrous Sulfate [Iron (65 MG 325 mg PO BID #60 tab 05/15/21 Elemental)] HYDROcodone/APAP 5-325MG [[place] 1 tab PO Q6HR PRN #21 tab 05/15/21 5-325] Allergies Allergy/AdvReac Type Severity Reaction Status Date / Time adhesive tape Allergy RED SKIN Verified 02/09/23 06:51 levofloxacin [From Levaquin] Allergy Unknown Verified 02/09/23 06:51 metronidazole [From Flagyl] Allergy Anaphylaxis Verified 02/09/23 06:51 nitrofurantoin Allergy Unknown Verified 02/09/23 06:51 [From Macrobid] nitrofurantoin Allergy Unknown Verified 02/09/23 06:51 macrocrystalline [From Macrobid] oats Allergy Unknown Verified 02/09/23 06:51 amiodarone HCl AdvReac Nausea Verified 02/09/23 06:51 [From Pacerone] Review of Systems ROS Statement: Those systems with pertinent positive or pertinent negative responses have been documented in the HPI. ROS Other: All systems not noted in ROS Statement are negative. Past Medical History Past Medical History: Heart Failure, Hypertension, Renal Disease Additional Past Medical History / Comment(s): several syncopal events, Stage 5 kidney disease, murmur, "past migraines found they were caused from an oat allergy" History of Any Multi-Drug Resistant Organisms: None Reported Past Surgical History: Appendectomy, Cholecystectomy, Hysterectomy Additional Past Surgical History / Comment(s): pericardial window surgery , L ankle ORIF, bilateral cataracts, fistula L arm Past Anesthesia/Blood Transfusion Reactions: Previous Problems w/ Anesthesia Additional Past Anesthesia/Blood Transfusion Reaction / Comment(s): Pt received blood yrs ago without reaction. takes long time to wake up Past Psychological History: No Psychological Hx Reported Smoking Status: Never smoker Past Alcohol Use History: None Reported Past Drug Use History: None Reported - Past Family History Daughter(s) Additional Family Medical History / Comment(s): Patient has 2 daughters and 1 son with no major medical problems. Mother Family Medical History: Hypertension, Myocardial Infarction ([place]) Additional Family Medical History / Comment(s): Mother at age 86 from a myocardial infarction. She had her kidney removed the patient does not know why. She also had history of hypertension. No known history of adrenal problems. Father Family Medical History: Cancer Additional Family Medical History / Comment(s): Father in his 70s from bladder cancer. Sister(s) Family Medical History: Cancer Additional Family Medical History / Comment(s): Patient has one sister with history of stomach cancer. Patient does not know any other history as she has no contact with her. General Exam General appearance: alert, in no apparent distress Head exam: Present: atraumatic, normocephalic, normal inspection Eye exam: Present: normal appearance, PERRL, EOMI. Absent: scleral icterus, conjunctival injection, periorbital swelling Neck exam: Present: normal inspection, full ROM. Absent: tenderness, meningismus, lymphadenopathy Respiratory exam: Present: normal lung sounds bilaterally. Absent: respiratory distress, wheezes, rales, rhonchi, stridor Cardiovascular Exam: Present: regular rate, normal rhythm, normal heart sounds. Absent: systolic murmur, diastolic murmur, rubs, gallop, clicks GI/Abdominal exam: Present: soft, normal bowel sounds. Absent: distended, tenderness, guarding, rebound, rigid Neurological exam: Present: alert Skin exam: Present: warm, dry, intact, normal color. Absent: rash Course Vital Signs 02/09/23 06:51 Temperature 97.5 F L Pulse Rate 84 Respiratory 16 Rate Blood Pressure 162/79 O2 Sat by Pulse 97 Oximetry EKG Findings - EKG Comments: EKG Findings:: EKG performed at 17:20 sinus rhythm with first-degree block, rate of 88 RI 225 QRS 102 QT/QTC 344/390 - EKG Results: EKG: interpreted by GIULIA Medical Decision Making - Medical Decision Making Was pt. sent in by a medical professional or institution (, PA, SENIOR FUND ACCOUNTANT, urgent care, hospital, or halfway...) When possible be specific @ -No Did you speak to anyone other than the patient for history (EMS, parent, family, police, friend...)? What history was obtained from this source @ -EMS providing prehospital vitals, EKG and complaint Did you review nursing and triage notes (agree or disagree)? Why? @ -I reviewed and agree with nursing and triage notes Were old charts reviewed (outside hosp., previous admission, EMS record, old EKG, old radiological studies, urgent care reports/EKG's, halfway records)? Report findings @ -Reviewed prior laboratory studies Differential Diagnosis (chest pain, altered mental status, abdominal pain women, abdominal pain men, vaginal bleeding, weakness, fever, dyspnea, syncope, headache, dizziness, GI bleed, back pain, seizure, CVA, palpatations, mental health, musculoskeletal)? @ -nDifferential Chest Pain: Stable Angina, Unstable Angina, STEMI, NSTEMI Aortic Dissection, Pneumothorax, Musculoskeletal, Esophageal Spasm GERD, Cholecystitis, Pancreatitis, Zoster, this is not meant to be an all-inclusive list. able EKG interpreted by me (3pts min.). @ -As above X-rays interpreted by me (1pt min.). @ -Chest x-ray shows lateral projection possible pneumonia CT interpreted by me (1pt min.). @ -CT of the chest shows no acute processes no evidence consolidation or infiltrate U/S interpreted by me (1pt. min.). @ -None done What testing was considered but not performed or refused? (CT, X-rays, U/S, labs)? Why? @ -None What meds were considered but not given or refused? Why? @ -None Did you discuss the management of the patient with other professionals (professionals i.e. , PA, SENIOR FUND ACCOUNTANT, lab, RT, psych nurse, social worker aide, civil drafting technician, teacher, low altitude air defense officer, case technician)? Give summary @ -I discussed the case with Dr. Howell nephrology recommend patient to receive hyperkalemic cocktail along with dialysis will be ordered. I discuss case with hospitalist who accepted admission for cardiology evaluation, nephrology Was smoking cessation discussed for >3mins.? @ -No Was critical care preformed (if so, how long)? @ -35mins Were there social determinants of health that impacted care today? How? (Homelessness, low income, unemployed, alcoholism, drug addiction, transportation, low edu. Level, literacy, decrease access to med. care, usp, rehab)? @ -No Was there de-escalation of care discussed even if they declined (Discuss DNR or withdrawal of care, Hospice)? DNR status @ -No What co-morbidities impacted this encounter? (DM, HTN, Smoking, COPD, CAD, Cancer, CVA, ARF, Chemo, Hep., AIDS, mental health diagnosis, sleep apnea, morbid obesity)? @ -Hypertension, renal failure Was patient admitted / discharged? Hospital course, mention meds given and route, prescriptions, significant lab abnormalities, going to OR and other pertinent info. @ -Admitted patient's troponin is negative EKG shows no acute changes patient does have renal failure requiring dialysis patient does have significant hyperkalemia patient was given medications, dialysis was started. Undiagnosed new problem with uncertain prognosis? @ -No Drug Therapy requiring intensive monitoring for toxicity (Heparin, Nitro, Insu geoffrey, Cardizem)? @ -No Were any procedures done? @ -No Diagnosis/symptom? @ -Chest pain Acute, or Chronic, or Acute on Chronic? @ -Acute Uncomplicated (without systemic symptoms) or Complicated (systemic symptoms)? @ - Complicated] Side effects of treatment? @ -No Exacerbation, Progression, or Severe Exacerbation? @ -No Poses a threat to life or bodily function? How? (Chest pain, [place], [place], pneumonia, PE, COPD, DKA, ARF, appy, cholecystitis, CVA, Diverticulitis, Homicidal, Suicidal, threat to staff... and all critical care pts) @ -Yes patient is hypokalemic, chest pain at risk for cardiac arrest Diagnosis/symptom? @ -Hyperkalemic,ESRD on dialysis Acute, or Chronic, or Acute on Chronic? @ -Acute Uncomplicated (without systemic symptoms) or Complicated (systemic symptoms)? @ -Complicated Side effects of treatment? @ -none Exacerbation, Progression, or Severe Exacerbation @ -no Poses a threat to life or bodily function? @ -Yes - Lab Data Result diagrams: 02/09/23 06:57 02/09/23 06:57 Lab Results 02/09/23 02/09/23 02/09/23 Range/Units 06:57 06:57 06:57 WBC 10.6 (3.8-10.6) k/uL RBC 3.52 L (3.80-5.40) m/uL Hgb 11.6 (11.4-16.0) gm/dL Hct 37.3 (34.0-46.0) % MCV 106.0 H (80.0-100.0) fL MCH 32.9 (25.0-35.0) pg MCHC 31.1 (31.0-37.0) g/dL RDW 14.3 (11.5-15.5) % Plt Count 261 (150-450) k/uL MPV 8.8 Neutrophils % 77 % Lymphocytes % 15 % Monocytes % 5 % Eosinophils % 2 % Basophils % 0 % Neutrophils # 8.2 H (1.3-7.7) k/uL Lymphocytes # 1.6 (1.0-4.8) k/uL Monocytes # 0.5 (0-1.0) k/uL Eosinophils # 0.2 (0-0.7) k/uL Basophils # 0.0 (0-0.2) k/uL Macrocytosis Moderate PT 9.6 (9.0-12.0) sec INR 0.9 (<1.2) APTT 26.3 (22.0-30.0) sec Sodium 137 (137-145) mmol/L Potassium 6.9 H* (3.5-5.1) mmol/L Chloride 98 (98-107) mmol/L Carbon Dioxide 21 L (22-30) mmol/L Anion Gap 18 mmol/L BUN 134 H* (7-17) mg/dL Creatinine 10.59 H* (0.52-1.04) mg/dL Est GFR (CKD-EPI)AfAm 3 (>60 ml/min/1.73 sqM) Est GFR (CKD-EPI)NonAf 3 (>60 ml/min/1.73 sqM) Glucose 99 (74-99) mg/dL Calcium 10.0 (8.4-10.2) mg/dL Phosphorus 4.6 H (2.5-4.5) mg/dL Magnesium 2.9 H (1.6-2.3) mg/dL Total Bilirubin 0.5 (0.2-1.3) mg/dL AST 24 (14-36) U/L ALT 16 (4-34) U/L Alkaline Phosphatase 154 H (38-126) U/L Troponin I (0.000-0.034) ng/mL NT-Pro-B Natriuret Pep pg/mL Total Protein 7.5 (6.3-8.2) g/dL Albumin 4.7 (3.5-5.0) g/dL 02/09/23 02/09/23 Range/Units 06:57 06:57 WBC (3.8-10.6) k/uL RBC (3.80-5.40) m/uL Hgb (11.4-16.0) gm/dL Hct (34.0-46.0) % MCV (80.0-100.0) fL MCH (25.0-35.0) pg MCHC (31.0-37.0) g/dL RDW (11.5-15.5) % Plt Count (150-450) k/uL MPV Neutrophils % % Lymphocytes % % Monocytes % % Eosinophils % % Basophils % % Neutrophils # (1.3-7.7) k/uL Lymphocytes # (1.0-4.8) k/uL Monocytes # (0-1.0) k/uL Eosinophils # (0-0.7) k/uL Basophils # (0-0.2) k/uL Macrocytosis PT (9.0-12.0) sec INR (<1.2) APTT (22.0-30.0) sec Sodium (137-145) mmol/L Potassium (3.5-5.1) mmol/L Chloride (98-107) mmol/L Carbon Dioxide (22-30) mmol/L Anion Gap mmol/L BUN (7-17) mg/dL Creatinine (0.52-1.04) mg/dL Est GFR (CKD-EPI)AfAm (>60 ml/min/1.73 sqM) Est GFR (CKD-EPI)NonAf (>60 ml/min/1.73 sqM) Glucose (74-99) mg/dL Calcium (8.4-10.2) mg/dL Phosphorus (2.5-4.5) mg/dL Magnesium (1.6-2.3) mg/dL Total Bilirubin (0.2-1.3) mg/dL AST (14-36) U/L ALT (4-34) U/L Alkaline Phosphatase (38-126) U/L Troponin I <0.012 (0.000-0.034) ng/mL NT-Pro-B Natriuret Pep 7120 pg/mL Total Protein (6.3-8.2) g/dL Albumin (3.5-5.0) g/dL Critical Care Time Critical Care Time: Yes Total Critical Care Time: 35 Disposition Clinical Impression: ESRD on dialysis, Chest pain, Hyperkalemia Disposition: ADMITTED IP TO THIS HOSP Condition: Poor Referrals: Sami Swift MD [Primary Care Provider] - 1-2 days Time of Disposition: 08:45
[2023-02-09 07:16] LABS: Basophils % (A) 0 %; Eosinophils # (A) 0.2 k/uL (0-0.7); Eosinophils % (A) 2 %; HCT 37.3 % (34.0-46.0); HGB 11.6 gm/dL (11.4-16.0); Lymphocytes # (A) 1.6 k/uL (1.0-4.8); Lymphocytes % (A) 15 %; MCH 32.9 pg (25.0-35.0); MCHC 31.1 g/dL (31.0-37.0); Macrocytosis Moderate; Mean Platelet Volume 8.8; Monocytes # (A) 0.5 k/uL (0-1.0); Monocytes % (A) 5 %; Neutrophils # (A) 8.2 k/uL (1.3-7.7); Neutrophils % (A) 77 %; Platelet Count 261 k/uL (150-450); RBC 3.52 m/uL (3.80-5.40); RDW 14.3 % (11.5-15.5); WBC 10.6 k/uL (3.8-10.6)
[2023-02-09 07:18] LABS: ALT 16 U/L (4-34); AST 24 U/L (14-36); African American GFR (CKD) 3 (>60 ml/min/1.73 sqM); Albumin 4.7 g/dL (3.5-5.0); Alkaline Phosphatase 154 U/L (38-126); Anion Gap 18 mmol/L; Carbon Dioxide 21 mmol/L (22-30); Chloride 98 mmol/L (98-107); Glucose 99 mg/dL (74-99); Magnesium 2.9 mg/dL (1.6-2.3); Non-African American GFR(CKD) 3 (>60 ml/min/1.73 sqM); Phosphorus 4.6 mg/dL (2.5-4.5); Sodium 137 mmol/L (137-145); Total Bilirubin 0.5 mg/dL (0.2-1.3); Total Protein 7.5 g/dL (6.3-8.2)
[2023-02-09 07:20] LABS: INR 0.9 (<1.2); Partial Thromboplastin Time 26.3 sec (22.0-30.0); Prothrombin Time 9.6 sec (9.0-12.0)
--- NOTE | 2023-02-09 07:37 | XR ---
EXAMINATION TYPE: XR chest 2V DATE OF EXAM: 02/09/2023 7:33 AM COMPARISON: Chest radiographs from 05/12/2021 TECHNIQUE: XR chest 2V Frontal and lateral views of the chest. CLINICAL INDICATION:Female, 87 years old with history of Chest Pain; FINDINGS: Lungs/Pleura: Prominent interstitial lung markings are seen scattered throughout the lungs with natalia ening of the diaphragm and increased lucency of the lung apices. No evidence of focal consolidation, pneumothorax or pleural effusion. Increased opacification over the spine on lateral view. Pulmonary vascularity: Unremarkable. Heart/mediastinum: Cardiomediastinal silhouette is enlarged and stable. Musculoskeletal: No acute osseous pathology. IMPRESSION: 1. Airspace opacity projects over the spine on lateral view correlate for pneumonia consider further evaluation with CT. 2. COPD and chronic changes.
[2023-02-09 07:41] LABS: Blood Urea Nitrogen 134 mg/dL (7-17); Potassium 6.9 mmol/L (3.5-5.1)
[2023-02-09] MEDS ORDERED: DEXTROSE 50% SYRINGE 50 ML IVP ONE (08:02)
[2023-02-09] MEDS ORDERED: SODIUM ZIRCONIUM CYCLOSILICATE 10 GM PACKET PO ONE (08:02)
[2023-02-09] MEDS ORDERED: INSULIN REGULAR 100 UNIT/ML VIAL (IV) IV ONE (08:02)
[2023-02-09] MEDS ORDERED: CALCIUM GLUCONATE IN NACL 1 GM in SALINE 1 100ML.BAG IVPB ONE (08:30)
--- NOTE | 2023-02-09 09:03 | CT ---
EXAMINATION TYPE: CT chest wo con DATE OF EXAM: 02/09/2023 COMPARISON: Chest x-ray 02/09/2023 HISTORY: Abnormal chest x-ray CT DLP: 315 mGycm, Automated exposure control for dose reduction was used. CONTRAST: Performed injected with 0 mL of Isovue 300. TECHNIQUE: Axial images were obtained at 5 mm thick sections. Reconstructed images are reviewed on [facility] computer in the coronal plane. FINDINGS: Portion of the thyroid visualized is normal. No suspicious lung nodules or focal infiltrates are present. Density on the chest x-ray may be relate d to the prominent vessels of the pulmonary hypertension. No enlarged mediastinal or hilar adenopathy is evident. Vascular calcifications within the aorta. T ascending aorta diameter at the level of the main pulmonary artery is 3.6 cm. The main pulmonary artery diameter at the bifurcation is 4.1 cm. Correlate for pulmonary hypertension. Cardiomegaly is p resent. Some coronary artery calcification is noted. Limited CT sections are obtained through the upper abdomen. Abdomen is essentially unremarkable. IMPRESSIONS: 1. Clinical correlation recommended for pulmonary hypertension. 2. No suspicious infiltrate or consolidation. Findings on chest x-ray may be related to prominent pul monary arterial vessels.
[2023-02-09] MEDS ORDERED: NITROGLYCERIN SL TABS 0.4 MG TAB SUBLINGUAL PRN (09:12)
--- NOTE | 2023-02-09 11:44 | P.NPCON ---
History of Present Illness - Reason for Consult end stage renal disease - History of Present Illness Reason for consultation: End-stage renal disease History of present illness: Patient is a 87-year-old female seen in renal consultation for end-stage renal disease. Patient was seen and examined in the emergency room. She is maintained on hemodialysis on Tuesday schedule via left upper extremity AV fistula. Patient missed hemodialysis treatment on Tuesday as she didn't feel well. Patient felt sick and has been dry heaving. Patient's symptoms improved last night around 2 AM she developed chest pain and came to the hospital. Potassium was noted to be high at 6.9. Heart rate stable. She is on room air. She is undergoing emergent hemodialysis while seen. No vomiting or diarrhea now. No chest pain at this time. Oral intake is fair. No acute changes noted on CT chest. Clinical correlation recommended for pulmonary hypertension. Blood pressure stable. No fever or chills. No abdominal pain. Vital signs are stable. General: No acute distress. HEENT: Head exam is unremarkable. LUNGS: No audible rhonchi or wheezes. HEART: Rate and Rhythm are regular. ABDOMEN: Nontender. EXTREMITITES: 1+ edema. Past Medical History Past Medical History: Heart Failure, Hypertension, Renal Disease Additional Past Medical History / Comment(s): several syncopal events, Stage 5 kidney disease, murmur, "past migraines found they were caused from an oat allergy" History of Any Multi-Drug Resistant Organisms: None Reported Past Surgical History: Appendectomy, Cholecystectomy, Hysterectomy Additional Past Surgical History / Comment(s): pericardial window surgery , L ankle ORIF, bilateral cataracts, fistula L arm Past Anesthesia/Blood Transfusion Reactions: Previous Problems w/ Anesthesia Additional Past Anesthesia/Blood Transfusion Reaction / Comment(s): Pt received blood yrs ago without reaction. takes long time to wake up Past Psychological History: No Psychological Hx Reported Smoking Status: Never smoker Past Alcohol Use History: None Reported Past Drug Use History: None Reported - Past Family History Daughter(s) Additional Family Medical History / Comment(s): Patient has 2 daughters and 1 son with no major medical problems. Mother Family Medical History: Hypertension, Myocardial Infarction ([place]) Additional Family Medical History / Comment(s): Mother at age 86 from a myocardial infarction. She had her kidney removed the patient does not know why. She also had history of hypertension. No known history of adrenal problems. Father Family Medical History: Cancer Additional Family Medical History / Comment(s): Father in his 70s from bladder cancer. Sister(s) Family Medical History: Cancer Additional Family Medical History / Comment(s): Patient has one sister with history of stomach cancer. Patient does not know any other history as she has no contact with her. Medications and Allergies Home Medications Medication Instructions Recorded Confirmed Type Levothyroxine Sodium [Synthroid] 50 mcg PO DAILY 07/05/14 05/12/21 History Spironolactone [Aldactone] 25 mg PO DAILY 10/28/15 05/12/21 History allopurinoL [Zyloprim] 100 mg PO DAILY 12/04/18 05/12/21 History Calcium Acetate [PhosLo] 667 mg PO AC-TID 06/23/20 05/12/21 History Cranberry Fruit Extract [Cranberry] 500 mg PO DAILY 06/23/20 05/12/21 History Lidocaine-Prilocaine Cream [Emla 1 applic TOPICAL DAILY PRN 06/23/20 05/12/21 History Cream 2.5%/2.5%] Metoprolol Tartrate [Lopressor] 12.5 mg PO BID 06/23/20 05/12/21 History Nephro-Frances 0.8mg 1 tab PO DAILY 06/23/20 05/12/21 History amLODIPine [Norvasc] 10 mg PO DAILY 06/23/20 05/12/21 History Magnebind(Unknown Dose) 1 tab PO BID 05/12/21 05/12/21 History Midodrine(Unknown) 1 tab PO DAILY@1200 05/12/21 05/12/21 History hydrALAZINE HCL [Apresoline] 100 mg PO BID 05/12/21 05/12/21 History Sennosides-Docusate Sodium 2 each PO HS tab 05/14/21 Rx [Senokot-S] Enoxaparin [Lovenox] 30 mg SQ DAILY #28 each 05/15/21 Rx Ferrous Sulfate [Iron (65 MG 325 mg PO BID #60 tab 05/15/21 Rx Elemental)] HYDROcodone/APAP 5-325MG [[place] 1 tab PO Q6HR PRN #21 tab 05/15/21 Rx 5-325] Allergies Allergy/AdvReac Type Severity Reaction Status Date / Time adhesive tape Allergy RED SKIN Verified 02/09/23 06:51 levofloxacin [From Levaquin] Allergy Unknown Verified 02/09/23 06:51 metronidazole [From Flagyl] Allergy Anaphylaxis Verified 02/09/23 06:51 nitrofurantoin Allergy Unknown Verified 02/09/23 06:51 [From Macrobid] nitrofurantoin Allergy Unknown Verified 02/09/23 06:51 macrocrystalline [From Macrobid] oats Allergy Unknown Verified 02/09/23 06:51 amiodarone HCl AdvReac Nausea Verified 02/09/23 06:51 [From Pacerone] Physical Exam Vitals: Vital Signs Temp Pulse Resp BP Pulse Ox 02/09/23 06:51 97.5 F L 84 16 162/79 97 Intake and Output 02/08/23 02/09/23 02/09/23 22:59 06:59 14:59 Other: Weight 53.524 kg Results - Lab Results Most recent lab results Calcium 10.0 mg/dL (8.4-10.2) 02/09/23 06:57 Phosphorus 4.6 mg/dL (2.5-4.5) H 02/09/23 06:57 Magnesium 2.9 mg/dL (1.6-2.3) H 02/09/23 06:57 02/09/23 06:57 02/09/23 06:57 Assessment and Plan Plan: Assessment: 1. End-stage renal disease [place] on hemodialysis on Tuesday schedule via left upper extremity AV fistula. 2. Hyperkalemia secondary to missed dialysis treatment. Also noted to be on spironolactone outpatient. 3. Hypertension with chronic kidney disease. 4. Chronic kidney disease mineral bone disease. Phosphorous 4.6. 5. Chest pain. Cardiology consulted. Plan: Currently seen while undergoing hemodialysis. Renal diet. Check potassium level this evening. Thank you for the consultation. I will continue to follow this patient with you during her hospital stay.
[2023-02-09] MEDS ORDERED: HYDROcodone/APAP 5-325MG 1 EACH TAB PO PRN (12:11)
[2023-02-09] MEDS ORDERED: PANTOPRAZOLE 40 MG TABLET PO SCH (12:15)
--- NOTE | 2023-02-09 13:09 | HP ---
HISTORY AND PHYSICAL CHIEF COMPLAINT: Chest pain and nausea. HISTORY OF PRESENT ILLNESS: This is an 87-year-old female with a past medical history of multiple medical problems including chronic kidney disease, on hemodialysis. Actually she missed the last hemodialysis because the patient was not feeling well. The patient subsequently developed a chest pain and came to [facility]. Potassium was found to be 6.9 and creatinine is 10.3. The patient was admitted for further evaluation. Emergency hemodialysis being initiated. Troponins are negative. Cardiology evaluation in progress. There is no history of fever, rigors, or chills. PAST MEDICAL HISTORY: Reviewed include chronic kidney disease, on hemodialysis. The rest of the medications and rest of the history and most of the chart were also reviewed. HOME MEDICATIONS: Reviewed. Doses and the rest of the medications are reviewed. ALLERGIES: Reviewed FAMILY HISTORY: History of hypertension, myocardial infarction. SOCIAL HISTORY: No history of smoking or alcohol intake. REVIEW OF SYSTEMS: Fourteen-point review is negative as mentioned. PHYSICAL EXAMINATION: VITAL SIGNS: Pulse is 84, blood pressure 162/70, respirations 16. HEENT: Conjunctivae normal. NECK: No jugular venous distention. CARDIOVASCULAR: S1, S2 muffled. RESPIRATIONS: No rhonchi, no crackles. ABDOMEN: Soft, nontender. LEGS: No edema. No swelling. SKIN: No ulcer, rash, or bleeding. JOINTS: No active deforming arthropathy. LAB STUDIES: WBC 10.7. The rest of the labs are noted. ASSESSMENT: 1. Chest pain for evaluation, rule out coronary artery syndrome. 2. Nausea, possible acute gastritis or gastroenteritis. 3. Chronic kidney disease, on hemodialysis. 4. Missed hemodialysis. 5. Severe hyperkalemia, on admission. 6. History of congestive heart failure. 7. Multiple complex medical issues. RECOMMENDATIONS: This 87-year-old woman who presented with multiple complex medical issues, we will monitor the patient closely. I would recommend symptomatic treatment. The patient had a chest x-ray which showed some COPD changes. CT of the chest showed pulmonary hypertension. No infectious infiltrate was noted. I would recommend continue the current medications. See orders for further orders. Prognosis guarded. Closely follow with multiple consultants. Further recommendations to follow. MMODL / IJN: [id number] / ITZ
--- NOTE | 2023-02-09 13:30 | P.CRDCN ---
History of Present Illness History of present illness: HISTORY OF PRESENT ILLNESS: This is a 87-year-old female with a past medical history significant for hypertension, hypothyroidism, and chronic kidney disease. Patient follows in the office with Dr. Rubio. We have been asked to see the patient in consultation for chest pain. Patient examined at the bedside in the emergency room. Patient presented to the hospital with a chief complaint of chest pain. Patient states she has been having nausea, vomiting, and diarrhea for the past few days. She missed her dialysis session due to this. She states the pain was on the right side of her chest and radiated into her back. She reported feeling a little short of breath. She denies any cough. Denied any fever or chills. She is currently undergoing hemodialysis at the time of examination. The patient began to feel a little lightheaded and the dialysis nurse is giving her back some fluid. * EKG reveals sinus mechanism with no signs of acute ischemia * Chest xray airspace opacity projects over the spine on lateral view correlate for pneumonia consider further evaluation CT. COPD and chronic changes. * Laboratory data: WBC 10.6. Hemoglobin 11.6. Pulse count 261. Sodium 137. Potassium 6.9. BUN 134. Creatinine 10.59. Troponin negative 1. ProBNP 712 0. * Current home cardiac medications include hydralazine 100 mg twice a day, amlodipine 10 mg daily, Aldactone 25 mg daily, metoprolol tartrate 12.5 mg twice a day * Most recent echocardiogram obtained in the cardiology office in April 2022 revealed normal ejection fraction, [id number] TR, mild to moderate MR * Patient underwent stress testing and May 2013 which was negative for ischemia REVIEW OF SYSTEMS: At the time of my exam: CONSTITUTIONAL: Denies fever or chills. HEENT: Denies blurred vision, vision changes, or eye pain. Denies hemoptysis CARDIOVASCULAR: Denies chest pain. Denies orthopnea. Denies PND. Denies palpitations RESPIRATORY: Denies shortness of breath. GASTROINTESTINAL: Denies abdominal pain. Denies nausea or vomiting. HEMATOLOGIC: Denies bleeding disorders. GENITOURINARY: Denies any blood in urine. SKIN: Denies pruitis. Denies rash. PHYSICAL EXAM: VITAL SIGNS: Reviewed. GENERAL: Well-developed in no acute distress. HEENT: Head is normocephalic. Pupils are equal, round. Sclerae anicteric. Mucous membranes of the mouth are moist. Neck supple. No JVD or thyromegaly LUNGS: Respirations even and unlabored. Lungs essentially clear to auscultation bilaterally. HEART: Regular rate and rhythm. S1 and S2 heard. Systolic murmur noted ABDOMEN: Soft. Nondistended. Nontender. EXTREMITIES: Normal range of motion. No clubbing or cyanosis. Peripheral pulses intact. Trace bilateral lower extremity edema NEUROLOGIC: Awake and alert. Oriented x 3. ASSESSMENT: Chest pain, atypical, troponin negative 2 End-stage renal disease on hemodialysis with missed dialysis sessions Hypertension Hyperkalemia Nausea, vomiting, diarrhea History of pericardial effusion requiring pericardial window, 14 years ago, per patient PLAN: Obtain 2-D echo to assess cardiac structure and function Trend troponins Resume home cardiac medications Nephrology consulted for hemodialysis Further recommendations pending patient's course Nurse practitioner note has been reviewed by physician. Signing provider agrees with the documented findings, assessment, and plan of care. Past Medical History Past Medical History: Heart Failure, Hypertension, Renal Disease Additional Past Medical History / Comment(s): several syncopal events, Stage 5 kidney disease, murmur, "past migraines found they were caused from an oat allergy" History of Any Multi-Drug Resistant Organisms: None Reported Past Surgical History: Appendectomy, Cholecystectomy, Hysterectomy Additional Past Surgical History / Comment(s): pericardial window surgery , L ankle ORIF, bilateral cataracts, fistula L arm Past Anesthesia/Blood Transfusion Reactions: Previous Problems w/ Anesthesia Additional Past Anesthesia/Blood Transfusion Reaction / Comment(s): Pt received blood yrs ago without reaction. takes long time to wake up Past Psychological History: No Psychological Hx Reported Smoking Status: Never smoker Past Alcohol Use History: None Reported Past Drug Use History: None Reported - Past Family History Daughter(s) Additional Family Medical History / Comment(s): Patient has 2 daughters and 1 son with no major medical problems. Mother Family Medical History: Hypertension, Myocardial Infarction ([place]) Additional Family Medical History / Comment(s): Mother at age 86 from a myocardial infarction. She had her kidney removed the patient does not know why. She also had history of hypertension. No known history of adrenal problems. Father Family Medical History: Cancer Additional Family Medical History / Comment(s): Father in his 70s from bladder cancer. Sister(s) Family Medical History: Cancer Additional Family Medical History / Comment(s): Patient has one sister with history of stomach cancer. Patient does not know any other history as she has no contact with her. Medications and Allergies Home Medications Medication Instructions Recorded Confirmed Type Levothyroxine Sodium [Synthroid] 50 mcg PO DAILY 07/05/14 05/12/21 History Spironolactone [Aldactone] 25 mg PO DAILY 10/28/15 05/12/21 History allopurinoL [Zyloprim] 100 mg PO DAILY 12/04/18 05/12/21 History Calcium Acetate [PhosLo] 667 mg PO AC-TID 06/23/20 05/12/21 History Cranberry Fruit Extract [Cranberry] 500 mg PO DAILY 06/23/20 05/12/21 History Lidocaine-Prilocaine Cream [Emla 1 applic TOPICAL DAILY PRN 06/23/20 05/12/21 History Cream 2.5%/2.5%] Metoprolol Tartrate [Lopressor] 12.5 mg PO BID 06/23/20 05/12/21 History amLODIPine [Norvasc] 10 mg PO DAILY 06/23/20 05/12/21 History hydrALAZINE HCL [Apresoline] 100 mg PO BID 05/12/21 05/12/21 History Vit B Complx C/Folic Acid/Zinc 1 tab PO DAILY 02/09/23 02/09/23 History [Renaplex Tablet] Allergies Allergy/AdvReac Type Severity Reaction Status Date / Time adhesive tape Allergy RED SKIN Verified 02/09/23 13:03 levofloxacin [From Levaquin] Allergy Anaphylaxis Verified 02/09/23 13:03 metronidazole [From Flagyl] Allergy Anaphylaxis Verified 02/09/23 13:03 nitrofurantoin Allergy Anaphylaxis Verified 02/09/23 13:03 [From Macrobid] nitrofurantoin Allergy Anaphylaxis Verified 02/09/23 13:03 macrocrystalline [From Macrobid] oats Allergy Unknown Verified 02/09/23 13:03 sulfacetamide Allergy Anaphylaxis Verified 02/09/23 13:03 amiodarone HCl AdvReac Nausea & Verified 02/09/23 13:03 [From Pacerone] Vomiting cephalexin [From Keflex] AdvReac blood in Verified 02/09/23 13:03 stool clarithromycin AdvReac Nausea & Verified 02/09/23 13:03 Vomiting Physical Exam Vitals: Vital Signs Temp Pulse Resp BP Pulse Ox 02/09/23 06:51 97.5 F L 84 16 162/79 97 Intake and Output 02/08/23 02/09/23 02/09/23 22:59 06:59 14:59 Other: Weight 53.524 kg Results 02/09/23 06:57 02/09/23 06:57 Cardiac Enzymes 02/09/23 02/09/23 Range/Units 06:57 06:57 AST 24 (14-36) U/L Troponin I <0.012 (0.000-0.034) ng/mL Coagulation 02/09/23 Range/Units 06:57 PT 9.6 (9.0-12.0) sec APTT 26.3 (22.0-30.0) sec CBC 02/09/23 Range/Units 06:57 WBC 10.6 (3.8-10.6) k/uL RBC 3.52 L (3.80-5.40) m/uL Hgb 11.6 (11.4-16.0) gm/dL Hct 37.3 (34.0-46.0) % Plt Count 261 (150-450) k/uL Comprehensive Metabolic Panel 02/09/23 Range/Units 06:57 Sodium 137 (137-145) mmol/L Potassium 6.9 H* (3.5-5.1) mmol/L Chloride 98 (98-107) mmol/L Carbon Dioxide 21 L (22-30) mmol/L BUN 134 H* (7-17) mg/dL Creatinine 10.59 H* (0.52-1.04) mg/dL Glucose 99 (74-99) mg/dL Calcium 10.0 (8.4-10.2) mg/dL AST 24 (14-36) U/L ALT 16 (4-34) U/L Alkaline Phosphatase 154 H (38-126) U/L Total Protein 7.5 (6.3-8.2) g/dL Albumin 4.7 (3.5-5.0) g/dL Current Medications Generic Name Dose Route Start Last Admin Trade Name Freq PRN Reason Stop Dose Admin Nitroglycerin 0.4 mg 02/09/23 09:12 Nitroglycerin Sl Tabs 0.4 Mg Tab SUBLINGUAL Q5M PRN Chest Pain Intake and Output 02/08/23 02/09/23 02/09/23 22:59 06:59 14:59 Other: Weight 53.524 kg 02/09/23 06:57 02/09/23 06:57
[2023-02-09] MEDS: PANTOPRAZOLE 40 MG/10 ML VIAL IVP SCH ×2 (15:00→21:21)
[2023-02-09] MEDS: HEPARIN SODIUM,PORCINE/PF 5,000 UNIT/0.5 ML SYRINGE SQ SCH ×2 (15:01→21:23)
[2023-02-09] MEDS ORDERED: CALCIUM ACETATE 667 MG TAB PO SCH (21:00)
[2023-02-09] MEDS: hydrALAZINE HCL 50 MG TAB PO SCH (21:20)
[2023-02-09] MEDS: CALCIUM ACETATE 667 MG TAB PO SCH (21:20)
[2023-02-09] MEDS: METOPROLOL TARTRATE 12.5 MG TAB PO SCH (21:21)
[2023-02-09] MEDS: amLODIPine 10 MG TAB PO SCH (21:21)
[2023-02-10] MEDS: MAGNEBIND PO SCH ×2 (06:16→17:54)
[2023-02-10] MEDS: LEVOTHYROXINE 50 MCG TAB PO SCH (06:45)
[2023-02-10] MEDS: CALCIUM ACETATE 667 MG TAB PO SCH ×3 (06:45→17:55)
[2023-02-10 08:10] LABS: Basophils % (A) 0 %; Eosinophils # (A) 0.1 k/uL (0-0.7); Eosinophils % (A) 1 %; HCT 34.9 % (34.0-46.0); HGB 11.1 gm/dL (11.4-16.0); Lymphocytes # (A) 1.1 k/uL (1.0-4.8); Lymphocytes % (A) 16 %; MCH 33.2 pg (25.0-35.0); MCHC 31.9 g/dL (31.0-37.0); Macrocytosis Slight; Mean Platelet Volume 9.2; Monocytes # (A) 0.4 k/uL (0-1.0); Monocytes % (A) 7 %; Neutrophils # (A) 4.8 k/uL (1.3-7.7); Neutrophils % (A) 74 %; Platelet Count 225 k/uL (150-450); RBC 3.36 m/uL (3.80-5.40); RDW 14.3 % (11.5-15.5); WBC 6.5 k/uL (3.8-10.6)
[2023-02-10 08:48] LABS: African American GFR (CKD) 7 (>60 ml/min/1.73 sqM); Anion Gap 12 mmol/L; Blood Urea Nitrogen 46 mg/dL (7-17); Calcium 9.5 mg/dL (8.4-10.2); Carbon Dioxide 28 mmol/L (22-30); Chloride 93 mmol/L (98-107); Glucose 105 mg/dL (74-99); Non-African American GFR(CKD) 6 (>60 ml/min/1.73 sqM); Potassium 5.5 mmol/L (3.5-5.1); Sodium 133 mmol/L (137-145)
[2023-02-10] MEDS ORDERED: SPIRONOLACTONE 25 MG TAB PO SCH (09:00)
[2023-02-10] MEDS: allopurinoL 100 MG TAB PO SCH (09:55)
[2023-02-10] MEDS: amLODIPine 10 MG TAB PO SCH (09:55)
[2023-02-10] MEDS: HEPARIN SODIUM,PORCINE/PF 5,000 UNIT/0.5 ML SYRINGE SQ SCH ×2 (09:55→19:28)
[2023-02-10] MEDS: PANTOPRAZOLE 40 MG/10 ML VIAL IVP SCH ×2 (09:55→19:28)
[2023-02-10] MEDS: FOLIC ACID-VIT B COMPLEX-VIT C 1 CAP PO SCH (09:56)
[2023-02-10] MEDS: hydrALAZINE HCL 50 MG TAB PO SCH ×3 (09:56→19:28)
[2023-02-10] MEDS: METOPROLOL TARTRATE 12.5 MG TAB PO SCH ×2 (09:56→19:28)
[2023-02-10 11:18] LABS: Chol/HDL Ratio 2.35 Ratio; LDL Cholesterol,Calculated 80.5 mg/dL (0.0-131.0)
--- NOTE | 2023-02-10 11:58 | P.PN ---
Subjective HISTORY OF PRESENT ILLNESS: This is a 87-year-old female with a past medical history significant for hypertension, hypothyroidism, and chronic kidney disease. Patient follows in the office with Dr. Rubio. We have been asked to see the patient in consultation for chest pain. Patient examined at the bedside in the emergency room. Patient presented to the hospital with a chief complaint of chest pain. Patient states she has been having nausea, vomiting, and diarrhea for the past few days. She missed her dialysis session due to this. She states the pain was on the right side of her chest and radiated into her back. She reported feeling a little short of breath. She denies any cough. Denied any fever or chills. She is currently undergoing hemodialysis at the time of examination. The patient began to feel a little lightheaded and the dialysis nurse is giving her back some fluid. * EKG reveals sinus mechanism with no signs of acute ischemia * Chest xray airspace opacity projects over the spine on lateral view correlate for pneumonia consider further evaluation CT. COPD and chronic changes. * Laboratory data: WBC 10.6. Hemoglobin 11.6. Pulse count 261. Sodium 137. Potassium 6.9. BUN 134. Creatinine 10.59. Troponin negative 1. ProBNP 7120. * Current home cardiac medications include hydralazine 100 mg twice a day, amlodipine 10 mg daily, Aldactone 25 mg daily, metoprolol tartrate 12.5 mg twice a day * Most recent echocardiogram obtained in the cardiology office in April 2022 revealed normal ejection fraction, [id number] TR, mild to moderate MR * Patient underwent stress testing and May 2013 which was negative for ischemia 02/10/2023 Patient examined this morning to bedside. Patient underwent hemodialysis yesterday. Patient denies any further episodes of chest pain or pressure. She denies shortness of breath. Patient states she is not scheduled to have hemodialysis today. Vital signs are stable. PHYSICAL EXAM: VITAL SIGNS: Reviewed. GENERAL: Well-developed in no acute distress. HEENT: Head is normocephalic. Pupils are equal, round. Sclerae anicteric. Mucous membranes of the mouth are moist. Neck supple. No JVD or thyromegaly LUNGS: Respirations even and unlabored. Lungs essentially clear to auscultation bilaterally. HEART: Regular rate and rhythm. S1 and S2 heard. Systolic murmur noted ABDOMEN: Soft. Nondistended. Nontender. EXTREMITIES: Normal range of motion. No clubbing or cyanosis. Peripheral pulses intact. Trace bilateral lower extremity edema NEUROLOGIC: Awake and alert. Oriented x 3. ASSESSMENT: Chest pain, atypical, troponin negative 2 End-stage renal disease on hemodialysis with missed dialysis sessions Hypertension Hyperkalemia Nausea, vomiting, diarrhea History of pericardial effusion requiring pericardial window, 14 years ago, per patient PLAN: 2-D echo has been ordered. Await results. Continue current cardiac medications Patient is stable for discharge home today from a cardiac standpoint She is to follow up in the office with Dr. Rubio Nurse practitioner note has been reviewed by physician. Signing provider agrees with the documented findings, assessment, and plan of care. Objective - Vital Signs Vital signs: Vital Signs Temp 98.0 F 02/10/23 04:00 Pulse 73 02/10/23 04:00 Resp 19 02/10/23 04:00 BP 169/70 02/10/23 04:00 Pulse Ox 97 02/10/23 09:22 FiO2 Intake & Output 02/09/23 02/10/23 02/10/23 18:59 06:59 18:59 Intake Total 700 120 Output Total 1700 Balance -1000 120 Weight 53.5 kg Intake: Oral 120 Hemodialysis 700 Output: Hemodialysis 1700 Other: Voiding Method Toilet - Labs CBC & Chem 7: 02/10/23 07:24 02/10/23 07:24 Labs: Abnormal Lab Results - Last 24 Hours (Table) 02/10/23 02/10/23 Range/Units 07:24 07:24 RBC 3.36 L (3.80-5.40) m/uL Hgb 11.1 L (11.4-16.0) gm/dL MCV 104.0 H (80.0-100.0) fL Sodium 133 L (137-145) mmol/L Potassium 5.5 H (3.5-5.1) mmol/L Chloride 93 L (98-107) mmol/L BUN 46 H (7-17) mg/dL Creatinine 5.64 H (0.52-1.04) mg/dL Glucose 105 H (74-99) mg/dL HDL Cholesterol 76.10 H (40.00-60.00) mg/dL
[2023-02-10] MEDS: NON FORMULARY DRUG (Cranberry Fruit Extract [Cranberry] 200 MG Capsule) PO SCH (12:19)
[2023-02-10] MEDS ORDERED: SODIUM ZIRCONIUM CYCLOSILICATE 10 GM PACKET PO ONE (12:37)
--- NOTE | 2023-02-10 12:39 | P.PN ---
Subjective Patient is seen in follow-up for end-stage renal disease. She is maintained on hemodialysis on Tuesday schedule. No problems with dialysis yesterday. No active complaints. Vital signs are stable. General: No acute distress. HEENT: Head exam is unremarkable. LUNGS: No audible rhonchi or wheezes. HEART: Rate and Rhythm are regular. ABDOMEN: Nontender. EXTREMITITES: No edema. Objective - Vital Signs Vital signs: Vital Signs Temp 97.9 F 02/10/23 08:00 Pulse 72 02/10/23 08:00 Resp 18 02/10/23 08:00 BP 151/72 02/10/23 08:00 Pulse Ox 97 02/10/23 09:22 FiO2 Intake & Output 02/09/23 02/10/23 02/10/23 18:59 06:59 18:59 Intake Total 700 120 Output Total 1700 Balance -1000 120 Weight 53.5 kg Intake: Oral 120 Hemodialysis 700 Output: Hemodialysis 1700 Other: Voiding Method Toilet Toilet - Labs CBC & Chem 7: 02/10/23 07:24 02/10/23 07:24 Labs: Abnormal Lab Results - Last 24 Hours (Table) 02/10/23 02/10/23 Range/Units 07:24 07:24 RBC 3.36 L (3.80-5.40) m/uL Hgb 11.1 L (11.4-16.0) gm/dL MCV 104.0 H (80.0-100.0) fL Sodium 133 L (137-145) mmol/L Potassium 5.5 H (3.5-5.1) mmol/L Chloride 93 L (98-107) mmol/L BUN 46 H (7-17) mg/dL Creatinine 5.64 H (0.52-1.04) mg/dL Glucose 105 H (74-99) mg/dL HDL Cholesterol 76.10 H (40.00-60.00) mg/dL Assessment and Plan Plan: Assessment: 1. End-stage renal disease Nicole on hemodialysis on Tuesday schedule via left upper extremity AV fistula. 2. Hyperkalemia secondary to missed dialysis treatment. Also noted to be on spironolactone outpatient. Improved postdialysis. 3. Hypertension with chronic kidney disease. 4. Chronic kidney disease mineral bone disease. Phosphorous 4.6. 5. Chest pain. Cardiology following. Plan: Hemodialysis tomorrow. Renal diet. Lokelma 10 g once now. Echocardiogram pending. Stop spironolactone due to hyperkalemia.
--- NOTE | 2023-02-10 17:08 | CA ---
Transthoracic Echo Report Name: Inocencia Maynard Age: 87 Gender: F : 1935 Exam Date: 02/10/2023 14:40 Exam Location: [facility] Ht (in): 62 Wt (lb): 118 Ordering Physician: Carlee Moe Attending/Referring Phys: [id number], Payal [employer] Mixer Evelyn Zapata RDCS Procedure CPT: Indications: LV function, CP Cardiac Hx: Technical Quality: Fair Contrast 1: Total Dose (mL): Contrast 2: Total Dose (mL): MEASUREMENTS (Male / Female) Normal Values 2D ECHO LV Diastolic Diameter PLAX 3.6 cm 4.2 - 5.9 / 3.9 - 5.3 cm LV Systolic Diameter PLAX 2.4 cm IVS Diastolic Thickness 1.5 cm 0.6 - 1.0 / 0.6 - 0.9 cm LVPW Diastolic Thickness 1.5 cm 0.6 - 1.0 / 0.6 - 0.9 cm LV Relative Wall Thickness 0.8 LA Volume 89.8 cm??? 18 - 58 / 22 - 52 cm??? M-MODE Aortic Root Diameter MM 2.9 cm LA Systolic Diameter MM 4.5 cm LA Ao Ratio MM 1.5 DOPPLER AV Peak Velocity 179.1 cm/s AV Peak Gradient 12.8 mmHg AV Mean Velocity 127.8 cm/s AV Mean Gradient 7.0 mmHg AV Velocity Time Integral 39.4 cm LVOT Peak Velocity 121.3 cm/s LVOT Peak Gradient 5.9 mmHg LVOT Velocity Time Integral 27.6 cm MV Area PHT 3.8 cm??? Mitral E Point Velocity 88.8 cm/s Mitral A Point Velocity 120.2 cm/s Mitral E to A Ratio 0.7 MV Deceleration Time 202.1 ms MV E' Velocity 4.7 cm/s Mitral E to MV E' Ratio 18.9 TR Peak Velocity 274.4 cm/s TR Peak Gradient 30.1 mmHg Right Ventricular Systolic Press 38.0 mmHg FINDINGS Left Ventricle Moderately increased left ventricular wall thickness. Normal left ventricular systolic function with no obvious regional wall motion abnormalities. Left ventricular cavity size normal. Left ventricular ejection fraction is estimated at 55-60 %. Right Ventricle Normal right ventricular size and function. Mild pulmonary hypertension. Right Atrium Normal right atrial size. Left Atrium Severely increased left atrial volume. Mildly increased left atrial area. Mitral Valve Structurally normal mitral valve. Mild mitral annular calcification. Moderate mitral regurgitation. Aortic Valve No aortic valve stenosis or regurgitation. Aortic valve sclerosis. Tricuspid Valve Structurally normal tricuspid valve. Mild tricuspid regurgitation. Pulmonic Valve Trace pulmonic regurgitation. Pericardium No pericardial effusion. Aorta Normal size aortic root and proximal ascending aorta. CONCLUSIONS Moderate mitral regurgitation Mild tricuspid regurgitation Previewed by: Jeffery Voss MD Dr. Suresh Tumma MD (Electronically Signed) Final Date: 10 February 2023 17:07
--- NOTE | 2023-02-10 18:58 | P.PN ---
Subjective Progress Note Date: 02/10/23 This is a pleasant 87-year-old female who was recently admitted after missing hemodialysis normally maintained on Tuesday/Tuesday/Tuesday and had some vomiting and missed dialysis. Patient came to the ER for further evaluation with an elevated potassium as well as some associated chest pain. Patient was seen and evaluated by cardiology as well as nephrology and given hemodialysis. Patient is scheduled to receive hemodialysis in the morning and then will likely discharge. Patient reports feeling slightly better today. 2-D echo was ordered and pending at this time. Patient is afebrile with no reports of chest pain or shortness of breath. No reported nausea or vomiting and patient is tolerating diet. Review of systems: Constitutional: No reports of fatigue, fever, or chills Cardiovascular: No reports of chest pain or palpitations Respiratory: No reports of shortness of breath or cough GI: No reports of nausea, no reports of vomiting, : No reports of dysuria or retention Neurovascular: reports of generalized weakness, All medications have been reviewed Active Medications PHYSICAL EXAMINATION: GENERAL: The patient is alert and oriented x4, build, elderly appearing HEENT: Pupils are round and equally reacting to light. EOMI. no scleral icterus. No conjunctival pallor. Normocephalic, atraumatic. No pharyngeal erythema. No thyromegaly. CARDIOVASCULAR: S1 and S2 muffled PULMONARY: diminished breath sounds bilaterally with no wheezing or rhonchi noted. ABDOMEN: soft. Nontender on exam. non-distended, normoactive bowel sounds. No palpable organomegaly. MUSCULOSKELETAL: No joint swelling or deformity. EXTREMITIES: No cyanosis, clubbing, or pedal edema. NEUROLOGICAL: Gross neurological examination did not reveal any focal deficits. Diffuse weakness SKIN: No rashes. Assessment: Chest pain for evaluation, ruled out ACS Nausea with possible acute gastritis or gastroenteritis Chronic kidney disease on hemodialysis Tuesday/Tuesday/Tuesday Missed hemodialysis Severe hyperkalemia, on admission History of congestive heart failure GI prophylaxis DVT prophylaxis Full code Plan: Recommend to continue with current medications and management with cardiology as well as nephrology following. Patient received hemodialysis reports to feeling somewhat better and will be monitored overnight for any further chest pain and have dialysis again in the a.m. and probable discharge in 24 hours. Patient follow-up with nephrology outpatient and continued on scheduled Tuesday/Tuesday/Tuesday hemodialysis. Patient with some social barriers and takes the local bussing to and from hemodialysis and needs to be scheduled and given patient was hospitalized, patient unable to schedule a pickup for tomorrow's dialysis. Patient will have hemodialysis in the hospital and then discharge Encourage small frequent meals and low potassium diet. Due to multiple complex medical issues, prognosis is guarded The impression and plan of care has been dictated by Kaya Damon, nurse practitioner as directed. Dr. Hunter MD I have performed a history and examination and MDM of this patient, discussed the same with the dictator, and agree with the dictator's assessment and plan as written ,documented as a scribe. Based on total visit time, I have performed more than 50% of the visit. Any additional findings or plans will be noted. Objective - Vital Signs Vital signs: Vital Signs Temp 97.9 F 02/10/23 08:00 Pulse 70 02/10/23 14:00 Resp 17 02/10/23 14:00 BP 152/72 02/10/23 12:00 Pulse Ox 97 02/10/23 12:00 FiO2 Intake & Output 02/09/23 02/10/23 02/10/23 18:59 06:59 18:59 Intake Total 700 120 Output Total 1700 0 Balance -1000 120 Weight 53.5 kg Intake: Oral 120 Hemodialysis 700 Output: Gastric Drainage 0 Urine 0 Stool 0 Urine/Stool Mix 0 Emesis 0 Hemodialysis 1700 Other 0 Other: Voiding Method Toilet Toilet # Voids 0 # Bowel Movements 0 - Labs CBC & Chem 7: 02/10/23 07:24 02/10/23 07:24 Labs: Abnormal Lab Results - Last 24 Hours (Table) 02/10/23 02/10/23 Range/Units 07:24 07:24 RBC 3.36 L (3.80-5.40) m/uL Hgb 11.1 L (11.4-16.0) gm/dL MCV 104.0 H (80.0-100.0) fL Sodium 133 L (137-145) mmol/L Potassium 5.5 H (3.5-5.1) mmol/L Chloride 93 L (98-107) mmol/L BUN 46 H (7-17) mg/dL Creatinine 5.64 H (0.52-1.04) mg/dL Glucose 105 H (74-99) mg/dL HDL Cholesterol 76.10 H (40.00-60.00) mg/dL
[2023-02-11] MEDS: LEVOTHYROXINE 50 MCG TAB PO SCH (06:24)
[2023-02-11] MEDS: CALCIUM ACETATE 667 MG TAB PO SCH ×2 (06:25→12:14)
[2023-02-11] MEDS: MAGNEBIND PO SCH (06:25)
[2023-02-11] MEDS: PANTOPRAZOLE 40 MG/10 ML VIAL IVP SCH (09:49)
[2023-02-11] MEDS: HEPARIN SODIUM,PORCINE/PF 5,000 UNIT/0.5 ML SYRINGE SQ SCH (09:50)
[2023-02-11] MEDS: NON FORMULARY DRUG (Cranberry Fruit Extract [Cranberry] 200 MG Capsule) PO SCH (09:50)
[2023-02-11] MEDS: allopurinoL 100 MG TAB PO SCH (09:50)
[2023-02-11] MEDS: FOLIC ACID-VIT B COMPLEX-VIT C 1 CAP PO SCH (09:50)
[2023-02-11 10:00] LABS: African American GFR (CKD) 5 (>60 ml/min/1.73 sqM); Anion Gap 14 mmol/L; Blood Urea Nitrogen 67 mg/dL (7-17); Calcium 9.5 mg/dL (8.4-10.2); Carbon Dioxide 27 mmol/L (22-30); Chloride 91 mmol/L (98-107); Glucose 141 mg/dL (74-99); Non-African American GFR(CKD) 4 (>60 ml/min/1.73 sqM); Potassium 5.6 mmol/L (3.5-5.1); Sodium 132 mmol/L (137-145)
--- NOTE | 2023-02-11 11:59 | P.PN ---
Subjective HISTORY OF PRESENT ILLNESS: This is a 87-year-old female with a past medical history significant for hypertension, hypothyroidism, and chronic kidney disease. Patient follows in the office with Dr. Rubio. We have been asked to see the patient in consultation for chest pain. Patient examined at the bedside in the emergency room. Patient presented to the hospital with a chief complaint of chest pain. Patient states she has been having nausea, vomiting, and diarrhea for the past few days. She missed her dialysis session due to this. She states the pain was on the right side of her chest and radiated into her back. She reported feeling a little short of breath. She denies any cough. Denied any fever or chills. She is currently undergoing hemodialysis at the time of examination. The patient began to feel a little lightheaded and the dialysis nurse is giving her back some fluid. * EKG reveals sinus mechanism with no signs of acute ischemia * Chest xray airspace opacity projects over the spine on lateral view correlate for pneumonia consider further evaluation CT. COPD and chronic changes. * Laboratory data: WBC 10.6. Hemoglobin 11.6. Pulse count 261. Sodium 137. Potassium 6.9. BUN 134. Creatinine 10.59. Troponin negative 1. ProBNP 7120. * Current home cardiac medications include hydralazine 100 mg twice a day, amlodipine 10 mg daily, Aldactone 25 mg daily, metoprolol tartrate 12.5 mg twice a day * Most recent echocardiogram obtained in the cardiology office in April 2022 revealed normal ejection fraction, [id number] TR, mild to moderate MR * Patient underwent stress testing and May 2013 which was negative for ischemia 02/10/2023 Patient examined this morning to bedside. Patient underwent hemodialysis yesterday. Patient denies any further episodes of chest pain or pressure. She denies shortness of breath. Patient states she is not scheduled to have hemodialysis today. Vital signs are stable. 02/11/2023 Patient examined this morning at the bedside. Patient denies any further episodes of chest pain or pressure. She denies shortness of breath. Patient's blood pressure is slightly elevated this morning. However she states this is common prior to receiving dialysis and then her blood pressure normalizes during treatment. She is currently receiving hemodialysis at time of examination. Echocardiogram performed reveals ejection fraction 55-60%, moderate mitral regurgitation, and mild tricuspid regurgitation. PHYSICAL EXAM: VITAL SIGNS: Reviewed. GENERAL: Well-developed in no acute distress. HEENT: Head is normocephalic. Pupils are equal, round. Sclerae anicteric. Mucous membranes of the mouth are moist. Neck supple. No JVD or thyromegaly LUNGS: Respirations even and unlabored. Lungs essentially clear to auscultation bilaterally. HEART: Regular rate and rhythm. S1 and S2 heard. Systolic murmur noted ABDOMEN: Soft. Nondistended. Nontender. EXTREMITIES: Normal range of motion. No clubbing or cyanosis. Peripheral pulses intact. Trace bilateral lower extremity edema NEUROLOGIC: Awake and alert. Oriented x 3. ASSESSMENT: Chest pain, atypical, troponin negative 2 End-stage renal disease on hemodialysis with missed dialysis sessions Hypertension Hyperkalemia Nausea, vomiting, diarrhea History of pericardial effusion requiring pericardial window, 14 years ago, per patient PLAN: Continue current cardiac medications Patient is stable for discharge home today from a cardiac standpoint She is to follow up in the office with Dr. Rubio We will sign off. Please reconsult if needed. Nurse practitioner note has been reviewed by physician. Signing provider agrees with the documented findings, assessment, and plan of care. Objective - Vital Signs Vital signs: Vital Signs Temp 97.3 F L 02/11/23 09:45 Pulse 74 02/11/23 09:45 Resp 20 02/11/23 09:45 BP 166/77 02/11/23 09:45 Pulse Ox 98 02/11/23 09:45 FiO2 Intake & Output 02/10/23 02/11/23 02/11/23 18:59 06:59 18:59 Intake Total 230 240 Output Total 0 Balance 230 240 Intake: Oral 230 240 Output: Gastric Drainage 0 Urine 0 Stool 0 Urine/Stool Mix 0 Emesis 0 Other 0 Other: Voiding Method Toilet Toilet Toilet # Voids 0 1 # Bowel Movements 0 - Labs CBC & Chem 7: 02/10/23 07:24 02/11/23 09:14 Labs: Abnormal Lab Results - Last 24 Hours (Table) 02/11/23 Range/Units 09:14 Sodium 132 L (137-145) mmol/L Potassium 5.6 H (3.5-5.1) mmol/L Chloride 91 L (98-107) mmol/L BUN 67 H (7-17) mg/dL Creatinine 8.01 H* (0.52-1.04) mg/dL Glucose 141 H (74-99) mg/dL
--- NOTE | 2023-02-11 12:11 | P.PN ---
Subjective Patient is seen in follow-up for end-stage renal disease. She is maintained on hemodialysis on Tuesday schedule. Tolerating dialysis well. No active complaints. Vital signs are stable. General: No acute distress. HEENT: Head exam is unremarkable. LUNGS: No audible rhonchi or wheezes. HEART: Rate and Rhythm are regular. ABDOMEN: Nontender. EXTREMITITES: No edema. Objective - Vital Signs Vital signs: Vital Signs Temp 97.3 F L 02/11/23 09:45 Pulse 74 02/11/23 09:45 Resp 20 02/11/23 09:45 BP 166/77 02/11/23 09:45 Pulse Ox 98 02/11/23 09:45 FiO2 Intake & Output 02/10/23 02/11/23 02/11/23 18:59 06:59 18:59 Intake Total 230 240 Output Total 0 Balance 230 240 Intake: Oral 230 240 Output: Gastric Drainage 0 Urine 0 Stool 0 Urine/Stool Mix 0 Emesis 0 Other 0 Other: Voiding Method Toilet Toilet Toilet # Voids 0 1 # Bowel Movements 0 - Labs CBC & Chem 7: 02/10/23 07:24 02/11/23 09:14 Labs: Abnormal Lab Results - Last 24 Hours (Table) 02/11/23 Range/Units 09:14 Sodium 132 L (137-145) mmol/L Potassium 5.6 H (3.5-5.1) mmol/L Chloride 91 L (98-107) mmol/L BUN 67 H (7-17) mg/dL Creatinine 8.01 H* (0.52-1.04) mg/dL Glucose 141 H (74-99) mg/dL Assessment and Plan Plan: Assessment: 1. End-stage renal disease Nicole on hemodialysis on Tuesday schedule via left upper extremity AV fistula. 2. Hyperkalemia secondary to missed dialysis treatment. Also noted to be on spironolactone outpatient. 3. Hypertension with chronic kidney disease. 4. Chronic kidney disease mineral bone disease. Phosphorous 4.6. 5. Chest pain. Cardiology following. 6. Chronic diastolic CHF with moderate mitral regurgitation. Plan: Currently seen while undergoing hemodialysis. Renal diet. Stopped spironolactone due to hyperkalemia. Patient states her blood pressure drops towards end of the treatment. We will lower UF and dry weight may need to be increased outpatient.
[2023-02-11] MEDS: amLODIPine 10 MG TAB PO SCH (12:14)
[2023-02-11] MEDS: hydrALAZINE HCL 50 MG TAB PO SCH (12:14)
[2023-02-11] MEDS: METOPROLOL TARTRATE 12.5 MG TAB PO SCH (12:14)
[2023-02-11 12:22] VITALS: RESP 18
[2023-02-11 16:32] VITALS: BP 176/75; PULSE 74; TEMP 96.7
--- NOTE | 2023-02-11 19:55 | P.DS ---
Providers Date of admission: 02/09/23 07:55 Expected date of discharge: 02/11/23 Attending physician: Renae Harrison Consults: 02/09/23 08:03 Consult Physician Urgent Consulting Provider: Quinn Howell Consult Reason/Comments: Dialysis Do you want consulting provider notified?: Already Contacted 02/09/23 09:12 Consult Physician Urgent Consulting Provider: Rad Rubio Consult Reason/Comments: chest pain Do you want consulting provider notified?: Yes Primary care physician: Sami Swift Hospital Course: Final diagnosis Chest pain for evaluation, ruled out ACS Nausea with possible acute gastritis or gastroenteritis Chronic kidney disease on hemodialysis Tuesday/Tuesday/Tuesday Missed hemodialysis Severe hyperkalemia, on admission History of congestive heart failure GI prophylaxis DVT prophylaxis Full code Discharge disposition Patient is being discharged in a stable condition with guarded prognosis to home. Patient will follow-up with Dr. Swift in the outpatient setting upon discharge. Patient is to continue with hemodialysis as scheduled and has just received hemodialysis today. Continue Tuesday/Tuesday/Tuesday.. Total time taken is greater than 35 minutes. Hospital course This is a 87-year-old female who was recently admitted with chest pain with nausea possible acute gastritis and missed dialysis. Patient reported she had been vomiting and not feeling well and Mr. Tuesday's session of dialysis. Patient was noted to have severe hyperkalemia and nephrology consulted and following. Patient has received hemodialysis and is scheduled for dialysis today and then will be discharged. Patient is to continue with Protonix for the next few days and follow-up with primary care provider on discharge. Patient has been cleared by consultations for discharge. Please refer to nephrology notes for further HPI. Currently no reports of chest pain, shortness of breath, or palpitations. Patient is afebrile. No reports of nausea or vomiting and patient is tolerating diet. Patient will be discharged home today. Physical exam: Gen: This is a 87-year-old female who is awake, alert and oriented 3, thin built, elderly appearing, well-developed HEENT: Head is atraumatic, normocephalic. Pupils equal, round. Sclerae is anicteric. NECK: Supple. No JVD. No lymphadenopathy. No thyromegaly. LUNGS: Diminished breath sounds bilaterally with no wheezes or rhonchi. No intercostal retractions. HEART: Regular rate and rhythm. No murmur. ABDOMEN: Soft. Bowel sounds are present. No masses. No tenderness. EXTREMITIES: No pedal edema. No calf tenderness. NEUROLOGICAL: Patient is awake, alert and oriented x3. Cranial nerves 2 through 12 are grossly intact. Please refer to medication reconciliation sheet for a list of medications. The impression and plan of care has been dictated by Kaya Damon, Nurse Practitioner as directed. Dr. Hunter MD I have performed a history and examination and MDM of this patient, discussed the same with the dictator, and agree with the dictator's assessment and plan as written ,documented as a scribe. Based on total visit time, I have performed more than 50% of the visit. Patient Condition at Discharge: Fair Plan - Discharge Summary Discharge Rx Participant: No New Discharge Prescriptions: New Pantoprazole Sodium [Protonix] 40 mg PO DAILY 15 Days #15 tab Continue Levothyroxine Sodium [Synthroid] 50 mcg PO DAILY Spironolactone [Aldactone] 25 mg PO DAILY allopurinoL [Zyloprim] 100 mg PO DAILY Metoprolol Tartrate [Lopressor] 12.5 mg PO BID Lidocaine-Prilocaine Cream [Emla Cream 2.5%/2.5%] 1 applic TOPICAL DAILY PRN PRN Reason: avf access Calcium Acetate [PhosLo] 667 - 1,334 mg PO DIRECTED amLODIPine [Norvasc] 10 mg PO DAILY Renoplex-D 1 tab PO DAILY Cranberry Fruit Extract [Cranberry] 400 mg PO DAILY hydrALAZINE HCL [Apresoline] 100 mg PO TID Magnebind 300 250mg-300mg 1 tab PO BID-W/MEALS Discharge Medication List Levothyroxine Sodium [Synthroid] 50 mcg PO DAILY 07/05/14 [History] Spironolactone [Aldactone] 25 mg PO DAILY 10/28/15 [History] allopurinoL [Zyloprim] 100 mg PO DAILY 12/04/18 [History] Calcium Acetate [PhosLo] 667 - 1,334 mg PO DIRECTED 06/23/20 [History] Lidocaine-Prilocaine Cream [Emla Cream 2.5%/2.5%] 1 applic TOPICAL DAILY PRN 06/23/20 [History] Metoprolol Tartrate [Lopressor] 12.5 mg PO BID 06/23/20 [History] amLODIPine [Norvasc] 10 mg PO DAILY 06/23/20 [History] hydrALAZINE HCL [Apresoline] 100 mg PO TID 05/12/21 [History] Cranberry Fruit Extract [Cranberry] 400 mg PO DAILY 02/09/23 [History] Magnebind 300 250mg-300mg 1 tab PO BID-W/MEALS 02/09/23 [History] Renoplex-D 1 tab PO DAILY 02/09/23 [History] Pantoprazole Sodium [Protonix] 40 mg PO DAILY 15 Days #15 tab 02/11/23 [Rx] Follow up Appointment(s)/Referral(s): Sami Swift MD [Primary Care Provider] - 1-2 days (Office closed at time of discharge, ensure office is aware this is an appointment following a hospital stay.) Quinn Howell DO [STAFF PHYSICIAN] - 1 Week (Office stated Dr. Howell will see the patient at the dialysis center, no appointment necessary.) Patient Instructions/Handouts: Chest Pain (DC) Activity/Diet/Wound Care/Special Instructions: Activity Limited until follow-up Follow-up with primary care provider on discharge Continue hemodialysis at your next appointment tomorrow Continue renal diet low potassium Discharge Disposition: HOME SELF-CARE
== END 2023-02-11 16:33 | disposition home or self-care (01) | DRG 291 ==
LOC: EC 06:40 → 3SCARD 07:55
PROVIDERS: ADMIT Hospitalist; ATTEND Hospitalist
PROC: 5A1D70Z Performance of Urinary Filtration, Intermittent, Less than 6 Hours Per Day (ICD-10-PCS; principal; 2023-02-10)
DX: I13.2 Hypertensive heart and chronic kidney disease with heart failure and with stage 5 chronic kidney disease, or end stage renal disease (principal); N18.6 End stage renal disease; I50.32 Chronic diastolic (congestive) heart failure; Z20.822 Contact with and (suspected) exposure to COVID-19; I27.20 Pulmonary hypertension, unspecified; Z99.2 Dependence on renal dialysis; E03.9 Hypothyroidism, unspecified; E87.5 Hyperkalemia; R11.2 Nausea with vomiting, unspecified; Z91.158 Patient's noncompliance with renal dialysis for other reason; M89.8X9 Other specified disorders of bone, unspecified site; E11.22 Type 2 diabetes mellitus with diabetic chronic kidney disease; K52.9 Noninfective gastroenteritis and colitis, unspecified; R19.7 Diarrhea, unspecified; J44.9 Chronic obstructive pulmonary disease, unspecified; K29.70 Gastritis, unspecified, without bleeding; I08.1 Rheumatic disorders of both mitral and tricuspid valves; Z79.890 Hormone replacement therapy; R07.89 Other chest pain; Z79.899 Other long term (current) drug therapy; Z90.710 Acquired absence of both cervix and uterus; Z82.49 Family history of ischemic heart disease and other diseases of the circulatory system; Z90.49 Acquired absence of other specified parts of digestive tract; Z88.1 Allergy status to other antibiotic agents; Z91.048 Other nonmedicinal substance allergy status; Z88.8 Allergy status to other drugs, medicaments and biological substances
CPT/HCPCS: 36415; 71046; 71250; 80048; 80053; 80061; 83735; 83880; 84100; 84132; 84484; 85025; 85610; 85730; 87635; 90935; 93005; 93306; 94760; 96365; 96372; 96375; 99291

== ENCOUNTER 2024-10-21 11:47 | Emergency (ER) | payer MEDICARE, BC ==
--- NOTE | 2024-10-21 12:07 | ED ---
General Adult HPI - General Stated complaint: NVD, SOB Time Seen by Provider: 10/21/24 11:49 Source: patient, EMS, old records reviewed Limitations: no limitations - History of Present Illness Initial comments: Patient is an 89-year-old female present to the emergency department with concerns for nausea vomiting diarrhea. Onset of symptoms was yesterday. Patient has not been able to eat anything since that time. Patient has also had some cough and congestion. Patient does feel little bit short of breath which she questions is because of feeling dehydrated. No chest pain. No fever. - Related Data Home Medications Medication Instructions Recorded Confirmed Levothyroxine Sodium [Synthroid] 50 mcg PO DAILY 07/05/14 02/09/23 Spironolactone [Aldactone] 25 mg PO DAILY 10/28/15 02/09/23 allopurinoL [Zyloprim] 100 mg PO DAILY 12/04/18 02/09/23 Calcium Acetate [PhosLo] 667 - 1,334 mg PO DIRECTED 06/23/20 02/09/23 Lidocaine-Prilocaine Cream [Emla 1 applic TOPICAL DAILY PRN 06/23/20 02/09/23 Cream 2.5%/2.5%] Metoprolol Tartrate [Lopressor] 12.5 mg PO BID 06/23/20 02/09/23 amLODIPine [Norvasc] 10 mg PO DAILY 06/23/20 02/09/23 hydrALAZINE HCL [Apresoline] 100 mg PO TID 05/12/21 02/09/23 Cranberry Fruit Extract [Cranberry] 400 mg PO DAILY 02/09/23 02/09/23 Magnebind 300 250mg-300mg 1 tab PO BID-W/MEALS 02/09/23 02/09/23 Renoplex-D 1 tab PO DAILY 02/09/23 02/09/23 Previous Rx's Medication Instructions Recorded Pantoprazole Sodium [Protonix] 40 mg PO DAILY 15 Days #15 tab 02/11/23 Metoclopramide HCl [Reglan] 10 mg PO Q6HR PRN #15 tablet 10/21/24 Allergies Allergy/AdvReac Type Severity Reaction Status Date / Time adhesive tape Allergy RED SKIN Verified 10/21/24 12:20 levofloxacin [From Levaquin] Allergy Anaphylaxis Verified 10/21/24 12:20 metronidazole [From Flagyl] Allergy Anaphylaxis Verified 10/21/24 12:20 nitrofurantoin Allergy Anaphylaxis Verified 10/21/24 12:20 [From Macrobid] nitrofurantoin Allergy Anaphylaxis Verified 10/21/24 12:20 macrocrystalline [From Macrobid] oats Allergy Unknown Verified 10/21/24 12:20 sulfacetamide Allergy Anaphylaxis Verified 10/21/24 12:20 amiodarone HCl AdvReac Nausea & Verified 10/21/24 12:20 [From Pacerone] Vomiting cephalexin [From Keflex] AdvReac blood in Verified 10/21/24 12:20 stool clarithromycin AdvReac Nausea & Verified 10/21/24 12:20 Vomiting Review of Systems ROS Statement: Those systems with pertinent positive or pertinent negative responses have been documented in the HPI. ROS Other: All systems not noted in ROS Statement are negative. Constitutional: Denies: fever Eyes: Denies: eye pain ENT: Reports: congestion. Denies: ear pain Respiratory: Reports: cough Gastrointestinal: Reports: nausea, vomiting, diarrhea Past Medical History Past Medical History: Heart Failure, Hypertension, Renal Disease Additional Past Medical History / Comment(s): several syncopal events, Stage 5 kidney disease, murmur, "past migraines found they were caused from an oat allergy" History of Any Multi-Drug Resistant Organisms: None Reported Past Surgical History: Appendectomy, Cholecystectomy, Hysterectomy Additional Past Surgical History / Comment(s): pericardial window surgery , L ankle ORIF, bilateral cataracts, fistula L arm, L hip and femur break with surgery, Rt broken foot Past Anesthesia/Blood Transfusion Reactions: Previous Problems w/ Anesthesia Additional Past Anesthesia/Blood Transfusion Reaction / Comment(s): Pt received blood yrs ago without reaction. takes long time to wake up Past Psychological History: No Psychological Hx Reported Additional Psychological History / Comment(s): Pt lives with spouse and adult son. She uses a cane to ambulate. Smoking Status: Never smoker Past Alcohol Use History: None Reported Past Drug Use History: None Reported - Past Family History Daughter(s) Additional Family Medical History / Comment(s): Patient has 2 daughters and 1 son with no major medical problems. Mother Family Medical History: Hypertension, Myocardial Infarction ([place]) Additional Family Medical History / Comment(s): Mother at age 86 from a myocardial infarction. She had her kidney removed the patient does not know why. She also had history of hypertension. No known history of adrenal problems. Father Family Medical History: Cancer Additional Family Medical History / Comment(s): Father in his 70s from bladder cancer. Sister(s) Family Medical History: Cancer Additional Family Medical History / Comment(s): Patient has one sister with history of stomach cancer. Patient does not know any other history as she has no contact with her. General Exam Limitations: no limitations General appearance: alert, in no apparent distress Head exam: Present: normocephalic Eye exam: Present: normal appearance ENT exam: Present: mucous membranes dry Neck exam: Present: normal inspection Respiratory exam: Present: normal lung sounds bilaterally. Absent: respiratory distress, wheezes, rales, decreased breath sounds Cardiovascular Exam: Present: regular rate, normal rhythm GI/Abdominal exam: Present: soft. Absent: distended, tenderness, guarding, rebound, rigid Extremities exam: Present: normal inspection. Absent: pedal edema, calf tenderness Neurological exam: Present: alert Psychiatric exam: Present: normal affect, normal mood Skin exam: Present: normal color Course Vital Signs 10/21/24 12:12 Temperature 97.9 F Pulse Rate 74 Respiratory 16 Rate Blood Pressure 121/71 O2 Sat by Pulse 100 Oximetry EKG Findings - EKG Results: EKG: interpreted by ERMD (LVH criteria. Q wave V1. Nonspecific T waves.), sinus rhythm, normal axis Medical Decision Making - Medical Decision Making Was pt. sent in by a medical professional or institution (, PA, COMMUNITY HEALTH EDUCATION COORDINATOR, urgent care, hospital, or long term...) When possible be specific @ -No Did you speak to anyone other than the patient for history (EMS, parent, family, police, friend...)? What history was obtained from this source @ -No Did you review nursing and triage notes (agree or disagree)? Why? @ -I reviewed and agree with nursing and triage notes Were old charts reviewed (outside hosp., previous admission, EMS record, old EKG, old radiological studies, urgent care reports/EKG's, long term records)? Report findings @ -No old charts were reviewed Differential Diagnosis (chest pain, altered mental status, abdominal pain women, abdominal pain men, vaginal bleeding, weakness, fever, dyspnea, syncope, headache, dizziness, GI bleed, back pain, seizure, CVA, palpatations, mental health, musculoskeletal)? @ -Differential Abdominal Pain Women: Appendicitis, Cholecystitis, diverticulosis, ischemic bowel, pancreatitis, hepatitis, UTI, gastroenteritis, AAA, incarcerated hernia, bowel obstruction, constipation, inflammatory bowel, hepatitis, peptic ulcer disease, splenic infar ction, perforated viscus, vulvitis, ovarian torsion, PID, kidney stone, placenta abruption, this is not meant to be an all-inclusive list EKG interpreted by me (3pts min.). @ -As above X-rays interpreted by me (1pt min.). @ -Chest and abdominal x-ray without acute abnormality. There is cardiomegaly. CT interpreted by me (1pt min.). @ -None done U/S interpreted by me (1pt. min.). @ -None done What testing was considered but not performed or refused? (CT, X-rays, U/S, labs)? Why? @ -None What meds were considered but not given or refused? Why? @ -None Did you discuss the management of the patient with other professionals (professionals i.e. , PA, COMMUNITY HEALTH EDUCATION COORDINATOR, lab, RT, psych nurse, web content & social media manager, body joiner, teacher, custody officer, case management rn)? Give summary @ -No Was smoking cessation discussed for >3mins.? @ -No Was critical care preformed (if so, how long)? @ -No Were there social determinants of health that impacted care today? How? (Homelessness, low income, unemployed, alcoholism, drug addiction, transportation, low edu. Level, literacy, decrease access to med. care, longterm, rehab)? @ -No Was there de-escalation of care discussed even if they declined (Discuss DNR or withdrawal of care, Hospice)? DNR status @ -No What co-morbidities impacted this encounter? (DM, HTN, Smoking, COPD, CAD, Cancer, CVA, ARF, Chemo, Hep., AIDS, mental health diagnosis, sleep apnea, morbid obesity)? @ -History of renal failure on hemodialysis Was patient admitted / discharged? Hospital course, mention meds given and route, prescriptions, significant lab abnormalities, going to OR and other pertinent info. @ -Patient presents with nausea vomiting diarrhea and dyspnea. On reevaluation no more diarrhea and dyspnea has resolved. Patient still has some nausea. Abdomen remains soft and nontender. Patient provided additional nausea medication. Patient updated on results. Patient again reevaluated following Reglan and is feeling much better and comfortable discharge home. Undiagnosed new problem with uncertain prognosis? @ -No Drug Therapy requiring intensive monitoring for toxicity (Heparin, Nitro, Insulin, Cardizem)? @ -No Were any procedures done? @ -No Diagnosis/symptom? @ -Nausea and vomiting Acute, or Chronic, or Acute on Chronic? @ -Acute Uncomplicated (without systemic symptoms) or Complicated (systemic symptoms)? @ -Default Side effects of treatment? @ -No Exacerbation, Progression, or Severe Exacerbation? @ -No Poses a threat to life or bodily function? How? (Chest pain, [place], AR, pneumonia, PE, COPD, DKA, ARF, appy, cholecystitis, CVA, Diverticulitis, Homicidal, Suicidal, threat to staff... and all critical care pts) @ -No - Lab Data Result diagrams: 10/21/24 12:20 10/21/24 13:15 Lab Results 10/21/24 10/21/24 10/21/24 Range/Units 12:20 12:20 13:15 WBC 11.3 H (3.8-10.6) k/uL RBC 3.44 L (3.80-5.40) m/uL Hgb 11.3 L (11.4-16.0) gm/dL Hct 36.1 (34.0-46.0) % MCV 104.9 H (80.0-100.0) fL MCH 32.7 (25.0-35.0) pg MCHC 31.2 (31.0-37.0) g/dL RDW 15.4 (11.5-15.5) % Plt Count 270 (150-450) k/uL MPV 8.9 Neutrophils % 87 % Lymphocytes % 5 % Monocytes % 5 % Eosinophils % 1 % Basophils % 0 % Neutrophils # 9.9 H (1.3-7.7) k/uL Lymphocytes # 0.6 L (1.0-4.8) k/uL Monocytes # 0.6 (0-1.0) k/uL Eosinophils # 0.1 (0-0.7) k/uL Basophils # 0.0 (0-0.2) k/uL Hypochromasia Slight Macrocytosis Moderate Sodium 134 L (137-145) mmol/L Potassium 4.3 (3.5-5.1) mmol/L Chloride 98 (98-107) mmol/L Carbon Dioxide 25 (22-30) mmol/L Anion Gap 11 mmol/L BUN 48 H (7-17) mg/dL Creatinine 5.50 H (0.52-1.04) mg/dL Est GFR (CKD-EPI)AfAm 7 (>60 ml/min/1.73 sqM) Est GFR (CKD-EPI)NonAf 6 (>60 ml/min/1.73 sqM) Glucose 94 (74-99) mg/dL Calcium 8.9 (8.4-10.2) mg/dL Total Bilirubin 0.5 (0.2-1.3) mg/dL AST 23 (14-36) U/L ALT 17 (4-34) U/L Alkaline Phosphatase 126 (38-126) U/L NT-Pro-B Natriuret Pep 6700 pg/mL Total Protein 6.3 (6.3-8.2) g/dL Albumin 3.9 (3.5-5.0) g/dL Amylase 40 (30-110) U/L Lipase 53 (23-300) U/L Influenza Type A (PCR) Not Detected (Not Detectd) Influenza Type B (PCR) Not Detected (Not Detectd) RSV (PCR) Not Detected (Not Detectd) SARS-CoV-2 (PCR) Not Detected (Not Detectd) Disposition Clinical Impression: Vomiting Disposition: HOME SELF-CARE Condition: Stable Instructions (If sedation given, give patient instructions): Acute Nausea and Vomiting (ED) Additional Instructions: Prescription for nausea medication sent to pharmacy. Please do follow-up with your primary care physician in the next 1 or 2 days for recheck. Return for not tolerating fluids, pain, fevers, worsening symptoms or other concerns. Prescriptions: Metoclopramide HCl [Reglan] 10 mg PO Q6HR PRN #15 tablet PRN Reason: Nausea Is patient prescribed a controlled substance at d/c from ED?: No Referrals: Sami Swift [Primary Care Provider] - 1-2 days Time of Disposition: 15:20
[2024-10-21 12:19] VITALS: BP 121/71; PULSE 74; RESP 16; TEMP 97.9
[2024-10-21 12:35] LABS: Basophils % (A) 0 %; Eosinophils # (A) 0.1 k/uL (0-0.7); Eosinophils % (A) 1 %; HCT 36.1 % (34.0-46.0); HGB 11.3 gm/dL (11.4-16.0); Hypochromasia Slight; Lymphocytes # (A) 0.6 k/uL (1.0-4.8); Lymphocytes % (A) 5 %; MCH 32.7 pg (25.0-35.0); MCHC 31.2 g/dL (31.0-37.0); MCV 104.9 fL (80.0-100.0); Macrocytosis Moderate; Mean Platelet Volume 8.9; Monocytes # (A) 0.6 k/uL (0-1.0); Monocytes % (A) 5 %; Neutrophils # (A) 9.9 k/uL (1.3-7.7); Neutrophils % (A) 87 %; Platelet Count 270 k/uL (150-450); RBC 3.44 m/uL (3.80-5.40); RDW 15.4 % (11.5-15.5); WBC 11.3 k/uL (3.8-10.6)
[2024-10-21] MEDS: FAMOTIDINE 20 MG/2 ML VIAL IV STA (12:56)
[2024-10-21] MEDS: ONDANSETRON 4 MG/2 ML VIAL IVP STA ×2 (12:58→14:44)
[2024-10-21] MEDS: SODIUM CHLORIDE 0.9% 1,000 ML IV STA (12:59)
[2024-10-21 13:03] LABS: Influenza A Not Detected (Not Detectd); Influenza B Not Detected (Not Detectd); RSV Not Detected (Not Detectd)
--- NOTE | 2024-10-21 13:09 | XR ---
EXAMINATION TYPE: XR chest 2V DATE OF EXAM: 10/21/2024 CLINICAL INDICATION: Female, 89 years old with history of abdominal pain, TECHNIQUE: Frontal and lateral views of the chest are obtained. COMPARISON: Chest CT February 09, 2023 FINDINGS: There is no focal air space opacity, pleural effusion, or pneumothorax seen. Cardiomegaly is redemonstrated. The osseous structures are demineralized. IMPRESSION: Cardiomegaly without acute pulmonary process. [facility], , 10/21/2024 1:07 PM
--- NOTE | 2024-10-21 13:11 | XR ---
EXAMINATION TYPE: XR KUB DATE OF EXAM: 10/21/2024 12:42 PM CLINICAL INDICATION: Female, 89 years old with history of abdominal pain, pain. Nausea and vomiting/d iarrhea TECHNIQUE: 1 supine view of the abdomen. COMPARISON: Abdominal x-ray 2019. FINDINGS: Gas is seen in nondistended stomach. Some paucity of bowel gas. Gas is seen in nondistended small and large bowel loops in the left abdomen. Cholecystectomy clips are redemonstrated. Prominent overlying arteriovascular calcification is now present. Surgical change to left femur is partially i catherine. IMPRESSION: Overall nonspecific but favor nonobstructive bowel gas pattern. [facility], , 10/21/2024 1:09 PM
[2024-10-21 13:46] LABS: ALT 17 U/L (4-34); AST 23 U/L (14-36); African American GFR (CKD) 7 (>60 ml/min/1.73 sqM); Albumin 3.9 g/dL (3.5-5.0); Alkaline Phosphatase 126 U/L (38-126); Amylase 40 U/L (30-110); Anion Gap 11 mmol/L; Blood Urea Nitrogen 48 mg/dL (7-17); Calcium 8.9 mg/dL (8.4-10.2); Carbon Dioxide 25 mmol/L (22-30); Chloride 98 mmol/L (98-107); Glucose 94 mg/dL (74-99); Lipase 53 U/L (23-300); Non-African American GFR(CKD) 6 (>60 ml/min/1.73 sqM); Potassium 4.3 mmol/L (3.5-5.1); Sodium 134 mmol/L (137-145); Total Bilirubin 0.5 mg/dL (0.2-1.3); Total Protein 6.3 g/dL (6.3-8.2)
[2024-10-21 13:55] LABS: NT-Pro-B-Type Natriuretic Pept 6700 pg/mL
[2024-10-21] MEDS: METOCLOPRAMIDE 5 MG/ML 2 ML VIAL IVP STA (14:42)
== END 2024-10-21 16:50 | disposition home or self-care (01) ==
LOC: EC 11:47
DX: R11.2 Nausea with vomiting, unspecified (principal); I13.2 Hypertensive heart and chronic kidney disease with heart failure and with stage 5 chronic kidney disease, or end stage renal disease; N18.5 Chronic kidney disease, stage 5; I50.9 Heart failure, unspecified; Z88.1 Allergy status to other antibiotic agents; Z88.2 Allergy status to sulfonamides; Z88.8 Allergy status to other drugs, medicaments and biological substances; Z91.09 Other allergy status, other than to drugs and biological substances; Z99.2 Dependence on renal dialysis
CPT/HCPCS: 36415; 83880; 80053; 82150; 83690; 85025; 87636; 71046; 74018; 99285; 96374; 96375 ×2; 96361 ×4; J2765; J2405; J3490

== ENCOUNTER 2024-10-25 13:46 | Emergency (ER) | payer MEDICARE, BC ==
[2024-10-25] MEDS: ONDANSETRON 4 MG/2 ML VIAL IVP STA (15:22)
--- NOTE | 2024-10-25 15:29 | ED ---
General Adult HPI <Dionicio Correia - Last Filed: 10/26/24 01:35> - General Source: patient Mode of arrival: ambulatory Limitations: no limitations <Dena Hooper - Last Filed: 10/28/24 12:17> - General Chief complaint: Nausea/Vomiting/Diarrhea Stated complaint: weakness Time Seen by Provider: 10/25/24 14:02 - History of Present Illness Initial comments: Patient is an 89-year-old female past medical history ESRD on dialysis, presenting today for dialysis. States she has missed 2 rounds of dialysis due to nausea vomiting and diarrhea over the last few days. States that the symptoms are improving. Does endorse intermittent palpitations. During review of systems, she notes that she has noticed intermittent sharp pains that occur intermittent on either side of her chest over the course of the last 1-2 weeks without any particular pattern. Nonradiating. Do not seem to be exacerbated with activity. Is not currently present. Does endorse mild shortness of breath since missing dialysis but currently denies any symptoms at rest. No cough or hemoptysis. Patient has not any fevers. No lower extremity swelling. Denies abdominal pain. Emesis is nonbloody nonbilious. No black or bloody stools. (Dena Hooper) - Related Data Home Medications Medication Instructions Recorded Confirmed Levothyroxine Sodium [Synthroid] 50 mcg PO DAILY 07/05/14 10/25/24 allopurinoL [Zyloprim] 100 mg PO DAILY 12/04/18 10/25/24 Lidocaine-Prilocaine Cream [Emla 1 applic TOPICAL MOWEFR PRN 06/23/20 10/25/24 Cream 2.5%/2.5%] Metoprolol Tartrate [Lopressor] 25 mg PO BID 06/23/20 10/25/24 amLODIPine [Norvasc] 10 mg PO DAILY@1200 06/23/20 10/25/24 hydrALAZINE HCL [Apresoline] 100 mg PO TID 05/12/21 10/25/24 Cranberry Fruit Extract [Cranberry] 400 mg PO DAILY 02/09/23 10/25/24 Magnebind 300 250mg-300mg 1 tab PO TID-W/MEALS 02/09/23 10/25/24 Renoplex-D 1 tab PO DAILY 02/09/23 10/25/24 Calcium Carbonate [Tums] 500 mg PO BID-W/MEALS 10/25/24 10/25/24 Lactulose [Constulose] 10 gm PO DAILY PRN 10/25/24 10/25/24 Allergies Allergy/AdvReac Type Severity Reaction Status Date / Time adhesive tape Allergy RED SKIN Verified 10/25/24 14:53 levofloxacin [From Levaquin] Allergy Anaphylaxis Verified 10/25/24 14:53 metronidazole [From Flagyl] Allergy Anaphylaxis Verified 10/25/24 14:53 nitrofurantoin Allergy Anaphylaxis Verified 10/25/24 14:53 [From Macrobid] nitrofurantoin Allergy Anaphylaxis Verified 10/25/24 14:53 macrocrystalline [From Macrobid] oats Allergy Unknown Verified 10/25/24 14:53 sulfacetamide Allergy Anaphylaxis Verified 10/25/24 14:53 amiodarone HCl AdvReac Nausea & Verified 10/25/24 14:53 [From Pacerone] Vomiting cephalexin [From Keflex] AdvReac blood in Verified 10/25/24 14:53 stool clarithromycin AdvReac Nausea & Verified 10/25/24 14:53 Vomiting Review of Systems ROS Other: All systems not noted in ROS Statement are negative. <Dionicio Correia - Last Filed: 10/26/24 01:35> ROS Other: All systems not noted in ROS Statement are negative. <Dena Hooper - Last Filed: 10/28/24 12:17> ROS Statement: Those systems with pertinent positive or pertinent negative responses have been documented in the HPI. Past Medical History Past Medical History: Heart Failure, Hypertension, Renal Disease Additional Past Medical History / Comment(s): several syncopal events, Stage 5 kidney disease, murmur, "past migraines found they were caused from an oat allergy" History of Any Multi-Drug Resistant Organisms: None Reported Past Surgical History: Appendectomy, Cholecystectomy, Hysterectomy Additional Past Surgical History / Comment(s): pericardial window surgery , L ankle ORIF, bilateral cataracts, fistula L arm, L hip and femur break with surgery, Rt broken foot Past Anesthesia/Blood Transfusion Reactions: Previous Problems w/ Anesthesia Additional Past Anesthesia/Blood Transfusion Reaction / Comment(s): Pt received blood yrs ago without reaction. takes long time to wake up Past Psychological History: No Psychological Hx Reported Smoking Status: Never smoker Past Alcohol Use History: None Reported Past Drug Use History: None Reported - Past Family History Daughter(s) Additional Family Medical History / Comment(s): Patient has 2 daughters and 1 son with no major medical problems. Mother Family Medical History: Hypertension, Myocardial Infarction ([place]) Additional Family Medical History / Comment(s): Mother at age 86 from a myocardial infarction. She had her kidney removed the patient does not know why. She also had history of hypertension. No known history of adrenal problems. Father Family Medical History: Cancer Additional Family Medical History / Comment(s): Father in his 70s from bladder cancer. Sister(s) Family Medical History: Cancer Additional Family Medical History / Comment(s): Patient has one sister with history of stomach cancer. Patient does not know any other history as she has no contact with her. <Dena Hooper - Last Filed: 10/28/24 12:17> General Exam Limitations: no limitations <Dena Hooper - Last Filed: 10/28/24 12:17> - General Exam Comments Initial Comments: PE: CONSTITUTIONAL: No apparent distress, chronically ill-appearing, nontoxic. SKIN: Warm, dry, no jaundice, hives or petechiae EYES: Pupils are equally round, extraocular movements intact without nystagmus, clear conjunctiva, non-icteric sclera HENT: Normocephalic, atraumatic, moist mucus membranes, oropharynx clear without exudates NECK: , Full range of motion, normal appearance PULMONARY: Clear to auscultation without wheezes, rhonchi, or rales, normal excursion, no accessory muscle use and no stridor CARDIOVASCULAR: Regular rate, rhythm, normal S1 and S2. No appreciated murmurs, rubs or gallops. Strong radial pulses with intact distal perfusion. Palpable throughout the left upper extremity fistula lateral 2-3+ pitting edema GASTROINTESTINAL: Soft, active bowel sounds throughout, right quadrant tenderness palpation with positive Watts sign, with guarding non-distended, no palpable masses, no rebound or guarding. No hepatosplenomegaly GENITOURINARY: MUSCULOSKELETAL: Extremities have no gross deformity, NEUROLOGIC:_a/o x 3, GCS 15, normal mentation and speech. Moves all extremities x 4 without motor or sensory deficit PSYCHIATRIC:_normal mood and affect, thought process is clear and linear (Dena Hooper) Course Vital Signs 10/25/24 10/25/24 10/25/24 13:54 15:14 15:15 Temperature 98.0 F Pulse Rate 78 79 Pulse Rate [ Waiter/Waitress Third Class ] Respiratory 22 16 Rate Blood Pressure 169/72 157/79 169/72 Blood Pressure [Right Arm] O2 Sat by Pulse 96 97 97 Oximetry 10/25/24 10/25/24 10/25/24 15:30 16:00 16:30 Temperature Pulse Rate 76 77 76 Pulse Rate [ Waiter/Waitress Third Class ] Respiratory Rate Blood Pressure 157/79 145/66 150/66 Blood Pressure [Right Arm] O2 Sat by Pulse 96 96 96 Oximetry 10/25/24 10/25/24 10/25/24 17:00 21:24 21:43 Temperature 98.2 F 97.6 F Pulse Rate 73 72 Pulse Rate [ 80 Waiter/Waitress Third Class ] Respiratory 16 16 Rate Blood Pressure 141/68 144/66 Blood Pressure 143/67 [Right Arm] O2 Sat by Pulse 94 L 96 Oximetry 10/25/24 10/26/24 10/26/24 22:00 00:02 03:33 Temperature 98.5 F Pulse Rate 76 82 78 Pulse Rate [ Waiter/Waitress Third Class ] Respiratory 18 16 Rate Blood Pressure 155/70 149/72 146/65 Blood Pressure [Right Arm] O2 Sat by Pulse 97 96 97 Oximetry 10/26/24 10/26/24 05:05 05:56 Temperature 98.1 F Pulse Rate 92 96 Pulse Rate [ Waiter/Waitress Third Class ] Respiratory 16 16 Rate Blood Pressure 153/73 158/77 Blood Pressure [Right Arm] O2 Sat by Pulse 96 96 Oximetry EKG Findings - EKG Comments: EKG Findings:: Sinus rhythm, rate 75 bpm [place] interval 184 ms QT/QTc 385/414 ms, borderline left axis deviation, Q waves leads V2 V3, no significant ST elevations or depressions, when compared to EKG performed on 10/21/24 appears improved from prior without new ST elevations or depressions <Dena Hooper - Last Filed: 10/28/24 12:17> Medical Decision Making - Lab Data Result diagrams: 10/25/24 15:15 10/25/24 15:15 <Dionicio Correia - Last Filed: 10/26/24 01:35> - Lab Data Result diagrams: 10/25/24 15:15 10/25/24 15:15 <Dena Hooper - Last Filed: 10/28/24 12:17> - Medical Decision Making Was pt. sent in by a medical professional or institution (, TONY, CHEMICAL PRODUCTION ENGINEER, urgent care, hospital, or senior care...) When possible be specific @ -No Did you speak to anyone other than the patient for history (EMS, parent, family, police, friend...)? What history was obtained from this source @ -No Did you review nursing and triage notes (agree or disagree)? Why? @ -I reviewed nursing and triage notes Were old charts reviewed (outside hosp., previous admission, EMS record, old EKG, old radiological studies, urgent care reports/EKG's, senior care records)? Report findings @ -Medical records reviewed patient had a chest x-ray done on 10/21/2024, which showed cardiomegaly without acute process Differential Diagnosis (chest pain, altered mental status, abdominal pain women, abdominal pain men, vaginal bleeding, weakness, fever, dyspnea, syncope, headache, dizziness, GI bleed, back pain, seizure, CVA, palpatations, mental health, musculoskeletal)? @ -Patient is here for missed dialysis, with improving nausea and diarrhea over the last 4 days. EKG interpreted by me (3pts min.). @ -As above X-rays interpreted by me (1pt min.). @I personally reviewed chest x-ray, appears to show cardiomegaly without pleural effusions or consolidations I agree with radiologist interpretation CT interpreted by me (1pt min.). @ -None done U/S interpreted by me (1pt. min.). @ -Personally reviewed ultrasound, the common bile duct does not appear dilated, measured approximately 8 mm which is age-appropriate and not dilated, agree with radiologist interpretation What testing was considered but not performed or refused? (CT, X-rays, U/S, labs)? Why? @ -None What meds were considered but not given or refused? Why? @ -None Did you discuss the management of the patient with other professionals (professionals i.e. TONY Dawn, CHEMICAL PRODUCTION ENGINEER, lab, RT, psych nurse, sexual assault social worker, retail associate manager bilingual, teacher, aircraft electronics technical officer, social work case manager)? Give summary Case was discussed with Dr. Howell, nephrology who kindly assisted in arranging dialysis for the patient this evening Was smoking cessation discussed for >3mins.? @ -No Was critical care preformed (if so, how long)? @ -No Were there social determinants of health that impacted care today? How? (Homelessness, low income, unemployed, alcoholism, drug addiction, transportation, low edu. Level, literacy, decrease access to med. care, group home, rehab)? @ -No Was there de-escalation of care discussed even if they declined (Discuss DNR or withdrawal of care, Hospice)? @ -No What co-morbidities impacted this encounter? (DM, HTN, Smoking, COPD, CAD, Cancer, CVA, ARF, Chemo, Hep., AIDS, mental health diagnosis, sleep apnea, morbid obesity)? ESRD on dialysis, hypertension Was patient admitted / discharged? Hospital course, mention meds given and route, prescriptions, significant lab abnormalities, going to OR and other pertinent info. @ -Signed out to oncoming physician pending completion of dialysis and labs- this is an 89-year-old female past medical history ESRD on dialysis Tuesday presenting today for missed dialysis. Improving GI symptoms. Plan for comprehensive labs mag, Phos, CMP, has noted intermittent, random sharp chest pains that are not radiating, so an EKG, chest x-ray and troponin will be drawn. Lastly, patient did have a positive Watts sign and right upper quadrant tenderness on exam, in combination with her GI symptoms though of note patient has had prior cholecystectomy, these could be signs of choledocholithiasis so ultrasound of the right upper quadrant will be obtained. I feel repeat troponin is unnecessary as pain has been intermittent ongoing for the last 1 to 2 weeks and if secondary to ACS would show some elevation at this point, additionally description of pain is inconsistent with anginal symptoms. I personally reviewed labs, which show a mild elevation in neutrophils 8.6, I suspect this is secondary to episodes of emesis, mild hyponatremia sodium 132, potassium 5.3 chloride 92, bicarb 14 BUN/creatinine 97/10.83, GFR of 3 elevated phosphorus 6.2, elevated magnesium of 2.9 LFTs with exception of alkaline phosphatase which is 151, are within normal limits. Ultrasound does not show evidence of dilated CBD/choledocholithiasis. Case was discussed with Dr. Coombs, he will arrange for dialysis this evening and patient could be potentially discharged home after dialysis if done expediently. Updated patient, she is agreeable w/ plan of care. She is actively receiving dialysis. Pending troponin check, reassessment and completion of dialysis patient was signed out to oncoming physician Dr. De Santiago. Pt's HEART score is currently 3, pending troponin. Undiagnosed new problem with uncertain prognosis? @ -No Drug Therapy requiring intensive monitoring for toxicity (Heparin, Nitro, Insulin, Cardizem)? @ -No Were any procedures done? @ -No Diagnosis/symptom? @Dialysis, nausea and diarrhea, chest pain Acute, or Chronic, or Acute on Chronic? Acute Uncomplicated (without systemic symptoms) or Complicated (systemic symptoms)? @Complicated Side effects of treatment? @ -No Exacerbation, Progression, or Severe Exacerbation? @ -No Poses a threat to life or bodily function? How? (Chest pain, [place], [place], pneumonia, PE, COPD, DKA, ARF, appy, cholecystitis, CVA, Diverticulitis, Homicidal, Suicidal, threat to staff... and all critical care pts) Yes, if patient continued to go without dialysis would ultimately result in severe electrolyte derangements that could cause arrhythmia and (Dena Hooper) - Lab Data Lab Results 10/25/24 10/25/24 10/25/24 Range/Units 15:15 15:15 22:09 WBC 10.8 H (3.8-10.6) k/uL RBC 3.60 L (3.80-5.40) m/uL Hgb 12.0 (11.4-16.0) gm/dL Hct 36.7 (34.0-46.0) % MCV 102.0 H (80.0-100.0) fL MCH 33.4 (25.0-35.0) pg MCHC 32.8 (31.0-37.0) g/dL RDW 14.7 (11.5-15.5) % Plt Count 274 (150-450) k/uL MPV 8.8 Neutrophils % 80 % Lymphocytes % 13 % Monocytes % 5 % Eosinophils % 1 % Basophils % 0 % Neutrophils # 8.6 H (1.3-7.7) k/uL Lymphocytes # 1.4 (1.0-4.8) k/uL Monocytes # 0.5 (0-1.0) k/uL Eosinophils # 0.1 (0-0.7) k/uL Basophils # 0.0 (0-0.2) k/uL Macrocytosis Slight Sodium 132 L (137-145) mmol/L Potassium 5.3 H (3.5-5.1) mmol/L Chloride 92 L (98-107) mmol/L Carbon Dioxide 14 L (22-30) mmol/L Anion Gap 26 mmol/L BUN 97 H (7-17) mg/dL Creatinine 10.83 H* (0.52-1.04) mg/dL Est GFR (CKD-EPI)AfAm 3 (>60 ml/min/1.73 sqM) Est GFR (CKD-EPI)NonAf 3 (>60 ml/min/1.73 sqM) Glucose 117 H (74-99) mg/dL Calcium 9.1 (8.4-10.2) mg/dL Phosphorus 6.2 H (2.5-4.5) mg/dL Magnesium 2.9 H (1.6-2.3) mg/dL Total Bilirubin 0.6 (0.2-1.3) mg/dL AST 30 (14-36) U/L ALT 19 (4-34) U/L Alkaline Phosphatase 151 H (38-126) U/L Troponin I 0.014 (0.000-0.034) ng/mL Total Protein 7.1 (6.3-8.2) g/dL Albumin 4.5 (3.5-5.0) g/dL Lipase 122 (23-300) U/L Disposition Is patient prescribed a controlled substance at d/c from ED?: No <Dionicio Correia - Last Filed: 10/26/24 01:35> <Dena Hooper - Last Filed: 10/28/24 12:17> Clinical Impression: ESRD on dialysis, Hyperkalemia Disposition: HOME SELF-CARE Condition: Good Instructions (If sedation given, give patient instructions): Hyperkalemia (ED) Referrals: Sami Swift [Primary Care Provider] - 1-2 days
[2024-10-25 15:30] LABS: Basophils % (A) 0 %; Eosinophils # (A) 0.1 k/uL (0-0.7); Eosinophils % (A) 1 %; HCT 36.7 % (34.0-46.0); Lymphocytes # (A) 1.4 k/uL (1.0-4.8); Lymphocytes % (A) 13 %; MCH 33.4 pg (25.0-35.0); MCHC 32.8 g/dL (31.0-37.0); Macrocytosis Slight; Mean Platelet Volume 8.8; Monocytes # (A) 0.5 k/uL (0-1.0); Monocytes % (A) 5 %; Neutrophils # (A) 8.6 k/uL (1.3-7.7); Neutrophils % (A) 80 %; Platelet Count 274 k/uL (150-450); RDW 14.7 % (11.5-15.5); WBC 10.8 k/uL (3.8-10.6)
[2024-10-25 15:44] LABS: ALT 19 U/L (4-34); AST 30 U/L (14-36); African American GFR (CKD) 3 (>60 ml/min/1.73 sqM); Albumin 4.5 g/dL (3.5-5.0); Alkaline Phosphatase 151 U/L (38-126); Anion Gap 26 mmol/L; Blood Urea Nitrogen 97 mg/dL (7-17); Calcium 9.1 mg/dL (8.4-10.2); Carbon Dioxide 14 mmol/L (22-30); Chloride 92 mmol/L (98-107); Glucose 117 mg/dL (74-99); Lipase 122 U/L (23-300); Magnesium 2.9 mg/dL (1.6-2.3); Non-African American GFR(CKD) 3 (>60 ml/min/1.73 sqM); Phosphorus 6.2 mg/dL (2.5-4.5); Potassium 5.3 mmol/L (3.5-5.1); Sodium 132 mmol/L (137-145); Total Bilirubin 0.6 mg/dL (0.2-1.3); Total Protein 7.1 g/dL (6.3-8.2)
--- NOTE | 2024-10-25 16:28 | XR ---
EXAMINATION TYPE: XR chest 2V DATE OF EXAM: 10/25/2024 CLINICAL INDICATION: Female, 89 years old with history of shortness of breath missed dialysis, TECHNIQUE: Frontal and lateral views of the chest are obtained. COMPARISON: Chest x-ray 4 days ago FINDINGS: Cardiomegaly is redemonstrated with atherosclerotic and ectatic thoracic aorta. There is c hronic parenchymal changes without suspicious new focal air space opacity, pleural effusion, or pneum othorax seen bilaterally. The osseous structures remain demineralized. IMPRESSION: Cardiomegaly and chronic changes without acute pulmonary process. [facility], , 10/25/2024 4:25 PM
--- NOTE | 2024-10-25 18:08 | US ---
EXAMINATION TYPE: US abdomen limited DATE OF EXAM: 10/25/2024 COMPARISON: NONE CLINICAL INDICATION: Female, 89 years old with history of RUQ TTP, prior jt. assess for CBD dilati on; cholecystectomy. patient states she is on dialysis but wasnt able to do it this week due to vomit ing. patient states ruq tenderness TECHNIQUE: Grayscale and color Doppler imaging of the right upper quadrant was performed. FINDINGS: EXAM MEASUREMENTS: Liver Length: 14.2 cm Gallbladder Wall: Surgically absent CBD: 0.7 cm Right Kidney: 5.6 x 2.6 x 3.2 cm CORN COOKER NOTES:slightly limited, patient unable to hold breaths for imaging Pancreas: Obscured by bowel gas Liver: wnl as best seen Gallbladder: Surgically absent Evidence for sonographic Watts's sign: No CBD: wnl post cholecystectomy Right Kidney: small. echogenic. there are few anechoic areas seen, largest measuring 1.6 x 1.3 x 1.4 cm in the superior pole. Adjacent to this anechoic area, there is also a 1.7 x 1.2 x 1.4cm hyperehoic appearing lesion IMPRESSION: Atrophic kidney. Simple cysts with adjacent hyperechoic area which could reflect a nonshadowing calcu oly or angiomyolipoma. Postcholecystectomy changes. [facility], , 10/25/2024 6:05 PM
[2024-10-26 03:36] VITALS: RESP 16
[2024-10-26 05:58] VITALS: BP 158/77; PULSE 96; TEMP 98.1
[2024-10-26] MEDS: hydrALAZINE HCL 50 MG TAB PO STA (06:03)
[2024-10-26] MEDS: METOPROLOL TARTRATE 25 MG TAB PO STA (06:04)
== END 2024-10-26 08:41 | disposition home or self-care (01) ==
LOC: EC 13:46
DX: E87.5 Hyperkalemia (principal); I13.2 Hypertensive heart and chronic kidney disease with heart failure and with stage 5 chronic kidney disease, or end stage renal disease; Z88.1 Allergy status to other antibiotic agents; Z88.2 Allergy status to sulfonamides; Z91.09 Other allergy status, other than to drugs and biological substances; Z91.018 Allergy to other foods; Z88.8 Allergy status to other drugs, medicaments and biological substances; N18.6 End stage renal disease
CPT/HCPCS: 99285 ×2; 96374 ×2; 36415; 93005; 80053; 83690; 83735; 84100; 84484; 85025; 71046; 76705; G0257; J2405; 90935